=== PATIENT | female | born 1945 | race Caucasian/White ===

== ENCOUNTER → 2018-08-20 12:40 | Outpatient (CLI) | payer MEDICARE, SELFPAY ==
--- NOTE | 2018-08-20 12:48 | RAD_ITS ---
STUDY: X-RAY - CERVICAL SPINE REASON FOR EXAM: Female, 73 years old. Left-sided neck pain and numbness in both hands. TECHNIQUE: History view(s) of the cervical spine were obtained. COMPARISON: None FINDINGS: Normal anterior atlantoaxial articulation. Normal odontoid process. Normal cervical lordosis. Moderate degree of disc space narrowing at the C5-C6 with minimal anterior spondylosis. Normal visualized intervertebral neuroforamina. The soft tissue structures are unremarkable. RAD/Cerv Spine 2 or 3 Views IMPRESSION: Disc space narrowing and spondylosis at the C5-C6 level. Electronically Signed: Doni Aguilar MD at 10:31 EST Tel [phone], Service support ,
== END ==
PROVIDERS: Family Provider Nurse Practitioner; PCP Nurse Practitioner; Referring Provider Internal Medicine; Visit Provider Internal Medicine
DX: M54.12 Radiculopathy, cervical region (principal)
CPT/HCPCS: 72040

== ENCOUNTER → 2018-11-05 10:42 | Outpatient (CLI) | payer MEDICARE, SELFPAY ==
--- NOTE | 2018-11-05 10:53 | BD_ITS ---
STUDY: DUAL ENERGY X-RAY ABSORPTIOMETRY / DXA REASON FOR EXAM: Female, 73 years old. The patient is postmenopausal. Loss of height. History of breast cancer. TECHNIQUE: Bone Mineral Density (BMD) measurements of lumbar spine and bilateral hips were obtained. COMPARISON: Comparison is made with prior study dated August 20, 2012. FINDINGS: Lumbar Spine (L1-L4): g/cm2 (1.086) / T-score (-0.7) / Z-score (1.0) Findings are suggestive of normal bone density with a low fracture risk. Left Femur Total: g/cm2 (0.891) / T-score (-0.9) / Z-score (0.6) Left Femoral Neck: g/cm2 (0.769) / T-score (-1.9) / Z-score (-0.2) Right Femur Total: g/cm2 (0.916) / T-score (-0.7) / Z-score (0.8) Right Femoral Neck: g/cm2 (0.838) / T-score (-1.4) / Z-score (0.3) The T-Scores on the most recent prior examination were: Lumbar Spine (L1-L4): There has been worsening of bone density since the previous examination. Left Femur Total: which represents a worsening of 12.2%. Right Femur Total: which represents a worsening of 6.1%. BD/Dexa Bone Density Study IMPRESSION: The patient is considered osteopenic as outlined below according to World [employer] Organization (WHO) criteria with a moderate fracture risk. There has been worsening of bone density since the previous examination. Reference Information: The T-score is the number of standard deviations above or below the standard which is normal for young adults at their peak bone mineral density. The World Health Organization (WHO) interprets the T-scores as follows: Above -1 Normal bone density Between -1 and -2.5 Osteopenia Equal to / or below -2.5 Osteoporosis As a practical clinical guideline, osteopenia may be graded as follows: Mild -1 through -1.5 Moderate -1.6 through -2.0 Severe -2.1 through -2.4 The Z-score is the number of standard deviations above or below age-matched controls. A Z-score of less than -1.5 would be considered abnormal. References: 1. NIH Osteoporosis and Related Bone Diseases http://www.osteo.org 2. International Society for Clinical Densitometry http://www.iscd.org 3. National Osteoporosis Foundation http://www.nof.org Electronically Signed: Doni Aguilar MD at 14:12 EST , Service support ,
== END ==
PROVIDERS: Family Provider Nurse Practitioner; PCP Nurse Practitioner; Referring Provider Internal Medicine; Visit Provider Internal Medicine
DX: Z78.0 Asymptomatic menopausal state (principal); Z12.31 Encounter for screening mammogram for malignant neoplasm of breast
CPT/HCPCS: 77080

== ENCOUNTER → 2018-12-17 12:37 | Outpatient (CLI) | payer MEDICARE, SELFPAY ==
--- NOTE | 2018-12-17 12:39 | BI_ITS ---
MAMMOGRAPHY - BILATERAL SCREENING REASON FOR EXAM: Female, 73 years old. Routine annual screening examination. PERTINENT HISTORY: Personal history of breast cancer. Prior left lumpectomy and radiation and chemotherapy. Mother with breast cancer. TECHNIQUE: Digital bilateral breast chandu (3D mammographic acquisition) in the CC and MLO projections. 2-D mediolateral oblique (MLO) and craniocaudad (CC) views of both breasts were obtained. CAD: Full Field Digital Mammography with Computer Added Detection was performed. COMPARISON: Comparison is made with prior study dated April 25, 2017 and February 04, 2016. FINDINGS: Breast Composition: There are scattered areas of fibroglandular density. There are no dominant masses or suspicious calcifications. There is evidence of prior left lumpectomy with resultant architectural distortion and dense calcification in the upper outer aspect of the left breast. The left breast is smaller than the right breast. Stable small right axillary lymph nodes. No other significant abnormalities are identified. There has been no significant change since the prior study. BI/SCREENING MAMM (CAD), BILAT IMPRESSION: Stable bilateral screening mammogram. Yearly follow-up mammogram recommended. (A) ASSESSMENT CATEGORY: BIRADS Category 2: Benign. A letter regarding these results will be sent to the patient by the facility within 30 days. Approximately 10% of breast cancers are not detected by mammography. A normal mammogram should not delay biopsy of a clinically suspicious abnormality. [id number] Electronically Signed: Doni Aguilar, at 14:30 EDT , Service support ,
== END ==
PROVIDERS: Family Provider Nurse Practitioner; PCP Nurse Practitioner; Referring Provider Internal Medicine; Visit Provider Internal Medicine
DX: Z12.31 Encounter for screening mammogram for malignant neoplasm of breast (principal)
CPT/HCPCS: 77063; 77067

== ENCOUNTER → 2020-03-29 | Outpatient (CLI) | payer MEDICARE, SELFPAY ==
--- NOTE | 2020-03-29 14:18 | BI_ITS ---
MAMMOGRAPHY - BILATERAL SCREENING REASON FOR EXAM: Female, 75 years old. Routine annual screening examination. PERTINENT HISTORY: Personal history of breast cancer. History of prior left lumpectomy and chemotherapy and radiation therapies. Mother with breast cancer. TECHNIQUE: Digital bilateral breast bassem (3D mammographic acquisition) in the CC and MLO projections. 2-D mediolateral oblique (MLO) and craniocaudad (CC) views of both breasts were obtained. CAD: Full Field Digital Mammography with Computer Added Detection was performed. COMPARISON: Comparison is made with prior examination December 17, 2018 and April 25, 2017. FINDINGS: Breast Composition: There are scattered areas of fibroglandular density. There are no dominant masses or suspicious calcifications. Stable densely calcified nodule at the operative site in the upper lateral portion of the left breast. Stable architectural distortion at the left lumpectomy site. Stable small bilateral axillary lymph nodes. No other significant abnormalities are identified. There has been no significant change since the prior study. BI/SCREEN MAMM (CAD) W/BASSEM BILAT IMPRESSION: Stable bilateral screening mammogram. Yearly follow-up mammogram recommended. (A) ASSESSMENT CATEGORY: BIRADS Category 2: Benign. A letter regarding these results will be sent to the patient by the facility within 30 days. Approximately 10% of breast cancers are not detected by mammography. A normal mammogram should not delay biopsy of a clinically suspicious abnormality. [id number] Electronically Signed: Doni Aguilar, at 15:14 EDT , Service support ,
== END | disposition home or self-care (01) ==
LOC: OPBI 14:16
PROVIDERS: PCP Nurse Practitioner; Referring Provider Internal Medicine; Visit Provider Internal Medicine
DX: Z12.31 Encounter for screening mammogram for malignant neoplasm of breast (principal)
CPT/HCPCS: 77063; 77067

== ENCOUNTER 2021-11-17 13:07 | Outpatient (CLI) | payer MEDICARE, SELFPAY ==
--- NOTE | 2021-11-17 13:12 | BI_ITS ---
MAMMOGRAPHY - BILATERAL SCREENING REASON FOR EXAM: Female, 76 years old. Routine annual screening examination. PERTINENT HISTORY: Personal history of breast cancer. Prior left lumpectomy with chemotherapy and radiation. Mother with breast cancer. TECHNIQUE: Digital bilateral breast bassem (3D mammographic acquisition) in the CC and MLO projections. 2-D mediolateral oblique (MLO) and craniocaudad (CC) views of both breasts were obtained. CAD: Full Field Digital Mammography with Computer Added Detection was performed. COMPARISON: Comparison is made with prior study dated 03/29/2020 and 12/17/2018. FINDINGS: Breast Composition: There are scattered areas of fibroglandular density. There are no dominant masses or suspicious calcifications. Stable densely calcified nodule in the upper lateral aspect of the left breast at the operative site with the resultant scarring. Stable architectural distortion secondary to the lumpectomy. No other significant abnormalities are identified. There has been no significant change since the prior study. BI/SCRN MAMM (CAD)W/BASSEM BILAT IMPRESSION: Stable bilateral screening mammogram. Yearly follow-up mammogram recommended. (A) ASSESSMENT CATEGORY: BIRADS Category 2: Benign. A letter regarding these results will be sent to the patient by the facility within 30 days. Approximately 10% of breast cancers are not detected by mammography. A normal mammogram should not delay biopsy of a clinically suspicious abnormality. [id number] Electronically Signed: Doni Aguilar MD at 14:36 EST ,
--- NOTE | 2021-11-17 13:20 | BD_ITS ---
STUDY: DUAL ENERGY X-RAY ABSORPTIOMETRY / DXA REASON FOR EXAM: Female, 76 years old. Z78.0. The patient''s post menopausal. TECHNIQUE: Bone Mineral Density (BMD) measurements of lumbar spine and bilateral hips were obtained. COMPARISON: Comparison is made with prior study dated 11/05/2018. FINDINGS: Lumbar Spine (L1-L4): g/cm2 (0.935) / T-score (-1.5) / Z-score (1.0) Findings are suggestive of osteopenia with a low fracture risk. Left Femur Total: g/cm2 (0.883) / T-score (-0.5) / Z-score (1.3) Left Femoral Neck: g/cm2 (0.689) / T-score (-1.4) / Z-score (0.6) Right Femur Total: g/cm2 (0.810) / T-score (-1.1) / Z-score (0.7) Right Femoral Neck: g/cm2 (0.612) / T-score (-2.1) / Z-score (-0.1) The T-Scores on the most recent prior examination were: Lumbar Spine (L1-L4): There has been improvement of bone density since the previous examination. Left Femur Total: which represents an improvement of 6.6%. Right Femur Total: which represents a worsening of 5%. BD/Dexa Bone Density Study IMPRESSION: The patient is considered osteopenic as outlined below according to World [employer] Organization (WHO) criteria with a high fracture risk. There has been improvement of bone density since the previous examination. Reference Information: The T-score is the number of standard deviations above or below the standard which is normal for young adults at their peak bone mineral density. The World Health Organization (WHO) interprets the T-scores as follows: Above -1 Normal bone density Between -1 and -2.5 Osteopenia Equal to / or below -2.5 Osteoporosis As a practical clinical guideline, osteopenia may be graded as follows: Mild -1 through -1.5 Moderate -1.6 through -2.0 Severe -2.1 through -2.4 The Z-score is the number of standard deviations above or below age-matched controls. A Z-score of less than -1.5 would be considered abnormal. References: 1. NIH Osteoporosis and Related Bone Diseases www osteo.org 2. International Society for Clinical Densitometry www iscd.org 3. National Osteoporosis Foundation www nof.org Electronically Signed: Doni Aguilar MD at 13:36 EST ,
== END 2021-11-17 23:59 | disposition home or self-care (01) ==
LOC: OPBI 13:09
PROVIDERS: PCP Nurse Practitioner; Visit Provider Internal Medicine
DX: Z12.31 Encounter for screening mammogram for malignant neoplasm of breast (principal); Z85.3 Personal history of malignant neoplasm of breast; Z78.0 Asymptomatic menopausal state
CPT/HCPCS: 77063; 77067; 77080

== ENCOUNTER → 2022-03-31 | Outpatient (CLI) | payer MEDICARE, SELFPAY ==
[2022-03-31 13:54] LABS: ALB/GLOB Ratio 1.2 RATIO (0.9-2.4); AST(SGOT) 21 U/L (15-37); Alanine Aminotransfer ALT/SGPT 30 U/L (13-56); Albumin, Serum 3.7 g/dL (3.2-5.0); Alkaline Phosphatase 97 U/L (45-117); Anion Gap 4 (5-15); BUN 21 mg/dL (7-18); BUN/Creat Ratio 26.9 RATIO (10-20); Calcium,Total 8.8 mg/dL (8.5-10.1); Chloride 108 mmol/L (98-107); Creatinine, Serum 0.78 mg/dL (0.55-1.02); EST Glomerular Filtration Rate 77 mL/min (>60); Est Glom Filt Rate - Afr Amer 93 mL/min (>60); Glucose 99 mg/dL (74-106); LDH 308 U/L (84-246); Potassium 3.8 mmol/L (3.5-5.1); Protein, Total 6.7 g/dL (6.4-8.2); Sodium Level 143 mmol/L (136-145)
[2022-03-31 14:01] LABS: Absolute Lymphocyte Count 0.95 X10^3/uL (0.83-4.51); Absolute Neutrophil Count 2.7 X10^3/uL (2.0-7.7); Basophil# 0.04 X10^3/uL; Eosinophil# 0.04 X10^3/uL; Hemoglobin 15.5 g/dL (12.0-15.0); Lymphocyte # 0.95 X10^3/ul (0.83-4.51); Lymphocyte % 23.2 % (19-41); Mean Corp Hgb Conc 33.7 g/dL (32-36); Mean Corpuscular Hgb 30.7 pg (27.0-32.0); Mean Corpuscular Volume 91.1 fL (81-99); Mean Platelet Vol. 10.6 fl (6.2-12.0); Monocyte# 0.36 X10^3/uL; Monocyte% 8.8 % (0-10); NRBC Flagged by Analyzer 0 % (0-5); Neutrophil # 2.69 X10^3/uL (2.7-7.7); Neutrophil % 65.8 % (47-70); Platelet Count 193 K/mm3 (150-450); RBC Distribution Width CV 12.6 % (11.6-14.6); RBC Distribution Width SD 42.1 fl (35.1-43.9); Red Blood Count 5.05 M/mm3 (4.2-5.4); White Blood Count 4.1 K/mm3 (4.4-11.0)
[2022-04-06 09:08] LABS: Albumin 3.7 g/dL (2.9-4.4); Alpha-1-Globulins 0.2 g/dL (0.0-0.4); Alpha-2-Globulins 0.6 g/dL (0.4-1.0); Gamma Globulin 0.8 g/dL (0.4-1.8); Immunoglobulin A 95 mg/dL (64-422); Immunoglobulin G 836 mg/dL (586-1602); Immunoglobulin M 98 mg/dL (26-217); PROEL- TOTAL PROTEIN 6.1 g/dL (6.0-8.5)
[2022-04-06 10:56] LABS: IMMUNOFIXATION RESULT,S Comment: (.)
== END | disposition home or self-care (01) ==
PROVIDERS: PCP Internal Medicine
DX: D89.1 Cryoglobulinemia (principal)
CPT/HCPCS: 36415; 80053; 82595; 82784; 83615; 84165; 85025; 86334

== ENCOUNTER → 2022-07-12 | Outpatient (CLI) | payer MEDICARE, SELFPAY ==
--- NOTE | 2022-07-12 12:55 | RAD_ITS ---
STUDY: X-RAY - PELVIS REASON FOR EXAM: Female, 77 years old. ARTHRITITS TECHNIQUE: One view of the pelvis was obtained. COMPARISON: None. FINDINGS: There is a non-specific bowel gas pattern. Normal visualized soft tissue structures. Normal bilateral iliac wings, sacroiliac joints and visualized sacrum. Normal visualized bilateral superior and inferior pubic rami. Mild osteitis symphysis. Normal ischial tuberosities. Normal visualized right femoral head. Normal right acetabulum. Mild joint space narrowing. Normal visualized left femoral head. Normal left acetabulum. Mild joint space narrowing. Moderate degenerative disc disease L3-S1. RAD/Pelvis 1 or 2 Views IMPRESSION: Mild bilateral hip osteoarthritis. Moderate degenerative disc disease L3-S1. Mild osteitis symphysis. Electronically Signed: Walter Funez MD, LIVIA at 16:56 EDT ,
--- NOTE | 2022-07-12 12:56 | RAD_ITS ---
STUDY: X-RAY - LEFT KNEE REASON FOR EXAM: Female, 77 years old. ARTHRITITS TECHNIQUE: 4 view(s) of the knee. COMPARISON: None. FINDINGS: Severe joint space narrowing medial compartment. Moderate joint space narrowing lateral patellofemoral compartments. Moderate osteophytic spurring upper pole of patella posteriorly. Mild osteophytic spurring peripherally at medial and lateral compartments. Soft tissues normal. RAD/Knee 4 or More Views IMPRESSION: Osteoarthritis as above. Electronically Signed: Walter Funez MD, LIVIA at 16:57 EDT ,
--- NOTE | 2022-07-12 12:56 | RAD_ITS ---
STUDY: X-RAY - RIGHT KNEE REASON FOR EXAM: Female, 77 years old. ARTHRITITS TECHNIQUE: 4 view(s) of the knee. COMPARISON: 08/14/2016 FINDINGS: Severe tricompartmental joint space narrowing progressive. Moderate osteophytic spurring at the periphery of all 3 compartments. There are 2 loose bodies in the suprapatellar bursa measuring 7 and 4 mm in maximal dimension each. These are new since the prior study.. RAD/Knee 4 or More Views IMPRESSION: Osteoarthritis detailed above. Electronically Signed: Walter Funez MD, LIVIA at 14:19 EDT ,
[2022-07-12 13:31] LABS: Absolute Lymphocyte Count 1.66 X10^3/uL (0.83-4.51); Absolute Neutrophil Count 4.3 X10^3/uL (2.0-7.7); Basophil# 0.06 X10^3/uL; Basophil% 0.9 % (0-1); Eosinophil# 0.21 X10^3/uL; Eosinophils% 3.1 % (0-5); Hematocrit 44.7 % (37-47); Hemoglobin 14.7 g/dL (12.0-15.0); Lymphocyte # 1.66 X10^3/ul (0.83-4.51); Lymphocyte % 24.3 % (19-41); Mean Corp Hgb Conc 32.9 g/dL (32-36); Mean Corpuscular Volume 91.2 fL (81-99); Mean Platelet Vol. 10.7 fl (6.2-12.0); Monocyte# 0.51 X10^3/uL; Monocyte% 7.5 % (0-10); NRBC Flagged by Analyzer 0 % (0-5); Neutrophil # 4.32 X10^3/uL (2.7-7.7); Neutrophil % 63.2 % (47-70); Platelet Count 227 K/mm3 (150-450); RBC Distribution Width CV 12.1 % (11.6-14.6); RBC Distribution Width SD 40.1 fl (35.1-43.9); White Blood Count 6.8 K/mm3 (4.4-11.0)
[2022-07-12 13:58] LABS: ALB/GLOB Ratio 1.1 RATIO (0.9-2.4); AST(SGOT) 20 U/L (15-37); Alanine Aminotransfer ALT/SGPT 27 U/L (13-56); Albumin, Serum 3.6 g/dL (3.2-5.0); Alkaline Phosphatase 81 U/L (45-117); Anion Gap 4 (5-15); BUN 27 mg/dL (7-18); BUN/Creat Ratio 27.1 RATIO (10-20); Chloride 107 mmol/L (98-107); EST Glomerular Filtration Rate 58 mL/min (>60); Est Glom Filt Rate - Afr Amer 70 mL/min (>60); Globulin 3.3 g/dL (2.2-4.2); Glucose 93 mg/dL (74-106); Protein, Total 6.9 g/dL (6.4-8.2); Sodium Level 141 mmol/L (136-145)
[2022-07-12 14:13] LABS: Erythrocyte Sedimentation Rate 10 mm/hr (0-30)
[2022-07-12 14:34] LABS: Hepatitis B Surface Antigen Non-Reactive (Nonreactive); Hepatitis C Antibody Non-Reactive (Nonreactive)
[2022-07-15 09:43] LABS: CCP IgG Antibodies 9 units (0-19)
[2022-07-15 09:48] LABS: ANTINUCLEAR ANTIBODIES DIRECT Positive (Negative)
== END | disposition home or self-care (01) ==
LOC: LAB 12:43
PROVIDERS: PCP Internal Medicine; Referring Provider Internal Medicine Rheumatology; Visit Provider Internal Medicine Rheumatology
DX: M06.4 Inflammatory polyarthropathy (principal); D89.1 Cryoglobulinemia; M17.0 Bilateral primary osteoarthritis of knee; M16.0 Bilateral primary osteoarthritis of hip; Z85.3 Personal history of malignant neoplasm of breast; Z79.899 Other long term (current) drug therapy
CPT/HCPCS: 36415; 72170; 73564; 80053; 85025; 85652; 86038; 86140; 86200; 86431; 86803; 87340

== ENCOUNTER → 2022-10-25 | Outpatient (CLI) | payer MEDICARE, SELFPAY ==
[2022-10-25 12:17] LABS: Absolute Lymphocyte Count 1.65 X10^3/uL (0.83-4.51); Absolute Neutrophil Count 2.6 X10^3/uL (2.0-7.7); Basophil# 0.07 X10^3/uL; Basophil% 1.4 % (0-1); Eosinophil# 0.15 X10^3/uL; Eosinophils% 2.9 % (0-5); Hematocrit 43.3 % (37-47); Hemoglobin 13.9 g/dL (12.0-15.0); Lymphocyte # 1.65 X10^3/ul (0.83-4.51); Mean Corp Hgb Conc 32.1 g/dL (32-36); Mean Corpuscular Hgb 30.4 pg (27.0-32.0); Mean Corpuscular Volume 94.7 fL (81-99); Mean Platelet Vol. 10.2 fl (6.2-12.0); Monocyte# 0.68 X10^3/uL; Monocyte% 13.2 % (0-10); NRBC Flagged by Analyzer 0 % (0-5); Neutrophil # 2.59 X10^3/uL (2.7-7.7); Neutrophil % 50.3 % (47-70); Platelet Count 221 K/mm3 (150-450); RBC Distribution Width CV 12.9 % (11.6-14.6); RBC Distribution Width SD 44.6 fl (35.1-43.9); Red Blood Count 4.57 M/mm3 (4.2-5.4); White Blood Count 5.2 K/mm3 (4.4-11.0)
[2022-10-25 12:53] LABS: ALB/GLOB Ratio 1.1 RATIO (0.9-2.4); AST(SGOT) 23 U/L (15-37); Alanine Aminotransfer ALT/SGPT 39 U/L (13-56); Albumin, Serum 3.3 g/dL (3.2-5.0); Alkaline Phosphatase 75 U/L (45-117); Anion Gap 3 (5-15); BUN 35 mg/dL (7-18); BUN/Creat Ratio 35.7 RATIO (10-20); Calcium,Total 9.1 mg/dL (8.5-10.1); Chloride 108 mmol/L (98-107); Creatinine, Serum 0.98 mg/dL (0.55-1.02); EST Glomerular Filtration Rate 59 mL/min (>60); Est Glom Filt Rate - Afr Amer 71 mL/min (>60); Globulin 2.9 g/dL (2.2-4.2); Glucose 78 mg/dL (74-106); Potassium 4.5 mmol/L (3.5-5.1); Protein, Total 6.2 g/dL (6.4-8.2); Sodium Level 143 mmol/L (136-145)
== END | disposition home or self-care (01) ==
LOC: MTLAB 11:03
PROVIDERS: PCP Internal Medicine; Referring Provider Internal Medicine Rheumatology; Visit Provider Internal Medicine Rheumatology
DX: M06.4 Inflammatory polyarthropathy (principal); G62.0 Drug-induced polyneuropathy; I73.9 Peripheral vascular disease, unspecified; D89.1 Cryoglobulinemia; M19.041 Primary osteoarthritis, right hand; M17.0 Bilateral primary osteoarthritis of knee; M16.0 Bilateral primary osteoarthritis of hip; I10 Essential (primary) hypertension; I89.0 Lymphedema, not elsewhere classified; I87.2 Venous insufficiency (chronic) (peripheral); M85.80 Other specified disorders of bone density and structure, unspecified site; Z85.3 Personal history of malignant neoplasm of breast; Z79.899 Other long term (current) drug therapy
CPT/HCPCS: 36415; 80053; 85025

== ENCOUNTER → 2023-03-06 | Outpatient (CLI) | payer MEDICARE, SELFPAY ==
--- NOTE | 2023-03-06 07:37 | BI_ITS ---
MAMMOGRAPHY - BILATERAL SCREENING REASON FOR EXAM: Female, 78 years old. Routine annual screening examination. PERTINENT HISTORY: Mother with breast cancer. Personal history of breast cancer status post lumpectomy and chemoradiation in 1994. TECHNIQUE: Digital bilateral breast bassem (3D mammographic acquisition) in the CC and MLO projections. 2-D mediolateral oblique (MLO) and craniocaudad (CC) views of both breasts were obtained. CAD: Full Field Digital Mammography with Computer Added Detection was performed. COMPARISON: Mammogram from 11/17/2021, 03/29/2020. FINDINGS: Breast Composition: There are scattered areas of fibroglandular density. Stable dystrophic benign macrocalcifications and architectural distortion associated with prior lumpectomy in the left breast. No suspicious masses or suspicious calcifications. No other significant abnormalities are identified. There has been no significant change since the prior study. BI/SCRN MAMM (CAD)W/BASSEM BILAT IMPRESSION: Stable bilateral screening mammogram. Yearly follow-up mammogram recommended. (A) ASSESSMENT CATEGORY: BIRADS Category 2: Benign. A letter regarding these results will be sent to the patient by the facility within 30 days. Approximately 10% of breast cancers are not detected by mammography. A normal mammogram should not delay biopsy of a clinically suspicious abnormality. Electronically Signed: Raghu Smith DO at 14:50 EDT ,
== END | disposition home or self-care (01) ==
LOC: OPBI 07:36
PROVIDERS: PCP Internal Medicine; Referring Provider Internal Medicine; Visit Provider Internal Medicine
DX: Z12.31 Encounter for screening mammogram for malignant neoplasm of breast (principal); Z85.3 Personal history of malignant neoplasm of breast; Z80.3 Family history of malignant neoplasm of breast
CPT/HCPCS: 77063; 77067

== ENCOUNTER → 2023-03-15 | Outpatient (CLI) | payer MEDICARE, SELFPAY ==
[2023-03-15 10:24] LABS: Absolute Lymphocyte Count 0.94 X10^3/uL (0.83-4.51); Basophil# 0.03 X10^3/uL; Basophil% 0.9 % (0-1); Eosinophil# 0.09 X10^3/uL; Eosinophils% 2.6 % (0-5); Hematocrit 41.4 % (37-47); Hemoglobin 13.7 g/dL (12.0-15.0); Lymphocyte # 0.94 X10^3/ul (0.83-4.51); Lymphocyte % 26.9 % (19-41); Mean Corp Hgb Conc 33.1 g/dL (32-36); Mean Corpuscular Hgb 31.2 pg (27.0-32.0); Mean Corpuscular Volume 94.3 fL (81-99); Mean Platelet Vol. 10.7 fl (6.2-12.0); Monocyte# 0.42 X10^3/uL; NRBC Flagged by Analyzer 0 % (0-5); Neutrophil # 2.01 X10^3/uL (2.7-7.7); Neutrophil % 57.3 % (47-70); Platelet Count 166 K/mm3 (150-450); RBC Distribution Width CV 12.7 % (11.6-14.6); RBC Distribution Width SD 43.2 fl (35.1-43.9); Red Blood Count 4.39 M/mm3 (4.2-5.4); White Blood Count 3.5 K/mm3 (4.4-11.0)
[2023-03-15 10:56] LABS: ALB/GLOB Ratio 1.1 RATIO (0.9-2.4); AST(SGOT) 27 U/L (15-37); Alanine Aminotransfer ALT/SGPT 29 U/L (13-56); Albumin, Serum 3.5 g/dL (3.2-5.0); Alkaline Phosphatase 82 U/L (45-117); Anion Gap 5 (5-15); BUN 24 mg/dL (7-18); BUN/Creat Ratio 27.8 RATIO (10-20); Calcium,Total 8.9 mg/dL (8.5-10.1); Chloride 110 mmol/L (98-107); Creatinine, Serum 0.86 mg/dL (0.55-1.02); EST Glomerular Filtration Rate 68 mL/min (>60); Est Glom Filt Rate - Afr Amer 82 mL/min (>60); Globulin 3.1 g/dL (2.2-4.2); Glucose 80 mg/dL (74-106); Protein, Total 6.6 g/dL (6.4-8.2); Sodium Level 142 mmol/L (136-145)
== END | disposition home or self-care (01) ==
LOC: MTLAB 09:10
PROVIDERS: PCP Internal Medicine; Referring Provider Internal Medicine Rheumatology; Visit Provider Internal Medicine Rheumatology
DX: M06.4 Inflammatory polyarthropathy (principal); Z79.899 Other long term (current) drug therapy
CPT/HCPCS: 36415; 80053; 85025

== ENCOUNTER → 2023-08-16 | Outpatient (CLI) | payer MEDICARE, SELFPAY ==
--- NOTE | 2023-08-16 12:38 | CDU_ITS ---
Reason For Study: PVD Rt. Velocities/BP Lt. Velocities/BP Prox CCA 63.6/9.7 cm/sec. Prox CCA 68.3/16.7 cm/sec. Mid CCA 102.8/20.6 cm/sec. Mid CCA 79.3/19.2 cm/sec. Dist CCA 99.2/9.7 cm/sec. Dist CCA 75.6/17.9 cm/sec. Prox ICA 74.4/18.6 cm/sec. Prox ICA 74.4/20.4 cm/sec. Mid ICA 48.9/18.7 cm/sec. Mid ICA 89.1/24.1 cm/sec. Dist ICA 65.7/26.1 cm/sec. Dist ICA 80.6/17.9 cm/sec. Rt. ICA/CCA = 0.7. Lt. ICA/CCA = 1.1. Prox ECA 78.7/8.8 cm/sec. Prox ECA 67.6/6.2 cm/sec. Rt. Vert. 42.8/12.6 cm/sec. Lt. Vert. 54.8/16.7 cm/sec. Right Extracranial There is homogeneous, smooth atherosclerotic plaque noted in the right common carotid artery. The right common carotid artery is tortuous. There is heterogeneous, irregular atherosclerotic plaque noted in the right internal carotid artery. The right internal carotid artery is very tortuous. There is homogeneous, smooth atherosclerotic plaque noted in the right external carotid artery. Antegrade flow is noted in the right vertebral artery. Left Extracranial There is homogeneous, smooth atherosclerotic plaque noted in the left common carotid artery. There is homogeneous, smooth atherosclerotic plaque noted in the left internal carotid artery. The left internal carotid artery is very tortuous. There is intimal thickening but no significant atherosclerotic plaque noted in the left external carotid artery. Antegrade flow is noted in the left vertebral artery. Procedure Carotid Duplex [id number]. This is a Carotid Duplex examination using B-mode, color flow and specral Doppler. The exam was diagnostic. Exam performed in department. VL/Carotid Duplex Ultrasound Interpretation Summary Minimal plaque within the right internal carotid artery with tortuosity noted. Less than 50% stenosis of the right internal carotid artery Less than 50% stenosis right external carotid artery Minimal smooth plaque within a tortuous left internal carotid artery with less than 50% stenosis Less than 50% stenosis left external carotid artery Patent antegrade vertebral arteries bilaterally Ordering Physician: Margoth De Anda Referring Physician: Margoth De Anda Performed By: Suhail Angeles RVT
--- NOTE | 2023-08-16 12:38 | ART_ITS ---
Reason For Study: PVD Procedure A bilateral lower extremity continuous wave Doppler with analog waveform analysis and ankle brachial indexes. Left Segmental Pressures Left posterior tibial artery = 199mmHg. Left dorsalis pedis artery = 174mmHg. Left digit = 121 mmHg. The left posterior tibial artery waveforms are triphasic. The left dorsalis pedis waveforms are triphasic. Right Segmental Pressures Right brachial= 152mmHg. Right posterior tibial artery = 190mmHg. Right dorsalis pedis artery = 169mmHg. Right digit = 122 mmHg. The right posterior tibial artery waveforms are triphasic. The right dorsalis pedis waveforms are triphasic. Indices The right ankle brachial index by the posterior tibial artery is 1.25. The right ankle brachial index by the dorsalis pedis is 1.11. The right digital-brachial index is 0.80. The left ankle brachial index by the posterior tibial artery is 1.31. The left ankle brachial index by the dorsalis pedis is 1.14. The left digital-brachial index is 0.80. VL/Ankle Brachial Index Interpretation Summary Normal right lower extremity posterior tibialis and dorsalis pedis ankle-brachi al indices of 1.25 and 1.11 respectively with normal digital brachial index of 0.8. Normal triphas ic Doppler waveforms Normal left lower extremity posterior tibialis and dorsalis pedis ankle-brachia l indices of 1.31 and 1.14 respectively with normal left digital brachial index of 0.8. Normal tripha sic Doppler waveforms Ordering Physician: Margoth Pace Referring Physician: MARGOTH PACE MD Performed By: Suhail Angeles RVT
== END | disposition home or self-care (01) ==
LOC: CVS 12:36
PROVIDERS: PCP Internal Medicine; Referring Provider Internal Medicine; Visit Provider Internal Medicine
DX: I65.23 Occlusion and stenosis of bilateral carotid arteries (principal); I73.9 Peripheral vascular disease, unspecified
CPT/HCPCS: 93880; 93922

== ENCOUNTER → 2023-08-31 | Outpatient (CLI) | payer MEDICARE, SELFPAY ==
--- NOTE | 2023-08-31 06:38 | ECHOD_ITS ---
Reason For Study: SOB Procedure This was a 2D Doppler, Color Flow transthoracic echocardiogram. Myocardial strain analysis was performed in this exam to aid in the assessment of cardiac function. Exam performed in department. Left Ventricle Normal LV size. The estimated ejection fraction is 65 %. No evidence for diastolic dysfunction. No regional wall motion abnormalities noted. Right Ventricle Normal RV size. Normal systolic function. Atria Normal left atrium. Normal right atrium. No doppler evidence for ASD. Mitral Valve There is no mitral valve stenosis. Trivial mitral valve insufficiency. Tricuspid Valve There is no tricuspid stenosis. Trivial tricuspid valve insufficiency. Pulmonary artery systolic pressure is 30 mmHg. Aortic Valve Trisinus/trileaflet aortic valve. Aortic sclerosis, no stenosis. There is no aortic stenosis. No aortic valve insufficiency. Pulmonic Valve There is no pulmonic valvular stenosis. No pulmonic valve insufficiency. Great Vessels Normal aortic root. Pericardium/Pleural No pericardial effusion. MMode/2D Measurements & Calculations LVIDd: 4.5 cm IVSd: 1.2 cm Ao root diam: 3.3 cm LVIDs: 2.6 cm LVPWd: 1.1 cm RVDd: 3.6 cm FS: 41.6 % LAV(MOD-bp): 52.7 ml LVAd ap4: 25.1 cm2 SV(MOD-sp4): 51.3 ml LAV(MOD-bp) Indexed: 27.0 ml/m2 LVLd ap4: 6.8 cm LAV(MOD-sp2): 41.9 ml EDV(MOD-sp4): 76.0 ml LAV(MOD-sp4): 56.5 ml EDV(sp4-el): 78.5 ml LVAs ap4: 12.4 cm2 LVLs ap4: 5.4 cm ESV(MOD-sp4): 24.7 ml ESV(sp4-el): 24.2 ml EF(MOD-sp4): 67.5 % EF(sp4-el): 69.1 % SV(sp4-el): 54.3 ml LA A4 area: 19.6 cm2 LA dimension(2D): 3.4 cm RA A4 area: 11.9 cm2 TAPSE: 2.5 cm Time Measurements MV dec time: 0.24 sec Doppler Measurements & Calculations MV E max salas: 85.6 cm/sec Lat Peak E' Salas: 6.9 cm/sec Med Peak E' Salas: 5.5 cm/sec MV A max salas: 91.9 cm/sec E/E' lat: 12.5 E/E' med: 15.7 MV E/A: 0.93 Ao V2 max: 191.9 cm/sec LV V1 max: 106.3 cm/sec MV dec slope: 363.1 cm/sec2 Ao max P.7 mmHg LV V1 max P.5 mmHg Ao V2 mean: 122.3 cm/sec Ao mean P.1 mmHg Ao V2 VTI: 51.4 cm PA V2 max: 73.8 cm/sec TR max salas: 245.4 cm/sec TR max P.1 mmHg ECHO/Echo Complete Interpretation Summary The estimated ejection fraction is 65 %. No evidence for diastolic dysfunction. Trivial mitral valve insufficiency. Ordering Physician: Margoth De Anda Referring Physician: Margoth De Anda Performed By: Bianca Stewart, RDCS, RVT
--- NOTE | 2023-09-02 16:07 | STRESSREP ---
Stress Test Report Date: 08/31/2023 Procedure: Pharmacologic stress nuclear imaging study Indications: Dyspnea Consent: Per the patient Procedure: The patient underwent pharmacologic (Regadenoson) evaluation with a peak heart rate of 64 beats per minute (44%predicted maximal heart rate) and a peak blood pressure of 132/70 mmHg. The baseline ECG demonstrated normal sinus rhythm. EKG during lexiscan infusion revealed no significant ischemic changes. EKG post infusion revealed no significant ischemic changes [There were no cardiac dysrhythmias pretest, during pharmacologic infusion, or recovery]. [There was no complaint of chest discomfort during pharmacologic infusion or recovery]. The examination was discontinued secondary to completion of protocol. Impression: 1. Lexiscan stress test test is negative for Lexiscan infusion induced EKG changes of ischemia. 2. Lexiscan stress test test is negative for Lexiscan infusion induced chest pain. 3. Results of the nuclear portion of the test is as below Myocardial perfusion imaging study: Technique: The patient was injected with [] millicuries of technetium 99m Cardiolite and subsequently rest SPECT Cardiolite nuclear imaging was obtained in the horizontal long, vertical long, and short axis views. The patient underwent pharmacologic [Regadenoson 0.4mg] evaluation. Please see above for details. The patient was injected with [] millicuries of technetium 99m Cardiolite and subsequently stress SPECT Cardiolite nuclear imaging was obtained in the horizontal long, vertical long, and short axis views. A gated Cardiolite study at peak stress was obtained. Interpretation: Rest and stress SPECT Cardiolite nuclear imaging status post realignment, normalization, and attenuation correction demonstrate uniform myocardial radioisotope uptake between the rest and stress images. There is no definite evidence of significant ischemia or infarction. Gated images reveal no significant regional wall motion abnormalities. The reported LVEF is 69%. Impression: 1. No evidence of significant ischemia or infarction 2. Estimated ejection fraction is 69%. This note was generated with [employer] software. It may contain incorrect words, spelling, and punctuation that were not noted in checking the note before signing.
== END | disposition home or self-care (01) ==
LOC: CVS 06:32
PROVIDERS: PCP Internal Medicine; Referring Provider Internal Medicine; Visit Provider Internal Medicine
DX: R06.02 Shortness of breath (principal); R68.89 Other general symptoms and signs
CPT/HCPCS: 78452; 93017; 93306; A9500; A4216; J2785

== ENCOUNTER → 2023-09-13 | Outpatient (CLI) | payer MEDICARE, SELFPAY ==
--- OUTSIDE RECORDS SUMMARY | 2023-09-13 13:44 | XMS RPT_ITS | CCD ---
Author Name Unknown Address [address] [place] [address] Organization [facility] Care Team Providers Care Bus Attendant Name Role Phone Margoth Pace Unavailable [facility], [facility] Unavailable Jameel Araya Unavailable Domo Vazquez Unavailable [phone] Marie Mercado Unavailable Unavailable Olivia Holloway Unavailable Unavailable Manchahenrietta, Dione Unavailable Unavailable Unavailable Unavailable Margoth Pace Unavailable [facility], [facility] Unavailable Jameel Araya Unavailable Domo Vazquez Unavailable Gravius, Deysi Unavailable Unavailable Olivia Holloway Unavailable Unavailable Manchak, Dione Unavailable Unavailable Unavailable Unavailable Jero Guzman Unavailable Unavailable Gravius, Deysi Unavailable Unavailable Olivia Saul Unavailable Unavailable Manchak, Dione Unavailable Unavailable Messenger Olivia Unavailable Unavailable Roxanne, Lisa Unavailable Unavailable Jero Guzman Unavailable Unavailable Margoth Pace DO Unavailable [facility], [facility] Unavailable Dr. Jameel Araya Unavailable [phone] Domo Vazquez Unavailable Manlaura DOBBS, Dione Unavailable Unavailable Ro Nielsen MD Unavailable Olivia Holloway RN Unavailable Unavailable RAQUEL Prince LPN Unavailable Unavailable Jeor Mercado LPN Unavailable Unavailable Unavailable Unavailable Kalin RN, Brice (Rn) Unavailable Unavailab Margoth Whitmore DO Primary Care Provider Margoth Pace DO Unavailable Fast DO, Onelia A Unavailable Gravius BUS ATTENDANT, Deysi Unavailable Unavailable Slarb BURRER OPERATOR, Kaur Unavailable Unavailable Gia LOW, Ro Crane Unavailable Liyah , Burt Unavailable Brown BUS ATTENDANT, Kayela Unavailable Unavailable Unavailable Unavailable Roxanne BURRER OPERATOR, Lisa Unavailable Unavailable Mary COREY, Karolina Unavailable Unavailable Babatunde FRANCO, Hope Unavailable Margoth Pace DO Attending Unavailable Connie Kwok Referring Unavailable Margoth Pace DO Consulting Unavailable Kalin MOY, Brice (Rn) Unavailable Unavailab Margoth Whitmore DO Primary Care Provider Margoth Pace DO Primary Care Provider MISBAH PATTERSON Referring Unavailable MARGOTH PACE Primary Care Unavailab inocente Gagnon RN, Brice (Rn) Unavailable Unavailab Shauna Franz Unavailable MISBAH PATTERSON Attending Unavailable ROSI MATOS Referring Unavailable MARGOTH PACE Primary Care Unavailab ROSI Slade Referring Unavailable MARGOTH PACE Primary Care Unavailab le Allergies Allergy Classification Reported Allergen(s) Allergy Type Date of Onset Reaction(s) Facility (20 sources) Penicillins; Translations: [Penicillins] allergy to substance [facility] Work Phone: Medications Completed/Discontinued Medications Medication Drug Class(es) Dates Sig (Normalized) Sig (Original) 0.9% NaCl (13 sources) Start: 03-15-2012 0.9% NaCl Inject 10-20 mL intravenously as needed. 1 Syringe 0 03/15/2012 Active Problems Active Problems Problem Classification Problem Date Documented Da te Episodic/Chronic Administrative/social admission (20 sources) Medical examinations/repo rts status; Translations: [Counseling procedure with explicit context] Resolved: 10-09-2013 07-30-2015 Episodic Past or Other Problems Problem Classification Problem Date Documented Date Episodic/Chronic Bacterial infection; unspecified site (1 source) Bacterial upper respiratory infection; Translations: [Bacterial sinusitis] Resolved: 07-23-2017 07-23-2017 Episodic Headache; including migraine (20 sources) Headache; including migraine Other aftercare (13 sources) Drug therapy finding; Translations: [Other alf (current) drug therapy] Onset: 04-19-2017 04-19-2017 Episodic Other aftercare (13 sources) Long-term current use of immunosuppressive drug; Translations: [Other marine oil terminal superintendent (current) drug therapy] Onset: 03-06-2019 03-06-2019 Episodic Other connective tissue disease (13 sources) H/O: arthritis; Translations: [Personal history of other diseases of the musculoskeletal system and connective tissue] Onset: 03-06-2019 03-06-2019 Episodic Other non-traumatic joint disorders (4 sources) Pain in right knee; Translations: [Right knee pain] Resolved: 04-25-2017 07-23-2017 Results Test Name Value Interpretation Reference Range Facil ity Vital Signs Date Time Vital Sign Value Performing Clinician Facility 04-03-2023 10:23-0400 Body temperature 97.9 [degF] Misbah Patterson APRN.ROCKET MOTOR MECHANIC Work Phone: [facility] 04-03-2023 10:23-0400 Body weight 93.53 kg Misbah Patterson APRN.ROCKET MOTOR MECHANIC Work Phone: [facility] 04-03-2023 10:23-0400 Diastolic blood pressure 73 mm[Hg] Misbah Patterson CHAIR CAR ATTENDANT.ROCKET MOTOR MECHANIC Work Phone: [facility] 04-03-2023 10:23-0400 Heart rate 64 /min Misbah Patterson CHAIR CAR ATTENDANT.ROCKET MOTOR MECHANIC Work Phone: [facility] 04-03-2023 10:23-0400 Respiratory rate 18 /min Misbah Patterson APRN.ROCKET MOTOR MECHANIC Work Phone: [facility] 04-03-2023 10:23-0400 Systolic blood pressure 168 mm[Hg] Misbah Patterson CHAIR CAR ATTENDANT.ROCKET MOTOR MECHANIC Work Phone: [facility] 02-28-2023 08:59-0400 Body height 165.1 cm Kaur Malagon BURRER OPERATOR [facility]; [facility] Work Phone: 02-28-2023 08:59-0400 Body mass index (BMI) [Ratio] 34.51 kg/m2 Kaur Malagon BURRER OPERATOR [facility]; [facility] Work Phone: 02-28-2023 08:59-0400 Body surface area Derived from formula 2.01 m2 Kaur Malagon BURRER OPERATOR [facility]; [facility] Work Phone: 02-28-2023 08:59-0400 Body temperature 96.1 [degF] Kaur Malagon BURRER OPERATOR [facility]; [facility] Work Phone: Encounters Encounter Date Encounter Type Care Provider Facility Start: 05-15-2023 Telephone encounter Rosi Mtaos DO Work Phone: Hematology/Oncology Procedures Date Procedure Procedure Detail Performing Clinician Start: 03-06-2023 End: 03-07-2023 SCRN MAMM (CAD)W/BASSEM BILAT Procedure Note: See Note; NOTES: [facility] Imaging Services [address] [place] [address] SCRN MAMM (CAD)W/BASSEM BILAT MR#: [id number] Acct: [id number] Name: SENTHIL CAPONE Rep #: [id number] : 1945 F 78 From: Raghu Smith DO PCP: Dr. Margoth Pace, Status: REG CLI Study: SCRN MAMM (CAD)W/BASSEM BILAT Date of Exam: 02/16 Exam# [id number] Ordering Dr: Margoth Pace DO MAMMOGRAPHY - BILATERAL SCREENING REASON FOR EXAM: Female, 78 years old. Routine annual screening examination. PERTINENT HISTORY: Mother with breast cancer. Personal history of breast cancer status post lumpectomy and chemoradiation in 1994. TECHNIQUE: Digital bilateral breast bassem (3D mammographic acquisition) in the CC and MLO projections. 2-D mediolateral oblique (MLO) and craniocaudad (CC) views of both breasts were obtained. CAD: Full Field Digital Mammography with Computer Added Detection was performed. COMPARISON: Mammogram from 11/17/2021, 03/29/2020. FINDINGS: Breast Composition: There are scattered areas of fibroglandular density. Stable dystrophic benign macrocalcifications and architectural distortion associated with prior lumpectomy in the left breast. No suspicious masses or suspicious calcifications. No other significant abnormalities are identified. There has been no significant change since the prior study. BI/SCRN MAMM (CAD)W/BASSEM BILAT IMPRESSION: Stable bilateral screening mammogram. Yearly follow-up mammogram recommended. (A) ASSESSMENT CATEGORY: BIRADS Category 2: Benign. A letter regarding these results will be sent to the patient by the facility within 30 days. Approximately 10% of breast cancers are not detected by mammography. A normal mammogram should not delay biopsy of a clinically suspicious abnormality. Electronically Signed: Raghu Smith DO at 14:50 EDT Reading Location ID and State: [address] [place] [address] Tel , Service support , CC: Dr. Margoth Pace DO Bellman Captain: Signed Margoth Pace DO Work Phone: Start: 07-12-2022 End: 07-12-2022 Knee 4 or More Views Procedure Note: See Note; NOTES: [facility] Imaging Services [address] [place] [address] Knee 4 or More Views MR#: [id number] Acct: [id number] Name: SENTHIL CAPONE Rep #: [id number] : 1945 F 77 From: Walter Funez MD PCP: Dr. Margoth Pace DO Status: REG CLI Study: Knee 4 or More Views Date of Exam: 07/12/22 Exam# [id number] Ordering Dr: Shauna Guallpa MD STUDY: X-RAY - RIGHT KNEE REASON FOR EXAM: Female, 77 years old. ARTHRITITS TECHNIQUE: 4 view(s) of the knee. COMPARISON: 08/14/2016 FINDINGS: Severe tricompartmental joint space narrowing progressive. Moderate osteophytic spurring at the periphery of all 3 compartments. There are 2 loose bodies in the suprapatellar bursa measuring 7 and 4 mm in maximal dimension each. These are new since the prior study.. RAD/Knee 4 or More Views IMPRESSION: Osteoarthritis detailed above. Electronically Signed: Walter Funez MD, LIVIA at 14:19 EDT Reading Location ID and State: [facility] / [place] Tel , Service support , CC: Dr. Margoth Pace DO; Dr. Shauna Guallpa MD Bellman Captain: Signed aMrgoth Pace DO Work Phone: Start: 07-12-2022 End: 07-12-2022 Pelvis 1 or 2 Views Procedure Note: See Note; NOTES: [facility] Imaging Services [address] [place] [address] Pelvis 1 or 2 Views MR#: [id number] Acct: [id number] Name: SENTHIL CAPONE Rep #: [id number] : 1945 F 77 From: Walter Funez MD PCP: Dr. Margoth Pace DO Status: REG CLI Study: Pelvis 1 or 2 Views Date of Exam: 07/12/22 Exam# [id number] Ordering Dr: Shauna Guallpa MD STUDY: X-RAY - PELVIS REASON FOR EXAM: Female, 77 years old. ARTHRITITS TECHNIQUE: One view of the pelvis was obtained. COMPARISON: None. FINDINGS: There is a non-specific bowel gas pattern. Normal visualized soft tissue structures. Normal bilateral iliac wings, sacroiliac joints and visualized sacrum. Normal visualized bilateral superior and inferior pubic rami. Mild osteitis symphysis. Normal ischial tuberosities. Normal visualized right femoral head. Normal right acetabulum. Mild joint space narrowing. Normal visualized left femoral head. Normal left acetabulum. Mild joint space narrowing. Moderate degenerative disc disease L3-S1. RAD/Pelvis 1 or 2 Views IMPRESSION: Mild bilateral hip osteoarthritis. Moderate degenerative disc disease L3-S1. Mild osteitis symphysis. Electronically Signed: Walter Funez MD, LIVIA at 16:56 EDT Reading Location ID and State: [facility] / [place] Tel , Service support , CC: Dr. Margoth Pace DO; Dr. Shauna Guallpa MD Bellman Captain: Signed Margoth Pace DO Work Phone: Start: 04-17-2022 Hepatitis b core antibody hbcab total Rosiaurelio Matos DO Work Phone: Start: 04-17-2022 Iaad ia hepatitis b surface antigen Rosi Matos DO Work Phone: Start: 04-17-2022 Blood count complete auto&auto difrntl wbc Rosiaurelio Matos DO Work Phone: Start: 04-04-2022 Adult depression screening assessment Rosi Matos DO Work Phone: Start: 11-17-2021 End: 11-21-2021 Dexa Bone Density Study Comments: See Note; NOTES: [facility] Imaging Services [address] [place] [address] Dexa Bone Density Study MR#: [id number] Acct: [id number] Name: LIBORIOSENTHIL J Rep #: [id number] : 1945 F 76 From: Doni potts MD PCP: Connie Kwok DEAF AND HARD OF HEARING TEACHER-C Status: REG CLI Study: Dexa Bone Density Study Date of Exam: 11/17/21 Exam# [id number] Ordering Dr: Margoth Pace DO STUDY: DUAL ENERGY X-RAY ABSORPTIOMETRY / DXA REASON FOR EXAM: Female, 76 years old. Z78.0. The patient''s post menopausal. TECHNIQUE: Bone Mineral Density (BMD) measurements of lumbar spine and bilateral hips were obtained. COMPARISON: Comparison is made with prior study dated 11/05/2018. FINDINGS: Lumbar Spine (L1-L4): g/cm2 (0.935) / T-score (-1.5) / Z-score (1.0) Findings are suggestive of osteopenia with a low fracture risk. Left Femur Total: g/cm2 (0.883) / T-score (-0.5) / Z-score (1.3) Left Femoral Neck: g/cm2 (0.689) / T-score (-1.4) / Z-score (0.6) Right Femur Total: g/cm2 (0.810) / T-score (-1.1) / Z-score (0.7) Right Femoral Neck: g/cm2 (0.612) / T-score (-2.1) / Z-score (-0.1) The T-Scores on the most recent prior examination were: Lumbar Spine (L1-L4): There has been improvement of bone density since the previous examination. Left Femur Total: which represents an improvement of 6.6%. Right Femur Total: which represents a worsening of 5%. BD/Dexa Bone Density Study IMPRESSION: The patient is considered osteopenic as outlined below according to World Jonnathan Organization (WHO) criteria with a high fracture risk. There has been improvement of bone density since the previous examination. Reference Information: The T-score is the number of standard deviations above or below the standard which is normal for young adults at their peak bone mineral density. The World Health Organization (WHO) interprets the T-scores as follows: Above -1 Normal bone density Between -1 and -2.5 Osteopenia Equal to / or below -2.5 Osteoporosis As a practical clinical guideline, osteopenia may be graded as follows: Mild -1 through -1.5 Moderate -1.6 through -2.0 Severe -2.1 through -2.4 The Z-score is the number of standard deviations above or below age-matched controls. A Z-score of less than -1.5 would be considered abnormal. References: 1. NIH Osteoporosis and Related Bone Diseases www osteo.org 2. International Society for Clinical Densitometry www iscd.org 3. National Osteoporosis Foundation www nof.org Electronically Signed: Doni Aguilar MD at 13:36 EST Reading Location ID and State: [facility] / [place] , Service support , CC: REX Kwok; Dr. Margoth Pace DO Bellman Captain: Signed Margoth Pace DO Work Phone: Start: 11-17-2021 End: 11-17-2021 SCRN MAMM (CAD)W/BASSEM BILAT Comments: See Note; NOTES: [facility] Imaging Services [address] [place] [address] SCRN MAMM (CAD)W/BASSEM BILAT MR#: [id number] Acct: [id number] Name: SENTHIL CAPONE Rep #: [id number] : 1945 F 76 From: Doni potts MD PCP: REX Wolff Status: [facility] Study: SCRN MAMM (CAD)W/BASSEM BILAT Date of Exam: 12/06 Exam# [id number] Ordering Dr: Margoth Pace DO MAMMOGRAPHY - BILATERAL SCREENING REASON FOR EXAM: Female, 76 years old. Routine annual screening examination. PERTINENT HISTORY: Personal history of breast cancer. Prior left lumpectomy with chemotherapy and radiation. Mother with breast cancer. TECHNIQUE: Digital bilateral breast bassem (3D mammographic acquisition) in the CC and MLO projections. 2-D mediolateral oblique (MLO) and craniocaudad (CC) views of both breasts were obtained. CAD: Full Field Digital Mammography with Computer Added Detection was performed. COMPARISON: Comparison is made with prior study dated 03/29/2020 and 12/17/2018. FINDINGS: Breast Composition: There are scattered areas of fibroglandular density. There are no dominant masses or suspicious calcifications. Stable densely calcified nodule in the upper lateral aspect of the left breast at the operative site with the resultant scarring. Stable architectural distortion secondary to the lumpectomy. No other significant abnormalities are identified. There has been no significant change since the prior study. BI/SCRN MAMM (CAD)W/BASSEM BILAT IMPRESSION: Stable bilateral screening mammogram. Yearly follow-up mammogram recommended. (A) ASSESSMENT CATEGORY: BIRADS Category 2: Benign. A letter regarding these results will be sent to the patient by the facility within 30 days. Approximately 10% of breast cancers are not detected by mammography. A normal mammogram should not delay biopsy of a clinically suspicious abnormality. [id number] Electronically Signed: Doni Aguilar MD at 14:36 EST , CC: REX Kwok; Dr. Margoth Pace DO Bellman Captain: Signed Margoth Pace DO Work Phone: Start: 09-02-2021 End: 09-02-2021 Urgent Care Visit Report Comments: See Note; NOTES: [facility] [address] [place] [address] OFFICE VISIT Date of Service: 09/02/21 MR#: [id number] Acct: [id number] Name: SENTHIL CAPONE Rep #: [id number] : 1945 Provider: SERENA Palmer Age/Sex: 76/F Location: [email or web address] Status: Signed Intake Vital Signs 09/02/21 13:43 Height 5 ft Weight: 224 lb BMI 43.7 BP 210/110 H Blood Pressure Location Lt brachial Position Sitting Respiration 17 Pulse 83 Pulse Source Monitor Temp 97.5 F L Temp Source Temporal Pulse Oximetry (%) 98 Oxygen Delivery Method room air Intake Visit Reasons: SORE THROAT/COUGH Allergies No Known Allergies Allergy (Unverified 09/02/21 13:45) Medications amoxicillin 875 mg-potassium clavulanate 125 mg tablet 1 tab PO Q12H 10 Days #20 tab 09/02/21 [Rx Confirmed 09/02/21] benzonatate 100 mg capsule 200 mg PO TID PRN #30 cap 09/02/21 [Rx Confirmed 09/02/21] gabapentin 400 mg capsule 400 mg PO TID 09/02/21 [History Confirmed 09/02/21] hydroxychloroquine 200 mg tablet 200 mg PO DAILY 09/02/21 [History Confirmed 09/02/21] HPI HPI Details: SENTHIL CAPONE, is a 76 F who presents to the office today for complaint of cough, fatigue and chest congestion for the past 5 days. Patient states the episode started with a sore throat 5 days ago which has since resolved. She denies hemoptysis, shortness of breath or difficulty breathing. No fever, chills, sweats. No nausea, vomiting, diarrhea. No other associated symptoms or alleviating/aggravating factors. ROS Const Constitutional: Positive for other (6 system ROS completed with pertinent findings in the HPI otherwise normal.) Exam Const General: cooperative and well developed HENVT Head: normal to inspection and atraumatic Ears: hearing grossly normal bilaterally Nose: nasal discharge clear Face and sinus: normal facial exam Mouth: oral mucosae normal Throat: abnormal tonsil bilaterally hypertrophy 1+ Resp Effort Inspection: normal respiratory effort and no audible wheezes Auscultation: Bilateral: Clear to Auscultation Cardio Palpation: normal PMI Rate: regular rate Rhythm: regular rhythm Neuro General: patient alert and CN's II-XI intact bilaterally Psych Appearance: grossly normal Mental Status: mental status grossly normal Results POC CEPHEID RESP PANEL CEPHEID COVID PCR Not DETECTED Last Edit by Kayce Hsieh RN on 09/02/21 14:36 CEPHEID FLU AB PCR NOT DETECTED FLU A B Last Edit by Kayce Hsieh RN on 09/02/21 14:36 CEPHEID RSV PCR NOT DETECTED Last Edit by Kayce Hsieh RN on 09/02/21 14:36 Coding Level of Care Code Off vis,new,level 3 Diagnoses Cancer C80.1 Acute bronchitis J20.9 Assessment and Plan Assessment and Plan (1) Cancer: (2) Acute bronchitis: Status: Acute Plan - Yared LYONS PA: Patient's blood pressure rechecked during exam and came down to 168/96. Patient advised to follow- up with her PCP for appropriate handling of her hypertension. Augmentin and benzonatate as prescribed today. Patient tested negative for Covid in the office today. Encouraged to get plenty of rest, drink lots of clear liquids, and use Tylenol or Ibuprofen (unless contraindicated) for fever and comfort. Patient also educated on other symptomatic management techniques. To be seen in 7-10 days if no improvement; sooner if worsening of symptoms. Patient advised of potential red flags and when appropriate to report to the ED. Patient verbalized understanding and agreement with all the above. Plan Details Other Medications: New: amoxicillin-pot clavulanate 875-125 mg (Augmentin) 1 TAB PO Q12H 10 days 20 tabs 0RF J01.90 benzonatate 200 mg (2 x 100 mg) PO TID PRN 30 caps 0RF cough Other Orders: Orders: POC CEPHEID RESP PANEL Today 09/02/21 1446 <Electronically signed by Yared LYONS> Date Yared LYONS Cosigner Signature: Date (if applicable) CC: Margoth Pace DO Work Phone: Start: 03-29-2020 End: 03-29-2020 SCREEN MAMM (CAD) W/BASSEM BILAT Comments: See Note; NOTES: [facility] Imaging Services [address] [place] [address] SCREEN MAMM (CAD) W/BASSEM BILAT MR#: [id number] Acct: [id number] Name: SENTHIL CAPONE Rep #: [id number] : 1945 F 75 From: Doni potts MD 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 Routine annual screening examination. PERTINENT HISTORY: Personal history of breast cancer. History of prior left lumpectomy and chemotherapy and radiation therapies. Mother with breast cancer. TECHNIQUE: Digital bilateral breast bassem (3D mammographic acquisition) in the CC and MLO projections. 2-D mediolateral oblique (MLO) and craniocaudad (CC) views of both breasts were obtained. CAD: Full Field Digital Mammography with Computer Added Detection was performed. COMPARISON: Comparison is made with prior examination December 17, 2018 and April 25, 2017. FINDINGS: Breast Composition: There are scattered areas of fibroglandular density. There are no dominant masses or suspicious calcifications. Stable densely calcified nodule at the operative site in the upper lateral portion of the left breast. Stable architectural distortion at the left lumpectomy site. Stable small bilateral axillary lymph nodes. No other significant abnormalities are identified. There has been no significant change since the prior study. BI/SCREEN MAMM (CAD) W/BASSEM BILAT IMPRESSION: Stable bilateral screening mammogram. Yearly follow-up mammogram recommended. (A) ASSESSMENT CATEGORY: BIRADS Category 2: Benign. A letter regarding these results will be sent to the patient by the facility within 30 days. Approximately 10% of breast cancers are not detected by mammography. A normal mammogram should not delay biopsy of a clinically suspicious abnormality. [id number] Electronically Signed: Doni Aguilar, at 15:14 EDT , Service support , CC: REX Kwok; Dr. Margoth Pace DO Bellman Captain: Signed Margoth Pace DO Work Phone: Start: 12-17-2018 End: 12-17-2018 SCREENING MAMM (CAD), BILAT Comments: See Note; NOTES: [facility] Imaging Services [address] [place] [address] SCREENING MAMM (CAD), BILAT MR#: [id number] Acct: [id number] Name: SENTHIL CAPONE Rep #: [id number] : 1945 F 73 From: Doni Aguilar MD PCP: Connie Kwok NP Status: REG CLI Study: SCREENING MAMM (CAD), BILAT Date of Exam: 12/17/18 Exam# [id number] Ordering Dr: Margoth Pace DO MAMMOGRAPHY - BILATERAL SCREENING REASON FOR EXAM: Female, 73 years old. Routine annual screening examination. PERTINENT HISTORY: Personal history of breast cancer. Prior left lumpectomy and radiation and chemotherapy. Mother with breast cancer. TECHNIQUE: Digital bilateral breast bassem (3D mammographic acquisition) in the CC and MLO projections. 2-D mediolateral oblique (MLO) and craniocaudad (CC) views of both breasts were obtained. CAD: Full Field Digital Mammography with Computer Added Detection was performed. COMPARISON: Comparison is made with prior study dated April 25, 2017 and February 04, 2016. FINDINGS: Breast Composition: There are scattered areas of fibroglandular density. There are no dominant masses or suspicious calcifications. There is evidence of prior left lumpectomy with resultant architectural distortion and dense calcification in the upper outer aspect of the left breast. The left breast is smaller than the right breast. Stable small right axillary lymph nodes. No other significant abnormalities are identified. There has been no significant change since the prior study. BI/SCREENING MAMM (CAD), BILAT IMPRESSION: Stable bilateral screening mammogram. Yearly follow-up mammogram recommended. (A) ASSESSMENT CATEGORY: BIRADS Category 2: Benign. A letter regarding these results will be sent to the patient by the facility within 30 days. Approximately 10% of breast cancers are not detected by mammography. A normal mammogram should not delay biopsy of a clinically suspicious abnormality. [id number] Electronically Signed: Doni Aguilar, at 14:30 EDT , Service support , CC: Connie Kwok NP; Margoth Pace DO Bellman Captain: Signed Margoth Pace Work Phone: Start: 11-05-2018 End: 11-06-2018 Dexa Bone Density Study Comments: See Note; NOTES: [facility] Imaging Services [address] [place] [id number] Dexa Bone Density Study MR#: [id number] Acct: [id number] Name: SENTHIL CAPONE Rep #: [id number] : 1945 F 73 From: Doni Aguilar MD PCP: Connie Kwok NP Status: REG CLI Study: Dexa Bone Density Study Date of Exam: 11/05/18 Exam# [id number] Ordering Dr: Margoth Pace DO STUDY: DUAL ENERGY X-RAY ABSORPTIOMETRY / DXA REASON FOR EXAM: Female, 73 years old. The patient is postmenopausal. Loss of height. History of breast cancer. TECHNIQUE: Bone Mineral Density (BMD) measurements of lumbar spine and bilateral hips were obtained. COMPARISON: Comparison is made with prior study dated August 20, 2012. FINDINGS: Lumbar Spine (L1-L4): g/cm2 (1.086) / T-score (-0.7) / Z-score (1.0) Findings are suggestive of normal bone density with a low fracture risk. Left Femur Total: g/cm2 (0.891) / T-score (-0.9) / Z-score (0.6) Left Femoral Neck: g/cm2 (0.769) / T-score (-1.9) / Z-score (-0.2) Right Femur Total: g/cm2 (0.916) / T-score (-0.7) / Z-score (0.8) Right Femoral Neck: g/cm2 (0.838) / T-score (-1.4) / Z-score (0.3) The T-Scores on the most recent prior examination were: Lumbar Spine (L1-L4): There has been worsening of bone density since the previous examination. Left Femur Total: which represents a worsening of 12.2%. Right Femur Total: which represents a worsening of 6.1%. BD/Dexa Bone Density Study IMPRESSION: The patient is considered osteopenic as outlined below according to World [employer] Organization (WHO) criteria with a moderate fracture risk. There has been worsening of bone density since the previous examination. Reference Information: The T-score is the number of standard deviations above or below the standard which is normal for young adults at their peak bone mineral density. The World Health Organization (WHO) interprets the T-scores as follows: Above -1 Normal bone density Between -1 and -2.5 Osteopenia Equal to / or below -2.5 Osteoporosis As a practical clinical guideline, osteopenia may be graded as follows: Mild -1 through -1.5 Moderate -1.6 through -2.0 Severe -2.1 through -2.4 The Z-score is the number of standard deviations above or below age-matched controls. A Z-score of less than -1.5 would be considered abnormal. References: 1. NIH Osteoporosis and Related Bone Diseases http://www.osteo.org 2. International Society for Clinical Densitometry http://www.iscd.org 3. National Osteoporosis Foundation http://www.nof.org Electronically Signed: Doni Aguilar MD at 14:12 EST , Service support , CC: Connie Kwok NP; Margoth Pace DO Bellman Captain: Signed Margoth Pace Work Phone: Start: 08-20-2018 End: 08-21-2018 Cerv Spine 2 or 3 Views Comments: See Note; NOTES: [facility] Imaging Services [address] [place] [address] Cerv Spine 2 or 3 Views MR#: [id number] Acct: [id number] Name: SENTHIL CAPONE Rep #: [id number] : 1945 F 73 From: Doni Aguilar MD PCP: Connie Kwok NP Status: REG CLI Study: Cerv Spine 2 or 3 Views Date of Exam: 08/20/18 Exam# [id number] Ordering Dr: Margoth Pace DO STUDY: X-RAY - CERVICAL SPINE REASON FOR EXAM: Female, 73 years old. Left-sided neck pain and numbness in both hands. TECHNIQUE: History view(s) of the cervical spine were obtained. COMPARISON: None FINDINGS: Normal anterior atlantoaxial articulation. Normal odontoid process. Normal cervical lordosis. Moderate degree of disc space narrowing at the C5-C6 with minimal anterior spondylosis. Normal visualized intervertebral neuroforamina. The soft tissue structures are unremarkable. RAD/Cerv Spine 2 or 3 Views IMPRESSION: Disc space narrowing and spondylosis at the C5-C6 level. Electronically Signed: Doni Aguilar MD at 10:31 EST Tel [phone], Service support , CC: Connie Kwok DEAF AND HARD OF HEARING TEACHER; Margoth Pace DO Bellman Captain: Signed Margoth Pace Work Phone: Start: 03-29-2018 Adult depression screening assessment Rosiaurelio Matos Work Phone: Start: 04-25-2017 End: 04-25-2017 SCREENING MAMM (CAD), BILAT Comments: See Note; NOTES: [facility] Imaging Services [address] [place] [address] SCREENING MAMM (CAD), BILAT MR#: [id number] Acct: [id number] Name: SENTHIL CAPONE Rep #: [id number] : 1945 F 72 From: Doni Aguilar MD PCP: Connie Kwok Status: REG CL Study: SCREENING MAMM (CAD), BILAT Date of Exam: 04/25/17 Exam# [id number] Ordering Dr: Connie Kwok MAMMOGRAPHY - BILATERAL SCREENING REASON FOR EXAM: Female, 72 years old. Routine annual screening examination. PERTINENT HISTORY: Personal history of breast cancer. Prior left lumpectomy with chemotherapy and radiation therapy. Mother with breast cancer. TECHNIQUE: Digital bilateral breast bassem (3D mammographic acquisition) in the CC and MLO projections. 2-D mediolateral oblique (MLO) and craniocaudad (CC) views of both breasts were obtained. CAD: Full Field Digital Mammography with Computer Added Detection was performed. COMPARISON: Comparison is made with prior study dated February 04, 2016 and September 16, 2014. FINDINGS: Breast Composition: There are scattered areas of fibroglandular density. There are no dominant masses or suspicious calcifications. Once again, there is evidence of prior left lumpectomy with resultant architectural distortion and dense calcification in the upper outer aspect of the breast at the operative site. This is unchanged. No other significant abnormalities are identified. There has been no significant change since the prior study. HPBI/SCREENING MAMM (CAD), BILAT IMPRESSION: Stable bilateral screening mammogram. Yearly follow-up mammogram recommended. (A) ASSESSMENT CATEGORY: BIRADS Category 2: Benign. A letter regarding these results will be sent to the patient by the facility within 30 days. Approximately 10% of breast cancers are not detected by mammography. A normal mammogram should not delay biopsy of a clinically suspicious abnormality. [id number] Electronically Signed: Doni Aguilar MD at 13:44 EDT Tel [phone], Service support , CC: Connie Kwok Bellman Captain: Signed Connie Kwok Work Phone: Start: 08-14-2016 End: 08-14-2016 Knee 4 or More Views Comments: See Note; NOTES: [facility] Imaging Services [address] [place] [address] Verro 4d Knee 4 or More Views MR#: [id number] Acct: [id number] Name: SENTHIL CAPONE Rep #: [id number] : 1945 F 71 From: Roddy Barrera MD PCP: Connie Kwok Status: REG CLI Study: Knee 4 or More Views Date of Exam: 08/14/16 Exam# [id number] Ordering Dr: Connie Kwok STUDY: X-RAY - RIGHT KNEE REASON FOR EXAM: Female, 71 years old. Pain, decreased range of motion TECHNIQUE: 3 view(s) of the knee. COMPARISON: None. FINDINGS: Normal visualized distal femur. Normal visualized proximal tibia and fibula. Normal proximal tibiofibular articulation. There is mild degenerative arthrosis of the medial femorotibial compartment. There is mild degenerative arthrosis of the lateral femorotibial compartment. There is moderate degenerative arthrosis of the patellofemoral articulation. There is a soft tissue prominence in the suprapatellar region suggesting a small volume joint effusion. The soft tissue structures are unremarkable. 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 No demonstrated fracture or aggressive osseous lesion Electronically Signed: Cesar Barrera MD at 13:05 EST Tel , Service support [phone], CC: Connie Kwok Bellman Captain: Signed Connie Kwok Work Phone: Start: 02-04-2016 End: 02-07-2016 Bilat Scrn Digital AND CAD Comments: See Note; NOTES: [facility] Imaging Services [address] [place] [address] Verdana 4d Bilat Scrn Digital AND CAD MR#: [id number] Acct: [id number] Name: SENTHIL CAPONE Rep #: [id number] : 1945 F 71 From: Doni Aguilar MD PCP: Ro Nielsen MD Status: REG CLI Study: Bilat Scrn Digital AND CAD Date of Exam: 02/04/16 Exam# [id number] Ordering Dr: Ro Nielsen MD MAMMOGRAPHY - BILATERAL SCREENING REASON FOR EXAM: Female, 71 years old. Routine annual screening examination. PERTINENT HISTORY: Personal history of breast cancer. Prior left lumpectomy and chemotherapy. Mother with breast cancer. TECHNIQUE: Digital bilateral breast tomosynthesis (3-D mammographic acquisition) in the CC and MLO projections. Synthesized 2-D images (C-View reconstruction from tomosynthesis acquisition) providing bilateral breast CC and MLO views. Mediolateral oblique (MLO) and craniocaudad (CC) views of both breasts were obtained. CAD: Full Field Digital Mammography with Computer Added Detection was performed. COMPARISON: Comparison is made with prior study dated September 16, 2014 and August 27, 2013. FINDINGS: Breast Composition: There are scattered areas of fibroglandular density. There are no dominant masses or suspicious calcifications. Once again, there is evidence of prior left lumpectomy with resultant architectural distortion and calcification. This is unchanged. No other significant abnormalities are identified. There has been no significant change since the prior study. IMPRESSION: Stable bilateral screening mammogram. Yearly follow-up mammogram recommended. (A) ASSESSMENT CATEGORY: BIRADS Category 2: Benign. A letter regarding these results will be sent to the patient by the facility within 30 days. Approximately 10% of breast cancers are not detected by mammography. A normal mammogram should not delay biopsy of a clinically suspicious abnormality. [id number] Electronically Signed: Doni Aguilar MD at 12:34 EDT Tel [phone], Service support [phone], CC: Ro Nielsen MD Bellman Captain: Signed Ro Nielsen Work Phone: Start: 09-16-2014 End: 09-21-2014 Bilat Scrn Digital AND CAD Comments: See Note; NOTES: [facility] Imaging Services [address] [place] [address] Breast Imaging Report MR#: [id number] Acct: [id number] Name: SENTHIL CAPONE Rep #: [id number] : 1945 F 69 From: Doni Aguilar MD PCP: Status: REG CLI Study: Bilat Scrn Digital AND CAD Date of Exam: 09/16/14 Exam# [id number] Ordering Dr: Ro Nielsen MD MAMMOGRAPHY - BILATERAL SCREENING REASON FOR EXAM: Female, 69 years old. Routine annual screening examination. PERTINENT HISTORY: Personal history of breast cancer. Mother with breast cancer. TECHNIQUE: Digital examination. Mediolateral oblique (MLO) and craniocaudad (CC) views of both breasts were obtained. CAD: CAD was performed on this study. COMPARISON: Comparison is made with prior study dated August 27, 2013 and August 20, 2012. FINDINGS: Breast Composition: There are scattered areas of fibroglandular density. Once again, there is evidence of prior lumpectomy in the upper outer quadrant of the left breast with resultant deformity and architectural distortion with dense calcification at the operative site. This is in keeping with post operative changes. No new abnormality is seen. No other significant abnormalities are identified. There has been no significant change since the prior study. IMPRESSION: Stable bilateral screening mammogram. Yearly follow-up recommended. (A) ASSESSMENT CATEGORY: BIRADS Category 2: Benign. A letter regarding these results will be sent to the patient by the facility within 30 days. Approximately 10% of breast cancers are not detected by mammography. A normal mammogram should not delay biopsy of a clinically suspicious abnormality. Electronically Signed: Doni Aguilar MD at 8:31 EST Tel [phone], Service support [phone], CC: Ro Nielsen MD Bellman Captain: Signed Ro Nielsen Work Phone: Start: 08-27-2013 End: 08-27-2013 Bilat Scrn Digital & CAD Comments: See Note; NOTES: [facility] Imaging Services [address] [place] [address] Breast Imaging Report MR#: [id number] Acct: [id number] Name: SENTHIL CAPONE Rep #: [id number] : 1945 F 68 From: Doni Aguilar MD PCP: Status: REG CLI Exam# [id number] Ordering Dr: Ro Nielsen MD MAMMOGRAPHY - BILATERAL SCREENING REASON FOR EXAM: Female, 68 years old. Routine annual screening examination. PERTINENT HISTORY: Personal history of breast cancer. Mother with breast cancer. TECHNIQUE: Digital examination. Mediolateral oblique (MLO) and craniocaudad (CC) views of both breasts were obtained. CAD: CAD was performed on this study. COMPARISON: Comparison is made with prior examination dated August 13, 2012 and prior outside examination dated March 24, 2011 FINDINGS: The breast composition is composed of scattered fibroglandular tissues ranging from 25% to 50% of the breast. The patient is status post left lumpectomy with resultant architectural distortion and dense calcification in the upper outer aspect of the breast. This is drinking with postsurgical change. No other significant abnormalities are identified. There has been no significant change since the prior study. IMPRESSION: Stable bilateral screening mammogram. Yearly follow-up recommended. (A) ASSESSMENT CATEGORY: BIRADS Category 2: Benign finding(s). A letter regarding these results will be sent to the patient by the facility within 30 days. Approximately 10% of breast cancers are not detected by mammography. A normal mammogram should not delay biopsy of a clinically suspicious abnormality. Electronically Signed: Doni Aguilar M.D. at 14:31 EST , Service support [phone], CC: Ro Nielsen MD Bellman Captain: Signed Ro Nielsen Work Phone: [facility] Plan of Treatment Date Care Activity Detail Author Start: 09-04-2028 Urine microalbumin profile DTAP,TDAP,TD (2 - Td or Tdap) [facility] Start: 04-25-2026 DIABETES SCREEN DIABETES SCREEN [facility] Start: 04-03-2026 DIABETES SCREEN DIABETES SCREEN [facility] Start: 04-17-2025 DIABETES SCREEN DIABETES SCREEN [facility] Start: 04-05-2024 DIABETES SCREEN DIABETES SCREEN [facility] Start: 03-17-2024 End: 05-17-2024 CBC W Auto Differential panel - Blood CBC + DIFF Lab Routine Cryoglobulinemic vasculitis (HCC) Expected: 03/17/2024, Expires: 05/17/2024 [facility] Work Phone: Immunizations Immunization Date Immunization Notes Care Provider Td arana 07-01-2019 influenza, high dose seasonal, preservative-free Rosi Samaras DO Work Phone: [facility] 09-04-2018 tetanus toxoid, reduced diphtheria toxoid, and acellular pertussis vaccine, adsorbed Rosi Samaras DO Work Phone: [facility] 06-17-2018 influenza, seasonal, injectable Margoth Adilson [facility] Work Phone: 05-30-2018 influenza, high dose seasonal, preservative-free Rosi Samaras DO Work Phone: [facility] 06-20-2017 influenza, seasonal, injectable Margoth Adilson [facility] Work Phone: 06-19-2011 influenza virus vaccine, unspecified formulation Rosi Samaras DO Work Phone: [facility] 06-09-2010 influenza virus vaccine, unspecified formulation Rosi Matos DO Work Phone: [facility] Work Phone: 07-21-2008 influenza virus vaccine, whole virus Rosi Matos DO Work Phone: [facility] Payers Date Payer Category Payer Medicare HU[employer]NA MEDICARE HU[employer]NA MEDICARE PPO [id number] 2019-Present [phone] [place] [address] PPO [id number] 2019 Medicare [id number] 2019 Medicare [employer]NA MEDICARE HU[employer]NA MEDICARE PPO [id number] 2019-Present [phone] [place] [address] PPO [id number] 1945 Unknown [id number] Unknown [employer]/Medicare adv plan Social History Date Type Detail Facility Alcohol Use: Never smoker [facility] Work Phone: Start: 04-04-2022 End: 04-03-2023 Caffeine Use [facility] Work Phone: Functional Status Date Assessment Result Facility 08-16-2018 LP-IR Score LP-IR Score <25 [facility] Work Phone: Clinical Notes 01-25-2022 to 05-15-2023 Telephone Encounter - Lisa Dunlap - 05/15/2023 9:10 AM EDTTelephone Encounter - Paty Rose - 05/11/2023 1:29 PM EDTTelephone Encounter - Cecilia Acosta - 04/19/2023 11:53 AM EDT Note Date & Type Note Facility 05-15-[address] Rae Called Rosi Matos DO and left a message on the after hours Voicemail regarding clinical update for Senthil Capone. Patient requested for provider to contact Dr. Matos to discuss clinical updates. Dr. Rae can be reached on her direct cell at [phone] or office at [phone]. Patient has been identified by name and birthdate Lisa Anne Adm Asst May 15, 2023 documented in this encounter [facility] 05-11-2023 Miscellaneous Notes Senthil Capone is calling Rosi Matos DO today regarding Fountain Attendant - Other (Rituxan) Patient calling about rituxan. States that Dr. Guallpa is requesting that Dr. Matos call her at [phone] to discuss patient's treatment. Patient states she was informed by Dr. Guallpa that she will not reach out to [facility], and we need to reach out to them. Requesting response back: N/A but can be reached at [phone] (cell) Duration of symptoms: N/A Patient has been identified by name and birthdate. Paty Rose May 11, 2023 documented in this encounter [facility] 04-19-2023 Miscellaneous Notes Reviewed labs with Dr Matos Addend my note and will have it sent to local [facility] Registered Nurse Misbah Patterson APRN.ROCKET MOTOR MECHANIC Senthil Capone('s) is calling Rosi Matos DO today regarding Care Coordination (Plan of Care ) Patient has been identified by name and birthdate. Requesting response back: [phone] (home) [phone] (cell) Pt called requesting a call back from the office to discuss plan of care from 04/03 visit. Cecilia Cifuentes April 19, 2023 documented in this encounter [facility] 04-03-2023 Note HNO ID: [id number] Author: Misbah Patterson APRN.ROCKET MOTOR MECHANIC Service: ? Author Type: Nurse Practitioner Type: Progress Notes Filed: 04/19/2023 5:03 PM Note Text: [facility] Hematologic Oncology and Blood disorders Progress Note PATIENT NAME: Senthil Capone DATE OF : 1945 ATTENDING STAFF: Rosi Matos D.O. 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 Has been managed with annual dose of Rituximab and has been able to maintain a remission with this therapy. INTERVAL HISTORY: Senthil continues to do well. She feells well. no signs of rash. No nausea, vomiting, weight loss. No fevers or infections. No significant change in her neuropathy which remains stable at baseline. She is concerned about getting the rituxan as she had a terrible reaction last time and was in ER. REVIEW OF SYSTEMS: No vision changes No focal neurologic deficits or weakness Negative except as outlined above. ALLERGIES: ALLERGIES Allergen Reactions Penicillin G Rash MEDICATIONS: Medications were reviewed and updated. Current outpatient prescriptions: gabapentin (NEURONTIN) 400 mg capsule Take 1 capsule by mouth three times daily. hydroxychloroquine (PLAQUENIL) 200 mg tablet Take 1 tablet by mouth twice daily. enalapril (VASOTEC) 2.5 mg tablet Take 1 tablet by mouth once daily. Fish Oil-Corolla-3 Fatty Acids (OMEGA 3 FISH OIL) 684-1,200 mg cpDR Take by mouth as needed. folic acid 1 mg tablet Take 1 tablet by mouth once daily. Ascorbic Acid (VITAMIN C) 1,000 mg tablet Take 1,000 mg by mouth three times daily. Cholecalciferol, Vitamin D3, (VITAMIN D) 1,000 unit cap Take 1,000 Units by mouth three times daily. HEPARIN SODIUM,PORCINE (HEPARIN LOCK FLUSH) 100 unit/mL Syrg Inject 5 mL intravenously as needed. 0.9% NaCl Inject 10-20 mL intravenously as needed. miscellaneous medical supply(COMPRESSION STOCKINGS) knee high multivitamins w-minerals/lut(CENTRUM SILVER TAB) Take one(1) tablet daily. PERTINENT PAST MEDICAL/SURG/SOC/FAM HISTORY: Malignant neoplasm breast 1994 s/p lumpectomy and RT; Peripheral neuropathy; Venous stasis; Cryoglobulinemic vasculitis; Tonsillectomy; No tobacco or alcohol use; [employer] business. in good health. Six children, multiple grandchildren. Mother had breast cancer and lymphoma; brother had prostate cancer. PHYSICAL EXAM: BP 168/73 Pulse 64 Temp 36.6 ?C (97.9 ?F) (Oral) Resp 18 Wt 93.5 kg (206 lb 3.2 oz) BMI 37.14 kg/m? General appearance: Well appearing, alert, in no acute distress Skin: scarring and darkened skin from previous vasculitis exacerbations on LEs bilaterally. Has a few small skin lesions scattered across arms - likely vasculitic lesions. HEENT: sclera anicteric; oropharynx clear and neck supple Lungs: clear without wheezes or crackles Heart: RRR without murmurs Abdomen: soft and nontender to palpation; no palpable masses Extremities: no edema and normal pulses Lymph: no cervical or axillary adenopathy DATA REVIEW: I personally reviewed the patient's data. Cryoglobulin level from 03/06/19 remains present and elevated at 180 The cryoglobulin is characterized as a Type II cryoglobulin with monoclonal IgM kappa and polyclonal IgG. INTERPRETIVE INFORMATION: Immunofixation Electrophoresis Gel This information should be correlated with the results of serum protein electrophoresis, quantitative immunoglobulins and other clinical and laboratory information. Cryoglobulinemia levels from this year are in process. 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 She remains in remission with one annual dose of Rituximab. Cryoglobulins have remained present and elevated - repeat levels are pending She has achieved control of her disease with maintenance rituximab given annually. Plan at this time is for continued annual dosing of rituximab at 375mg/m2 IV. She had a terrible reaction with the last dose, hesitant to get another, will see wheat labs look like and discuss w Dr Matos. Patient able to ask questions - answered in detail. They know to call with questions. I will see patient back in 11 months prior to next dose of Rituximab in one year. Misbah Patterson APRN.ROCKET MOTOR MECHANIC (Elements copied from Dr Matos' note dated 04/04/2022, have been reviewed and updated where appropriate, and all reflect current assessment and medical decision m (more content not included)... [facility] 04-03-2023 History of Presen t illness Narrative [facility] [place] Hematologic Oncology and Blood disorders Progress Note PATIENT NAME: Senthil Capone DATE OF : 1945 ATTENDING STAFF: Rosi Matos D.O. 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 Has been managed with annual dose of Rituximab and has been able to maintain a remission with this therapy. INTERVAL HISTORY: Senthil continues to do well. She feells well. no signs of rash. No nausea, vomiting, weight loss. No fevers or infections. No significant change in her neuropathy which remains stable at baseline. Her pcp just started her on HCTZ 25mg daily for LE edema. Her BP today is quite high. She has not had chest pain or palpitations. No lightheadedness or dizziness. No vision changes She is concerned about getting the rituxan as she had a terrible reaction last time and was in ER. REVIEW OF SYSTEMS: No vision changes No focal neurologic deficits or weakness Negative except as outlined above. ALLERGIES: ALLERGIES Allergen Reactions Penicillin G Rash MEDICATIONS: Medications were reviewed and updated. Current outpatient prescriptions: gabapentin (NEURONTIN) 400 mg capsule Take 1 capsule by mouth three times daily. hydroxychloroquine (PLAQUENIL) 200 mg tablet Take 1 tablet by mouth twice daily. enalapril (VASOTEC) 2.5 mg tablet Take 1 tablet by mouth once daily. Fish Oil-Corolla-3 Fatty Acids (OMEGA 3 FISH OIL) 684-1,200 mg cpDR Take by mouth as needed. folic acid 1 mg tablet Take 1 tablet by mouth once daily. Ascorbic Acid (VITAMIN C) 1,000 mg tablet Take 1,000 mg by mouth three times daily. Cholecalciferol, Vitamin D3, (VITAMIN D) 1,000 unit cap Take 1,000 Units by mouth three times daily. HEPARIN SODIUM,PORCINE (HEPARIN LOCK FLUSH) 100 unit/mL Syrg Inject 5 mL intravenously as needed. 0.9% NaCl Inject 10-20 mL intravenously as needed. miscellaneous medical supply(COMPRESSION STOCKINGS) knee high multivitamins w-minerals/lut(CENTRUM SILVER TAB) Take one(1) tablet daily. PERTINENT PAST MEDICAL/SURG/SOC/FAM HISTORY: Malignant neoplasm breast 1994 s/p lumpectomy and RT; Peripheral neuropathy; Venous stasis; Cryoglobulinemic vasculitis; Tonsillectomy; No tobacco or alcohol use; [employer] Medical business. in good health. Six children, multiple grandchildren. Mother had breast cancer and lymphoma; brother had prostate cancer. PHYSICAL EXAM: BP 168/73 Pulse 64 Temp 36.6 C (97.9 F) (Oral) Resp 18 Wt 93.5 kg (206 lb 3.2 oz) BMI 37.14 kg/m General appearance: Well appearing, alert, in no acute distress Skin: scarring and darkened skin from previous vasculitis exacerbations on LEs bilaterally. Has a few small skin lesions scattered across arms - likely vasculitic lesions. HEENT: sclera anicteric; oropharynx clear and neck supple Lungs: clear without wheezes or crackles Heart: RRR without murmurs Abdomen: soft and nontender to palpation; no palpable masses Extremities: no edema and normal pulses Lymph: no cervical or axillary adenopathy DATA REVIEW: I personally reviewed the patient's data. Cryoglobulin level from 03/06/19 remains present and elevated at 180 The cryoglobulin is characterized as a Type II cryoglobulin with monoclonal IgM kappa and polyclonal IgG. INTERPRETIVE INFORMATION: Immunofixation Electrophoresis Gel This information should be correlated with the results of serum protein electrophoresis, quantitative immunoglobulins and other clinical and laboratory information. Cryoglobulinemia levels from this year are in process. 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 She remains in remission with one annual dose of Rituximab. Cryoglobulins have remained present and elevated - repeat levels are pending She has achieved control of her disease with maintenance rituximab given annually. Plan at this time is for continued annual dosing of rituximab at 375mg/m2 IV. She had a terrible reaction with the last dose, hesitant to get another, will see wheat labs look like and discuss w Dr Matos. Patient able to ask questions - answered in detail. They know to call with questions. I will see patient back in 11 months prior to next dose of Rituximab in one year. Misbah Patterson APRN.ROCKET MOTOR MECHANIC (Elements copied from Dr Matos' note dated 04/04/2022, have been reviewed and updated where appropriate, and all reflect current assessment and medical decision making during today's encounter, April 03, 2023) documented in this encounter [facility] 04-03-2023 Nurse Note Additional intake questions: Has the patient had fever, nausea, vomiting, diarrhea, constipation, fatigue for > 1 week? No Does the patient have a decreased appetite? No Does patient want to see a Continuous Still Operator? No (yes to any of above refer patient to schedulers for dietitian appointment) ) Does patient have any new or increased numbness or tingling of extremities? No Is patient interested in fertility information? No Does patient need any prescription refills? No Does patient have an advanced directive in place? yes at home documented in this encounter [facility] 02-16-2023 Miscellaneous Notes Called patient to inform her that Dr. Matos would like her to follow up with Rheumatology, that they should be the one ordering her Rituxan. Left message with call back number. Ester Mcneill RN February 16, 2023 4:38 PM Senthil Gaffney jonathan is calling Rosi Matos DO today regarding Fountain Attendant - Other (Treatment Questions) Patient stated she has an appointment with Dr. Matos but would like to know about the treatment scheduling. Patient stated when speaking to Dr. Matos last she wanted to change up the treatment scheduled. Patient is asking for a call back to go over the treatment change. Patient has been identified by name and birthdate. Patient can be reached at: [phone] (cell) Sally Vargas February 15, 2023 documented in this encounter [facility] 04-17-2022 History of Presen t illness Narrative 12:15 [facility] Emergency Response Team Date of the Event: April 17, 2022 Time of the Event:12:15 Select Floor / Area: CA2 - Infusion / Treatment Reason/Chief Complaint for Emergency Call (Check all that apply): Blood Pressure: Acute decrease in Systolic Blood Pressure <90 History of Events Prior to [facility] Activation and any treatment administered prior to [facility] Team arrival? Rituximab infusion was going at 300 mg/hr. 100 mg iv solu-cortef was given prior to Team arrival. Individuals involved in Emergency Medical Response? NM,[facility],Respiratory, [facility] staff, Dr. Singh Patient Disposition: Sent Home Rena Mathews RN documented in this encounter [facility] 04-13-2022 Miscellaneous Notes Left VM and sent patient MC message to talk more about Evusheld as well as get her an appointment with a new rheumatology provider. Caro Clark RN documented in this encounter [facility] 04-04-2022 Miscellaneous Notes Returned call - was informed that the medication had already been authorized. Authorization good from 04/04/2022 - 09/16/2022 Authorization # [id number] Fax confirmation was sent to [phone] per [facility] pharmacy. Rena Cooper RN Renedaniel from [facility] is calling DO zaina López regarding Senthil Capone's medication (RUXIENCE) Pharmacy is requesting to verify the below information. Is the medication a buy and bill? Any diagnosis codes? Will the medication be done at the facility? Date of service? Is this part of a clinical trial? Is the patient on dialysis? Patient has been identified by name and birthdate. Please provide pt name, , [facility] #[id number] if faxing information. Beck Conley April 04, 2022 documented in this encounter [facility] 04-04-2022 Nurse Note Additional intake questions: Has the patient had fever, nausea, vomiting, diarrhea, constipation, fatigue for > 1 week? No Does the patient have a decreased appetite? No Does patient want to see a Continuous Still Operator? No (yes to any of above refer patient to schedulers for dietitian appointment) ) Does patient have any new or increased numbness or tingling of extremities? No Is patient interested in fertility information? NA Does patient need any prescription refills? No Does patient have an advanced directive in place? Yes, no copy found in [facility] Patient referred to Social Work and Patient referred to Resource Center documented in this encounter [facility] 04-04-2022 History of Presen t illness Narrative [facility] Hematologic Oncology and Blood disorders Progress Note (Elements copied from my note dated 04/05/2021, have been reviewed and updated where appropriate, and all reflect current assessment and medical decision making during today's encounter, April 04, 2022) PATIENT NAME: Senthil Capone DATE OF : 1945 ATTENDING STAFF: Rosi Matos D.O. 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 Has been managed with annual dose of Rituximab and has been able to maintain a remission with this therapy. INTERVAL HISTORY: Senthil continues to do well. I saw her very briefly in virtual visit last week where she confirmed that she has been well overall but as happens almost every year she has developed some small skin lesions that always seem to appear right before her annual dose of Rituximab and then once she receives her dose of Rituximab the lesions disappear for almost the whole next year. No nausea, vomiting, weight loss. No fevers or infections. No significant change in her neuropathy which remains stable at baseline. Her pcp just started her on HCTZ 25mg daily for LE edema. Her BP today is quite high. She has not had chest pain or palpitations. No lightheadedness or dizziness. No vision changes REVIEW OF SYSTEMS: No vision changes No focal neurologic deficits or weakness Negative except as outlined above. ALLERGIES: ALLERGIES Allergen Reactions Penicillin G Rash MEDICATIONS: Medications were reviewed and updated. Current outpatient prescriptions: gabapentin (NEURONTIN) 400 mg capsule Take 1 capsule by mouth three times daily. hydroxychloroquine (PLAQUENIL) 200 mg tablet Take 1 tablet by mouth twice daily. enalapril (VASOTEC) 2.5 mg tablet Take 1 tablet by mouth once daily. Fish Oil-Corolla-3 Fatty Acids (OMEGA 3 FISH OIL) 684-1,200 mg cpDR Take by mouth as needed. folic acid 1 mg tablet Take 1 tablet by mouth once daily. Ascorbic Acid (VITAMIN C) 1,000 mg tablet Take 1,000 mg by mouth three times daily. Cholecalciferol, Vitamin D3, (VITAMIN D) 1,000 unit cap Take 1,000 Units by mouth three times daily. HEPARIN SODIUM,PORCINE (HEPARIN LOCK FLUSH) 100 unit/mL Syrg Inject 5 mL intravenously as needed. 0.9% NaCl Inject 10-20 mL intravenously as needed. miscellaneous medical supply(COMPRESSION STOCKINGS) knee high multivitamins w-minerals/lut(CENTRUM SILVER TAB) Take one(1) tablet daily. PERTINENT PAST MEDICAL/SURG/SOC/FAM HISTORY: Malignant neoplasm breast 1994 s/p lumpectomy and RT; Peripheral neuropathy; Venous stasis; Cryoglobulinemic vasculitis; Tonsillectomy; No tobacco or alcohol use; [employer] Medical business. in good health. Six children, multiple grandchildren. Mother had breast cancer and lymphoma; brother had prostate cancer. PHYSICAL EXAM: There were no vitals taken for this visit. General appearance: Well appearing, alert, in no acute distress Skin: scarring and darkened skin from previous vasculitis exacerbations on LEs bilaterally. Has a few small skin lesions scattered across arms - likely vasculitic lesions. HEENT: sclera anicteric; oropharynx clear and neck supple Lungs: clear without wheezes or crackles Heart: RRR without murmurs Abdomen: soft and nontender to palpation; no palpable masses Extremities: no edema and normal pulses Lymph: no cervical or axillary adenopathy DATA REVIEW: I personally reviewed the patient's data. Cryoglobulin level from 03/06/19 remains present and elevated at 180 The cryoglobulin is characterized as a Type II cryoglobulin with monoclonal IgM kappa and polyclonal IgG. INTERPRETIVE INFORMATION: Immunofixation Electrophoresis Gel This information should be correlated with the results of serum protein electrophoresis, quantitative immunoglobulins and other clinical and laboratory information. Cryoglobulinemia levels from this year are in process. 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 She remains in remission with one annual dose of Rituximab. Cryoglobulins have remained present and elevated - repeat levels are pending She has achieved control of her disease with maintenance rituximab given annually. Plan at this time is for continued annual dosing of rituximab at 375mg/m2 IV. Scheduled for today but we will post pone for a week or two so that we can ensure that it is approved by her insurance. Smart set placed. BP very high today -She took her home hctz while here -Gave 1 dose of clonidine 0.1mg po x 1 - BP came down to systolic of 197 -Asked her to please monitor BP and get hold of her pcp today regarding this. Patient able to ask questions - answered in detail. They know to call with questions. I will see patient back in 11 months prior to next dose of Rituximab in one year. DO Rosi López D.O. motorcycle tester Hematologic Oncology & Blood Disorders P. [phone] F. [phone] documented in this encounter [facility] 04-03-2022 Miscellaneous Notes Called and spoke with patient. She reports that she had labs drawn Sunday03/31/2022 at [facility]. She provided the phone number for this location. This nurse called and spoke with someone in the lab. They confirmed the labs were drawn but only partially resulted. They will fax the results that are final and will fax the other results once they are final also. Dr. Matos notified. No new orders at this time. Rena Cooepr RN documented in this encounter [facility] 03-31-2022 Miscellaneous Notes RN[facility] contacted Jeanna @ [facility]. Informed RN[facility] that they need the labs faxed over. RNCC had admin fax lab orders to [phone]. Estela Cerna RN March 31, 2022 12:03 PM Images from the original note were not included. Senthil Capone's lab at [facility] is calling Rosi Matos DO today regarding Care Coordination (lab orders) Pt at [facility] lab now, orders not in. Patient has been identified by name and birthdate. Requesting response back: Jeanna Steven [phone] Beck Conley March 31, 2022 documented in this encounter [facility] 01-25-2022 Miscellaneous Notes Senthil Capone is calling Rosi Matos DO today to discuss COVID vaccine. Patient spoke with Dr. Matos a couple of months ago because she hasn't been vaccinated against COVID. Patient stated that Dr. Matos suggested getting an alternate injection that would help protect patient from getting ill. Patient is following up on conversation. Patient has been identified by name and birthdate. Requesting response back: [phone] (home) [phone] (cell) Beck Conley January 25, 2022 01/25/22- Spoke with patient and instructed her on the schedule for 04/04/22. Connie Espinosa RN documented in this encounter [facility] Diagnosis Cryoglobulinemic vasculitis (HCC)- Primary Other paraproteinemias Hereditary and idiopathic peripheral neuropathy Unspecified hereditary and idiopathic peripheral neuropathy Paraproteinemia Other paraproteinemias Cryoglobulinemic vasculitis (HCC) Other paraproteinemias [facility] Diagnosis Cryoglobulinemic vasculitis (HCC)- Primary Other paraproteinemias [facility] Name Dates Details Patient Instructions Indication:HTN (hypertension), benign Start:06-May-2021 Instruction Type:Provider Instructions for Treatment How to Access Health Informa tion Online using Patient Portal and 3rd Libertarian Apps Indication:HTN (hypertension), benign Start:06-May-2021 Instruction Type:Patient Education How to access health informa tion online Indication:Nonsmoker Start:26-Dec-2018 Instruction Type:Patient Education How to access health informa tion online - Detail Indication:Nonsmoker Start:26-Dec-2018 Instruction Type:Patient Education Patient Instructions Indication:Upper respiratory infection, acute Start:26-Dec-2018 Instruction Type:Provider Instructions for Treatment How to access health informa tion online Indication:BMI 40.0-44.9, adult Start:12-Sep-2018 Instruction Type:Patient Education How to access health informa tion online - Detail Indication:BMI 40.0-44.9, adult Start:12-Sep-2018 Instruction Type:Patient Education Patient Instructions Indication:BMI 40.0-44.9, adult Start:12-Sep-2018 Instruction Type:Provider Instructions for Treatment obesity counseling Indication:Elevated blood pressure reading Start:04-Sep-2018 Instruction Type:Provider Instructions for Treatment How to access health informa tion online - Detail Indication:Morbid (severe) obesity due to excess calories Start:04-Sep-2018 Instruction Type:Patient Education How to access health informa tion online Indication:Morbid (severe) obesity due to excess calories Start:04-Sep-2018 Instruction Type:Patient Education Patient Instructions Indication:Morbid (severe) obesity due to excess calories Start:04-Sep-2018 Instruction Type:Provider Instructions for Treatment How to access health informa tion online Indication:Morbid (severe) obesity due to excess calories Start:15-Aug-2018 Instruction Type:Patient Education How to access health informa tion online - Detail Indication:Morbid (severe) obesity due to excess calories Start:15-Aug-2018 Instruction Type:Patient Education Patient Instructions Indication:Morbid (severe) obesity due to excess calories Start:15-Aug-2018 Instruction Type:Provider Instructions for Treatment How to access health informa tion online Indication:Cough Start:12-Dec-2017 Instruction Type:Patient Education How to access health informa tion online - Detail Indication:Cough Start:12-Dec-2017 Instruction Type:Patient Education Patient Instructions Indication:Cough Start:12-Dec-2017 Instruction Type:Provider Instructions for Treatment How to access health informa tion online Indication:Cough Start:03-Aug-2017 Instruction Type:Patient Education How to access health informa tion online - Detail Indication:Cough Start:03-Aug-2017 Instruction Type:Patient Education Patient Instructions Indication:Cough Start:03-Aug-2017 Instruction Type:Provider Instructions for Treatment How to access health informa tion online Indication:Plantar wart, left foot Start:23-Jul-2017 Instruction Type:Patient Education How to access health informa tion online - Detail Indication:Plantar wart, left foot Start:23-Jul-2017 Instruction Type:Patient Education Patient Instructions Indication:Plantar wart, left foot Start:23-Jul-2017 Instruction Type:Provider Instructions for Treatment How to access health informa tion online - Detail Indication:Morbid (severe) obesity due to excess calories Start:24-May-2017 Instruction Type:Patient Education Patient Instructions Indication:Morbid (severe) obesity due to excess calories Start:24-May-2017 Instruction Type:Provider Instructions for Treatment How to access health informa tion online Indication:Plantar wart, left foot Start:25-Apr-2017 Instruction Type:Patient Education How to access health informa tion online - Detail Indication:Plantar wart, left foot Start:25-Apr-2017 Instruction Type:Patient Education Patient Instructions Indication:Plantar wart, left foot Start:25-Apr-2017 Instruction Type:Provider Instructions for Treatment How to access health informa tion online Indication:BMI 39.0-39.9,adult Start:17-Apr-2017 Instruction Type:Patient Education How to access health informa tion online - Detail Indication:BMI 39.0-39.9,adult Start:17-Apr-2017 Instruction Type:Patient Education Patient Instructions Indication:BMI 39.0-39.9,adult Start:17-Apr-2017 Instruction Type:Provider Instructions for Treatment How to access health informa tion online Indication:Sore throat Start:07-Sep-2016 Instruction Type:Patient Education How to access health informa tion online - Detail Indication:Sore throat Start:07-Sep-2016 Instruction Type:Patient Education Patient Instructions Indication:Sore throat Start:07-Sep-2016 Instruction Type:Provider Instructions for Treatment How to access health informa tion online Indication:Right knee pain Start:29-Aug-2016 Instruction Type:Patient Education How to access health informa tion online - Detail Indication:Right knee pain Start:29-Aug-2016 Instruction Type:Patient Education Patient Instructions Indication:Right knee pain Start:29-Aug-2016 Instruction Type:Provider Instructions for Treatment How to access health informa tion online Indication:Annual physical exam Start:07-Jul-2015 Instruction Type:Patient Education How to access health informa tion online - Detail Indication:Annual physical exam Start:07-Jul-2015 Instruction Type:Patient Education Patient Instructions Indication:Annual physical exam Start:07-Jul-2015 Instruction Type:Provider Instructions for Treatment How to access health informa tion online Indication:PHARYNGITIS, ACUTE (462.) Start:25-Jun-2015 Instruction Type:Patient Education How to access health informa tion online - Detail Indication:PHARYNGITIS, ACUTE (462.) Start:25-Jun-2015 Instruction Type:Patient Education Patient Instructions Indication:PHARYNGITIS, ACUTE (462.) Start:25-Jun-2015 Instruction Type:Provider Instructions for Treatment How to access health informa tion online Indication:PHARYNGITIS, ACUTE (462.) Start:15-May-2014 Instruction Type:Patient Education How to access health informa tion online - Detail Indication:PHARYNGITIS, ACUTE (462.) Start:15-May-2014 Instruction Type:Patient Education Patient Instructions Indication:PHARYNGITIS, ACUTE (462.) Start:15-May-2014 Instruction Type:Provider Instructions for Treatment obesity counseling Indication:Morbid (severe) obesity due to excess calories Start:09-Oct-2013 Instruction Type:Provider Instructions for Treatment Patient Instructions Indication:WWV V70.0 Start:09-Oct-2013 Instruction Type:Provider Instructions for Treatment Patient Instructions Indication:WWV V70.0 Start:20-Sep-2012 Instruction Type:Provider Instructions for Treatment [facility]; [facility] Work Phone: Instructions* Name Dates Details Patient Instructions Indication:Upper respiratory infection Start:27-Jan-2022 Instruction Type:Provider Instructions for Treatment How to Access Health Informa tion Online using Patient Portal and 3rd Libertarian Apps Indication:Upper respiratory infection Start:27-Jan-2022 Instruction Type:Patient Education Patient Instructions Indication:HTN (hypertension), benign Start:06-May-2021 Instruction Type:Provider Instructions for Treatment How to Access Health Informa tion Online using Patient Portal and 3rd Libertarian Apps Indication:HTN (hypertension), benign Start:06-May-2021 Instruction Type:Patient Education How to access health informa tion online Indication:Nonsmoker Start:26-Dec-2018 Instruction Type:Patient Education How to access health informa tion online - Detail Indication:Nonsmoker Start:26-Dec-2018 Instruction Type:Patient Education Patient Instructions Indication:Upper respiratory infection, acute Start:26-Dec-2018 Instruction Type:Provider Instructions for Treatment How to access health informa tion online Indication:BMI 40.0-44.9, adult Start:12-Sep-2018 Instruction Type:Patient Education How to access health informa tion online - Detail Indication:BMI 40.0-44.9, adult Start:12-Sep-2018 Instruction Type:Patient Education Patient Instructions Indication:BMI 40.0-44.9, adult Start:12-Sep-2018 Instruction Type:Provider Instructions for Treatment obesity counseling Indication:Elevated blood pressure reading Start:04-Sep-2018 Instruction Type:Provider Instructions for Treatment How to access health informa tion online - Detail Indication:Morbid (severe) obesity due to excess calories Start:04-Sep-2018 Instruction Type:Patient Education How to access health informa tion online Indication:Morbid (severe) obesity due to excess calories Start:04-Sep-2018 Instruction Type:Patient Education Patient Instructions Indication:Morbid (severe) obesity due to excess calories Start:04-Sep-2018 Instruction Type:Provider Instructions for Treatment How to access health informa tion online Indication:Morbid (severe) obesity due to excess calories Start:15-Aug-2018 Instruction Type:Patient Education How to access health informa tion online - Detail Indication:Morbid (severe) obesity due to excess calories Start:15-Aug-2018 Instruction Type:Patient Education Patient Instructions Indication:Morbid (severe) obesity due to excess calories Start:15-Aug-2018 Instruction Type:Provider Instructions for Treatment How to access health informa tion online Indication:Cough Start:12-Dec-2017 Instruction Type:Patient Education How to access health informa tion online - Detail Indication:Cough Start:12-Dec-2017 Instruction Type:Patient Education Patient Instructions Indication:Cough Start:12-Dec-2017 Instruction Type:Provider Instructions for Treatment How to access health informa tion online Indication:Cough Start:03-Aug-2017 Instruction Type:Patient Education How to access health informa tion online - Detail Indication:Cough Start:03-Aug-2017 Instruction Type:Patient Education Patient Instructions Indication:Cough Start:03-Aug-2017 Instruction Type:Provider Instructions for Treatment How to access health informa tion online Indication:Plantar wart, left foot Start:23-Jul-2017 Instruction Type:Patient Education How to access health informa tion online - Detail Indication:Plantar wart, left foot Start:23-Jul-2017 Instruction Type:Patient Education Patient Instructions Indication:Plantar wart, left foot Start:23-Jul-2017 Instruction Type:Provider Instructions for Treatment How to access health informa tion online - Detail Indication:Morbid (severe) obesity due to excess calories Start:24-May-2017 Instruction Type:Patient Education Patient Instructions Indication:Morbid (severe) obesity due to excess calories Start:24-May-2017 Instruction Type:Provider Instructions for Treatment How to access health informa tion online Indication:Plantar wart, left foot Start:25-Apr-2017 Instruction Type:Patient Education How to access health informa tion online - Detail Indication:Plantar wart, left foot Start:25-Apr-2017 Instruction Type:Patient Education Patient Instructions Indication:Plantar wart, left foot Start:25-Apr-2017 Instruction Type:Provider Instructions for Treatment How to access health informa tion online Indication:BMI 39.0-39.9,adult Start:17-Apr-2017 Instruction Type:Patient Education How to access health informa tion online - Detail Indication:BMI 39.0-39.9,adult Start:17-Apr-2017 Instruction Type:Patient Education Patient Instructions Indication:BMI 39.0-39.9,adult Start:17-Apr-2017 Instruction Type:Provider Instructions for Treatment How to access health informa tion online Indication:Sore throat Start:07-Sep-2016 Instruction Type:Patient Education How to access health informa tion online - Detail Indication:Sore throat Start:07-Sep-2016 Instruction Type:Patient Education Patient Instructions Indication:Sore throat Start:07-Sep-2016 Instruction Type:Provider Instructions for Treatment How to access health informa tion online Indication:Right knee pain Start:29-Aug-2016 Instruction Type:Patient Education How to access health informa tion online - Detail Indication:Right knee pain Start:29-Aug-2016 Instruction Type:Patient Education Patient Instructions Indication:Right knee pain Start:29-Aug-2016 Instruction Type:Provider Instructions for Treatment How to access health informa tion online Indication:Annual physical exam Start:07-Jul-2015 Instruction Type:Patient Education How to access health informa tion online - Detail Indication:Annual physical exam Start:07-Jul-2015 Instruction Type:Patient Education Patient Instructions Indication:Annual physical exam Start:07-Jul-2015 Instruction Type:Provider Instructions for Treatment How to access health informa tion online Indication:PHARYNGITIS, ACUTE (462.) Start:25-Jun-2015 Instruction Type:Patient Education How to access health informa tion online - Detail Indication:PHARYNGITIS, ACUTE (462.) Start:25-Jun-2015 Instruction Type:Patient Education Patient Instructions Indication:PHARYNGITIS, ACUTE (462.) Start:25-Jun-2015 Instruction Type:Provider Instructions for Treatment How to access health informa tion online Indication:PHARYNGITIS, ACUTE (462.) Start:15-May-2014 Instruction Type:Patient Education How to access health informa tion online - Detail Indication:PHARYNGITIS, ACUTE (462.) Start:15-May-2014 Instruction Type:Patient Education Patient Instructions Indication:PHARYNGITIS, ACUTE (462.) Start:15-May-2014 Instruction Type:Provider Instructions for Treatment obesity counseling Indication:Morbid (severe) obesity due to excess calories Start:09-Oct-2013 Instruction Type:Provider Instructions for Treatment Patient Instructions Indication:WWV V70.0 Start:09-Oct-2013 Instruction Type:Provider Instructions for Treatment Patient Instructions Indication:WWV V70.0 Start:20-Sep-2012 Instruction Type:Provider Instructions for Treatment [facility]; [facility] Work Phone: Instructions* Name Dates Details Patient Instructions Indication:Nonsmoker Start:06-Feb-2022 Instruction Type:Provider Instructions for Treatment How to Access Health Informa tion Online using Patient Portal and [employer]rd [employer] Apps Indication:Nonsmoker Start:06-Feb-2022 Instruction Type:Patient Education Patient Instructions Indication:Upper respiratory infection Start:27-Jan-2022 Instruction Type:Provider Instructions for Treatment How to Access Health Informa tion Online using Patient Portal and [employer] Indication:Upper respiratory infection Start:27-Jan-2022 Instruction Type:Patient Education Patient Instructions Indication:HTN (hypertension), benign Start:06-May-2021 Instruction Type:Provider Instructions for Treatment How to Access Health Informa tion Online using Patient Portal and [employer] Indication:HTN (hypertension), benign Start:06-May-2021 Instruction Type:Patient Education How to access health informa tion online Indication:Nonsmoker Start:26-Dec-2018 Instruction Type:Patient Education How to access health informa tion online - Detail Indication:Nonsmoker Start:26-Dec-2018 Instruction Type:Patient Education Patient Instructions Indication:Upper respiratory infection, acute Start:26-Dec-2018 Instruction Type:Provider Instructions for Treatment How to access health informa tion online Indication:BMI 40.0-44.9, adult Start:12-Sep-2018 Instruction Type:Patient Education How to access health informa tion online - Detail Indication:BMI 40.0-44.9, adult Start:12-Sep-2018 Instruction Type:Patient Education Patient Instructions Indication:BMI 40.0-44.9, adult Start:12-Sep-2018 Instruction Type:Provider Instructions for Treatment obesity counseling Indication:Elevated blood pressure reading Start:04-Sep-2018 Instruction Type:Provider Instructions for Treatment How to access health informa tion online - Detail Indication:Morbid (severe) obesity due to excess calories Start:04-Sep-2018 Instruction Type:Patient Education How to access health informa tion online Indication:Morbid (severe) obesity due to excess calories Start:04-Sep-2018 Instruction Type:Patient Education Patient Instructions Indication:Morbid (severe) obesity due to excess calories Start:04-Sep-2018 Instruction Type:Provider Instructions for Treatment How to access health informa tion online Indication:Morbid (severe) obesity due to excess calories Start:15-Aug-2018 Instruction Type:Patient Education How to access health informa tion online - Detail Indication:Morbid (severe) obesity due to excess calories Start:15-Aug-2018 Instruction Type:Patient Education Patient Instructions Indication:Morbid (severe) obesity due to excess calories Start:15-Aug-2018 Instruction Type:Provider Instructions for Treatment How to access health informa tion online Indication:Cough Start:12-Dec-2017 Instruction Type:Patient Education How to access health informa tion online - Detail Indication:Cough Start:12-Dec-2017 Instruction Type:Patient Education Patient Instructions Indication:Cough Start:12-Dec-2017 Instruction Type:Provider Instructions for Treatment How to access health informa tion online Indication:Cough Start:03-Aug-2017 Instruction Type:Patient Education How to access health informa tion online - Detail Indication:Cough Start:03-Aug-2017 Instruction Type:Patient Education Patient Instructions Indication:Cough Start:03-Aug-2017 Instruction Type:Provider Instructions for Treatment How to access health informa tion online Indication:Plantar wart, left foot Start:23-Jul-2017 Instruction Type:Patient Education How to access health informa tion online - Detail Indication:Plantar wart, left foot Start:23-Jul-2017 Instruction Type:Patient Education Patient Instructions Indication:Plantar wart, left foot Start:23-Jul-2017 Instruction Type:Provider Instructions for Treatment How to access health informa tion online - Detail Indication:Morbid (severe) obesity due to excess calories Start:24-May-2017 Instruction Type:Patient Education Patient Instructions Indication:Morbid (severe) obesity due to excess calories Start:24-May-2017 Instruction Type:Provider Instructions for Treatment How to access health informa tion online Indication:Plantar wart, left foot Start:25-Apr-2017 Instruction Type:Patient Education How to access health informa tion online - Detail Indication:Plantar wart, left foot Start:25-Apr-2017 Instruction Type:Patient Education Patient Instructions Indication:Plantar wart, left foot Start:25-Apr-2017 Instruction Type:Provider Instructions for Treatment How to access health informa tion online Indication:BMI 39.0-39.9,adult Start:17-Apr-2017 Instruction Type:Patient Education How to access health informa tion online - Detail Indication:BMI 39.0-39.9,adult Start:17-Apr-2017 Instruction Type:Patient Education Patient Instructions Indication:BMI 39.0-39.9,adult Start:17-Apr-2017 Instruction Type:Provider Instructions for Treatment How to access health informa tion online Indication:Sore throat Start:07-Sep-2016 Instruction Type:Patient Education How to access health informa tion online - Detail Indication:Sore throat Start:07-Sep-2016 Instruction Type:Patient Education Patient Instructions Indication:Sore throat Start:07-Sep-2016 Instruction Type:Provider Instructions for Treatment How to access health informa tion online Indication:Right knee pain Start:29-Aug-2016 Instruction Type:Patient Education How to access health informa tion online - Detail Indication:Right knee pain Start:29-Aug-2016 Instruction Type:Patient Education Patient Instructions Indication:Right knee pain Start:29-Aug-2016 Instruction Type:Provider Instructions for Treatment How to access health informa tion online Indication:Annual physical exam Start:07-Jul-2015 Instruction Type:Patient Education How to access health informa tion online - Detail Indication:Annual physical exam Start:07-Jul-2015 Instruction Type:Patient Education Patient Instructions Indication:Annual physical exam Start:07-Jul-2015 Instruction Type:Provider Instructions for Treatment How to access health informa tion online Indication:PHARYNGITIS, ACUTE (462.) Start:25-Jun-2015 Instruction Type:Patient Education How to access health informa tion online - Detail Indication:PHARYNGITIS, ACUTE (462.) Start:25-Jun-2015 Instruction Type:Patient Education Patient Instructions Indication:PHARYNGITIS, ACUTE (462.) Start:25-Jun-2015 Instruction Type:Provider Instructions for Treatment How to access health informa tion online Indication:PHARYNGITIS, ACUTE (462.) Start:15-May-2014 Instruction Type:Patient Education How to access health informa tion online - Detail Indication:PHARYNGITIS, ACUTE (462.) Start:15-May-2014 Instruction Type:Patient Education Patient Instructions Indication:PHARYNGITIS, ACUTE (462.) Start:15-May-2014 Instruction Type:Provider Instructions for Treatment obesity counseling Indication:Morbid (severe) obesity due to excess calories Start:09-Oct-2013 Instruction Type:Provider Instructions for Treatment Patient Instructions Indication:WWV V70.0 Start:09-Oct-2013 Instruction Type:Provider Instructions for Treatment Patient Instructions Indication:WWV V70.0 Start:20-Sep-2012 Instruction Type:Provider Instructions for Treatment [facility]; [facility] Work Phone: Instructions* Name Dates Details Patient Instructions Indication:Nonsmoker Start:06-Feb-2022 Instruction Type:Provider Instructions for Treatment How to Access Health Informa tion Online using Patient Portal and [employer] Indication:Nonsmoker Start:06-Feb-2022 Instruction Type:Patient Education Patient Instructions Indication:Upper respiratory infection Start:27-Jan-2022 Instruction Type:Provider Instructions for Treatment How to Access Health Informa tion Online using Patient Portal and [employer] Indication:Upper respiratory infection Start:27-Jan-2022 Instruction Type:Patient Education Patient Instructions Indication:HTN (hypertension), benign Start:06-May-2021 Instruction Type:Provider Instructions for Treatment How to Access Health Informa tion Online using Patient Portal and [employer] Indication:HTN (hypertension), benign Start:06-May-2021 Instruction Type:Patient Education How to access health informa tion online Indication:Nonsmoker Start:26-Dec-2018 Instruction Type:Patient Education How to access health informa tion online - Detail Indication:Nonsmoker Start:26-Dec-2018 Instruction Type:Patient Education Patient Instructions Indication:Upper respiratory infection, acute Start:26-Dec-2018 Instruction Type:Provider Instructions for Treatment How to access health informa tion online Indication:BMI 40.0-44.9, adult Start:12-Sep-2018 Instruction Type:Patient Education How to access health informa tion online - Detail Indication:BMI 40.0-44.9, adult Start:12-Sep-2018 Instruction Type:Patient Education Patient Instructions Indication:BMI 40.0-44.9, adult Start:12-Sep-2018 Instruction Type:Provider Instructions for Treatment obesity counseling Indication:Elevated blood pressure reading Start:04-Sep-2018 Instruction Type:Provider Instructions for Treatment How to access health informa tion online - Detail Indication:Morbid (severe) obesity due to excess calories Start:04-Sep-2018 Instruction Type:Patient Education How to access health informa tion online Indication:Morbid (severe) obesity due to excess calories Start:04-Sep-2018 Instruction Type:Patient Education Patient Instructions Indication:Morbid (severe) obesity due to excess calories Start:04-Sep-2018 Instruction Type:Provider Instructions for Treatment How to access health informa tion online Indication:Morbid (severe) obesity due to excess calories Start:15-Aug-2018 Instruction Type:Patient Education How to access health informa tion online - Detail Indication:Morbid (severe) obesity due to excess calories Start:15-Aug-2018 Instruction Type:Patient Education Patient Instructions Indication:Morbid (severe) obesity due to excess calories Start:15-Aug-2018 Instruction Type:Provider Instructions for Treatment How to access health informa tion online Indication:Cough Start:12-Dec-2017 Instruction Type:Patient Education How to access health informa tion online - Detail Indication:Cough Start:12-Dec-2017 Instruction Type:Patient Education Patient Instructions Indication:Cough Start:12-Dec-2017 Instruction Type:Provider Instructions for Treatment How to access health informa tion online Indication:Cough Start:03-Aug-2017 Instruction Type:Patient Education How to access health informa tion online - Detail Indication:Cough Start:03-Aug-2017 Instruction Type:Patient Education Patient Instructions Indication:Cough Start:03-Aug-2017 Instruction Type:Provider Instructions for Treatment How to access health informa tion online Indication:Plantar wart, left foot Start:23-Jul-2017 Instruction Type:Patient Education How to access health informa tion online - Detail Indication:Plantar wart, left foot Start:23-Jul-2017 Instruction Type:Patient Education Patient Instructions Indication:Plantar wart, left foot Start:23-Jul-2017 Instruction Type:Provider Instructions for Treatment How to access health informa tion online - Detail Indication:Morbid (severe) obesity due to excess calories Start:24-May-2017 Instruction Type:Patient Education Patient Instructions Indication:Morbid (severe) obesity due to excess calories Start:24-May-2017 Instruction Type:Provider Instructions for Treatment How to access health informa tion online Indication:Plantar wart, left foot Start:25-Apr-2017 Instruction Type:Patient Education How to access health informa tion online - Detail Indication:Plantar wart, left foot Start:25-Apr-2017 Instruction Type:Patient Education Patient Instructions Indication:Plantar wart, left foot Start:25-Apr-2017 Instruction Type:Provider Instructions for Treatment How to access health informa tion online Indication:BMI 39.0-39.9,adult Start:17-Apr-2017 Instruction Type:Patient Education How to access health informa tion online - Detail Indication:BMI 39.0-39.9,adult Start:17-Apr-2017 Instruction Type:Patient Education Patient Instructions Indication:BMI 39.0-39.9,adult Start:17-Apr-2017 Instruction Type:Provider Instructions for Treatment How to access health informa tion online Indication:Sore throat Start:07-Sep-2016 Instruction Type:Patient Education How to access health informa tion online - Detail Indication:Sore throat Start:07-Sep-2016 Instruction Type:Patient Education Patient Instructions Indication:Sore throat Start:07-Sep-2016 Instruction Type:Provider Instructions for Treatment How to access health informa tion online Indication:Right knee pain Start:29-Aug-2016 Instruction Type:Patient Education How to access health informa tion online - Detail Indication:Right knee pain Start:29-Aug-2016 Instruction Type:Patient Education Patient Instructions Indication:Right knee pain Start:29-Aug-2016 Instruction Type:Provider Instructions for Treatment How to access health informa tion online Indication:Annual physical exam Start:07-Jul-2015 Instruction Type:Patient Education How to access health informa tion online - Detail Indication:Annual physical exam Start:07-Jul-2015 Instruction Type:Patient Education Patient Instructions Indication:Annual physical exam Start:07-Jul-2015 Instruction Type:Provider Instructions for Treatment How to access health informa tion online Indication:PHARYNGITIS, ACUTE (462.) Start:25-Jun-2015 Instruction Type:Patient Education How to access health informa tion online - Detail Indication:PHARYNGITIS, ACUTE (462.) Start:25-Jun-2015 Instruction Type:Patient Education Patient Instructions Indication:PHARYNGITIS, ACUTE (462.) Start:25-Jun-2015 Instruction Type:Provider Instructions for Treatment How to access health informa tion online Indication:PHARYNGITIS, ACUTE (462.) Start:15-May-2014 Instruction Type:Patient Education How to access health informa tion online - Detail Indication:PHARYNGITIS, ACUTE (462.) Start:15-May-2014 Instruction Type:Patient Education Patient Instructions Indication:PHARYNGITIS, ACUTE (462.) Start:15-May-2014 Instruction Type:Provider Instructions for Treatment obesity counseling Indication:Morbid (severe) obesity due to excess calories Start:09-Oct-2013 Instruction Type:Provider Instructions for Treatment Patient Instructions Indication:WWV V70.0 Start:09-Oct-2013 Instruction Type:Provider Instructions for Treatment Patient Instructions Indication:WWV V70.0 Start:20-Sep-2012 Instruction Type:Provider Instructions for Treatment [facility]; [facility] Work Phone: Instructions* Name Dates Details Patient Instructions Indication:Nonsmoker Start:06-Feb-2022 Instruction Type:Provider Instructions for Treatment How to Access Health Informa tion Online using Patient Portal and [employer]rd [employer] Indication:Nonsmoker Start:06-Feb-2022 Instruction Type:Patient Education Patient Instructions Indication:Upper respiratory infection Start:27-Jan-2022 Instruction Type:Provider Instructions for Treatment How to Access Health Informa tion Online using Patient Portal and [employer]rd [employer] Apps Indication:Upper respiratory infection Start:27-Jan-2022 Instruction Type:Patient Education Patient Instructions Indication:HTN (hypertension), benign Start:06-May-2021 Instruction Type:Provider Instructions for Treatment How to Access Health Informa tion Online using Patient Portal and [employer] Apps Indication:HTN (hypertension), benign Start:06-May-2021 Instruction Type:Patient Education How to access health informa tion online Indication:Nonsmoker Start:26-Dec-2018 Instruction Type:Patient Education How to access health informa tion online - Detail Indication:Nonsmoker Start:26-Dec-2018 Instruction Type:Patient Education Patient Instructions Indication:Upper respiratory infection, acute Start:26-Dec-2018 Instruction Type:Provider Instructions for Treatment How to access health informa tion online Indication:BMI 40.0-44.9, adult Start:12-Sep-2018 Instruction Type:Patient Education How to access health informa tion online - Detail Indication:BMI 40.0-44.9, adult Start:12-Sep-2018 Instruction Type:Patient Education Patient Instructions Indication:BMI 40.0-44.9, adult Start:12-Sep-2018 Instruction Type:Provider Instructions for Treatment obesity counseling Indication:Elevated blood pressure reading Start:04-Sep-2018 Instruction Type:Provider Instructions for Treatment How to access health informa tion online - Detail Indication:Morbid (severe) obesity due to excess calories Start:04-Sep-2018 Instruction Type:Patient Education How to access health informa tion online Indication:Morbid (severe) obesity due to excess calories Start:04-Sep-2018 Instruction Type:Patient Education Patient Instructions Indication:Morbid (severe) obesity due to excess calories Start:04-Sep-2018 Instruction Type:Provider Instructions for Treatment How to access health informa tion online Indication:Morbid (severe) obesity due to excess calories Start:15-Aug-2018 Instruction Type:Patient Education How to access health informa tion online - Detail Indication:Morbid (severe) obesity due to excess calories Start:15-Aug-2018 Instruction Type:Patient Education Patient Instructions Indication:Morbid (severe) obesity due to excess calories Start:15-Aug-2018 Instruction Type:Provider Instructions for Treatment How to access health informa tion online Indication:Cough Start:12-Dec-2017 Instruction Type:Patient Education How to access health informa tion online - Detail Indication:Cough Start:12-Dec-2017 Instruction Type:Patient Education Patient Instructions Indication:Cough Start:12-Dec-2017 Instruction Type:Provider Instructions for Treatment How to access health informa tion online Indication:Cough Start:03-Aug-2017 Instruction Type:Patient Education How to access health informa tion online - Detail Indication:Cough Start:03-Aug-2017 Instruction Type:Patient Education Patient Instructions Indication:Cough Start:03-Aug-2017 Instruction Type:Provider Instructions for Treatment How to access health informa tion online Indication:Plantar wart, left foot Start:23-Jul-2017 Instruction Type:Patient Education How to access health informa tion online - Detail Indication:Plantar wart, left foot Start:23-Jul-2017 Instruction Type:Patient Education Patient Instructions Indication:Plantar wart, left foot Start:23-Jul-2017 Instruction Type:Provider Instructions for Treatment How to access health informa tion online - Detail Indication:Morbid (severe) obesity due to excess calories Start:24-May-2017 Instruction Type:Patient Education Patient Instructions Indication:Morbid (severe) obesity due to excess calories Start:24-May-2017 Instruction Type:Provider Instructions for Treatment How to access health informa tion online Indication:Plantar wart, left foot Start:25-Apr-2017 Instruction Type:Patient Education How to access health informa tion online - Detail Indication:Plantar wart, left foot Start:25-Apr-2017 Instruction Type:Patient Education Patient Instructions Indication:Plantar wart, left foot Start:25-Apr-2017 Instruction Type:Provider Instructions for Treatment How to access health informa tion online Indication:BMI 39.0-39.9,adult Start:17-Apr-2017 Instruction Type:Patient Education How to access health informa tion online - Detail Indication:BMI 39.0-39.9,adult Start:17-Apr-2017 Instruction Type:Patient Education Patient Instructions Indication:BMI 39.0-39.9,adult Start:17-Apr-2017 Instruction Type:Provider Instructions for Treatment How to access health informa tion online Indication:Sore throat Start:07-Sep-2016 Instruction Type:Patient Education How to access health informa tion online - Detail Indication:Sore throat Start:07-Sep-2016 Instruction Type:Patient Education Patient Instructions Indication:Sore throat Start:07-Sep-2016 Instruction Type:Provider Instructions for Treatment How to access health informa tion online Indication:Right knee pain Start:29-Aug-2016 Instruction Type:Patient Education How to access health informa tion online - Detail Indication:Right knee pain Start:29-Aug-2016 Instruction Type:Patient Education Patient Instructions Indication:Right knee pain Start:29-Aug-2016 Instruction Type:Provider Instructions for Treatment How to access health informa tion online Indication:Annual physical exam Start:07-Jul-2015 Instruction Type:Patient Education How to access health informa tion online - Detail Indication:Annual physical exam Start:07-Jul-2015 Instruction Type:Patient Education Patient Instructions Indication:Annual physical exam Start:07-Jul-2015 Instruction Type:Provider Instructions for Treatment How to access health informa tion online Indication:PHARYNGITIS, ACUTE (462.) Start:25-Jun-2015 Instruction Type:Patient Education How to access health informa tion online - Detail Indication:PHARYNGITIS, ACUTE (462.) Start:25-Jun-2015 Instruction Type:Patient Education Patient Instructions Indication:PHARYNGITIS, ACUTE (462.) Start:25-Jun-2015 Instruction Type:Provider Instructions for Treatment How to access health informa tion online Indication:PHARYNGITIS, ACUTE (462.) Start:15-May-2014 Instruction Type:Patient Education How to access health informa tion online - Detail Indication:PHARYNGITIS, ACUTE (462.) Start:15-May-2014 Instruction Type:Patient Education Patient Instructions Indication:PHARYNGITIS, ACUTE (462.) Start:15-May-2014 Instruction Type:Provider Instructions for Treatment obesity counseling Indication:Morbid (severe) obesity due to excess calories Start:09-Oct-2013 Instruction Type:Provider Instructions for Treatment Patient Instructions Indication:WWV V70.0 Start:09-Oct-2013 Instruction Type:Provider Instructions for Treatment Patient Instructions Indication:WWV V70.0 Start:20-Sep-2012 Instruction Type:Provider Instructions for Treatment [facility]; [facility] Work Phone: Instructions* Name Dates Details Patient Instructions Indication:Skin tear of left lower leg without complication, initial encounter Start:13-Mar-2022 Instruction Type:Provider Instructions for Treatment How to Access Health Informa tion Online using Patient Portal and [employer] Apps Indication:Skin tear of left lower leg without complication, initial encounter Start:13-Mar-2022 Instruction Type:Patient Education Patient Instructions Indication:Nonsmoker Start:06-Feb-2022 Instruction Type:Provider Instructions for Treatment How to Access Health Informa tion Online using Patient Portal and [employer] Indication:Nonsmoker Start:06-Feb-2022 Instruction Type:Patient Education Patient Instructions Indication:Upper respiratory infection Start:27-Jan-2022 Instruction Type:Provider Instructions for Treatment How to Access Health Informa tion Online using Patient Portal and [employer] Indication:Upper respiratory infection Start:27-Jan-2022 Instruction Type:Patient Education Patient Instructions Indication:HTN (hypertension), benign Start:06-May-2021 Instruction Type:Provider Instructions for Treatment How to Access Health Informa tion Online using Patient Portal and [employer] Indication:HTN (hypertension), benign Start:06-May-2021 Instruction Type:Patient Education How to access health informa tion online Indication:Nonsmoker Start:26-Dec-2018 Instruction Type:Patient Education How to access health informa tion online - Detail Indication:Nonsmoker Start:26-Dec-2018 Instruction Type:Patient Education Patient Instructions Indication:Upper respiratory infection, acute Start:26-Dec-2018 Instruction Type:Provider Instructions for Treatment How to access health informa tion online Indication:BMI 40.0-44.9, adult Start:12-Sep-2018 Instruction Type:Patient Education How to access health informa tion online - Detail Indication:BMI 40.0-44.9, adult Start:12-Sep-2018 Instruction Type:Patient Education Patient Instructions Indication:BMI 40.0-44.9, adult Start:12-Sep-2018 Instruction Type:Provider Instructions for Treatment obesity counseling Indication:Elevated blood pressure reading Start:04-Sep-2018 Instruction Type:Provider Instructions for Treatment How to access health informa tion online - Detail Indication:Morbid (severe) obesity due to excess calories Start:04-Sep-2018 Instruction Type:Patient Education How to access health informa tion online Indication:Morbid (severe) obesity due to excess calories Start:04-Sep-2018 Instruction Type:Patient Education Patient Instructions Indication:Morbid (severe) obesity due to excess calories Start:04-Sep-2018 Instruction Type:Provider Instructions for Treatment How to access health informa tion online Indication:Morbid (severe) obesity due to excess calories Start:15-Aug-2018 Instruction Type:Patient Education How to access health informa tion online - Detail Indication:Morbid (severe) obesity due to excess calories Start:15-Aug-2018 Instruction Type:Patient Education Patient Instructions Indication:Morbid (severe) obesity due to excess calories Start:15-Aug-2018 Instruction Type:Provider Instructions for Treatment How to access health informa tion online Indication:Cough Start:12-Dec-2017 Instruction Type:Patient Education How to access health informa tion online - Detail Indication:Cough Start:12-Dec-2017 Instruction Type:Patient Education Patient Instructions Indication:Cough Start:12-Dec-2017 Instruction Type:Provider Instructions for Treatment How to access health informa tion online Indication:Cough Start:03-Aug-2017 Instruction Type:Patient Education How to access health informa tion online - Detail Indication:Cough Start:03-Aug-2017 Instruction Type:Patient Education Patient Instructions Indication:Cough Start:03-Aug-2017 Instruction Type:Provider Instructions for Treatment How to access health informa tion online Indication:Plantar wart, left foot Start:23-Jul-2017 Instruction Type:Patient Education How to access health informa tion online - Detail Indication:Plantar wart, left foot Start:23-Jul-2017 Instruction Type:Patient Education Patient Instructions Indication:Plantar wart, left foot Start:23-Jul-2017 Instruction Type:Provider Instructions for Treatment How to access health informa tion online - Detail Indication:Morbid (severe) obesity due to excess calories Start:24-May-2017 Instruction Type:Patient Education Patient Instructions Indication:Morbid (severe) obesity due to excess calories Start:24-May-2017 Instruction Type:Provider Instructions for Treatment How to access health informa tion online Indication:Plantar wart, left foot Start:25-Apr-2017 Instruction Type:Patient Education How to access health informa tion online - Detail Indication:Plantar wart, left foot Start:25-Apr-2017 Instruction Type:Patient Education Patient Instructions Indication:Plantar wart, left foot Start:25-Apr-2017 Instruction Type:Provider Instructions for Treatment How to access health informa tion online Indication:BMI 39.0-39.9,adult Start:17-Apr-2017 Instruction Type:Patient Education How to access health informa tion online - Detail Indication:BMI 39.0-39.9,adult Start:17-Apr-2017 Instruction Type:Patient Education Patient Instructions Indication:BMI 39.0-39.9,adult Start:17-Apr-2017 Instruction Type:Provider Instructions for Treatment How to access health informa tion online Indication:Sore throat Start:07-Sep-2016 Instruction Type:Patient Education How to access health informa tion online - Detail Indication:Sore throat Start:07-Sep-2016 Instruction Type:Patient Education Patient Instructions Indication:Sore throat Start:07-Sep-2016 Instruction Type:Provider Instructions for Treatment How to access health informa tion online Indication:Right knee pain Start:29-Aug-2016 Instruction Type:Patient Education How to access health informa tion online - Detail Indication:Right knee pain Start:29-Aug-2016 Instruction Type:Patient Education Patient Instructions Indication:Right knee pain Start:29-Aug-2016 Instruction Type:Provider Instructions for Treatment How to access health informa tion online Indication:Annual physical exam Start:07-Jul-2015 Instruction Type:Patient Education How to access health informa tion online - Detail Indication:Annual physical exam Start:07-Jul-2015 Instruction Type:Patient Education Patient Instructions Indication:Annual physical exam Start:07-Jul-2015 Instruction Type:Provider Instructions for Treatment How to access health informa tion online Indication:PHARYNGITIS, ACUTE (462.) Start:25-Jun-2015 Instruction Type:Patient Education How to access health informa tion online - Detail Indication:PHARYNGITIS, ACUTE (462.) Start:25-Jun-2015 Instruction Type:Patient Education Patient Instructions Indication:PHARYNGITIS, ACUTE (462.) Start:25-Jun-2015 Instruction Type:Provider Instructions for Treatment How to access health informa tion online Indication:PHARYNGITIS, ACUTE (462.) Start:15-May-2014 Instruction Type:Patient Education How to access health informa tion online - Detail Indication:PHARYNGITIS, ACUTE (462.) Start:15-May-2014 Instruction Type:Patient Education Patient Instructions Indication:PHARYNGITIS, ACUTE (462.) Start:15-May-2014 Instruction Type:Provider Instructions for Treatment obesity counseling Indication:Morbid (severe) obesity due to excess calories Start:09-Oct-2013 Instruction Type:Provider Instructions for Treatment Patient Instructions Indication:WWV V70.0 Start:09-Oct-2013 Instruction Type:Provider Instructions for Treatment Patient Instructions Indication:WWV V70.0 Start:20-Sep-2012 Instruction Type:Provider Instructions for Treatment [facility]; [facility] Work Phone: Instructions* Name Dates Details obesity counseling Indication:HTN (hypertension), benign Start:17-Mar-2022 Instruction Type:Provider Instructions for Treatment Patient Instructions Indication:HTN (hypertension), benign Start:17-Mar-2022 Instruction Type:Provider Instructions for Treatment How to Access Health Informa tion Online using Patient Portal and [employer] Indication:HTN (hypertension), benign Start:17-Mar-2022 Instruction Type:Patient Education Patient Instructions Indication:Skin tear of left lower leg without complication, initial encounter Start:13-Mar-2022 Instruction Type:Provider Instructions for Treatment How to Access Health Informa tion Online using Patient Portal and [employer] Indication:Skin tear of left lower leg without complication, initial encounter Start:13-Mar-2022 Instruction Type:Patient Education Patient Instructions Indication:Nonsmoker Start:06-Feb-2022 Instruction Type:Provider Instructions for Treatment How to Access Health Informa tion Online using Patient Portal and [employer] Indication:Nonsmoker Start:06-Feb-2022 Instruction Type:Patient Education Patient Instructions Indication:Upper respiratory infection Start:27-Jan-2022 Instruction Type:Provider Instructions for Treatment How to Access Health Informa tion Online using Patient Portal and [employer] Indication:Upper respiratory infection Start:27-Jan-2022 Instruction Type:Patient Education Patient Instructions Indication:HTN (hypertension), benign Start:06-May-2021 Instruction Type:Provider Instructions for Treatment How to Access Health Informa tion Online using Patient Portal and [employer] Indication:HTN (hypertension), benign Start:06-May-2021 Instruction Type:Patient Education How to access health informa tion online Indication:Nonsmoker Start:26-Dec-2018 Instruction Type:Patient Education How to access health informa tion online - Detail Indication:Nonsmoker Start:26-Dec-2018 Instruction Type:Patient Education Patient Instructions Indication:Upper respiratory infection, acute Start:26-Dec-2018 Instruction Type:Provider Instructions for Treatment How to access health informa tion online Indication:BMI 40.0-44.9, adult Start:12-Sep-2018 Instruction Type:Patient Education How to access health informa tion online - Detail Indication:BMI 40.0-44.9, adult Start:12-Sep-2018 Instruction Type:Patient Education Patient Instructions Indication:BMI 40.0-44.9, adult Start:12-Sep-2018 Instruction Type:Provider Instructions for Treatment obesity counseling Indication:Elevated blood pressure reading Start:04-Sep-2018 Instruction Type:Provider Instructions for Treatment How to access health informa tion online - Detail Indication:Morbid (severe) obesity due to excess calories Start:04-Sep-2018 Instruction Type:Patient Education How to access health informa tion online Indication:Morbid (severe) obesity due to excess calories Start:04-Sep-2018 Instruction Type:Patient Education Patient Instructions Indication:Morbid (severe) obesity due to excess calories Start:04-Sep-2018 Instruction Type:Provider Instructions for Treatment How to access health informa tion online Indication:Morbid (severe) obesity due to excess calories Start:15-Aug-2018 Instruction Type:Patient Education How to access health informa tion online - Detail Indication:Morbid (severe) obesity due to excess calories Start:15-Aug-2018 Instruction Type:Patient Education Patient Instructions Indication:Morbid (severe) obesity due to excess calories Start:15-Aug-2018 Instruction Type:Provider Instructions for Treatment How to access health informa tion online Indication:Cough Start:12-Dec-2017 Instruction Type:Patient Education How to access health informa tion online - Detail Indication:Cough Start:12-Dec-2017 Instruction Type:Patient Education Patient Instructions Indication:Cough Start:12-Dec-2017 Instruction Type:Provider Instructions for Treatment How to access health informa tion online Indication:Cough Start:03-Aug-2017 Instruction Type:Patient Education How to access health informa tion online - Detail Indication:Cough Start:03-Aug-2017 Instruction Type:Patient Education Patient Instructions Indication:Cough Start:03-Aug-2017 Instruction Type:Provider Instructions for Treatment How to access health informa tion online Indication:Plantar wart, left foot Start:23-Jul-2017 Instruction Type:Patient Education How to access health informa tion online - Detail Indication:Plantar wart, left foot Start:23-Jul-2017 Instruction Type:Patient Education Patient Instructions Indication:Plantar wart, left foot Start:23-Jul-2017 Instruction Type:Provider Instructions for Treatment How to access health informa tion online - Detail Indication:Morbid (severe) obesity due to excess calories Start:24-May-2017 Instruction Type:Patient Education Patient Instructions Indication:Morbid (severe) obesity due to excess calories Start:24-May-2017 Instruction Type:Provider Instructions for Treatment How to access health informa tion online Indication:Plantar wart, left foot Start:25-Apr-2017 Instruction Type:Patient Education How to access health informa tion online - Detail Indication:Plantar wart, left foot Start:25-Apr-2017 Instruction Type:Patient Education Patient Instructions Indication:Plantar wart, left foot Start:25-Apr-2017 Instruction Type:Provider Instructions for Treatment How to access health informa tion online Indication:BMI 39.0-39.9,adult Start:17-Apr-2017 Instruction Type:Patient Education How to access health informa tion online - Detail Indication:BMI 39.0-39.9,adult Start:17-Apr-2017 Instruction Type:Patient Education Patient Instructions Indication:BMI 39.0-39.9,adult Start:17-Apr-2017 Instruction Type:Provider Instructions for Treatment How to access health informa tion online Indication:Sore throat Start:07-Sep-2016 Instruction Type:Patient Education How to access health informa tion online - Detail Indication:Sore throat Start:07-Sep-2016 Instruction Type:Patient Education Patient Instructions Indication:Sore throat Start:07-Sep-2016 Instruction Type:Provider Instructions for Treatment How to access health informa tion online Indication:Right knee pain Start:29-Aug-2016 Instruction Type:Patient Education How to access health informa tion online - Detail Indication:Right knee pain Start:29-Aug-2016 Instruction Type:Patient Education Patient Instructions Indication:Right knee pain Start:29-Aug-2016 Instruction Type:Provider Instructions for Treatment How to access health informa tion online Indication:Annual physical exam Start:07-Jul-2015 Instruction Type:Patient Education How to access health informa tion online - Detail Indication:Annual physical exam Start:07-Jul-2015 Instruction Type:Patient Education Patient Instructions Indication:Annual physical exam Start:07-Jul-2015 Instruction Type:Provider Instructions for Treatment How to access health informa tion online Indication:PHARYNGITIS, ACUTE (462.) Start:25-Jun-2015 Instruction Type:Patient Education How to access health informa tion online - Detail Indication:PHARYNGITIS, ACUTE (462.) Start:25-Jun-2015 Instruction Type:Patient Education Patient Instructions Indication:PHARYNGITIS, ACUTE (462.) Start:25-Jun-2015 Instruction Type:Provider Instructions for Treatment How to access health informa tion online Indication:PHARYNGITIS, ACUTE (462.) Start:15-May-2014 Instruction Type:Patient Education How to access health informa tion online - Detail Indication:PHARYNGITIS, ACUTE (462.) Start:15-May-2014 Instruction Type:Patient Education Patient Instructions Indication:PHARYNGITIS, ACUTE (462.) Start:15-May-2014 Instruction Type:Provider Instructions for Treatment obesity counseling Indication:Morbid (severe) obesity due to excess calories Start:09-Oct-2013 Instruction Type:Provider Instructions for Treatment Patient Instructions Indication:WWV V70.0 Start:09-Oct-2013 Instruction Type:Provider Instructions for Treatment Patient Instructions Indication:WWV V70.0 Start:20-Sep-2012 Instruction Type:Provider Instructions for Treatment [facility]; [facility] Work Phone: Instructions* Name Dates Details obesity counseling Indication:HTN (hypertension), benign Start:17-Mar-2022 Instruction Type:Provider Instructions for Treatment Patient Instructions Indication:HTN (hypertension), benign Start:17-Mar-2022 Instruction Type:Provider Instructions for Treatment How to Access Health Informa tion Online using Patient Portal and [employer] Indication:HTN (hypertension), benign Start:17-Mar-2022 Instruction Type:Patient Education Patient Instructions Indication:Skin tear of left lower leg without complication, initial encounter Start:13-Mar-2022 Instruction Type:Provider Instructions for Treatment How to Access Health Informa tion Online using Patient Portal and [employer] Indication:Skin tear of left lower leg without complication, initial encounter Start:13-Mar-2022 Instruction Type:Patient Education Patient Instructions Indication:Nonsmoker Start:06-Feb-2022 Instruction Type:Provider Instructions for Treatment How to Access Health Informa tion Online using Patient Portal and [employer] Indication:Nonsmoker Start:06-Feb-2022 Instruction Type:Patient Education Patient Instructions Indication:Upper respiratory infection Start:27-Jan-2022 Instruction Type:Provider Instructions for Treatment How to Access Health Informa tion Online using Patient Portal and [employer] Indication:Upper respiratory infection Start:27-Jan-2022 Instruction Type:Patient Education Patient Instructions Indication:HTN (hypertension), benign Start:06-May-2021 Instruction Type:Provider Instructions for Treatment How to Access Health Informa tion Online using Patient Portal and [employer] Indication:HTN (hypertension), benign Start:06-May-2021 Instruction Type:Patient Education How to access health informa tion online Indication:Nonsmoker Start:26-Dec-2018 Instruction Type:Patient Education How to access health informa tion online - Detail Indication:Nonsmoker Start:26-Dec-2018 Instruction Type:Patient Education Patient Instructions Indication:Upper respiratory infection, acute Start:26-Dec-2018 Instruction Type:Provider Instructions for Treatment How to access health informa tion online Indication:BMI 40.0-44.9, adult Start:12-Sep-2018 Instruction Type:Patient Education How to access health informa tion online - Detail Indication:BMI 40.0-44.9, adult Start:12-Sep-2018 Instruction Type:Patient Education Patient Instructions Indication:BMI 40.0-44.9, adult Start:12-Sep-2018 Instruction Type:Provider Instructions for Treatment obesity counseling Indication:Elevated blood pressure reading Start:04-Sep-2018 Instruction Type:Provider Instructions for Treatment How to access health informa tion online - Detail Indication:Morbid (severe) obesity due to excess calories Start:04-Sep-2018 Instruction Type:Patient Education How to access health informa tion online Indication:Morbid (severe) obesity due to excess calories Start:04-Sep-2018 Instruction Type:Patient Education Patient Instructions Indication:Morbid (severe) obesity due to excess calories Start:04-Sep-2018 Instruction Type:Provider Instructions for Treatment How to access health informa tion online Indication:Morbid (severe) obesity due to excess calories Start:15-Aug-2018 Instruction Type:Patient Education How to access health informa tion online - Detail Indication:Morbid (severe) obesity due to excess calories Start:15-Aug-2018 Instruction Type:Patient Education Patient Instructions Indication:Morbid (severe) obesity due to excess calories Start:15-Aug-2018 Instruction Type:Provider Instructions for Treatment How to access health informa tion online Indication:Cough Start:12-Dec-2017 Instruction Type:Patient Education How to access health informa tion online - Detail Indication:Cough Start:12-Dec-2017 Instruction Type:Patient Education Patient Instructions Indication:Cough Start:12-Dec-2017 Instruction Type:Provider Instructions for Treatment How to access health informa tion online Indication:Cough Start:03-Aug-2017 Instruction Type:Patient Education How to access health informa tion online - Detail Indication:Cough Start:03-Aug-2017 Instruction Type:Patient Education Patient Instructions Indication:Cough Start:03-Aug-2017 Instruction Type:Provider Instructions for Treatment How to access health informa tion online Indication:Plantar wart, left foot Start:23-Jul-2017 Instruction Type:Patient Education How to access health informa tion online - Detail Indication:Plantar wart, left foot Start:23-Jul-2017 Instruction Type:Patient Education Patient Instructions Indication:Plantar wart, left foot Start:23-Jul-2017 Instruction Type:Provider Instructions for Treatment How to access health informa tion online - Detail Indication:Morbid (severe) obesity due to excess calories Start:24-May-2017 Instruction Type:Patient Education Patient Instructions Indication:Morbid (severe) obesity due to excess calories Start:24-May-2017 Instruction Type:Provider Instructions for Treatment How to access health informa tion online Indication:Plantar wart, left foot Start:25-Apr-2017 Instruction Type:Patient Education How to access health informa tion online - Detail Indication:Plantar wart, left foot Start:25-Apr-2017 Instruction Type:Patient Education Patient Instructions Indication:Plantar wart, left foot Start:25-Apr-2017 Instruction Type:Provider Instructions for Treatment How to access health informa tion online Indication:BMI 39.0-39.9,adult Start:17-Apr-2017 Instruction Type:Patient Education How to access health informa tion online - Detail Indication:BMI 39.0-39.9,adult Start:17-Apr-2017 Instruction Type:Patient Education Patient Instructions Indication:BMI 39.0-39.9,adult Start:17-Apr-2017 Instruction Type:Provider Instructions for Treatment How to access health informa tion online Indication:Sore throat Start:07-Sep-2016 Instruction Type:Patient Education How to access health informa tion online - Detail Indication:Sore throat Start:07-Sep-2016 Instruction Type:Patient Education Patient Instructions Indication:Sore throat Start:07-Sep-2016 Instruction Type:Provider Instructions for Treatment How to access health informa tion online Indication:Right knee pain Start:29-Aug-2016 Instruction Type:Patient Education How to access health informa tion online - Detail Indication:Right knee pain Start:29-Aug-2016 Instruction Type:Patient Education Patient Instructions Indication:Right knee pain Start:29-Aug-2016 Instruction Type:Provider Instructions for Treatment How to access health informa tion online Indication:Annual physical exam Start:07-Jul-2015 Instruction Type:Patient Education How to access health informa tion online - Detail Indication:Annual physical exam Start:07-Jul-2015 Instruction Type:Patient Education Patient Instructions Indication:Annual physical exam Start:07-Jul-2015 Instruction Type:Provider Instructions for Treatment How to access health informa tion online Indication:PHARYNGITIS, ACUTE (462.) Start:25-Jun-2015 Instruction Type:Patient Education How to access health informa tion online - Detail Indication:PHARYNGITIS, ACUTE (462.) Start:25-Jun-2015 Instruction Type:Patient Education Patient Instructions Indication:PHARYNGITIS, ACUTE (462.) Start:25-Jun-2015 Instruction Type:Provider Instructions for Treatment How to access health informa tion online Indication:PHARYNGITIS, ACUTE (462.) Start:15-May-2014 Instruction Type:Patient Education How to access health informa tion online - Detail Indication:PHARYNGITIS, ACUTE (462.) Start:15-May-2014 Instruction Type:Patient Education Patient Instructions Indication:PHARYNGITIS, ACUTE (462.) Start:15-May-2014 Instruction Type:Provider Instructions for Treatment obesity counseling Indication:Morbid (severe) obesity due to excess calories Start:09-Oct-2013 Instruction Type:Provider Instructions for Treatment Patient Instructions Indication:WWV V70.0 Start:09-Oct-2013 Instruction Type:Provider Instructions for Treatment Patient Instructions Indication:WWV V70.0 Start:20-Sep-2012 Instruction Type:Provider Instructions for Treatment [facility]; [facility] Work Phone: Instructions* Name Dates Details obesity counseling Indication:HTN (hypertension), benign Start:17-Mar-2022 Instruction Type:Provider Instructions for Treatment Patient Instructions Indication:HTN (hypertension), benign Start:17-Mar-2022 Instruction Type:Provider Instructions for Treatment How to Access Health Informa tion Online using Patient Portal and [employer] Indication:HTN (hypertension), benign Start:17-Mar-2022 Instruction Type:Patient Education Patient Instructions Indication:Skin tear of left lower leg without complication, initial encounter Start:13-Mar-2022 Instruction Type:Provider Instructions for Treatment How to Access Health Informa tion Online using Patient Portal and [employer] Indication:Skin tear of left lower leg without complication, initial encounter Start:13-Mar-2022 Instruction Type:Patient Education Patient Instructions Indication:Nonsmoker Start:06-Feb-2022 Instruction Type:Provider Instructions for Treatment How to Access Health Informa tion Online using Patient Portal and [employer] Indication:Nonsmoker Start:06-Feb-2022 Instruction Type:Patient Education Patient Instructions Indication:Upper respiratory infection Start:27-Jan-2022 Instruction Type:Provider Instructions for Treatment How to Access Health Informa tion Online using Patient Portal and [employer] Indication:Upper respiratory infection Start:27-Jan-2022 Instruction Type:Patient Education Patient Instructions Indication:HTN (hypertension), benign Start:06-May-2021 Instruction Type:Provider Instructions for Treatment How to Access Health Informa tion Online using Patient Portal and [employer] Indication:HTN (hypertension), benign Start:06-May-2021 Instruction Type:Patient Education How to access health informa tion online Indication:Nonsmoker Start:26-Dec-2018 Instruction Type:Patient Education How to access health informa tion online - Detail Indication:Nonsmoker Start:26-Dec-2018 Instruction Type:Patient Education Patient Instructions Indication:Upper respiratory infection, acute Start:26-Dec-2018 Instruction Type:Provider Instructions for Treatment How to access health informa tion online Indication:BMI 40.0-44.9, adult Start:12-Sep-2018 Instruction Type:Patient Education How to access health informa tion online - Detail Indication:BMI 40.0-44.9, adult Start:12-Sep-2018 Instruction Type:Patient Education Patient Instructions Indication:BMI 40.0-44.9, adult Start:12-Sep-2018 Instruction Type:Provider Instructions for Treatment obesity counseling Indication:Elevated blood pressure reading Start:04-Sep-2018 Instruction Type:Provider Instructions for Treatment How to access health informa tion online - Detail Indication:Morbid (severe) obesity due to excess calories Start:04-Sep-2018 Instruction Type:Patient Education How to access health informa tion online Indication:Morbid (severe) obesity due to excess calories Start:04-Sep-2018 Instruction Type:Patient Education Patient Instructions Indication:Morbid (severe) obesity due to excess calories Start:04-Sep-2018 Instruction Type:Provider Instructions for Treatment How to access health informa tion online Indication:Morbid (severe) obesity due to excess calories Start:15-Aug-2018 Instruction Type:Patient Education How to access health informa tion online - Detail Indication:Morbid (severe) obesity due to excess calories Start:15-Aug-2018 Instruction Type:Patient Education Patient Instructions Indication:Morbid (severe) obesity due to excess calories Start:15-Aug-2018 Instruction Type:Provider Instructions for Treatment How to access health informa tion online Indication:Cough Start:12-Dec-2017 Instruction Type:Patient Education How to access health informa tion online - Detail Indication:Cough Start:12-Dec-2017 Instruction Type:Patient Education Patient Instructions Indication:Cough Start:12-Dec-2017 Instruction Type:Provider Instructions for Treatment How to access health informa tion online Indication:Cough Start:03-Aug-2017 Instruction Type:Patient Education How to access health informa tion online - Detail Indication:Cough Start:03-Aug-2017 Instruction Type:Patient Education Patient Instructions Indication:Cough Start:03-Aug-2017 Instruction Type:Provider Instructions for Treatment How to access health informa tion online Indication:Plantar wart, left foot Start:23-Jul-2017 Instruction Type:Patient Education How to access health informa tion online - Detail Indication:Plantar wart, left foot Start:23-Jul-2017 Instruction Type:Patient Education Patient Instructions Indication:Plantar wart, left foot Start:23-Jul-2017 Instruction Type:Provider Instructions for Treatment How to access health informa tion online - Detail Indication:Morbid (severe) obesity due to excess calories Start:24-May-2017 Instruction Type:Patient Education Patient Instructions Indication:Morbid (severe) obesity due to excess calories Start:24-May-2017 Instruction Type:Provider Instructions for Treatment How to access health informa tion online Indication:Plantar wart, left foot Start:25-Apr-2017 Instruction Type:Patient Education How to access health informa tion online - Detail Indication:Plantar wart, left foot Start:25-Apr-2017 Instruction Type:Patient Education Patient Instructions Indication:Plantar wart, left foot Start:25-Apr-2017 Instruction Type:Provider Instructions for Treatment How to access health informa tion online Indication:BMI 39.0-39.9,adult Start:17-Apr-2017 Instruction Type:Patient Education How to access health informa tion online - Detail Indication:BMI 39.0-39.9,adult Start:17-Apr-2017 Instruction Type:Patient Education Patient Instructions Indication:BMI 39.0-39.9,adult Start:17-Apr-2017 Instruction Type:Provider Instructions for Treatment How to access health informa tion online Indication:Sore throat Start:07-Sep-2016 Instruction Type:Patient Education How to access health informa tion online - Detail Indication:Sore throat Start:07-Sep-2016 Instruction Type:Patient Education Patient Instructions Indication:Sore throat Start:07-Sep-2016 Instruction Type:Provider Instructions for Treatment How to access health informa tion online Indication:Right knee pain Start:29-Aug-2016 Instruction Type:Patient Education How to access health informa tion online - Detail Indication:Right knee pain Start:29-Aug-2016 Instruction Type:Patient Education Patient Instructions Indication:Right knee pain Start:29-Aug-2016 Instruction Type:Provider Instructions for Treatment How to access health informa tion online Indication:Annual physical exam Start:07-Jul-2015 Instruction Type:Patient Education How to access health informa tion online - Detail Indication:Annual physical exam Start:07-Jul-2015 Instruction Type:Patient Education Patient Instructions Indication:Annual physical exam Start:07-Jul-2015 Instruction Type:Provider Instructions for Treatment How to access health informa tion online Indication:PHARYNGITIS, ACUTE (462.) Start:25-Jun-2015 Instruction Type:Patient Education How to access health informa tion online - Detail Indication:PHARYNGITIS, ACUTE (462.) Start:25-Jun-2015 Instruction Type:Patient Education Patient Instructions Indication:PHARYNGITIS, ACUTE (462.) Start:25-Jun-2015 Instruction Type:Provider Instructions for Treatment How to access health informa tion online Indication:PHARYNGITIS, ACUTE (462.) Start:15-May-2014 Instruction Type:Patient Education How to access health informa tion online - Detail Indication:PHARYNGITIS, ACUTE (462.) Start:15-May-2014 Instruction Type:Patient Education Patient Instructions Indication:PHARYNGITIS, ACUTE (462.) Start:15-May-2014 Instruction Type:Provider Instructions for Treatment obesity counseling Indication:Morbid (severe) obesity due to excess calories Start:09-Oct-2013 Instruction Type:Provider Instructions for Treatment Patient Instructions Indication:WWV V70.0 Start:09-Oct-2013 Instruction Type:Provider Instructions for Treatment Patient Instructions Indication:WWV V70.0 Start:20-Sep-2012 Instruction Type:Provider Instructions for Treatment [facility]; [facility] Work Phone: Instructions* Name Dates Details Patient Instructions Indication:BMI 40.0-44.9, adult Start:06-Apr-2022 Instruction Type:Provider Instructions for Treatment How to Access Health Informa tion Online using Patient Portal and [employer] Indication:BMI 40.0-44.9, adult Start:06-Apr-2022 Instruction Type:Patient Education obesity counseling Indication:HTN (hypertension), benign Start:17-Mar-2022 Instruction Type:Provider Instructions for Treatment Patient Instructions Indication:HTN (hypertension), benign Start:17-Mar-2022 Instruction Type:Provider Instructions for Treatment How to Access Health Informa tion Online using Patient Portal and [employer] Indication:HTN (hypertension), benign Start:17-Mar-2022 Instruction Type:Patient Education Patient Instructions Indication:Skin tear of left lower leg without complication, initial encounter Start:13-Mar-2022 Instruction Type:Provider Instructions for Treatment How to Access Health Informa tion Online using Patient Portal and [employer] Indication:Skin tear of left lower leg without complication, initial encounter Start:13-Mar-2022 Instruction Type:Patient Education Patient Instructions Indication:Nonsmoker Start:06-Feb-2022 Instruction Type:Provider Instructions for Treatment How to Access Health Informa tion Online using Patient Portal and [employer] Apps Indication:Nonsmoker Start:06-Feb-2022 Instruction Type:Patient Education Patient Instructions Indication:Upper respiratory infection Start:27-Jan-2022 Instruction Type:Provider Instructions for Treatment How to Access Health Informa tion Online using Patient Portal and [employer] Apps Indication:Upper respiratory infection Start:27-Jan-2022 Instruction Type:Patient Education Patient Instructions Indication:HTN (hypertension), benign Start:06-May-2021 Instruction Type:Provider Instructions for Treatment How to Access Health Informa tion Online using Patient Portal and [employer] Indication:HTN (hypertension), benign Start:06-May-2021 Instruction Type:Patient Education How to access health informa tion online Indication:Nonsmoker Start:26-Dec-2018 Instruction Type:Patient Education How to access health informa tion online - Detail Indication:Nonsmoker Start:26-Dec-2018 Instruction Type:Patient Education Patient Instructions Indication:Upper respiratory infection, acute Start:26-Dec-2018 Instruction Type:Provider Instructions for Treatment How to access health informa tion online Indication:BMI 40.0-44.9, adult Start:12-Sep-2018 Instruction Type:Patient Education How to access health informa tion online - Detail Indication:BMI 40.0-44.9, adult Start:12-Sep-2018 Instruction Type:Patient Education Patient Instructions Indication:BMI 40.0-44.9, adult Start:12-Sep-2018 Instruction Type:Provider Instructions for Treatment obesity counseling Indication:Elevated blood pressure reading Start:04-Sep-2018 Instruction Type:Provider Instructions for Treatment How to access health informa tion online - Detail Indication:Morbid (severe) obesity due to excess calories Start:04-Sep-2018 Instruction Type:Patient Education How to access health informa tion online Indication:Morbid (severe) obesity due to excess calories Start:04-Sep-2018 Instruction Type:Patient Education Patient Instructions Indication:Morbid (severe) obesity due to excess calories Start:04-Sep-2018 Instruction Type:Provider Instructions for Treatment How to access health informa tion online Indication:Morbid (severe) obesity due to excess calories Start:15-Aug-2018 Instruction Type:Patient Education How to access health informa tion online - Detail Indication:Morbid (severe) obesity due to excess calories Start:15-Aug-2018 Instruction Type:Patient Education Patient Instructions Indication:Morbid (severe) obesity due to excess calories Start:15-Aug-2018 Instruction Type:Provider Instructions for Treatment How to access health informa tion online Indication:Cough Start:12-Dec-2017 Instruction Type:Patient Education How to access health informa tion online - Detail Indication:Cough Start:12-Dec-2017 Instruction Type:Patient Education Patient Instructions Indication:Cough Start:12-Dec-2017 Instruction Type:Provider Instructions for Treatment How to access health informa tion online Indication:Cough Start:03-Aug-2017 Instruction Type:Patient Education How to access health informa tion online - Detail Indication:Cough Start:03-Aug-2017 Instruction Type:Patient Education Patient Instructions Indication:Cough Start:03-Aug-2017 Instruction Type:Provider Instructions for Treatment How to access health informa tion online Indication:Plantar wart, left foot Start:23-Jul-2017 Instruction Type:Patient Education How to access health informa tion online - Detail Indication:Plantar wart, left foot Start:23-Jul-2017 Instruction Type:Patient Education Patient Instructions Indication:Plantar wart, left foot Start:23-Jul-2017 Instruction Type:Provider Instructions for Treatment How to access health informa tion online - Detail Indication:Morbid (severe) obesity due to excess calories Start:24-May-2017 Instruction Type:Patient Education Patient Instructions Indication:Morbid (severe) obesity due to excess calories Start:24-May-2017 Instruction Type:Provider Instructions for Treatment How to access health informa tion online Indication:Plantar wart, left foot Start:25-Apr-2017 Instruction Type:Patient Education How to access health informa tion online - Detail Indication:Plantar wart, left foot Start:25-Apr-2017 Instruction Type:Patient Education Patient Instructions Indication:Plantar wart, left foot Start:25-Apr-2017 Instruction Type:Provider Instructions for Treatment How to access health informa tion online Indication:BMI 39.0-39.9,adult Start:17-Apr-2017 Instruction Type:Patient Education How to access health informa tion online - Detail Indication:BMI 39.0-39.9,adult Start:17-Apr-2017 Instruction Type:Patient Education Patient Instructions Indication:BMI 39.0-39.9,adult Start:17-Apr-2017 Instruction Type:Provider Instructions for Treatment How to access health informa tion online Indication:Sore throat Start:07-Sep-2016 Instruction Type:Patient Education How to access health informa tion online - Detail Indication:Sore throat Start:07-Sep-2016 Instruction Type:Patient Education Patient Instructions Indication:Sore throat Start:07-Sep-2016 Instruction Type:Provider Instructions for Treatment How to access health informa tion online Indication:Right knee pain Start:29-Aug-2016 Instruction Type:Patient Education How to access health informa tion online - Detail Indication:Right knee pain Start:29-Aug-2016 Instruction Type:Patient Education Patient Instructions Indication:Right knee pain Start:29-Aug-2016 Instruction Type:Provider Instructions for Treatment How to access health informa tion online Indication:Annual physical exam Start:07-Jul-2015 Instruction Type:Patient Education How to access health informa tion online - Detail Indication:Annual physical exam Start:07-Jul-2015 Instruction Type:Patient Education Patient Instructions Indication:Annual physical exam Start:07-Jul-2015 Instruction Type:Provider Instructions for Treatment How to access health informa tion online Indication:PHARYNGITIS, ACUTE (462.) Start:25-Jun-2015 Instruction Type:Patient Education How to access health informa tion online - Detail Indication:PHARYNGITIS, ACUTE (462.) Start:25-Jun-2015 Instruction Type:Patient Education Patient Instructions Indication:PHARYNGITIS, ACUTE (462.) Start:25-Jun-2015 Instruction Type:Provider Instructions for Treatment How to access health informa tion online Indication:PHARYNGITIS, ACUTE (462.) Start:15-May-2014 Instruction Type:Patient Education How to access health informa tion online - Detail Indication:PHARYNGITIS, ACUTE (462.) Start:15-May-2014 Instruction Type:Patient Education Patient Instructions Indication:PHARYNGITIS, ACUTE (462.) Start:15-May-2014 Instruction Type:Provider Instructions for Treatment obesity counseling Indication:Morbid (severe) obesity due to excess calories Start:09-Oct-2013 Instruction Type:Provider Instructions for Treatment Patient Instructions Indication:WWV V70.0 Start:09-Oct-2013 Instruction Type:Provider Instructions for Treatment Patient Instructions Indication:WWV V70.0 Start:20-Sep-2012 Instruction Type:Provider Instructions for Treatment [facility]; [facility] Work Phone: Instructions* Name Dates Details Patient Instructions Indication:BMI 40.0-44.9, adult Start:06-Apr-2022 Instruction Type:Provider Instructions for Treatment How to Access Health Informa tion Online using Patient Portal and [employer] Indication:BMI 40.0-44.9, adult Start:06-Apr-2022 Instruction Type:Patient Education obesity counseling Indication:HTN (hypertension), benign Start:17-Mar-2022 Instruction Type:Provider Instructions for Treatment Patient Instructions Indication:HTN (hypertension), benign Start:17-Mar-2022 Instruction Type:Provider Instructions for Treatment How to Access Health Informa tion Online using Patient Portal and [employer] Indication:HTN (hypertension), benign Start:17-Mar-2022 Instruction Type:Patient Education Patient Instructions Indication:Skin tear of left lower leg without complication, initial encounter Start:13-Mar-2022 Instruction Type:Provider Instructions for Treatment How to Access Health Informa tion Online using Patient Portal and [employer] Apps Indication:Skin tear of left lower leg without complication, initial encounter Start:13-Mar-2022 Instruction Type:Patient Education Patient Instructions Indication:Nonsmoker Start:06-Feb-2022 Instruction Type:Provider Instructions for Treatment How to Access Health Informa tion Online using Patient Portal and [employer] Apps Indication:Nonsmoker Start:06-Feb-2022 Instruction Type:Patient Education Patient Instructions Indication:Upper respiratory infection Start:27-Jan-2022 Instruction Type:Provider Instructions for Treatment How to Access Health Informa tion Online using Patient Portal and [employer] Apps Indication:Upper respiratory infection Start:27-Jan-2022 Instruction Type:Patient Education Patient Instructions Indication:HTN (hypertension), benign Start:06-May-2021 Instruction Type:Provider Instructions for Treatment How to Access Health Informa tion Online using Patient Portal and [employer] Apps Indication:HTN (hypertension), benign Start:06-May-2021 Instruction Type:Patient Education How to access health informa tion online Indication:Nonsmoker Start:26-Dec-2018 Instruction Type:Patient Education How to access health informa tion online - Detail Indication:Nonsmoker Start:26-Dec-2018 Instruction Type:Patient Education Patient Instructions Indication:Upper respiratory infection, acute Start:26-Dec-2018 Instruction Type:Provider Instructions for Treatment How to access health informa tion online Indication:BMI 40.0-44.9, adult Start:12-Sep-2018 Instruction Type:Patient Education How to access health informa tion online - Detail Indication:BMI 40.0-44.9, adult Start:12-Sep-2018 Instruction Type:Patient Education Patient Instructions Indication:BMI 40.0-44.9, adult Start:12-Sep-2018 Instruction Type:Provider Instructions for Treatment obesity counseling Indication:Elevated blood pressure reading Start:04-Sep-2018 Instruction Type:Provider Instructions for Treatment How to access health informa tion online - Detail Indication:Morbid (severe) obesity due to excess calories Start:04-Sep-2018 Instruction Type:Patient Education How to access health informa tion online Indication:Morbid (severe) obesity due to excess calories Start:04-Sep-2018 Instruction Type:Patient Education Patient Instructions Indication:Morbid (severe) obesity due to excess calories Start:04-Sep-2018 Instruction Type:Provider Instructions for Treatment How to access health informa tion online Indication:Morbid (severe) obesity due to excess calories Start:15-Aug-2018 Instruction Type:Patient Education How to access health informa tion online - Detail Indication:Morbid (severe) obesity due to excess calories Start:15-Aug-2018 Instruction Type:Patient Education Patient Instructions Indication:Morbid (severe) obesity due to excess calories Start:15-Aug-2018 Instruction Type:Provider Instructions for Treatment How to access health informa tion online Indication:Cough Start:12-Dec-2017 Instruction Type:Patient Education How to access health informa tion online - Detail Indication:Cough Start:12-Dec-2017 Instruction Type:Patient Education Patient Instructions Indication:Cough Start:12-Dec-2017 Instruction Type:Provider Instructions for Treatment How to access health informa tion online Indication:Cough Start:03-Aug-2017 Instruction Type:Patient Education How to access health informa tion online - Detail Indication:Cough Start:03-Aug-2017 Instruction Type:Patient Education Patient Instructions Indication:Cough Start:03-Aug-2017 Instruction Type:Provider Instructions for Treatment How to access health informa tion online Indication:Plantar wart, left foot Start:23-Jul-2017 Instruction Type:Patient Education How to access health informa tion online - Detail Indication:Plantar wart, left foot Start:23-Jul-2017 Instruction Type:Patient Education Patient Instructions Indication:Plantar wart, left foot Start:23-Jul-2017 Instruction Type:Provider Instructions for Treatment How to access health informa tion online - Detail Indication:Morbid (severe) obesity due to excess calories Start:24-May-2017 Instruction Type:Patient Education Patient Instructions Indication:Morbid (severe) obesity due to excess calories Start:24-May-2017 Instruction Type:Provider Instructions for Treatment How to access health informa tion online Indication:Plantar wart, left foot Start:25-Apr-2017 Instruction Type:Patient Education How to access health informa tion online - Detail Indication:Plantar wart, left foot Start:25-Apr-2017 Instruction Type:Patient Education Patient Instructions Indication:Plantar wart, left foot Start:25-Apr-2017 Instruction Type:Provider Instructions for Treatment How to access health informa tion online Indication:BMI 39.0-39.9,adult Start:17-Apr-2017 Instruction Type:Patient Education How to access health informa tion online - Detail Indication:BMI 39.0-39.9,adult Start:17-Apr-2017 Instruction Type:Patient Education Patient Instructions Indication:BMI 39.0-39.9,adult Start:17-Apr-2017 Instruction Type:Provider Instructions for Treatment How to access health informa tion online Indication:Sore throat Start:07-Sep-2016 Instruction Type:Patient Education How to access health informa tion online - Detail Indication:Sore throat Start:07-Sep-2016 Instruction Type:Patient Education Patient Instructions Indication:Sore throat Start:07-Sep-2016 Instruction Type:Provider Instructions for Treatment How to access health informa tion online Indication:Right knee pain Start:29-Aug-2016 Instruction Type:Patient Education How to access health informa tion online - Detail Indication:Right knee pain Start:29-Aug-2016 Instruction Type:Patient Education Patient Instructions Indication:Right knee pain Start:29-Aug-2016 Instruction Type:Provider Instructions for Treatment How to access health informa tion online Indication:Annual physical exam Start:07-Jul-2015 Instruction Type:Patient Education How to access health informa tion online - Detail Indication:Annual physical exam Start:07-Jul-2015 Instruction Type:Patient Education Patient Instructions Indication:Annual physical exam Start:07-Jul-2015 Instruction Type:Provider Instructions for Treatment How to access health informa tion online Indication:PHARYNGITIS, ACUTE (462.) Start:25-Jun-2015 Instruction Type:Patient Education How to access health informa tion online - Detail Indication:PHARYNGITIS, ACUTE (462.) Start:25-Jun-2015 Instruction Type:Patient Education Patient Instructions Indication:PHARYNGITIS, ACUTE (462.) Start:25-Jun-2015 Instruction Type:Provider Instructions for Treatment How to access health informa tion online Indication:PHARYNGITIS, ACUTE (462.) Start:15-May-2014 Instruction Type:Patient Education How to access health informa tion online - Detail Indication:PHARYNGITIS, ACUTE (462.) Start:15-May-2014 Instruction Type:Patient Education Patient Instructions Indication:PHARYNGITIS, ACUTE (462.) Start:15-May-2014 Instruction Type:Provider Instructions for Treatment obesity counseling Indication:Morbid (severe) obesity due to excess calories Start:09-Oct-2013 Instruction Type:Provider Instructions for Treatment Patient Instructions Indication:WWV V70.0 Start:09-Oct-2013 Instruction Type:Provider Instructions for Treatment Patient Instructions Indication:WWV V70.0 Start:20-Sep-2012 Instruction Type:Provider Instructions for Treatment [facility]; [facility] Work Phone: Instructions* Name Dates Details Patient Instructions Indication:Nonsmoker Start:20-Apr-2022 Instruction Type:Provider Instructions for Treatment How to Access Health Informa tion Online using Patient Portal and [employer] Apps Indication:Nonsmoker Start:20-Apr-2022 Instruction Type:Patient Education Patient Instructions Indication:BMI 40.0-44.9, adult Start:06-Apr-2022 Instruction Type:Provider Instructions for Treatment How to Access Health Informa tion Online using Patient Portal and [employer] Apps Indication:BMI 40.0-44.9, adult Start:06-Apr-2022 Instruction Type:Patient Education obesity counseling Indication:HTN (hypertension), benign Start:17-Mar-2022 Instruction Type:Provider Instructions for Treatment Patient Instructions Indication:HTN (hypertension), benign Start:17-Mar-2022 Instruction Type:Provider Instructions for Treatment How to Access Health Informa tion Online using Patient Portal and [employer] Apps Indication:HTN (hypertension), benign Start:17-Mar-2022 Instruction Type:Patient Education Patient Instructions Indication:Skin tear of left lower leg without complication, initial encounter Start:13-Mar-2022 Instruction Type:Provider Instructions for Treatment How to Access Health Informa tion Online using Patient Portal and [employer] Apps Indication:Skin tear of left lower leg without complication, initial encounter Start:13-Mar-2022 Instruction Type:Patient Education Patient Instructions Indication:Nonsmoker Start:06-Feb-2022 Instruction Type:Provider Instructions for Treatment How to Access Health Informa tion Online using Patient Portal and [employer] Apps Indication:Nonsmoker Start:06-Feb-2022 Instruction Type:Patient Education Patient Instructions Indication:Upper respiratory infection Start:27-Jan-2022 Instruction Type:Provider Instructions for Treatment How to Access Health Informa tion Online using Patient Portal and [employer] Apps Indication:Upper respiratory infection Start:27-Jan-2022 Instruction Type:Patient Education Patient Instructions Indication:HTN (hypertension), benign Start:06-May-2021 Instruction Type:Provider Instructions for Treatment How to Access Health Informa tion Online using Patient Portal and [employer] Indication:HTN (hypertension), benign Start:06-May-2021 Instruction Type:Patient Education How to access health informa tion online Indication:Nonsmoker Start:26-Dec-2018 Instruction Type:Patient Education How to access health informa tion online - Detail Indication:Nonsmoker Start:26-Dec-2018 Instruction Type:Patient Education Patient Instructions Indication:Upper respiratory infection, acute Start:26-Dec-2018 Instruction Type:Provider Instructions for Treatment How to access health informa tion online Indication:BMI 40.0-44.9, adult Start:12-Sep-2018 Instruction Type:Patient Education How to access health informa tion online - Detail Indication:BMI 40.0-44.9, adult Start:12-Sep-2018 Instruction Type:Patient Education Patient Instructions Indication:BMI 40.0-44.9, adult Start:12-Sep-2018 Instruction Type:Provider Instructions for Treatment obesity counseling Indication:Elevated blood pressure reading Start:04-Sep-2018 Instruction Type:Provider Instructions for Treatment How to access health informa tion online - Detail Indication:Morbid (severe) obesity due to excess calories Start:04-Sep-2018 Instruction Type:Patient Education How to access health informa tion online Indication:Morbid (severe) obesity due to excess calories Start:04-Sep-2018 Instruction Type:Patient Education Patient Instructions Indication:Morbid (severe) obesity due to excess calories Start:04-Sep-2018 Instruction Type:Provider Instructions for Treatment How to access health informa tion online Indication:Morbid (severe) obesity due to excess calories Start:15-Aug-2018 Instruction Type:Patient Education How to access health informa tion online - Detail Indication:Morbid (severe) obesity due to excess calories Start:15-Aug-2018 Instruction Type:Patient Education Patient Instructions Indication:Morbid (severe) obesity due to excess calories Start:15-Aug-2018 Instruction Type:Provider Instructions for Treatment How to access health informa tion online Indication:Cough Start:12-Dec-2017 Instruction Type:Patient Education How to access health informa tion online - Detail Indication:Cough Start:12-Dec-2017 Instruction Type:Patient Education Patient Instructions Indication:Cough Start:12-Dec-2017 Instruction Type:Provider Instructions for Treatment How to access health informa tion online Indication:Cough Start:03-Aug-2017 Instruction Type:Patient Education How to access health informa tion online - Detail Indication:Cough Start:03-Aug-2017 Instruction Type:Patient Education Patient Instructions Indication:Cough Start:03-Aug-2017 Instruction Type:Provider Instructions for Treatment How to access health informa tion online Indication:Plantar wart, left foot Start:23-Jul-2017 Instruction Type:Patient Education How to access health informa tion online - Detail Indication:Plantar wart, left foot Start:23-Jul-2017 Instruction Type:Patient Education Patient Instructions Indication:Plantar wart, left foot Start:23-Jul-2017 Instruction Type:Provider Instructions for Treatment How to access health informa tion online - Detail Indication:Morbid (severe) obesity due to excess calories Start:24-May-2017 Instruction Type:Patient Education Patient Instructions Indication:Morbid (severe) obesity due to excess calories Start:24-May-2017 Instruction Type:Provider Instructions for Treatment How to access health informa tion online Indication:Plantar wart, left foot Start:25-Apr-2017 Instruction Type:Patient Education How to access health informa tion online - Detail Indication:Plantar wart, left foot Start:25-Apr-2017 Instruction Type:Patient Education Patient Instructions Indication:Plantar wart, left foot Start:25-Apr-2017 Instruction Type:Provider Instructions for Treatment How to access health informa tion online Indication:BMI 39.0-39.9,adult Start:17-Apr-2017 Instruction Type:Patient Education How to access health informa tion online - Detail Indication:BMI 39.0-39.9,adult Start:17-Apr-2017 Instruction Type:Patient Education Patient Instructions Indication:BMI 39.0-39.9,adult Start:17-Apr-2017 Instruction Type:Provider Instructions for Treatment How to access health informa tion online Indication:Sore throat Start:07-Sep-2016 Instruction Type:Patient Education How to access health informa tion online - Detail Indication:Sore throat Start:07-Sep-2016 Instruction Type:Patient Education Patient Instructions Indication:Sore throat Start:07-Sep-2016 Instruction Type:Provider Instructions for Treatment How to access health informa tion online Indication:Right knee pain Start:29-Aug-2016 Instruction Type:Patient Education How to access health informa tion online - Detail Indication:Right knee pain Start:29-Aug-2016 Instruction Type:Patient Education Patient Instructions Indication:Right knee pain Start:29-Aug-2016 Instruction Type:Provider Instructions for Treatment How to access health informa tion online Indication:Annual physical exam Start:07-Jul-2015 Instruction Type:Patient Education How to access health informa tion online - Detail Indication:Annual physical exam Start:07-Jul-2015 Instruction Type:Patient Education Patient Instructions Indication:Annual physical exam Start:07-Jul-2015 Instruction Type:Provider Instructions for Treatment How to access health informa tion online Indication:PHARYNGITIS, ACUTE (462.) Start:25-Jun-2015 Instruction Type:Patient Education How to access health informa tion online - Detail Indication:PHARYNGITIS, ACUTE (462.) Start:25-Jun-2015 Instruction Type:Patient Education Patient Instructions Indication:PHARYNGITIS, ACUTE (462.) Start:25-Jun-2015 Instruction Type:Provider Instructions for Treatment How to access health informa tion online Indication:PHARYNGITIS, ACUTE (462.) Start:15-May-2014 Instruction Type:Patient Education How to access health informa tion online - Detail Indication:PHARYNGITIS, ACUTE (462.) Start:15-May-2014 Instruction Type:Patient Education Patient Instructions Indication:PHARYNGITIS, ACUTE (462.) Start:15-May-2014 Instruction Type:Provider Instructions for Treatment obesity counseling Indication:Morbid (severe) obesity due to excess calories Start:09-Oct-2013 Instruction Type:Provider Instructions for Treatment Patient Instructions Indication:WWV V70.0 Start:09-Oct-2013 Instruction Type:Provider Instructions for Treatment Patient Instructions Indication:WWV V70.0 Start:20-Sep-2012 Instruction Type:Provider Instructions for Treatment [facility]; [facility] Work Phone: Instructions* Name Dates Details Patient Instructions Indication:Nonsmoker Start:20-Apr-2022 Instruction Type:Provider Instructions for Treatment How to Access Health Informa tion Online using Patient Portal and [employer] Apps Indication:Nonsmoker Start:20-Apr-2022 Instruction Type:Patient Education Patient Instructions Indication:BMI 40.0-44.9, adult Start:06-Apr-2022 Instruction Type:Provider Instructions for Treatment How to Access Health Informa tion Online using Patient Portal and [employer] Indication:BMI 40.0-44.9, adult Start:06-Apr-2022 Instruction Type:Patient Education obesity counseling Indication:HTN (hypertension), benign Start:17-Mar-2022 Instruction Type:Provider Instructions for Treatment Patient Instructions Indication:HTN (hypertension), benign Start:17-Mar-2022 Instruction Type:Provider Instructions for Treatment How to Access Health Informa tion Online using Patient Portal and [employer] Indication:HTN (hypertension), benign Start:17-Mar-2022 Instruction Type:Patient Education Patient Instructions Indication:Skin tear of left lower leg without complication, initial encounter Start:13-Mar-2022 Instruction Type:Provider Instructions for Treatment How to Access Health Informa tion Online using Patient Portal and [employer] Indication:Skin tear of left lower leg without complication, initial encounter Start:13-Mar-2022 Instruction Type:Patient Education Patient Instructions Indication:Nonsmoker Start:06-Feb-2022 Instruction Type:Provider Instructions for Treatment How to Access Health Informa tion Online using Patient Portal and [employer] Indication:Nonsmoker Start:06-Feb-2022 Instruction Type:Patient Education Patient Instructions Indication:Upper respiratory infection Start:27-Jan-2022 Instruction Type:Provider Instructions for Treatment How to Access Health Informa tion Online using Patient Portal and [employer] Indication:Upper respiratory infection Start:27-Jan-2022 Instruction Type:Patient Education Patient Instructions Indication:HTN (hypertension), benign Start:06-May-2021 Instruction Type:Provider Instructions for Treatment How to Access Health Informa tion Online using Patient Portal and [employer] Indication:HTN (hypertension), benign Start:06-May-2021 Instruction Type:Patient Education How to access health informa tion online Indication:Nonsmoker Start:26-Dec-2018 Instruction Type:Patient Education How to access health informa tion online - Detail Indication:Nonsmoker Start:26-Dec-2018 Instruction Type:Patient Education Patient Instructions Indication:Upper respiratory infection, acute Start:26-Dec-2018 Instruction Type:Provider Instructions for Treatment How to access health informa tion online Indication:BMI 40.0-44.9, adult Start:12-Sep-2018 Instruction Type:Patient Education How to access health informa tion online - Detail Indication:BMI 40.0-44.9, adult Start:12-Sep-2018 Instruction Type:Patient Education Patient Instructions Indication:BMI 40.0-44.9, adult Start:12-Sep-2018 Instruction Type:Provider Instructions for Treatment obesity counseling Indication:Elevated blood pressure reading Start:04-Sep-2018 Instruction Type:Provider Instructions for Treatment How to access health informa tion online - Detail Indication:Morbid (severe) obesity due to excess calories Start:04-Sep-2018 Instruction Type:Patient Education How to access health informa tion online Indication:Morbid (severe) obesity due to excess calories Start:04-Sep-2018 Instruction Type:Patient Education Patient Instructions Indication:Morbid (severe) obesity due to excess calories Start:04-Sep-2018 Instruction Type:Provider Instructions for Treatment How to access health informa tion online Indication:Morbid (severe) obesity due to excess calories Start:15-Aug-2018 Instruction Type:Patient Education How to access health informa tion online - Detail Indication:Morbid (severe) obesity due to excess calories Start:15-Aug-2018 Instruction Type:Patient Education Patient Instructions Indication:Morbid (severe) obesity due to excess calories Start:15-Aug-2018 Instruction Type:Provider Instructions for Treatment How to access health informa tion online Indication:Cough Start:12-Dec-2017 Instruction Type:Patient Education How to access health informa tion online - Detail Indication:Cough Start:12-Dec-2017 Instruction Type:Patient Education Patient Instructions Indication:Cough Start:12-Dec-2017 Instruction Type:Provider Instructions for Treatment How to access health informa tion online Indication:Cough Start:03-Aug-2017 Instruction Type:Patient Education How to access health informa tion online - Detail Indication:Cough Start:03-Aug-2017 Instruction Type:Patient Education Patient Instructions Indication:Cough Start:03-Aug-2017 Instruction Type:Provider Instructions for Treatment How to access health informa tion online Indication:Plantar wart, left foot Start:23-Jul-2017 Instruction Type:Patient Education How to access health informa tion online - Detail Indication:Plantar wart, left foot Start:23-Jul-2017 Instruction Type:Patient Education Patient Instructions Indication:Plantar wart, left foot Start:23-Jul-2017 Instruction Type:Provider Instructions for Treatment How to access health informa tion online - Detail Indication:Morbid (severe) obesity due to excess calories Start:24-May-2017 Instruction Type:Patient Education Patient Instructions Indication:Morbid (severe) obesity due to excess calories Start:24-May-2017 Instruction Type:Provider Instructions for Treatment How to access health informa tion online Indication:Plantar wart, left foot Start:25-Apr-2017 Instruction Type:Patient Education How to access health informa tion online - Detail Indication:Plantar wart, left foot Start:25-Apr-2017 Instruction Type:Patient Education Patient Instructions Indication:Plantar wart, left foot Start:25-Apr-2017 Instruction Type:Provider Instructions for Treatment How to access health informa tion online Indication:BMI 39.0-39.9,adult Start:17-Apr-2017 Instruction Type:Patient Education How to access health informa tion online - Detail Indication:BMI 39.0-39.9,adult Start:17-Apr-2017 Instruction Type:Patient Education Patient Instructions Indication:BMI 39.0-39.9,adult Start:17-Apr-2017 Instruction Type:Provider Instructions for Treatment How to access health informa tion online Indication:Sore throat Start:07-Sep-2016 Instruction Type:Patient Education How to access health informa tion online - Detail Indication:Sore throat Start:07-Sep-2016 Instruction Type:Patient Education Patient Instructions Indication:Sore throat Start:07-Sep-2016 Instruction Type:Provider Instructions for Treatment How to access health informa tion online Indication:Right knee pain Start:29-Aug-2016 Instruction Type:Patient Education How to access health informa tion online - Detail Indication:Right knee pain Start:29-Aug-2016 Instruction Type:Patient Education Patient Instructions Indication:Right knee pain Start:29-Aug-2016 Instruction Type:Provider Instructions for Treatment How to access health informa tion online Indication:Annual physical exam Start:07-Jul-2015 Instruction Type:Patient Education How to access health informa tion online - Detail Indication:Annual physical exam Start:07-Jul-2015 Instruction Type:Patient Education Patient Instructions Indication:Annual physical exam Start:07-Jul-2015 Instruction Type:Provider Instructions for Treatment How to access health informa tion online Indication:PHARYNGITIS, ACUTE (462.) Start:25-Jun-2015 Instruction Type:Patient Education How to access health informa tion online - Detail Indication:PHARYNGITIS, ACUTE (462.) Start:25-Jun-2015 Instruction Type:Patient Education Patient Instructions Indication:PHARYNGITIS, ACUTE (462.) Start:25-Jun-2015 Instruction Type:Provider Instructions for Treatment How to access health informa tion online Indication:PHARYNGITIS, ACUTE (462.) Start:15-May-2014 Instruction Type:Patient Education How to access health informa tion online - Detail Indication:PHARYNGITIS, ACUTE (462.) Start:15-May-2014 Instruction Type:Patient Education Patient Instructions Indication:PHARYNGITIS, ACUTE (462.) Start:15-May-2014 Instruction Type:Provider Instructions for Treatment obesity counseling Indication:Morbid (severe) obesity due to excess calories Start:09-Oct-2013 Instruction Type:Provider Instructions for Treatment Patient Instructions Indication:WWV V70.0 Start:09-Oct-2013 Instruction Type:Provider Instructions for Treatment Patient Instructions Indication:WWV V70.0 Start:20-Sep-2012 Instruction Type:Provider Instructions for Treatment [facility]; [facility] Work Phone: Instructions* Name Dates Details Patient Instructions Indication:BMI 35.0-35.9,adult Start:14-Jun-2022 Instruction Type:Provider Instructions for Treatment How to Access Health Informa tion Online using Patient Portal and [employer] Indication:BMI 35.0-35.9,adult Start:14-Jun-2022 Instruction Type:Patient Education Patient Instructions Indication:Nonsmoker Start:20-Apr-2022 Instruction Type:Provider Instructions for Treatment How to Access Health Informa tion Online using Patient Portal and [employer] Apps Indication:Nonsmoker Start:20-Apr-2022 Instruction Type:Patient Education Patient Instructions Indication:BMI 40.0-44.9, adult Start:06-Apr-2022 Instruction Type:Provider Instructions for Treatment How to Access Health Informa tion Online using Patient Portal and [employer] Apps Indication:BMI 40.0-44.9, adult Start:06-Apr-2022 Instruction Type:Patient Education obesity counseling Indication:HTN (hypertension), benign Start:17-Mar-2022 Instruction Type:Provider Instructions for Treatment Patient Instructions Indication:HTN (hypertension), benign Start:17-Mar-2022 Instruction Type:Provider Instructions for Treatment How to Access Health Informa tion Online using Patient Portal and [employer] Indication:HTN (hypertension), benign Start:17-Mar-2022 Instruction Type:Patient Education Patient Instructions Indication:Skin tear of left lower leg without complication, initial encounter Start:13-Mar-2022 Instruction Type:Provider Instructions for Treatment How to Access Health Informa tion Online using Patient Portal and [employer] Indication:Skin tear of left lower leg without complication, initial encounter Start:13-Mar-2022 Instruction Type:Patient Education Patient Instructions Indication:Nonsmoker Start:06-Feb-2022 Instruction Type:Provider Instructions for Treatment How to Access Health Informa tion Online using Patient Portal and [employer] Indication:Nonsmoker Start:06-Feb-2022 Instruction Type:Patient Education Patient Instructions Indication:Upper respiratory infection Start:27-Jan-2022 Instruction Type:Provider Instructions for Treatment How to Access Health Informa tion Online using Patient Portal and [employer] Indication:Upper respiratory infection Start:27-Jan-2022 Instruction Type:Patient Education Patient Instructions Indication:HTN (hypertension), benign Start:06-May-2021 Instruction Type:Provider Instructions for Treatment How to Access Health Informa tion Online using Patient Portal and [employer] Indication:HTN (hypertension), benign Start:06-May-2021 Instruction Type:Patient Education How to access health informa tion online Indication:Nonsmoker Start:26-Dec-2018 Instruction Type:Patient Education How to access health informa tion online - Detail Indication:Nonsmoker Start:26-Dec-2018 Instruction Type:Patient Education Patient Instructions Indication:Upper respiratory infection, acute Start:26-Dec-2018 Instruction Type:Provider Instructions for Treatment How to access health informa tion online Indication:BMI 40.0-44.9, adult Start:12-Sep-2018 Instruction Type:Patient Education How to access health informa tion online - Detail Indication:BMI 40.0-44.9, adult Start:12-Sep-2018 Instruction Type:Patient Education Patient Instructions Indication:BMI 40.0-44.9, adult Start:12-Sep-2018 Instruction Type:Provider Instructions for Treatment obesity counseling Indication:Elevated blood pressure reading Start:04-Sep-2018 Instruction Type:Provider Instructions for Treatment How to access health informa tion online - Detail Indication:Morbid (severe) obesity due to excess calories Start:04-Sep-2018 Instruction Type:Patient Education How to access health informa tion online Indication:Morbid (severe) obesity due to excess calories Start:04-Sep-2018 Instruction Type:Patient Education Patient Instructions Indication:Morbid (severe) obesity due to excess calories Start:04-Sep-2018 Instruction Type:Provider Instructions for Treatment How to access health informa tion online Indication:Morbid (severe) obesity due to excess calories Start:15-Aug-2018 Instruction Type:Patient Education How to access health informa tion online - Detail Indication:Morbid (severe) obesity due to excess calories Start:15-Aug-2018 Instruction Type:Patient Education Patient Instructions Indication:Morbid (severe) obesity due to excess calories Start:15-Aug-2018 Instruction Type:Provider Instructions for Treatment How to access health informa tion online Indication:Cough Start:12-Dec-2017 Instruction Type:Patient Education How to access health informa tion online - Detail Indication:Cough Start:12-Dec-2017 Instruction Type:Patient Education Patient Instructions Indication:Cough Start:12-Dec-2017 Instruction Type:Provider Instructions for Treatment How to access health informa tion online Indication:Cough Start:03-Aug-2017 Instruction Type:Patient Education How to access health informa tion online - Detail Indication:Cough Start:03-Aug-2017 Instruction Type:Patient Education Patient Instructions Indication:Cough Start:03-Aug-2017 Instruction Type:Provider Instructions for Treatment How to access health informa tion online Indication:Plantar wart, left foot Start:23-Jul-2017 Instruction Type:Patient Education How to access health informa tion online - Detail Indication:Plantar wart, left foot Start:23-Jul-2017 Instruction Type:Patient Education Patient Instructions Indication:Plantar wart, left foot Start:23-Jul-2017 Instruction Type:Provider Instructions for Treatment How to access health informa tion online - Detail Indication:Morbid (severe) obesity due to excess calories Start:24-May-2017 Instruction Type:Patient Education Patient Instructions Indication:Morbid (severe) obesity due to excess calories Start:24-May-2017 Instruction Type:Provider Instructions for Treatment How to access health informa tion online Indication:Plantar wart, left foot Start:25-Apr-2017 Instruction Type:Patient Education How to access health informa tion online - Detail Indication:Plantar wart, left foot Start:25-Apr-2017 Instruction Type:Patient Education Patient Instructions Indication:Plantar wart, left foot Start:25-Apr-2017 Instruction Type:Provider Instructions for Treatment How to access health informa tion online Indication:BMI 39.0-39.9,adult Start:17-Apr-2017 Instruction Type:Patient Education How to access health informa tion online - Detail Indication:BMI 39.0-39.9,adult Start:17-Apr-2017 Instruction Type:Patient Education Patient Instructions Indication:BMI 39.0-39.9,adult Start:17-Apr-2017 Instruction Type:Provider Instructions for Treatment How to access health informa tion online Indication:Sore throat Start:07-Sep-2016 Instruction Type:Patient Education How to access health informa tion online - Detail Indication:Sore throat Start:07-Sep-2016 Instruction Type:Patient Education Patient Instructions Indication:Sore throat Start:07-Sep-2016 Instruction Type:Provider Instructions for Treatment How to access health informa tion online Indication:Right knee pain Start:29-Aug-2016 Instruction Type:Patient Education How to access health informa tion online - Detail Indication:Right knee pain Start:29-Aug-2016 Instruction Type:Patient Education Patient Instructions Indication:Right knee pain Start:29-Aug-2016 Instruction Type:Provider Instructions for Treatment How to access health informa tion online Indication:Annual physical exam Start:07-Jul-2015 Instruction Type:Patient Education How to access health informa tion online - Detail Indication:Annual physical exam Start:07-Jul-2015 Instruction Type:Patient Education Patient Instructions Indication:Annual physical exam Start:07-Jul-2015 Instruction Type:Provider Instructions for Treatment How to access health informa tion online Indication:PHARYNGITIS, ACUTE (462.) Start:25-Jun-2015 Instruction Type:Patient Education How to access health informa tion online - Detail Indication:PHARYNGITIS, ACUTE (462.) Start:25-Jun-2015 Instruction Type:Patient Education Patient Instructions Indication:PHARYNGITIS, ACUTE (462.) Start:25-Jun-2015 Instruction Type:Provider Instructions for Treatment How to access health informa tion online Indication:PHARYNGITIS, ACUTE (462.) Start:15-May-2014 Instruction Type:Patient Education How to access health informa tion online - Detail Indication:PHARYNGITIS, ACUTE (462.) Start:15-May-2014 Instruction Type:Patient Education Patient Instructions Indication:PHARYNGITIS, ACUTE (462.) Start:15-May-2014 Instruction Type:Provider Instructions for Treatment obesity counseling Indication:Morbid (severe) obesity due to excess calories Start:09-Oct-2013 Instruction Type:Provider Instructions for Treatment Patient Instructions Indication:WWV V70.0 Start:09-Oct-2013 Instruction Type:Provider Instructions for Treatment Patient Instructions Indication:WWV V70.0 Start:20-Sep-2012 Instruction Type:Provider Instructions for Treatment [facility]; [facility] Work Phone: Instructions* Name Dates Details Patient Instructions Indication:BMI 40.0-44.9, adult Start:07-Jul-2022 Instruction Type:Provider Instructions for Treatment How to Access Health Informa tion Online using Patient Portal and [employer] Indication:BMI 40.0-44.9, adult Start:07-Jul-2022 Instruction Type:Patient Education Patient Instructions Indication:BMI 35.0-35.9,adult Start:14-Jun-2022 Instruction Type:Provider Instructions for Treatment How to Access Health Informa tion Online using Patient Portal and [employer] Indication:BMI 35.0-35.9,adult Start:14-Jun-2022 Instruction Type:Patient Education Patient Instructions Indication:Nonsmoker Start:20-Apr-2022 Instruction Type:Provider Instructions for Treatment How to Access Health Informa tion Online using Patient Portal and [employer] Apps Indication:Nonsmoker Start:20-Apr-2022 Instruction Type:Patient Education Patient Instructions Indication:BMI 40.0-44.9, adult Start:06-Apr-2022 Instruction Type:Provider Instructions for Treatment How to Access Health Informa tion Online using Patient Portal and [employer] Apps Indication:BMI 40.0-44.9, adult Start:06-Apr-2022 Instruction Type:Patient Education obesity counseling Indication:HTN (hypertension), benign Start:17-Mar-2022 Instruction Type:Provider Instructions for Treatment Patient Instructions Indication:HTN (hypertension), benign Start:17-Mar-2022 Instruction Type:Provider Instructions for Treatment How to Access Health Informa tion Online using Patient Portal and [employer] Indication:HTN (hypertension), benign Start:17-Mar-2022 Instruction Type:Patient Education Patient Instructions Indication:Skin tear of left lower leg without complication, initial encounter Start:13-Mar-2022 Instruction Type:Provider Instructions for Treatment How to Access Health Informa tion Online using Patient Portal and [employer] Apps Indication:Skin tear of left lower leg without complication, initial encounter Start:13-Mar-2022 Instruction Type:Patient Education Patient Instructions Indication:Nonsmoker Start:06-Feb-2022 Instruction Type:Provider Instructions for Treatment How to Access Health Informa tion Online using Patient Portal and [employer] Apps Indication:Nonsmoker Start:06-Feb-2022 Instruction Type:Patient Education Patient Instructions Indication:Upper respiratory infection Start:27-Jan-2022 Instruction Type:Provider Instructions for Treatment How to Access Health Informa tion Online using Patient Portal and [employer] Apps Indication:Upper respiratory infection Start:27-Jan-2022 Instruction Type:Patient Education Patient Instructions Indication:HTN (hypertension), benign Start:06-May-2021 Instruction Type:Provider Instructions for Treatment How to Access Health Informa tion Online using Patient Portal and [employer] Apps Indication:HTN (hypertension), benign Start:06-May-2021 Instruction Type:Patient Education How to access health informa tion online Indication:Nonsmoker Start:26-Dec-2018 Instruction Type:Patient Education How to access health informa tion online - Detail Indication:Nonsmoker Start:26-Dec-2018 Instruction Type:Patient Education Patient Instructions Indication:Upper respiratory infection, acute Start:26-Dec-2018 Instruction Type:Provider Instructions for Treatment How to access health informa tion online Indication:BMI 40.0-44.9, adult Start:12-Sep-2018 Instruction Type:Patient Education How to access health informa tion online - Detail Indication:BMI 40.0-44.9, adult Start:12-Sep-2018 Instruction Type:Patient Education Patient Instructions Indication:BMI 40.0-44.9, adult Start:12-Sep-2018 Instruction Type:Provider Instructions for Treatment obesity counseling Indication:Elevated blood pressure reading Start:04-Sep-2018 Instruction Type:Provider Instructions for Treatment How to access health informa tion online - Detail Indication:Morbid (severe) obesity due to excess calories Start:04-Sep-2018 Instruction Type:Patient Education How to access health informa tion online Indication:Morbid (severe) obesity due to excess calories Start:04-Sep-2018 Instruction Type:Patient Education Patient Instructions Indication:Morbid (severe) obesity due to excess calories Start:04-Sep-2018 Instruction Type:Provider Instructions for Treatment How to access health informa tion online Indication:Morbid (severe) obesity due to excess calories Start:15-Aug-2018 Instruction Type:Patient Education How to access health informa tion online - Detail Indication:Morbid (severe) obesity due to excess calories Start:15-Aug-2018 Instruction Type:Patient Education Patient Instructions Indication:Morbid (severe) obesity due to excess calories Start:15-Aug-2018 Instruction Type:Provider Instructions for Treatment How to access health informa tion online Indication:Cough Start:12-Dec-2017 Instruction Type:Patient Education How to access health informa tion online - Detail Indication:Cough Start:12-Dec-2017 Instruction Type:Patient Education Patient Instructions Indication:Cough Start:12-Dec-2017 Instruction Type:Provider Instructions for Treatment How to access health informa tion online Indication:Cough Start:03-Aug-2017 Instruction Type:Patient Education How to access health informa tion online - Detail Indication:Cough Start:03-Aug-2017 Instruction Type:Patient Education Patient Instructions Indication:Cough Start:03-Aug-2017 Instruction Type:Provider Instructions for Treatment How to access health informa tion online Indication:Plantar wart, left foot Start:23-Jul-2017 Instruction Type:Patient Education How to access health informa tion online - Detail Indication:Plantar wart, left foot Start:23-Jul-2017 Instruction Type:Patient Education Patient Instructions Indication:Plantar wart, left foot Start:23-Jul-2017 Instruction Type:Provider Instructions for Treatment How to access health informa tion online - Detail Indication:Morbid (severe) obesity due to excess calories Start:24-May-2017 Instruction Type:Patient Education Patient Instructions Indication:Morbid (severe) obesity due to excess calories Start:24-May-2017 Instruction Type:Provider Instructions for Treatment How to access health informa tion online Indication:Plantar wart, left foot Start:25-Apr-2017 Instruction Type:Patient Education How to access health informa tion online - Detail Indication:Plantar wart, left foot Start:25-Apr-2017 Instruction Type:Patient Education Patient Instructions Indication:Plantar wart, left foot Start:25-Apr-2017 Instruction Type:Provider Instructions for Treatment How to access health informa tion online Indication:BMI 39.0-39.9,adult Start:17-Apr-2017 Instruction Type:Patient Education How to access health informa tion online - Detail Indication:BMI 39.0-39.9,adult Start:17-Apr-2017 Instruction Type:Patient Education Patient Instructions Indication:BMI 39.0-39.9,adult Start:17-Apr-2017 Instruction Type:Provider Instructions for Treatment How to access health informa tion online Indication:Sore throat Start:07-Sep-2016 Instruction Type:Patient Education How to access health informa tion online - Detail Indication:Sore throat Start:07-Sep-2016 Instruction Type:Patient Education Patient Instructions Indication:Sore throat Start:07-Sep-2016 Instruction Type:Provider Instructions for Treatment How to access health informa tion online Indication:Right knee pain Start:29-Aug-2016 Instruction Type:Patient Education How to access health informa tion online - Detail Indication:Right knee pain Start:29-Aug-2016 Instruction Type:Patient Education Patient Instructions Indication:Right knee pain Start:29-Aug-2016 Instruction Type:Provider Instructions for Treatment How to access health informa tion online Indication:Annual physical exam Start:07-Jul-2015 Instruction Type:Patient Education How to access health informa tion online - Detail Indication:Annual physical exam Start:07-Jul-2015 Instruction Type:Patient Education Patient Instructions Indication:Annual physical exam Start:07-Jul-2015 Instruction Type:Provider Instructions for Treatment How to access health informa tion online Indication:PHARYNGITIS, ACUTE (462.) Start:25-Jun-2015 Instruction Type:Patient Education How to access health informa tion online - Detail Indication:PHARYNGITIS, ACUTE (462.) Start:25-Jun-2015 Instruction Type:Patient Education Patient Instructions Indication:PHARYNGITIS, ACUTE (462.) Start:25-Jun-2015 Instruction Type:Provider Instructions for Treatment How to access health informa tion online Indication:PHARYNGITIS, ACUTE (462.) Start:15-May-2014 Instruction Type:Patient Education How to access health informa tion online - Detail Indication:PHARYNGITIS, ACUTE (462.) Start:15-May-2014 Instruction Type:Patient Education Patient Instructions Indication:PHARYNGITIS, ACUTE (462.) Start:15-May-2014 Instruction Type:Provider Instructions for Treatment obesity counseling Indication:Morbid (severe) obesity due to excess calories Start:09-Oct-2013 Instruction Type:Provider Instructions for Treatment Patient Instructions Indication:WWV V70.0 Start:09-Oct-2013 Instruction Type:Provider Instructions for Treatment Patient Instructions Indication:WWV V70.0 Start:20-Sep-2012 Instruction Type:Provider Instructions for Treatment [facility]; [facility] Work Phone: Instructions* Name Dates Details Patient Instructions Indication:BMI 35.0-35.9,adult Start:19-Jul-2022 Instruction Type:Provider Instructions for Treatment How to Access Health Informa tion Online using Patient Portal and [employer] Indication:BMI 35.0-35.9,adult Start:19-Jul-2022 Instruction Type:Patient Education Patient Instructions Indication:BMI 40.0-44.9, adult Start:07-Jul-2022 Instruction Type:Provider Instructions for Treatment How to Access Health Informa tion Online using Patient Portal and [employer] Indication:BMI 40.0-44.9, adult Start:07-Jul-2022 Instruction Type:Patient Education Patient Instructions Indication:BMI 35.0-35.9,adult Start:14-Jun-2022 Instruction Type:Provider Instructions for Treatment How to Access Health Informa tion Online using Patient Portal and [employer] Indication:BMI 35.0-35.9,adult Start:14-Jun-2022 Instruction Type:Patient Education Patient Instructions Indication:Nonsmoker Start:20-Apr-2022 Instruction Type:Provider Instructions for Treatment How to Access Health Informa tion Online using Patient Portal and [employer] Indication:Nonsmoker Start:20-Apr-2022 Instruction Type:Patient Education Patient Instructions Indication:BMI 40.0-44.9, adult Start:06-Apr-2022 Instruction Type:Provider Instructions for Treatment How to Access Health Informa tion Online using Patient Portal and [employer] Indication:BMI 40.0-44.9, adult Start:06-Apr-2022 Instruction Type:Patient Education obesity counseling Indication:HTN (hypertension), benign Start:17-Mar-2022 Instruction Type:Provider Instructions for Treatment Patient Instructions Indication:HTN (hypertension), benign Start:17-Mar-2022 Instruction Type:Provider Instructions for Treatment How to Access Health Informa tion Online using Patient Portal and [employer] Indication:HTN (hypertension), benign Start:17-Mar-2022 Instruction Type:Patient Education Patient Instructions Indication:Skin tear of left lower leg without complication, initial encounter Start:13-Mar-2022 Instruction Type:Provider Instructions for Treatment How to Access Health Informa tion Online using Patient Portal and [employer] Indication:Skin tear of left lower leg without complication, initial encounter Start:13-Mar-2022 Instruction Type:Patient Education Patient Instructions Indication:Nonsmoker Start:06-Feb-2022 Instruction Type:Provider Instructions for Treatment How to Access Health Informa tion Online using Patient Portal and [employer] Indication:Nonsmoker Start:06-Feb-2022 Instruction Type:Patient Education Patient Instructions Indication:Upper respiratory infection Start:27-Jan-2022 Instruction Type:Provider Instructions for Treatment How to Access Health Informa tion Online using Patient Portal and [employer] Indication:Upper respiratory infection Start:27-Jan-2022 Instruction Type:Patient Education Patient Instructions Indication:HTN (hypertension), benign Start:06-May-2021 Instruction Type:Provider Instructions for Treatment How to Access Health Informa tion Online using Patient Portal and [employer] Indication:HTN (hypertension), benign Start:06-May-2021 Instruction Type:Patient Education How to access health informa tion online Indication:Nonsmoker Start:26-Dec-2018 Instruction Type:Patient Education How to access health informa tion online - Detail Indication:Nonsmoker Start:26-Dec-2018 Instruction Type:Patient Education Patient Instructions Indication:Upper respiratory infection, acute Start:26-Dec-2018 Instruction Type:Provider Instructions for Treatment How to access health informa tion online Indication:BMI 40.0-44.9, adult Start:12-Sep-2018 Instruction Type:Patient Education How to access health informa tion online - Detail Indication:BMI 40.0-44.9, adult Start:12-Sep-2018 Instruction Type:Patient Education Patient Instructions Indication:BMI 40.0-44.9, adult Start:12-Sep-2018 Instruction Type:Provider Instructions for Treatment obesity counseling Indication:Elevated blood pressure reading Start:04-Sep-2018 Instruction Type:Provider Instructions for Treatment How to access health informa tion online - Detail Indication:Morbid (severe) obesity due to excess calories Start:04-Sep-2018 Instruction Type:Patient Education How to access health informa tion online Indication:Morbid (severe) obesity due to excess calories Start:04-Sep-2018 Instruction Type:Patient Education Patient Instructions Indication:Morbid (severe) obesity due to excess calories Start:04-Sep-2018 Instruction Type:Provider Instructions for Treatment How to access health informa tion online Indication:Morbid (severe) obesity due to excess calories Start:15-Aug-2018 Instruction Type:Patient Education How to access health informa tion online - Detail Indication:Morbid (severe) obesity due to excess calories Start:15-Aug-2018 Instruction Type:Patient Education Patient Instructions Indication:Morbid (severe) obesity due to excess calories Start:15-Aug-2018 Instruction Type:Provider Instructions for Treatment How to access health informa tion online Indication:Cough Start:12-Dec-2017 Instruction Type:Patient Education How to access health informa tion online - Detail Indication:Cough Start:12-Dec-2017 Instruction Type:Patient Education Patient Instructions Indication:Cough Start:12-Dec-2017 Instruction Type:Provider Instructions for Treatment How to access health informa tion online Indication:Cough Start:03-Aug-2017 Instruction Type:Patient Education How to access health informa tion online - Detail Indication:Cough Start:03-Aug-2017 Instruction Type:Patient Education Patient Instructions Indication:Cough Start:03-Aug-2017 Instruction Type:Provider Instructions for Treatment How to access health informa tion online Indication:Plantar wart, left foot Start:23-Jul-2017 Instruction Type:Patient Education How to access health informa tion online - Detail Indication:Plantar wart, left foot Start:23-Jul-2017 Instruction Type:Patient Education Patient Instructions Indication:Plantar wart, left foot Start:23-Jul-2017 Instruction Type:Provider Instructions for Treatment How to access health informa tion online - Detail Indication:Morbid (severe) obesity due to excess calories Start:24-May-2017 Instruction Type:Patient Education Patient Instructions Indication:Morbid (severe) obesity due to excess calories Start:24-May-2017 Instruction Type:Provider Instructions for Treatment How to access health informa tion online Indication:Plantar wart, left foot Start:25-Apr-2017 Instruction Type:Patient Education How to access health informa tion online - Detail Indication:Plantar wart, left foot Start:25-Apr-2017 Instruction Type:Patient Education Patient Instructions Indication:Plantar wart, left foot Start:25-Apr-2017 Instruction Type:Provider Instructions for Treatment How to access health informa tion online Indication:BMI 39.0-39.9,adult Start:17-Apr-2017 Instruction Type:Patient Education How to access health informa tion online - Detail Indication:BMI 39.0-39.9,adult Start:17-Apr-2017 Instruction Type:Patient Education Patient Instructions Indication:BMI 39.0-39.9,adult Start:17-Apr-2017 Instruction Type:Provider Instructions for Treatment How to access health informa tion online Indication:Sore throat Start:07-Sep-2016 Instruction Type:Patient Education How to access health informa tion online - Detail Indication:Sore throat Start:07-Sep-2016 Instruction Type:Patient Education Patient Instructions Indication:Sore throat Start:07-Sep-2016 Instruction Type:Provider Instructions for Treatment How to access health informa tion online Indication:Right knee pain Start:29-Aug-2016 Instruction Type:Patient Education How to access health informa tion online - Detail Indication:Right knee pain Start:29-Aug-2016 Instruction Type:Patient Education Patient Instructions Indication:Right knee pain Start:29-Aug-2016 Instruction Type:Provider Instructions for Treatment How to access health informa tion online Indication:Annual physical exam Start:07-Jul-2015 Instruction Type:Patient Education How to access health informa tion online - Detail Indication:Annual physical exam Start:07-Jul-2015 Instruction Type:Patient Education Patient Instructions Indication:Annual physical exam Start:07-Jul-2015 Instruction Type:Provider Instructions for Treatment How to access health informa tion online Indication:PHARYNGITIS, ACUTE (462.) Start:25-Jun-2015 Instruction Type:Patient Education How to access health informa tion online - Detail Indication:PHARYNGITIS, ACUTE (462.) Start:25-Jun-2015 Instruction Type:Patient Education Patient Instructions Indication:PHARYNGITIS, ACUTE (462.) Start:25-Jun-2015 Instruction Type:Provider Instructions for Treatment How to access health informa tion online Indication:PHARYNGITIS, ACUTE (462.) Start:15-May-2014 Instruction Type:Patient Education How to access health informa tion online - Detail Indication:PHARYNGITIS, ACUTE (462.) Start:15-May-2014 Instruction Type:Patient Education Patient Instructions Indication:PHARYNGITIS, ACUTE (462.) Start:15-May-2014 Instruction Type:Provider Instructions for Treatment obesity counseling Indication:Morbid (severe) obesity due to excess calories Start:09-Oct-2013 Instruction Type:Provider Instructions for Treatment Patient Instructions Indication:WWV V70.0 Start:09-Oct-2013 Instruction Type:Provider Instructions for Treatment Patient Instructions Indication:WWV V70.0 Start:20-Sep-2012 Instruction Type:Provider Instructions for Treatment [facility]; [facility] Work Phone: Instructions* Name Dates Details Patient Instructions Indication:BMI 35.0-35.9,adult Start:19-Jul-2022 Instruction Type:Provider Instructions for Treatment How to Access Health Informa tion Online using Patient Portal and [employer] Indication:BMI 35.0-35.9,adult Start:19-Jul-2022 Instruction Type:Patient Education Patient Instructions Indication:BMI 40.0-44.9, adult Start:07-Jul-2022 Instruction Type:Provider Instructions for Treatment How to Access Health Informa tion Online using Patient Portal and [employer] Indication:BMI 40.0-44.9, adult Start:07-Jul-2022 Instruction Type:Patient Education Patient Instructions Indication:BMI 35.0-35.9,adult Start:14-Jun-2022 Instruction Type:Provider Instructions for Treatment How to Access Health Informa tion Online using Patient Portal and [employer] Indication:BMI 35.0-35.9,adult Start:14-Jun-2022 Instruction Type:Patient Education Patient Instructions Indication:Nonsmoker Start:20-Apr-2022 Instruction Type:Provider Instructions for Treatment How to Access Health Informa tion Online using Patient Portal and [employer] Indication:Nonsmoker Start:20-Apr-2022 Instruction Type:Patient Education Patient Instructions Indication:BMI 40.0-44.9, adult Start:06-Apr-2022 Instruction Type:Provider Instructions for Treatment How to Access Health Informa tion Online using Patient Portal and [employer] Indication:BMI 40.0-44.9, adult Start:06-Apr-2022 Instruction Type:Patient Education obesity counseling Indication:HTN (hypertension), benign Start:17-Mar-2022 Instruction Type:Provider Instructions for Treatment Patient Instructions Indication:HTN (hypertension), benign Start:17-Mar-2022 Instruction Type:Provider Instructions for Treatment How to Access Health Informa tion Online using Patient Portal and [employer] Indication:HTN (hypertension), benign Start:17-Mar-2022 Instruction Type:Patient Education Patient Instructions Indication:Skin tear of left lower leg without complication, initial encounter Start:13-Mar-2022 Instruction Type:Provider Instructions for Treatment How to Access Health Informa tion Online using Patient Portal and [employer] Apps Indication:Skin tear of left lower leg without complication, initial encounter Start:13-Mar-2022 Instruction Type:Patient Education Patient Instructions Indication:Nonsmoker Start:06-Feb-2022 Instruction Type:Provider Instructions for Treatment How to Access Health Informa tion Online using Patient Portal and [employer] Apps Indication:Nonsmoker Start:06-Feb-2022 Instruction Type:Patient Education Patient Instructions Indication:Upper respiratory infection Start:27-Jan-2022 Instruction Type:Provider Instructions for Treatment How to Access Health Informa tion Online using Patient Portal and [employer] Apps Indication:Upper respiratory infection Start:27-Jan-2022 Instruction Type:Patient Education Patient Instructions Indication:HTN (hypertension), benign Start:06-May-2021 Instruction Type:Provider Instructions for Treatment How to Access Health Informa tion Online using Patient Portal and [employer] Apps Indication:HTN (hypertension), benign Start:06-May-2021 Instruction Type:Patient Education How to access health informa tion online Indication:Nonsmoker Start:26-Dec-2018 Instruction Type:Patient Education How to access health informa tion online - Detail Indication:Nonsmoker Start:26-Dec-2018 Instruction Type:Patient Education Patient Instructions Indication:Upper respiratory infection, acute Start:26-Dec-2018 Instruction Type:Provider Instructions for Treatment How to access health informa tion online Indication:BMI 40.0-44.9, adult Start:12-Sep-2018 Instruction Type:Patient Education How to access health informa tion online - Detail Indication:BMI 40.0-44.9, adult Start:12-Sep-2018 Instruction Type:Patient Education Patient Instructions Indication:BMI 40.0-44.9, adult Start:12-Sep-2018 Instruction Type:Provider Instructions for Treatment obesity counseling Indication:Elevated blood pressure reading Start:04-Sep-2018 Instruction Type:Provider Instructions for Treatment How to access health informa tion online - Detail Indication:Morbid (severe) obesity due to excess calories Start:04-Sep-2018 Instruction Type:Patient Education How to access health informa tion online Indication:Morbid (severe) obesity due to excess calories Start:04-Sep-2018 Instruction Type:Patient Education Patient Instructions Indication:Morbid (severe) obesity due to excess calories Start:04-Sep-2018 Instruction Type:Provider Instructions for Treatment How to access health informa tion online Indication:Morbid (severe) obesity due to excess calories Start:15-Aug-2018 Instruction Type:Patient Education How to access health informa tion online - Detail Indication:Morbid (severe) obesity due to excess calories Start:15-Aug-2018 Instruction Type:Patient Education Patient Instructions Indication:Morbid (severe) obesity due to excess calories Start:15-Aug-2018 Instruction Type:Provider Instructions for Treatment How to access health informa tion online Indication:Cough Start:12-Dec-2017 Instruction Type:Patient Education How to access health informa tion online - Detail Indication:Cough Start:12-Dec-2017 Instruction Type:Patient Education Patient Instructions Indication:Cough Start:12-Dec-2017 Instruction Type:Provider Instructions for Treatment How to access health informa tion online Indication:Cough Start:03-Aug-2017 Instruction Type:Patient Education How to access health informa tion online - Detail Indication:Cough Start:03-Aug-2017 Instruction Type:Patient Education Patient Instructions Indication:Cough Start:03-Aug-2017 Instruction Type:Provider Instructions for Treatment How to access health informa tion online Indication:Plantar wart, left foot Start:23-Jul-2017 Instruction Type:Patient Education How to access health informa tion online - Detail Indication:Plantar wart, left foot Start:23-Jul-2017 Instruction Type:Patient Education Patient Instructions Indication:Plantar wart, left foot Start:23-Jul-2017 Instruction Type:Provider Instructions for Treatment How to access health informa tion online - Detail Indication:Morbid (severe) obesity due to excess calories Start:24-May-2017 Instruction Type:Patient Education Patient Instructions Indication:Morbid (severe) obesity due to excess calories Start:24-May-2017 Instruction Type:Provider Instructions for Treatment How to access health informa tion online Indication:Plantar wart, left foot Start:25-Apr-2017 Instruction Type:Patient Education How to access health informa tion online - Detail Indication:Plantar wart, left foot Start:25-Apr-2017 Instruction Type:Patient Education Patient Instructions Indication:Plantar wart, left foot Start:25-Apr-2017 Instruction Type:Provider Instructions for Treatment How to access health informa tion online Indication:BMI 39.0-39.9,adult Start:17-Apr-2017 Instruction Type:Patient Education How to access health informa tion online - Detail Indication:BMI 39.0-39.9,adult Start:17-Apr-2017 Instruction Type:Patient Education Patient Instructions Indication:BMI 39.0-39.9,adult Start:17-Apr-2017 Instruction Type:Provider Instructions for Treatment How to access health informa tion online Indication:Sore throat Start:07-Sep-2016 Instruction Type:Patient Education How to access health informa tion online - Detail Indication:Sore throat Start:07-Sep-2016 Instruction Type:Patient Education Patient Instructions Indication:Sore throat Start:07-Sep-2016 Instruction Type:Provider Instructions for Treatment How to access health informa tion online Indication:Right knee pain Start:29-Aug-2016 Instruction Type:Patient Education How to access health informa tion online - Detail Indication:Right knee pain Start:29-Aug-2016 Instruction Type:Patient Education Patient Instructions Indication:Right knee pain Start:29-Aug-2016 Instruction Type:Provider Instructions for Treatment How to access health informa tion online Indication:Annual physical exam Start:07-Jul-2015 Instruction Type:Patient Education How to access health informa tion online - Detail Indication:Annual physical exam Start:07-Jul-2015 Instruction Type:Patient Education Patient Instructions Indication:Annual physical exam Start:07-Jul-2015 Instruction Type:Provider Instructions for Treatment How to access health informa tion online Indication:PHARYNGITIS, ACUTE (462.) Start:25-Jun-2015 Instruction Type:Patient Education How to access health informa tion online - Detail Indication:PHARYNGITIS, ACUTE (462.) Start:25-Jun-2015 Instruction Type:Patient Education Patient Instructions Indication:PHARYNGITIS, ACUTE (462.) Start:25-Jun-2015 Instruction Type:Provider Instructions for Treatment How to access health informa tion online Indication:PHARYNGITIS, ACUTE (462.) Start:15-May-2014 Instruction Type:Patient Education How to access health informa tion online - Detail Indication:PHARYNGITIS, ACUTE (462.) Start:15-May-2014 Instruction Type:Patient Education Patient Instructions Indication:PHARYNGITIS, ACUTE (462.) Start:15-May-2014 Instruction Type:Provider Instructions for Treatment obesity counseling Indication:Morbid (severe) obesity due to excess calories Start:09-Oct-2013 Instruction Type:Provider Instructions for Treatment Patient Instructions Indication:WWV V70.0 Start:09-Oct-2013 Instruction Type:Provider Instructions for Treatment Patient Instructions Indication:WWV V70.0 Start:20-Sep-2012 Instruction Type:Provider Instructions for Treatment [facility]; [facility] Work Phone: Instructions* Name Dates Details Patient Instructions Indication:Nonsmoker Start:27-Jul-2022 Instruction Type:Provider Instructions for Treatment How to Access Health Informa tion Online using Patient Portal and [employer] Indication:Nonsmoker Start:27-Jul-2022 Instruction Type:Patient Education Patient Instructions Indication:BMI 35.0-35.9,adult Start:19-Jul-2022 Instruction Type:Provider Instructions for Treatment How to Access Health Informa tion Online using Patient Portal and [employer] Indication:BMI 35.0-35.9,adult Start:19-Jul-2022 Instruction Type:Patient Education Patient Instructions Indication:BMI 40.0-44.9, adult Start:07-Jul-2022 Instruction Type:Provider Instructions for Treatment How to Access Health Informa tion Online using Patient Portal and [employer] Indication:BMI 40.0-44.9, adult Start:07-Jul-2022 Instruction Type:Patient Education Patient Instructions Indication:BMI 35.0-35.9,adult Start:14-Jun-2022 Instruction Type:Provider Instructions for Treatment How to Access Health Informa tion Online using Patient Portal and [employer] Indication:BMI 35.0-35.9,adult Start:14-Jun-2022 Instruction Type:Patient Education Patient Instructions Indication:Nonsmoker Start:20-Apr-2022 Instruction Type:Provider Instructions for Treatment How to Access Health Informa tion Online using Patient Portal and [employer] Indication:Nonsmoker Start:20-Apr-2022 Instruction Type:Patient Education Patient Instructions Indication:BMI 40.0-44.9, adult Start:06-Apr-2022 Instruction Type:Provider Instructions for Treatment How to Access Health Informa tion Online using Patient Portal and [employer] Indication:BMI 40.0-44.9, adult Start:06-Apr-2022 Instruction Type:Patient Education obesity counseling Indication:HTN (hypertension), benign Start:17-Mar-2022 Instruction Type:Provider Instructions for Treatment Patient Instructions Indication:HTN (hypertension), benign Start:17-Mar-2022 Instruction Type:Provider Instructions for Treatment How to Access Health Informa tion Online using Patient Portal and [employer] Indication:HTN (hypertension), benign Start:17-Mar-2022 Instruction Type:Patient Education Patient Instructions Indication:Skin tear of left lower leg without complication, initial encounter Start:13-Mar-2022 Instruction Type:Provider Instructions for Treatment How to Access Health Informa tion Online using Patient Portal and [employer] Indication:Skin tear of left lower leg without complication, initial encounter Start:13-Mar-2022 Instruction Type:Patient Education Patient Instructions Indication:Nonsmoker Start:06-Feb-2022 Instruction Type:Provider Instructions for Treatment How to Access Health Informa tion Online using Patient Portal and [employer] Indication:Nonsmoker Start:06-Feb-2022 Instruction Type:Patient Education Patient Instructions Indication:Upper respiratory infection Start:27-Jan-2022 Instruction Type:Provider Instructions for Treatment How to Access Health Informa tion Online using Patient Portal and [employer] Indication:Upper respiratory infection Start:27-Jan-2022 Instruction Type:Patient Education Patient Instructions Indication:HTN (hypertension), benign Start:06-May-2021 Instruction Type:Provider Instructions for Treatment How to Access Health Informa tion Online using Patient Portal and [employer] Indication:HTN (hypertension), benign Start:06-May-2021 Instruction Type:Patient Education How to access health informa tion online Indication:Nonsmoker Start:26-Dec-2018 Instruction Type:Patient Education How to access health informa tion online - Detail Indication:Nonsmoker Start:26-Dec-2018 Instruction Type:Patient Education Patient Instructions Indication:Upper respiratory infection, acute Start:26-Dec-2018 Instruction Type:Provider Instructions for Treatment How to access health informa tion online Indication:BMI 40.0-44.9, adult Start:12-Sep-2018 Instruction Type:Patient Education How to access health informa tion online - Detail Indication:BMI 40.0-44.9, adult Start:12-Sep-2018 Instruction Type:Patient Education Patient Instructions Indication:BMI 40.0-44.9, adult Start:12-Sep-2018 Instruction Type:Provider Instructions for Treatment obesity counseling Indication:Elevated blood pressure reading Start:04-Sep-2018 Instruction Type:Provider Instructions for Treatment How to access health informa tion online - Detail Indication:Morbid (severe) obesity due to excess calories Start:04-Sep-2018 Instruction Type:Patient Education How to access health informa tion online Indication:Morbid (severe) obesity due to excess calories Start:04-Sep-2018 Instruction Type:Patient Education Patient Instructions Indication:Morbid (severe) obesity due to excess calories Start:04-Sep-2018 Instruction Type:Provider Instructions for Treatment How to access health informa tion online Indication:Morbid (severe) obesity due to excess calories Start:15-Aug-2018 Instruction Type:Patient Education How to access health informa tion online - Detail Indication:Morbid (severe) obesity due to excess calories Start:15-Aug-2018 Instruction Type:Patient Education Patient Instructions Indication:Morbid (severe) obesity due to excess calories Start:15-Aug-2018 Instruction Type:Provider Instructions for Treatment How to access health informa tion online Indication:Cough Start:12-Dec-2017 Instruction Type:Patient Education How to access health informa tion online - Detail Indication:Cough Start:12-Dec-2017 Instruction Type:Patient Education Patient Instructions Indication:Cough Start:12-Dec-2017 Instruction Type:Provider Instructions for Treatment How to access health informa tion online Indication:Cough Start:03-Aug-2017 Instruction Type:Patient Education How to access health informa tion online - Detail Indication:Cough Start:03-Aug-2017 Instruction Type:Patient Education Patient Instructions Indication:Cough Start:03-Aug-2017 Instruction Type:Provider Instructions for Treatment How to access health informa tion online Indication:Plantar wart, left foot Start:23-Jul-2017 Instruction Type:Patient Education How to access health informa tion online - Detail Indication:Plantar wart, left foot Start:23-Jul-2017 Instruction Type:Patient Education Patient Instructions Indication:Plantar wart, left foot Start:23-Jul-2017 Instruction Type:Provider Instructions for Treatment How to access health informa tion online - Detail Indication:Morbid (severe) obesity due to excess calories Start:24-May-2017 Instruction Type:Patient Education Patient Instructions Indication:Morbid (severe) obesity due to excess calories Start:24-May-2017 Instruction Type:Provider Instructions for Treatment How to access health informa tion online Indication:Plantar wart, left foot Start:25-Apr-2017 Instruction Type:Patient Education How to access health informa tion online - Detail Indication:Plantar wart, left foot Start:25-Apr-2017 Instruction Type:Patient Education Patient Instructions Indication:Plantar wart, left foot Start:25-Apr-2017 Instruction Type:Provider Instructions for Treatment How to access health informa tion online Indication:BMI 39.0-39.9,adult Start:17-Apr-2017 Instruction Type:Patient Education How to access health informa tion online - Detail Indication:BMI 39.0-39.9,adult Start:17-Apr-2017 Instruction Type:Patient Education Patient Instructions Indication:BMI 39.0-39.9,adult Start:17-Apr-2017 Instruction Type:Provider Instructions for Treatment How to access health informa tion online Indication:Sore throat Start:07-Sep-2016 Instruction Type:Patient Education How to access health informa tion online - Detail Indication:Sore throat Start:07-Sep-2016 Instruction Type:Patient Education Patient Instructions Indication:Sore throat Start:07-Sep-2016 Instruction Type:Provider Instructions for Treatment How to access health informa tion online Indication:Right knee pain Start:29-Aug-2016 Instruction Type:Patient Education How to access health informa tion online - Detail Indication:Right knee pain Start:29-Aug-2016 Instruction Type:Patient Education Patient Instructions Indication:Right knee pain Start:29-Aug-2016 Instruction Type:Provider Instructions for Treatment How to access health informa tion online Indication:Annual physical exam Start:07-Jul-2015 Instruction Type:Patient Education How to access health informa tion online - Detail Indication:Annual physical exam Start:07-Jul-2015 Instruction Type:Patient Education Patient Instructions Indication:Annual physical exam Start:07-Jul-2015 Instruction Type:Provider Instructions for Treatment How to access health informa tion online Indication:PHARYNGITIS, ACUTE (462.) Start:25-Jun-2015 Instruction Type:Patient Education How to access health informa tion online - Detail Indication:PHARYNGITIS, ACUTE (462.) Start:25-Jun-2015 Instruction Type:Patient Education Patient Instructions Indication:PHARYNGITIS, ACUTE (462.) Start:25-Jun-2015 Instruction Type:Provider Instructions for Treatment How to access health informa tion online Indication:PHARYNGITIS, ACUTE (462.) Start:15-May-2014 Instruction Type:Patient Education How to access health informa tion online - Detail Indication:PHARYNGITIS, ACUTE (462.) Start:15-May-2014 Instruction Type:Patient Education Patient Instructions Indication:PHARYNGITIS, ACUTE (462.) Start:15-May-2014 Instruction Type:Provider Instructions for Treatment obesity counseling Indication:Morbid (severe) obesity due to excess calories Start:09-Oct-2013 Instruction Type:Provider Instructions for Treatment Patient Instructions Indication:WWV V70.0 Start:09-Oct-2013 Instruction Type:Provider Instructions for Treatment Patient Instructions Indication:WWV V70.0 Start:20-Sep-2012 Instruction Type:Provider Instructions for Treatment [facility]; [facility] Work Phone: Instructions* Name Dates Details Patient Instructions Indication:Nonsmoker Start:17-Oct-2022 Instruction Type:Provider Instructions for Treatment How to Access Health Informa tion Online using Patient Portal and [employer] Indication:Nonsmoker Start:17-Oct-2022 Instruction Type:Patient Education Patient Instructions Indication:Nonsmoker Start:27-Jul-2022 Instruction Type:Provider Instructions for Treatment How to Access Health Informa tion Online using Patient Portal and [employer] Indication:Nonsmoker Start:27-Jul-2022 Instruction Type:Patient Education Patient Instructions Indication:BMI 35.0-35.9,adult Start:19-Jul-2022 Instruction Type:Provider Instructions for Treatment How to Access Health Informa tion Online using Patient Portal and [employer] Indication:BMI 35.0-35.9,adult Start:19-Jul-2022 Instruction Type:Patient Education Patient Instructions Indication:BMI 40.0-44.9, adult Start:07-Jul-2022 Instruction Type:Provider Instructions for Treatment How to Access Health Informa tion Online using Patient Portal and [employer] Indication:BMI 40.0-44.9, adult Start:07-Jul-2022 Instruction Type:Patient Education Patient Instructions Indication:BMI 35.0-35.9,adult Start:14-Jun-2022 Instruction Type:Provider Instructions for Treatment How to Access Health Informa tion Online using Patient Portal and [employer] Indication:BMI 35.0-35.9,adult Start:14-Jun-2022 Instruction Type:Patient Education Patient Instructions Indication:Nonsmoker Start:20-Apr-2022 Instruction Type:Provider Instructions for Treatment How to Access Health Informa tion Online using Patient Portal and [employer] Indication:Nonsmoker Start:20-Apr-2022 Instruction Type:Patient Education Patient Instructions Indication:BMI 40.0-44.9, adult Start:06-Apr-2022 Instruction Type:Provider Instructions for Treatment How to Access Health Informa tion Online using Patient Portal and [employer] Indication:BMI 40.0-44.9, adult Start:06-Apr-2022 Instruction Type:Patient Education obesity counseling Indication:HTN (hypertension), benign Start:17-Mar-2022 Instruction Type:Provider Instructions for Treatment Patient Instructions Indication:HTN (hypertension), benign Start:17-Mar-2022 Instruction Type:Provider Instructions for Treatment How to Access Health Informa tion Online using Patient Portal and [employer] Indication:HTN (hypertension), benign Start:17-Mar-2022 Instruction Type:Patient Education Patient Instructions Indication:Skin tear of left lower leg without complication, initial encounter Start:13-Mar-2022 Instruction Type:Provider Instructions for Treatment How to Access Health Informa tion Online using Patient Portal and [employer] Apps Indication:Skin tear of left lower leg without complication, initial encounter Start:13-Mar-2022 Instruction Type:Patient Education Patient Instructions Indication:Nonsmoker Start:06-Feb-2022 Instruction Type:Provider Instructions for Treatment How to Access Health Informa tion Online using Patient Portal and [employer] Indication:Nonsmoker Start:06-Feb-2022 Instruction Type:Patient Education Patient Instructions Indication:Upper respiratory infection Start:27-Jan-2022 Instruction Type:Provider Instructions for Treatment How to Access Health Informa tion Online using Patient Portal and [employer] Indication:Upper respiratory infection Start:27-Jan-2022 Instruction Type:Patient Education Patient Instructions Indication:HTN (hypertension), benign Start:06-May-2021 Instruction Type:Provider Instructions for Treatment How to Access Health Informa tion Online using Patient Portal and [employer] Indication:HTN (hypertension), benign Start:06-May-2021 Instruction Type:Patient Education How to access health informa tion online Indication:Nonsmoker Start:26-Dec-2018 Instruction Type:Patient Education How to access health informa tion online - Detail Indication:Nonsmoker Start:26-Dec-2018 Instruction Type:Patient Education Patient Instructions Indication:Upper respiratory infection, acute Start:26-Dec-2018 Instruction Type:Provider Instructions for Treatment How to access health informa tion online Indication:BMI 40.0-44.9, adult Start:12-Sep-2018 Instruction Type:Patient Education How to access health informa tion online - Detail Indication:BMI 40.0-44.9, adult Start:12-Sep-2018 Instruction Type:Patient Education Patient Instructions Indication:BMI 40.0-44.9, adult Start:12-Sep-2018 Instruction Type:Provider Instructions for Treatment obesity counseling Indication:Elevated blood pressure reading Start:04-Sep-2018 Instruction Type:Provider Instructions for Treatment How to access health informa tion online - Detail Indication:Morbid (severe) obesity due to excess calories Start:04-Sep-2018 Instruction Type:Patient Education How to access health informa tion online Indication:Morbid (severe) obesity due to excess calories Start:04-Sep-2018 Instruction Type:Patient Education Patient Instructions Indication:Morbid (severe) obesity due to excess calories Start:04-Sep-2018 Instruction Type:Provider Instructions for Treatment How to access health informa tion online Indication:Morbid (severe) obesity due to excess calories Start:15-Aug-2018 Instruction Type:Patient Education How to access health informa tion online - Detail Indication:Morbid (severe) obesity due to excess calories Start:15-Aug-2018 Instruction Type:Patient Education Patient Instructions Indication:Morbid (severe) obesity due to excess calories Start:15-Aug-2018 Instruction Type:Provider Instructions for Treatment How to access health informa tion online Indication:Cough Start:12-Dec-2017 Instruction Type:Patient Education How to access health informa tion online - Detail Indication:Cough Start:12-Dec-2017 Instruction Type:Patient Education Patient Instructions Indication:Cough Start:12-Dec-2017 Instruction Type:Provider Instructions for Treatment How to access health informa tion online Indication:Cough Start:03-Aug-2017 Instruction Type:Patient Education How to access health informa tion online - Detail Indication:Cough Start:03-Aug-2017 Instruction Type:Patient Education Patient Instructions Indication:Cough Start:03-Aug-2017 Instruction Type:Provider Instructions for Treatment How to access health informa tion online Indication:Plantar wart, left foot Start:23-Jul-2017 Instruction Type:Patient Education How to access health informa tion online - Detail Indication:Plantar wart, left foot Start:23-Jul-2017 Instruction Type:Patient Education Patient Instructions Indication:Plantar wart, left foot Start:23-Jul-2017 Instruction Type:Provider Instructions for Treatment How to access health informa tion online - Detail Indication:Morbid (severe) obesity due to excess calories Start:24-May-2017 Instruction Type:Patient Education Patient Instructions Indication:Morbid (severe) obesity due to excess calories Start:24-May-2017 Instruction Type:Provider Instructions for Treatment How to access health informa tion online Indication:Plantar wart, left foot Start:25-Apr-2017 Instruction Type:Patient Education How to access health informa tion online - Detail Indication:Plantar wart, left foot Start:25-Apr-2017 Instruction Type:Patient Education Patient Instructions Indication:Plantar wart, left foot Start:25-Apr-2017 Instruction Type:Provider Instructions for Treatment How to access health informa tion online Indication:BMI 39.0-39.9,adult Start:17-Apr-2017 Instruction Type:Patient Education How to access health informa tion online - Detail Indication:BMI 39.0-39.9,adult Start:17-Apr-2017 Instruction Type:Patient Education Patient Instructions Indication:BMI 39.0-39.9,adult Start:17-Apr-2017 Instruction Type:Provider Instructions for Treatment How to access health informa tion online Indication:Sore throat Start:07-Sep-2016 Instruction Type:Patient Education How to access health informa tion online - Detail Indication:Sore throat Start:07-Sep-2016 Instruction Type:Patient Education Patient Instructions Indication:Sore throat Start:07-Sep-2016 Instruction Type:Provider Instructions for Treatment How to access health informa tion online Indication:Right knee pain Start:29-Aug-2016 Instruction Type:Patient Education How to access health informa tion online - Detail Indication:Right knee pain Start:29-Aug-2016 Instruction Type:Patient Education Patient Instructions Indication:Right knee pain Start:29-Aug-2016 Instruction Type:Provider Instructions for Treatment How to access health informa tion online Indication:Annual physical exam Start:07-Jul-2015 Instruction Type:Patient Education How to access health informa tion online - Detail Indication:Annual physical exam Start:07-Jul-2015 Instruction Type:Patient Education Patient Instructions Indication:Annual physical exam Start:07-Jul-2015 Instruction Type:Provider Instructions for Treatment How to access health informa tion online Indication:PHARYNGITIS, ACUTE (462.) Start:25-Jun-2015 Instruction Type:Patient Education How to access health informa tion online - Detail Indication:PHARYNGITIS, ACUTE (462.) Start:25-Jun-2015 Instruction Type:Patient Education Patient Instructions Indication:PHARYNGITIS, ACUTE (462.) Start:25-Jun-2015 Instruction Type:Provider Instructions for Treatment How to access health informa tion online Indication:PHARYNGITIS, ACUTE (462.) Start:15-May-2014 Instruction Type:Patient Education How to access health informa tion online - Detail Indication:PHARYNGITIS, ACUTE (462.) Start:15-May-2014 Instruction Type:Patient Education Patient Instructions Indication:PHARYNGITIS, ACUTE (462.) Start:15-May-2014 Instruction Type:Provider Instructions for Treatment obesity counseling Indication:Morbid (severe) obesity due to excess calories Start:09-Oct-2013 Instruction Type:Provider Instructions for Treatment Patient Instructions Indication:WWV V70.0 Start:09-Oct-2013 Instruction Type:Provider Instructions for Treatment Patient Instructions Indication:WWV V70.0 Start:20-Sep-2012 Instruction Type:Provider Instructions for Treatment [facility]; [facility] Work Phone: Instructions* Name Dates Details Patient Instructions Indication:Nonsmoker Start:17-Oct-2022 Instruction Type:Provider Instructions for Treatment How to Access Health Informa tion Online using Patient Portal and [employer] Indication:Nonsmoker Start:17-Oct-2022 Instruction Type:Patient Education Patient Instructions Indication:Nonsmoker Start:27-Jul-2022 Instruction Type:Provider Instructions for Treatment How to Access Health Informa tion Online using Patient Portal and [employer] Indication:Nonsmoker Start:27-Jul-2022 Instruction Type:Patient Education Patient Instructions Indication:BMI 35.0-35.9,adult Start:19-Jul-2022 Instruction Type:Provider Instructions for Treatment How to Access Health Informa tion Online using Patient Portal and [employer] Indication:BMI 35.0-35.9,adult Start:19-Jul-2022 Instruction Type:Patient Education Patient Instructions Indication:BMI 40.0-44.9, adult Start:07-Jul-2022 Instruction Type:Provider Instructions for Treatment How to Access Health Informa tion Online using Patient Portal and [employer] Indication:BMI 40.0-44.9, adult Start:07-Jul-2022 Instruction Type:Patient Education Patient Instructions Indication:BMI 35.0-35.9,adult Start:14-Jun-2022 Instruction Type:Provider Instructions for Treatment How to Access Health Informa tion Online using Patient Portal and [employer] Indication:BMI 35.0-35.9,adult Start:14-Jun-2022 Instruction Type:Patient Education Patient Instructions Indication:Nonsmoker Start:20-Apr-2022 Instruction Type:Provider Instructions for Treatment How to Access Health Informa tion Online using Patient Portal and [employer] Indication:Nonsmoker Start:20-Apr-2022 Instruction Type:Patient Education Patient Instructions Indication:BMI 40.0-44.9, adult Start:06-Apr-2022 Instruction Type:Provider Instructions for Treatment How to Access Health Informa tion Online using Patient Portal and [employer] Indication:BMI 40.0-44.9, adult Start:06-Apr-2022 Instruction Type:Patient Education obesity counseling Indication:HTN (hypertension), benign Start:17-Mar-2022 Instruction Type:Provider Instructions for Treatment Patient Instructions Indication:HTN (hypertension), benign Start:17-Mar-2022 Instruction Type:Provider Instructions for Treatment How to Access Health Informa tion Online using Patient Portal and [employer] Indication:HTN (hypertension), benign Start:17-Mar-2022 Instruction Type:Patient Education Patient Instructions Indication:Skin tear of left lower leg without complication, initial encounter Start:13-Mar-2022 Instruction Type:Provider Instructions for Treatment How to Access Health Informa tion Online using Patient Portal and [employer] Indication:Skin tear of left lower leg without complication, initial encounter Start:13-Mar-2022 Instruction Type:Patient Education Patient Instructions Indication:Nonsmoker Start:06-Feb-2022 Instruction Type:Provider Instructions for Treatment How to Access Health Informa tion Online using Patient Portal and [employer] Indication:Nonsmoker Start:06-Feb-2022 Instruction Type:Patient Education Patient Instructions Indication:Upper respiratory infection Start:27-Jan-2022 Instruction Type:Provider Instructions for Treatment How to Access Health Informa tion Online using Patient Portal and [employer] Indication:Upper respiratory infection Start:27-Jan-2022 Instruction Type:Patient Education Patient Instructions Indication:HTN (hypertension), benign Start:06-May-2021 Instruction Type:Provider Instructions for Treatment How to Access Health Informa tion Online using Patient Portal and [employer] Indication:HTN (hypertension), benign Start:06-May-2021 Instruction Type:Patient Education How to access health informa tion online Indication:Nonsmoker Start:26-Dec-2018 Instruction Type:Patient Education How to access health informa tion online - Detail Indication:Nonsmoker Start:26-Dec-2018 Instruction Type:Patient Education Patient Instructions Indication:Upper respiratory infection, acute Start:26-Dec-2018 Instruction Type:Provider Instructions for Treatment How to access health informa tion online Indication:BMI 40.0-44.9, adult Start:12-Sep-2018 Instruction Type:Patient Education How to access health informa tion online - Detail Indication:BMI 40.0-44.9, adult Start:12-Sep-2018 Instruction Type:Patient Education Patient Instructions Indication:BMI 40.0-44.9, adult Start:12-Sep-2018 Instruction Type:Provider Instructions for Treatment obesity counseling Indication:Elevated blood pressure reading Start:04-Sep-2018 Instruction Type:Provider Instructions for Treatment How to access health informa tion online - Detail Indication:Morbid (severe) obesity due to excess calories Start:04-Sep-2018 Instruction Type:Patient Education How to access health informa tion online Indication:Morbid (severe) obesity due to excess calories Start:04-Sep-2018 Instruction Type:Patient Education Patient Instructions Indication:Morbid (severe) obesity due to excess calories Start:04-Sep-2018 Instruction Type:Provider Instructions for Treatment How to access health informa tion online Indication:Morbid (severe) obesity due to excess calories Start:15-Aug-2018 Instruction Type:Patient Education How to access health informa tion online - Detail Indication:Morbid (severe) obesity due to excess calories Start:15-Aug-2018 Instruction Type:Patient Education Patient Instructions Indication:Morbid (severe) obesity due to excess calories Start:15-Aug-2018 Instruction Type:Provider Instructions for Treatment How to access health informa tion online Indication:Cough Start:12-Dec-2017 Instruction Type:Patient Education How to access health informa tion online - Detail Indication:Cough Start:12-Dec-2017 Instruction Type:Patient Education Patient Instructions Indication:Cough Start:12-Dec-2017 Instruction Type:Provider Instructions for Treatment How to access health informa tion online Indication:Cough Start:03-Aug-2017 Instruction Type:Patient Education How to access health informa tion online - Detail Indication:Cough Start:03-Aug-2017 Instruction Type:Patient Education Patient Instructions Indication:Cough Start:03-Aug-2017 Instruction Type:Provider Instructions for Treatment How to access health informa tion online Indication:Plantar wart, left foot Start:23-Jul-2017 Instruction Type:Patient Education How to access health informa tion online - Detail Indication:Plantar wart, left foot Start:23-Jul-2017 Instruction Type:Patient Education Patient Instructions Indication:Plantar wart, left foot Start:23-Jul-2017 Instruction Type:Provider Instructions for Treatment How to access health informa tion online - Detail Indication:Morbid (severe) obesity due to excess calories Start:24-May-2017 Instruction Type:Patient Education Patient Instructions Indication:Morbid (severe) obesity due to excess calories Start:24-May-2017 Instruction Type:Provider Instructions for Treatment How to access health informa tion online Indication:Plantar wart, left foot Start:25-Apr-2017 Instruction Type:Patient Education How to access health informa tion online - Detail Indication:Plantar wart, left foot Start:25-Apr-2017 Instruction Type:Patient Education Patient Instructions Indication:Plantar wart, left foot Start:25-Apr-2017 Instruction Type:Provider Instructions for Treatment How to access health informa tion online Indication:BMI 39.0-39.9,adult Start:17-Apr-2017 Instruction Type:Patient Education How to access health informa tion online - Detail Indication:BMI 39.0-39.9,adult Start:17-Apr-2017 Instruction Type:Patient Education Patient Instructions Indication:BMI 39.0-39.9,adult Start:17-Apr-2017 Instruction Type:Provider Instructions for Treatment How to access health informa tion online Indication:Sore throat Start:07-Sep-2016 Instruction Type:Patient Education How to access health informa tion online - Detail Indication:Sore throat Start:07-Sep-2016 Instruction Type:Patient Education Patient Instructions Indication:Sore throat Start:07-Sep-2016 Instruction Type:Provider Instructions for Treatment How to access health informa tion online Indication:Right knee pain Start:29-Aug-2016 Instruction Type:Patient Education How to access health informa tion online - Detail Indication:Right knee pain Start:29-Aug-2016 Instruction Type:Patient Education Patient Instructions Indication:Right knee pain Start:29-Aug-2016 Instruction Type:Provider Instructions for Treatment How to access health informa tion online Indication:Annual physical exam Start:07-Jul-2015 Instruction Type:Patient Education How to access health informa tion online - Detail Indication:Annual physical exam Start:07-Jul-2015 Instruction Type:Patient Education Patient Instructions Indication:Annual physical exam Start:07-Jul-2015 Instruction Type:Provider Instructions for Treatment How to access health informa tion online Indication:PHARYNGITIS, ACUTE (462.) Start:25-Jun-2015 Instruction Type:Patient Education How to access health informa tion online - Detail Indication:PHARYNGITIS, ACUTE (462.) Start:25-Jun-2015 Instruction Type:Patient Education Patient Instructions Indication:PHARYNGITIS, ACUTE (462.) Start:25-Jun-2015 Instruction Type:Provider Instructions for Treatment How to access health informa tion online Indication:PHARYNGITIS, ACUTE (462.) Start:15-May-2014 Instruction Type:Patient Education How to access health informa tion online - Detail Indication:PHARYNGITIS, ACUTE (462.) Start:15-May-2014 Instruction Type:Patient Education Patient Instructions Indication:PHARYNGITIS, ACUTE (462.) Start:15-May-2014 Instruction Type:Provider Instructions for Treatment obesity counseling Indication:Morbid (severe) obesity due to excess calories Start:09-Oct-2013 Instruction Type:Provider Instructions for Treatment Patient Instructions Indication:WWV V70.0 Start:09-Oct-2013 Instruction Type:Provider Instructions for Treatment Patient Instructions Indication:WWV V70.0 Start:20-Sep-2012 Instruction Type:Provider Instructions for Treatment [facility]; [facility] Work Phone: Instructions* Name Dates Details Patient Instructions Indication:Nonsmoker Start:17-Oct-2022 Instruction Type:Provider Instructions for Treatment How to Access Health Informa tion Online using Patient Portal and [employer] Apps Indication:Nonsmoker Start:17-Oct-2022 Instruction Type:Patient Education Patient Instructions Indication:Nonsmoker Start:27-Jul-2022 Instruction Type:Provider Instructions for Treatment How to Access Health Informa tion Online using Patient Portal and [employer] Apps Indication:Nonsmoker Start:27-Jul-2022 Instruction Type:Patient Education Patient Instructions Indication:BMI 35.0-35.9,adult Start:19-Jul-2022 Instruction Type:Provider Instructions for Treatment How to Access Health Informa tion Online using Patient Portal and [employer] Apps Indication:BMI 35.0-35.9,adult Start:19-Jul-2022 Instruction Type:Patient Education Patient Instructions Indication:BMI 40.0-44.9, adult Start:07-Jul-2022 Instruction Type:Provider Instructions for Treatment How to Access Health Informa tion Online using Patient Portal and [employer] Indication:BMI 40.0-44.9, adult Start:07-Jul-2022 Instruction Type:Patient Education Patient Instructions Indication:BMI 35.0-35.9,adult Start:14-Jun-2022 Instruction Type:Provider Instructions for Treatment How to Access Health Informa tion Online using Patient Portal and [employer] Indication:BMI 35.0-35.9,adult Start:14-Jun-2022 Instruction Type:Patient Education Patient Instructions Indication:Nonsmoker Start:20-Apr-2022 Instruction Type:Provider Instructions for Treatment How to Access Health Informa tion Online using Patient Portal and [employer] Indication:Nonsmoker Start:20-Apr-2022 Instruction Type:Patient Education Patient Instructions Indication:BMI 40.0-44.9, adult Start:06-Apr-2022 Instruction Type:Provider Instructions for Treatment How to Access Health Informa tion Online using Patient Portal and [employer] Apps Indication:BMI 40.0-44.9, adult Start:06-Apr-2022 Instruction Type:Patient Education obesity counseling Indication:HTN (hypertension), benign Start:17-Mar-2022 Instruction Type:Provider Instructions for Treatment Patient Instructions Indication:HTN (hypertension), benign Start:17-Mar-2022 Instruction Type:Provider Instructions for Treatment How to Access Health Informa tion Online using Patient Portal and [employer] Indication:HTN (hypertension), benign Start:17-Mar-2022 Instruction Type:Patient Education Patient Instructions Indication:Skin tear of left lower leg without complication, initial encounter Start:13-Mar-2022 Instruction Type:Provider Instructions for Treatment How to Access Health Informa tion Online using Patient Portal and [employer] Apps Indication:Skin tear of left lower leg without complication, initial encounter Start:13-Mar-2022 Instruction Type:Patient Education Patient Instructions Indication:Nonsmoker Start:06-Feb-2022 Instruction Type:Provider Instructions for Treatment How to Access Health Informa tion Online using Patient Portal and [employer] Apps Indication:Nonsmoker Start:06-Feb-2022 Instruction Type:Patient Education Patient Instructions Indication:Upper respiratory infection Start:27-Jan-2022 Instruction Type:Provider Instructions for Treatment How to Access Health Informa tion Online using Patient Portal and [employer] Apps Indication:Upper respiratory infection Start:27-Jan-2022 Instruction Type:Patient Education Patient Instructions Indication:HTN (hypertension), benign Start:06-May-2021 Instruction Type:Provider Instructions for Treatment How to Access Health Informa tion Online using Patient Portal and [employer] Apps Indication:HTN (hypertension), benign Start:06-May-2021 Instruction Type:Patient Education How to access health informa tion online Indication:Nonsmoker Start:26-Dec-2018 Instruction Type:Patient Education How to access health informa tion online - Detail Indication:Nonsmoker Start:26-Dec-2018 Instruction Type:Patient Education Patient Instructions Indication:Upper respiratory infection, acute Start:26-Dec-2018 Instruction Type:Provider Instructions for Treatment How to access health informa tion online Indication:BMI 40.0-44.9, adult Start:12-Sep-2018 Instruction Type:Patient Education How to access health informa tion online - Detail Indication:BMI 40.0-44.9, adult Start:12-Sep-2018 Instruction Type:Patient Education Patient Instructions Indication:BMI 40.0-44.9, adult Start:12-Sep-2018 Instruction Type:Provider Instructions for Treatment obesity counseling Indication:Elevated blood pressure reading Start:04-Sep-2018 Instruction Type:Provider Instructions for Treatment How to access health informa tion online - Detail Indication:Morbid (severe) obesity due to excess calories Start:04-Sep-2018 Instruction Type:Patient Education How to access health informa tion online Indication:Morbid (severe) obesity due to excess calories Start:04-Sep-2018 Instruction Type:Patient Education Patient Instructions Indication:Morbid (severe) obesity due to excess calories Start:04-Sep-2018 Instruction Type:Provider Instructions for Treatment How to access health informa tion online Indication:Morbid (severe) obesity due to excess calories Start:15-Aug-2018 Instruction Type:Patient Education How to access health informa tion online - Detail Indication:Morbid (severe) obesity due to excess calories Start:15-Aug-2018 Instruction Type:Patient Education Patient Instructions Indication:Morbid (severe) obesity due to excess calories Start:15-Aug-2018 Instruction Type:Provider Instructions for Treatment How to access health informa tion online Indication:Cough Start:12-Dec-2017 Instruction Type:Patient Education How to access health informa tion online - Detail Indication:Cough Start:12-Dec-2017 Instruction Type:Patient Education Patient Instructions Indication:Cough Start:12-Dec-2017 Instruction Type:Provider Instructions for Treatment How to access health informa tion online Indication:Cough Start:03-Aug-2017 Instruction Type:Patient Education How to access health informa tion online - Detail Indication:Cough Start:03-Aug-2017 Instruction Type:Patient Education Patient Instructions Indication:Cough Start:03-Aug-2017 Instruction Type:Provider Instructions for Treatment How to access health informa tion online Indication:Plantar wart, left foot Start:23-Jul-2017 Instruction Type:Patient Education How to access health informa tion online - Detail Indication:Plantar wart, left foot Start:23-Jul-2017 Instruction Type:Patient Education Patient Instructions Indication:Plantar wart, left foot Start:23-Jul-2017 Instruction Type:Provider Instructions for Treatment How to access health informa tion online - Detail Indication:Morbid (severe) obesity due to excess calories Start:24-May-2017 Instruction Type:Patient Education Patient Instructions Indication:Morbid (severe) obesity due to excess calories Start:24-May-2017 Instruction Type:Provider Instructions for Treatment How to access health informa tion online Indication:Plantar wart, left foot Start:25-Apr-2017 Instruction Type:Patient Education How to access health informa tion online - Detail Indication:Plantar wart, left foot Start:25-Apr-2017 Instruction Type:Patient Education Patient Instructions Indication:Plantar wart, left foot Start:25-Apr-2017 Instruction Type:Provider Instructions for Treatment How to access health informa tion online Indication:BMI 39.0-39.9,adult Start:17-Apr-2017 Instruction Type:Patient Education How to access health informa tion online - Detail Indication:BMI 39.0-39.9,adult Start:17-Apr-2017 Instruction Type:Patient Education Patient Instructions Indication:BMI 39.0-39.9,adult Start:17-Apr-2017 Instruction Type:Provider Instructions for Treatment How to access health informa tion online Indication:Sore throat Start:07-Sep-2016 Instruction Type:Patient Education How to access health informa tion online - Detail Indication:Sore throat Start:07-Sep-2016 Instruction Type:Patient Education Patient Instructions Indication:Sore throat Start:07-Sep-2016 Instruction Type:Provider Instructions for Treatment How to access health informa tion online Indication:Right knee pain Start:29-Aug-2016 Instruction Type:Patient Education How to access health informa tion online - Detail Indication:Right knee pain Start:29-Aug-2016 Instruction Type:Patient Education Patient Instructions Indication:Right knee pain Start:29-Aug-2016 Instruction Type:Provider Instructions for Treatment How to access health informa tion online Indication:Annual physical exam Start:07-Jul-2015 Instruction Type:Patient Education How to access health informa tion online - Detail Indication:Annual physical exam Start:07-Jul-2015 Instruction Type:Patient Education Patient Instructions Indication:Annual physical exam Start:07-Jul-2015 Instruction Type:Provider Instructions for Treatment How to access health informa tion online Indication:PHARYNGITIS, ACUTE (462.) Start:25-Jun-2015 Instruction Type:Patient Education How to access health informa tion online - Detail Indication:PHARYNGITIS, ACUTE (462.) Start:25-Jun-2015 Instruction Type:Patient Education Patient Instructions Indication:PHARYNGITIS, ACUTE (462.) Start:25-Jun-2015 Instruction Type:Provider Instructions for Treatment How to access health informa tion online Indication:PHARYNGITIS, ACUTE (462.) Start:15-May-2014 Instruction Type:Patient Education How to access health informa tion online - Detail Indication:PHARYNGITIS, ACUTE (462.) Start:15-May-2014 Instruction Type:Patient Education Patient Instructions Indication:PHARYNGITIS, ACUTE (462.) Start:15-May-2014 Instruction Type:Provider Instructions for Treatment obesity counseling Indication:Morbid (severe) obesity due to excess calories Start:09-Oct-2013 Instruction Type:Provider Instructions for Treatment Patient Instructions Indication:WWV V70.0 Start:09-Oct-2013 Instruction Type:Provider Instructions for Treatment Patient Instructions Indication:WWV V70.0 Start:20-Sep-2012 Instruction Type:Provider Instructions for Treatment [facility]; [facility] Work Phone: Instructions* Name Dates Details Patient Instructions Indication:Nonsmoker Start:20-Feb-2023 Instruction Type:Provider Instructions for Treatment How to Access Health Informa tion Online using Patient Portal and [employer] Indication:Nonsmoker Start:20-Feb-2023 Instruction Type:Patient Education Patient Instructions Indication:Nonsmoker Start:17-Oct-2022 Instruction Type:Provider Instructions for Treatment How to Access Health Informa tion Online using Patient Portal and [employer] Apps Indication:Nonsmoker Start:17-Oct-2022 Instruction Type:Patient Education Patient Instructions Indication:Nonsmoker Start:27-Jul-2022 Instruction Type:Provider Instructions for Treatment How to Access Health Informa tion Online using Patient Portal and [employer] Indication:Nonsmoker Start:27-Jul-2022 Instruction Type:Patient Education Patient Instructions Indication:BMI 35.0-35.9,adult Start:19-Jul-2022 Instruction Type:Provider Instructions for Treatment How to Access Health Informa tion Online using Patient Portal and [employer] Indication:BMI 35.0-35.9,adult Start:19-Jul-2022 Instruction Type:Patient Education Patient Instructions Indication:BMI 40.0-44.9, adult Start:07-Jul-2022 Instruction Type:Provider Instructions for Treatment How to Access Health Informa tion Online using Patient Portal and [employer] Indication:BMI 40.0-44.9, adult Start:07-Jul-2022 Instruction Type:Patient Education Patient Instructions Indication:BMI 35.0-35.9,adult Start:14-Jun-2022 Instruction Type:Provider Instructions for Treatment How to Access Health Informa tion Online using Patient Portal and [employer] Indication:BMI 35.0-35.9,adult Start:14-Jun-2022 Instruction Type:Patient Education Patient Instructions Indication:Nonsmoker Start:20-Apr-2022 Instruction Type:Provider Instructions for Treatment How to Access Health Informa tion Online using Patient Portal and [employer] Apps Indication:Nonsmoker Start:20-Apr-2022 Instruction Type:Patient Education Patient Instructions Indication:BMI 40.0-44.9, adult Start:06-Apr-2022 Instruction Type:Provider Instructions for Treatment How to Access Health Informa tion Online using Patient Portal and [employer] Apps Indication:BMI 40.0-44.9, adult Start:06-Apr-2022 Instruction Type:Patient Education obesity counseling Indication:HTN (hypertension), benign Start:17-Mar-2022 Instruction Type:Provider Instructions for Treatment Patient Instructions Indication:HTN (hypertension), benign Start:17-Mar-2022 Instruction Type:Provider Instructions for Treatment How to Access Health Informa tion Online using Patient Portal and [employer] Apps Indication:HTN (hypertension), benign Start:17-Mar-2022 Instruction Type:Patient Education Patient Instructions Indication:Skin tear of left lower leg without complication, initial encounter Start:13-Mar-2022 Instruction Type:Provider Instructions for Treatment How to Access Health Informa tion Online using Patient Portal and [employer] Apps Indication:Skin tear of left lower leg without complication, initial encounter Start:13-Mar-2022 Instruction Type:Patient Education Patient Instructions Indication:Nonsmoker Start:06-Feb-2022 Instruction Type:Provider Instructions for Treatment How to Access Health Informa tion Online using Patient Portal and [employer] Apps Indication:Nonsmoker Start:06-Feb-2022 Instruction Type:Patient Education Patient Instructions Indication:Upper respiratory infection Start:27-Jan-2022 Instruction Type:Provider Instructions for Treatment How to Access Health Informa tion Online using Patient Portal and [employer] Apps Indication:Upper respiratory infection Start:27-Jan-2022 Instruction Type:Patient Education Patient Instructions Indication:HTN (hypertension), benign Start:06-May-2021 Instruction Type:Provider Instructions for Treatment How to Access Health Informa tion Online using Patient Portal and [employer] Apps Indication:HTN (hypertension), benign Start:06-May-2021 Instruction Type:Patient Education How to access health informa tion online Indication:Nonsmoker Start:26-Dec-2018 Instruction Type:Patient Education How to access health informa tion online - Detail Indication:Nonsmoker Start:26-Dec-2018 Instruction Type:Patient Education Patient Instructions Indication:Upper respiratory infection, acute Start:26-Dec-2018 Instruction Type:Provider Instructions for Treatment How to access health informa tion online Indication:BMI 40.0-44.9, adult Start:12-Sep-2018 Instruction Type:Patient Education How to access health informa tion online - Detail Indication:BMI 40.0-44.9, adult Start:12-Sep-2018 Instruction Type:Patient Education Patient Instructions Indication:BMI 40.0-44.9, adult Start:12-Sep-2018 Instruction Type:Provider Instructions for Treatment obesity counseling Indication:Elevated blood pressure reading Start:04-Sep-2018 Instruction Type:Provider Instructions for Treatment How to access health informa tion online - Detail Indication:Morbid (severe) obesity due to excess calories Start:04-Sep-2018 Instruction Type:Patient Education How to access health informa tion online Indication:Morbid (severe) obesity due to excess calories Start:04-Sep-2018 Instruction Type:Patient Education Patient Instructions Indication:Morbid (severe) obesity due to excess calories Start:04-Sep-2018 Instruction Type:Provider Instructions for Treatment How to access health informa tion online Indication:Morbid (severe) obesity due to excess calories Start:15-Aug-2018 Instruction Type:Patient Education How to access health informa tion online - Detail Indication:Morbid (severe) obesity due to excess calories Start:15-Aug-2018 Instruction Type:Patient Education Patient Instructions Indication:Morbid (severe) obesity due to excess calories Start:15-Aug-2018 Instruction Type:Provider Instructions for Treatment How to access health informa tion online Indication:Cough Start:12-Dec-2017 Instruction Type:Patient Education How to access health informa tion online - Detail Indication:Cough Start:12-Dec-2017 Instruction Type:Patient Education Patient Instructions Indication:Cough Start:12-Dec-2017 Instruction Type:Provider Instructions for Treatment How to access health informa tion online Indication:Cough Start:03-Aug-2017 Instruction Type:Patient Education How to access health informa tion online - Detail Indication:Cough Start:03-Aug-2017 Instruction Type:Patient Education Patient Instructions Indication:Cough Start:03-Aug-2017 Instruction Type:Provider Instructions for Treatment How to access health informa tion online Indication:Plantar wart, left foot Start:23-Jul-2017 Instruction Type:Patient Education How to access health informa tion online - Detail Indication:Plantar wart, left foot Start:23-Jul-2017 Instruction Type:Patient Education Patient Instructions Indication:Plantar wart, left foot Start:23-Jul-2017 Instruction Type:Provider Instructions for Treatment How to access health informa tion online - Detail Indication:Morbid (severe) obesity due to excess calories Start:24-May-2017 Instruction Type:Patient Education Patient Instructions Indication:Morbid (severe) obesity due to excess calories Start:24-May-2017 Instruction Type:Provider Instructions for Treatment How to access health informa tion online Indication:Plantar wart, left foot Start:25-Apr-2017 Instruction Type:Patient Education How to access health informa tion online - Detail Indication:Plantar wart, left foot Start:25-Apr-2017 Instruction Type:Patient Education Patient Instructions Indication:Plantar wart, left foot Start:25-Apr-2017 Instruction Type:Provider Instructions for Treatment How to access health informa tion online Indication:BMI 39.0-39.9,adult Start:17-Apr-2017 Instruction Type:Patient Education How to access health informa tion online - Detail Indication:BMI 39.0-39.9,adult Start:17-Apr-2017 Instruction Type:Patient Education Patient Instructions Indication:BMI 39.0-39.9,adult Start:17-Apr-2017 Instruction Type:Provider Instructions for Treatment How to access health informa tion online Indication:Sore throat Start:07-Sep-2016 Instruction Type:Patient Education How to access health informa tion online - Detail Indication:Sore throat Start:07-Sep-2016 Instruction Type:Patient Education Patient Instructions Indication:Sore throat Start:07-Sep-2016 Instruction Type:Provider Instructions for Treatment How to access health informa tion online Indication:Right knee pain Start:29-Aug-2016 Instruction Type:Patient Education How to access health informa tion online - Detail Indication:Right knee pain Start:29-Aug-2016 Instruction Type:Patient Education Patient Instructions Indication:Right knee pain Start:29-Aug-2016 Instruction Type:Provider Instructions for Treatment How to access health informa tion online Indication:Annual physical exam Start:07-Jul-2015 Instruction Type:Patient Education How to access health informa tion online - Detail Indication:Annual physical exam Start:07-Jul-2015 Instruction Type:Patient Education Patient Instructions Indication:Annual physical exam Start:07-Jul-2015 Instruction Type:Provider Instructions for Treatment How to access health informa tion online Indication:PHARYNGITIS, ACUTE (462.) Start:25-Jun-2015 Instruction Type:Patient Education How to access health informa tion online - Detail Indication:PHARYNGITIS, ACUTE (462.) Start:25-Jun-2015 Instruction Type:Patient Education Patient Instructions Indication:PHARYNGITIS, ACUTE (462.) Start:25-Jun-2015 Instruction Type:Provider Instructions for Treatment How to access health informa tion online Indication:PHARYNGITIS, ACUTE (462.) Start:15-May-2014 Instruction Type:Patient Education How to access health informa tion online - Detail Indication:PHARYNGITIS, ACUTE (462.) Start:15-May-2014 Instruction Type:Patient Education Patient Instructions Indication:PHARYNGITIS, ACUTE (462.) Start:15-May-2014 Instruction Type:Provider Instructions for Treatment obesity counseling Indication:Morbid (severe) obesity due to excess calories Start:09-Oct-2013 Instruction Type:Provider Instructions for Treatment Patient Instructions Indication:WWV V70.0 Start:09-Oct-2013 Instruction Type:Provider Instructions for Treatment Patient Instructions Indication:WWV V70.0 Start:20-Sep-2012 Instruction Type:Provider Instructions for Treatment [facility]; [facility] Work Phone: Instructions* Name Dates Details Patient Instructions Indication:Paronychia of finger of right hand Start:28-Feb-2023 Instruction Type:Provider Instructions for Treatment How to Access Health Informa tion Online using Patient Portal and [employer] Apps Indication:Paronychia of finger of right hand Start:28-Feb-2023 Instruction Type:Patient Education Patient Instructions Indication:Paronychia of finger of right hand Start:23-Feb-2023 Instruction Type:Provider Instructions for Treatment How to Access Health Informa tion Online using Patient Portal and [employer] Apps Indication:Paronychia of finger of right hand Start:23-Feb-2023 Instruction Type:Patient Education Patient Instructions Indication:Nonsmoker Start:20-Feb-2023 Instruction Type:Provider Instructions for Treatment How to Access Health Informa tion Online using Patient Portal and [employer] Apps Indication:Nonsmoker Start:20-Feb-2023 Instruction Type:Patient Education Patient Instructions Indication:Nonsmoker Start:17-Oct-2022 Instruction Type:Provider Instructions for Treatment How to Access Health Informa tion Online using Patient Portal and [employer] Indication:Nonsmoker Start:17-Oct-2022 Instruction Type:Patient Education Patient Instructions Indication:Nonsmoker Start:27-Jul-2022 Instruction Type:Provider Instructions for Treatment How to Access Health Informa tion Online using Patient Portal and [employer] Apps Indication:Nonsmoker Start:27-Jul-2022 Instruction Type:Patient Education Patient Instructions Indication:BMI 35.0-35.9,adult Start:19-Jul-2022 Instruction Type:Provider Instructions for Treatment How to Access Health Informa tion Online using Patient Portal and [employer] Apps Indication:BMI 35.0-35.9,adult Start:19-Jul-2022 Instruction Type:Patient Education Patient Instructions Indication:BMI 40.0-44.9, adult Start:07-Jul-2022 Instruction Type:Provider Instructions for Treatment How to Access Health Informa tion Online using Patient Portal and [employer] Indication:BMI 40.0-44.9, adult Start:07-Jul-2022 Instruction Type:Patient Education Patient Instructions Indication:BMI 35.0-35.9,adult Start:14-Jun-2022 Instruction Type:Provider Instructions for Treatment How to Access Health Informa tion Online using Patient Portal and [employer] Indication:BMI 35.0-35.9,adult Start:14-Jun-2022 Instruction Type:Patient Education Patient Instructions Indication:Nonsmoker Start:20-Apr-2022 Instruction Type:Provider Instructions for Treatment How to Access Health Informa tion Online using Patient Portal and [employer] Indication:Nonsmoker Start:20-Apr-2022 Instruction Type:Patient Education Patient Instructions Indication:BMI 40.0-44.9, adult Start:06-Apr-2022 Instruction Type:Provider Instructions for Treatment How to Access Health Informa tion Online using Patient Portal and [employer] Indication:BMI 40.0-44.9, adult Start:06-Apr-2022 Instruction Type:Patient Education obesity counseling Indication:HTN (hypertension), benign Start:17-Mar-2022 Instruction Type:Provider Instructions for Treatment Patient Instructions Indication:HTN (hypertension), benign Start:17-Mar-2022 Instruction Type:Provider Instructions for Treatment How to Access Health Informa tion Online using Patient Portal and [employer] Indication:HTN (hypertension), benign Start:17-Mar-2022 Instruction Type:Patient Education Patient Instructions Indication:Skin tear of left lower leg without complication, initial encounter Start:13-Mar-2022 Instruction Type:Provider Instructions for Treatment How to Access Health Informa tion Online using Patient Portal and [employer] Apps Indication:Skin tear of left lower leg without complication, initial encounter Start:13-Mar-2022 Instruction Type:Patient Education Patient Instructions Indication:Nonsmoker Start:06-Feb-2022 Instruction Type:Provider Instructions for Treatment How to Access Health Informa tion Online using Patient Portal and [employer] Apps Indication:Nonsmoker Start:06-Feb-2022 Instruction Type:Patient Education Patient Instructions Indication:Upper respiratory infection Start:27-Jan-2022 Instruction Type:Provider Instructions for Treatment How to Access Health Informa tion Online using Patient Portal and [employer] Apps Indication:Upper respiratory infection Start:27-Jan-2022 Instruction Type:Patient Education Patient Instructions Indication:HTN (hypertension), benign Start:06-May-2021 Instruction Type:Provider Instructions for Treatment How to Access Health Informa tion Online using Patient Portal and [employer] Apps Indication:HTN (hypertension), benign Start:06-May-2021 Instruction Type:Patient Education How to access health informa tion online Indication:Nonsmoker Start:26-Dec-2018 Instruction Type:Patient Education How to access health informa tion online - Detail Indication:Nonsmoker Start:26-Dec-2018 Instruction Type:Patient Education Patient Instructions Indication:Upper respiratory infection, acute Start:26-Dec-2018 Instruction Type:Provider Instructions for Treatment How to access health informa tion online Indication:BMI 40.0-44.9, adult Start:12-Sep-2018 Instruction Type:Patient Education How to access health informa tion online - Detail Indication:BMI 40.0-44.9, adult Start:12-Sep-2018 Instruction Type:Patient Education Patient Instructions Indication:BMI 40.0-44.9, adult Start:12-Sep-2018 Instruction Type:Provider Instructions for Treatment obesity counseling Indication:Elevated blood pressure reading Start:04-Sep-2018 Instruction Type:Provider Instructions for Treatment How to access health informa tion online - Detail Indication:Morbid (severe) obesity due to excess calories Start:04-Sep-2018 Instruction Type:Patient Education How to access health informa tion online Indication:Morbid (severe) obesity due to excess calories Start:04-Sep-2018 Instruction Type:Patient Education Patient Instructions Indication:Morbid (severe) obesity due to excess calories Start:04-Sep-2018 Instruction Type:Provider Instructions for Treatment How to access health informa tion online Indication:Morbid (severe) obesity due to excess calories Start:15-Aug-2018 Instruction Type:Patient Education How to access health informa tion online - Detail Indication:Morbid (severe) obesity due to excess calories Start:15-Aug-2018 Instruction Type:Patient Education Patient Instructions Indication:Morbid (severe) obesity due to excess calories Start:15-Aug-2018 Instruction Type:Provider Instructions for Treatment How to access health informa tion online Indication:Cough Start:12-Dec-2017 Instruction Type:Patient Education How to access health informa tion online - Detail Indication:Cough Start:12-Dec-2017 Instruction Type:Patient Education Patient Instructions Indication:Cough Start:12-Dec-2017 Instruction Type:Provider Instructions for Treatment How to access health informa tion online Indication:Cough Start:03-Aug-2017 Instruction Type:Patient Education How to access health informa tion online - Detail Indication:Cough Start:03-Aug-2017 Instruction Type:Patient Education Patient Instructions Indication:Cough Start:03-Aug-2017 Instruction Type:Provider Instructions for Treatment How to access health informa tion online Indication:Plantar wart, left foot Start:23-Jul-2017 Instruction Type:Patient Education How to access health informa tion online - Detail Indication:Plantar wart, left foot Start:23-Jul-2017 Instruction Type:Patient Education Patient Instructions Indication:Plantar wart, left foot Start:23-Jul-2017 Instruction Type:Provider Instructions for Treatment How to access health informa tion online - Detail Indication:Morbid (severe) obesity due to excess calories Start:24-May-2017 Instruction Type:Patient Education Patient Instructions Indication:Morbid (severe) obesity due to excess calories Start:24-May-2017 Instruction Type:Provider Instructions for Treatment How to access health informa tion online Indication:Plantar wart, left foot Start:25-Apr-2017 Instruction Type:Patient Education How to access health informa tion online - Detail Indication:Plantar wart, left foot Start:25-Apr-2017 Instruction Type:Patient Education Patient Instructions Indication:Plantar wart, left foot Start:25-Apr-2017 Instruction Type:Provider Instructions for Treatment How to access health informa tion online Indication:BMI 39.0-39.9,adult Start:17-Apr-2017 Instruction Type:Patient Education How to access health informa tion online - Detail Indication:BMI 39.0-39.9,adult Start:17-Apr-2017 Instruction Type:Patient Education Patient Instructions Indication:BMI 39.0-39.9,adult Start:17-Apr-2017 Instruction Type:Provider Instructions for Treatment How to access health informa tion online Indication:Sore throat Start:07-Sep-2016 Instruction Type:Patient Education How to access health informa tion online - Detail Indication:Sore throat Start:07-Sep-2016 Instruction Type:Patient Education Patient Instructions Indication:Sore throat Start:07-Sep-2016 Instruction Type:Provider Instructions for Treatment How to access health informa tion online Indication:Right knee pain Start:29-Aug-2016 Instruction Type:Patient Education How to access health informa tion online - Detail Indication:Right knee pain Start:29-Aug-2016 Instruction Type:Patient Education Patient Instructions Indication:Right knee pain Start:29-Aug-2016 Instruction Type:Provider Instructions for Treatment How to access health informa tion online Indication:Annual physical exam Start:07-Jul-2015 Instruction Type:Patient Education How to access health informa tion online - Detail Indication:Annual physical exam Start:07-Jul-2015 Instruction Type:Patient Education Patient Instructions Indication:Annual physical exam Start:07-Jul-2015 Instruction Type:Provider Instructions for Treatment How to access health informa tion online Indication:PHARYNGITIS, ACUTE (462.) Start:25-Jun-2015 Instruction Type:Patient Education How to access health informa tion online - Detail Indication:PHARYNGITIS, ACUTE (462.) Start:25-Jun-2015 Instruction Type:Patient Education Patient Instructions Indication:PHARYNGITIS, ACUTE (462.) Start:25-Jun-2015 Instruction Type:Provider Instructions for Treatment How to access health informa tion online Indication:PHARYNGITIS, ACUTE (462.) Start:15-May-2014 Instruction Type:Patient Education How to access health informa tion online - Detail Indication:PHARYNGITIS, ACUTE (462.) Start:15-May-2014 Instruction Type:Patient Education Patient Instructions Indication:PHARYNGITIS, ACUTE (462.) Start:15-May-2014 Instruction Type:Provider Instructions for Treatment obesity counseling Indication:Morbid (severe) obesity due to excess calories Start:09-Oct-2013 Instruction Type:Provider Instructions for Treatment Patient Instructions Indication:WWV V70.0 Start:09-Oct-2013 Instruction Type:Provider Instructions for Treatment Patient Instructions Indication:WWV V70.0 Start:20-Sep-2012 Instruction Type:Provider Instructions for Treatment [facility] Work Phone: Family History No Family History Records FoundUnknown Family Member Name Dates Details Father Comments: age 96 brandon ural causes Status:Active First Degree Relatives Comments:paternal aunt leuke padma Status:Active Maternal Grandfather Comments: from [place] Status:Active Mother Comments:Breast cancer decea sed Status:Active Unknown Family Member Name Dates Details Father Comments: age 96 brandon ural causes Status:Active First Degree Relatives Comments:paternal aunt leuke padma Status:Active Maternal Grandfather Comments: from [place] Status:Active Mother Comments:Breast cancer decea sed Status:Active Unknown Family Member Name Dates Details Father Comments: age 96 brandon ural causes Status:Active First Degree Relatives Comments:paternal aunt leuke padma Status:Active Maternal Grandfather Comments: from [place] Status:Active Mother Comments:Breast cancer decea sed Status:Active Unknown Family Member Name Dates Details Father Comments: age 96 brandon ural causes Status:Active First Degree Relatives Comments:paternal aunt leuke padma Status:Active Maternal Grandfather Comments: from [place] Status:Active Mother Comments:Breast cancer decea sed Status:Active Unknown Family Member Name Dates Details Father Comments: age 96 brandon ural causes Status:Active First Degree Relatives Comments:paternal aunt leuke padma Status:Active Maternal Grandfather Comments: from [place] Status:Active Mother Comments:Breast cancer decea sed Status:Active Unknown Family Member Name Dates Details Father Comments: age 96 brandon ural causes Status:Active First Degree Relatives Comments:paternal aunt leuke padma Status:Active Maternal Grandfather Comments: from [place] Status:Active Mother Comments:Breast cancer decea sed Status:Active Unknown Family Member Name Dates Details Father Comments: age 96 brandon ural causes Status:Active First Degree Relatives Comments:paternal aunt leuke padma Status:Active Maternal Grandfather Comments: from [place] Status:Active Mother Comments:Breast cancer decea sed Status:Active Unknown Family Member Name Dates Details Father Comments: age 96 brandon ural causes Status:Active First Degree Relatives Comments:paternal aunt leuke padma Status:Active Maternal Grandfather Comments: from [place] Status:Active Mother Comments:Breast cancer decea sed Status:Active Unknown Family Member Name Dates Details Father Comments: age 96 brandon ural causes Status:Active First Degree Relatives Comments:paternal aunt leuke padma Status:Active Maternal Grandfather Comments: from [place] Status:Active Mother Comments:Breast cancer decea sed Status:Active Unknown Family Member Name Dates Details Father Comments: age 96 brandon ural causes Status:Active First Degree Relatives Comments:paternal aunt leuke padma Status:Active Maternal Grandfather Comments: from [place] Status:Active Mother Comments:Breast cancer decea sed Status:Active Unknown Family Member Name Dates Details Father Comments: age 96 brandon ural causes Status:Active First Degree Relatives Comments:paternal aunt leuke padma Status:Active Maternal Grandfather Comments: from [place] Status:Active Mother Comments:Breast cancer decea sed Status:Active Unknown Family Member Name Dates Details Father Comments: age 96 brandon ural causes Status:Active First Degree Relatives Comments:paternal aunt leuke padma Status:Active Maternal Grandfather Comments: from [place] Status:Active Mother Comments:Breast cancer decea sed Status:Active Unknown Family Member Name Dates Details Father Comments: age 96 brandon ural causes Status:Active First Degree Relatives Comments:paternal aunt leuke padma Status:Active Maternal Grandfather Comments: from [place] Status:Active Mother Comments:Breast cancer decea sed Status:Active Unknown Family Member Name Dates Details Father Comments: age 96 brandon ural causes Status:Active First Degree Relatives Comments:paternal aunt leuke padma Status:Active Maternal Grandfather Comments: from [place] Status:Active Mother Comments:Breast cancer decea sed Status:Active Unknown Family Member Name Dates Details Father Comments: age 96 brandon ural causes Status:Active First Degree Relatives Comments:paternal aunt leuke padma Status:Active Maternal Grandfather Comments: from [place] Status:Active Mother Comments:Breast cancer decea sed Status:Active Unknown Family Member Name Dates Details Father Comments: age 96 brandon ural causes Status:Active First Degree Relatives Comments:paternal aunt leuke padma Status:Active Maternal Grandfather Comments: from [place] Status:Active Mother Comments:Breast cancer decea sed Status:Active Unknown Family Member Name Dates Details Father Comments: age 96 brandon ural causes Status:Active First Degree Relatives Comments:paternal aunt leuke padma Status:Active Maternal Grandfather Comments: from [place] Status:Active Mother Comments:Breast cancer decea sed Status:Active Unknown Family Member Name Dates Details Father Comments: age 96 brandon ural causes Status:Active First Degree Relatives Comments:paternal aunt leuke padma Status:Active Maternal Grandfather Comments: from [place] Status:Active Mother Comments:Breast cancer decea sed Status:Active Unknown Family Member Name Dates Details Father Comments: age 96 brandon ural causes Status:Active First Degree Relatives Comments:paternal aunt leuke padma Status:Active Maternal Grandfather Comments: from [place] Status:Active Mother Comments:Breast cancer decea sed Status:Active Unknown Family Member Name Dates Details Father Comments: age 96 brandon ural causes Status:Active First Degree Relatives Comments:paternal aunt leuke padma Status:Active Maternal Grandfather Comments: from [place] Status:Active Mother Comments:Breast cancer decea sed Status:Active Unknown Family Member Name Dates Details Father Comments: age 96 brandon ural causes Status:Active First Degree Relatives Comments:paternal aunt leuke padma Status:Active Maternal Grandfather Comments: from [place] Status:Active Mother Comments:Breast cancer decea sed Status:Active Unknown Family Member Name Dates Details Father Comments: age 96 brandon ural causes Status:Active First Degree Relatives Comments:paternal aunt leuke padma Status:Active Maternal Grandfather Comments: from [place] Status:Active Mother Comments:Breast cancer decea sed Status:Active Unknown Family Member Name Dates Details Father Comments: age 96 brandon ural causes Status:Active First Degree Relatives Comments:paternal aunt leuke padma Status:Active Maternal Grandfather Comments: from [place] Status:Active Mother Comments:Breast cancer decea sed Status:Active Unknown Family Member Name Dates Details Father Comments: age 96 brandon ural causes Status:Active First Degree Relatives Comments:paternal aunt leuke padma Status:Active Maternal Grandfather Comments: from [place] Status:Active Mother Comments:Breast cancer decea sed Status:Active Unknown Family Member Name Dates Details Father Comments: age 96 brandon ural causes Status:Active First Degree Relatives Comments:paternal aunt leuke padma Status:Active Maternal Grandfather Comments: from [place] Status:Active Mother Comments:Breast cancer decea sed Status:Active Unknown Family Member Name Dates Details Father Comments: age 96 brandon ural causes Status:Active First Degree Relatives Comments:paternal aunt leuke padma Status:Active Maternal Grandfather Comments: from [place] Status:Active Mother Comments:Breast cancer decea sed Status:Active Unknown Family Member Name Dates Details Father Comments: age 96 brandon ural causes Status:Active First Degree Relatives Comments:paternal aunt leuke padma Status:Active Maternal Grandfather Comments: from [place] Status:Active Mother Comments:Breast cancer decea sed Status:Active Unknown Family Member Name Dates Details Father Comments: age 96 brandon ural causes Status:Active First Degree Relatives Comments:paternal aunt leuke padma Status:Active Maternal Grandfather Comments: from [place] Status:Active Mother Comments:Breast cancer decea sed Status:Active Unknown Family Member Name Dates Details Father Comments: age 96 brandon ural causes Status:Active First Degree Relatives Comments:paternal aunt leuke padma Status:Active Maternal Grandfather Comments: from [place] Status:Active Mother Comments:Breast cancer decea sed Status:Active Instructions Name Dates Details BMI 40.0-44.9, adult : How t o access health information online Indication:BMI 40.0-44.9, adult BMI 40.0-44.9, adult : How t o access health information online - Detail Indication:BMI 40.0-44.9, adult BMI 40.0-44.9, adult : Patie nt Instructions Indication:BMI 40.0-44.9, adult Cough : How to access health information online Indication:Cough Cough : How to access health information online - Detail Indication:Cough Cough : Patient Instructions Indication:Cough Plantar wart, left foot : Ho w to access health information online Indication:Plantar wart, left foot Plantar wart, left foot : Ho w to access health information online - Detail Indication:Plantar wart, left foot Plantar wart, left foot : Pa tient Instructions Indication:Plantar wart, left foot BMI 39.0-39.9,adult : How to access health information online Indication:BMI 39.0-39.9,adult BMI 39.0-39.9,adult : How to access health information online - Detail Indication:BMI 39.0-39.9,adult BMI 39.0-39.9,adult : Patien t Instructions Indication:BMI 39.0-39.9,adult Sore throat : How to access health information online Indication:Sore throat Sore throat : How to access health information online - Detail Indication:Sore throat Sore throat : Patient Instru ctions Indication:Sore throat Right knee pain : How to acc ess health information online Indication:Right knee pain Right knee pain : How to acc ess health information online - Detail Indication:Right knee pain Right knee pain : Patient In structions Indication:Right knee pain Annual physical exam : How t o access health information online Indication:Annual physical exam Annual physical exam : How t o access health information online - Detail Indication:Annual physical exam Annual physical exam : Patie nt Instructions Indication:Annual physical exam PHARYNGITIS, ACUTE (462.) : How to access health information online Indication:PHARYNGITIS, ACUTE (462.) PHARYNGITIS, ACUTE (462.) : How to access health information online - Detail Indication:PHARYNGITIS, ACUTE (462.) PHARYNGITIS, ACUTE (462.) : Patient Instructions Indication:PHARYNGITIS, ACUTE (462.) BMI 40.0-44.9, adult : obesi ty counseling Indication:BMI 40.0-44.9, adult [facility] V70.0 : Patient Instruct ions Indication:[facility] V70.0 Name Dates Details Elevated blood pressure read ing : obesity counseling Indication:Elevated blood pressure reading BMI 40.0-44.9, adult : How t o access health information online - Detail Indication:BMI 40.0-44.9, adult BMI 40.0-44.9, adult : How t o access health information online Indication:BMI 40.0-44.9, adult BMI 40.0-44.9, adult : Patie nt Instructions Indication:BMI 40.0-44.9, adult Cough : How to access health information online Indication:Cough Cough : How to access health information online - Detail Indication:Cough Cough : Patient Instructions Indication:Cough Plantar wart, left foot : Ho w to access health information online Indication:Plantar wart, left foot Plantar wart, left foot : Ho w to access health information online - Detail Indication:Plantar wart, left foot Plantar wart, left foot : Pa tient Instructions Indication:Plantar wart, left foot BMI 39.0-39.9,adult : How to access health information online Indication:BMI 39.0-39.9,adult BMI 39.0-39.9,adult : How to access health information online - Detail Indication:BMI 39.0-39.9,adult BMI 39.0-39.9,adult : Patien t Instructions Indication:BMI 39.0-39.9,adult Sore throat : How to access health information online Indication:Sore throat Sore throat : How to access health information online - Detail Indication:Sore throat Sore throat : Patient Instru ctions Indication:Sore throat Right knee pain : How to acc ess health information online Indication:Right knee pain Right knee pain : How to acc ess health information online - Detail Indication:Right knee pain Right knee pain : Patient In structions Indication:Right knee pain Annual physical exam : How t o access health information online Indication:Annual physical exam Annual physical exam : How t o access health information online - Detail Indication:Annual physical exam Annual physical exam : Patie nt Instructions Indication:Annual physical exam PHARYNGITIS, ACUTE (462.) : How to access health information online Indication:PHARYNGITIS, ACUTE (462.) PHARYNGITIS, ACUTE (462.) : How to access health information online - Detail Indication:PHARYNGITIS, ACUTE (462.) PHARYNGITIS, ACUTE (462.) : Patient Instructions Indication:PHARYNGITIS, ACUTE (462.) BMI 40.0-44.9, adult : obesi ty counseling Indication:BMI 40.0-44.9, adult [facility] V70.0 : Patient Instruct ions Indication:[facility] V70.0 Name Dates Details BMI 40.0-44.9, adult : How t o access health information online Indication:BMI 40.0-44.9, adult BMI 40.0-44.9, adult : How t o access health information online - Detail Indication:BMI 40.0-44.9, adult BMI 40.0-44.9, adult : Patie nt Instructions Indication:BMI 40.0-44.9, adult Elevated blood pressure read ing : obesity counseling Indication:Elevated blood pressure reading Cough : How to access health information online Indication:Cough Cough : How to access health information online - Detail Indication:Cough Cough : Patient Instructions Indication:Cough Plantar wart, left foot : Ho w to access health information online Indication:Plantar wart, left foot Plantar wart, left foot : Ho w to access health information online - Detail Indication:Plantar wart, left foot Plantar wart, left foot : Pa tient Instructions Indication:Plantar wart, left foot BMI 39.0-39.9,adult : How to access health information online Indication:BMI 39.0-39.9,adult BMI 39.0-39.9,adult : How to access health information online - Detail Indication:BMI 39.0-39.9,adult BMI 39.0-39.9,adult : Patien t Instructions Indication:BMI 39.0-39.9,adult Sore throat : How to access health information online Indication:Sore throat Sore throat : How to access health information online - Detail Indication:Sore throat Sore throat : Patient Instru ctions Indication:Sore throat Right knee pain : How to acc ess health information online Indication:Right knee pain Right knee pain : How to acc ess health information online - Detail Indication:Right knee pain Right knee pain : Patient In structions Indication:Right knee pain Annual physical exam : How t o access health information online Indication:Annual physical exam Annual physical exam : How t o access health information online - Detail Indication:Annual physical exam Annual physical exam : Patie nt Instructions Indication:Annual physical exam PHARYNGITIS, ACUTE (462.) : How to access health information online Indication:PHARYNGITIS, ACUTE (462.) PHARYNGITIS, ACUTE (462.) : How to access health information online - Detail Indication:PHARYNGITIS, ACUTE (462.) PHARYNGITIS, ACUTE (462.) : Patient Instructions Indication:PHARYNGITIS, ACUTE (462.) BMI 40.0-44.9, adult : obesi ty counseling Indication:BMI 40.0-44.9, adult WWV V70.0 : Patient Instruct ions Indication:WWV V70.0 Name Dates Details How to access health informa tion online Indication:Nonsmoker Start:26-Dec-2018 Instruction Type:Patient Education How to access health informa tion online - Detail Indication:Nonsmoker Start:26-Dec-2018 Instruction Type:Patient Education Patient Instructions Indication:Upper respiratory infection, acute Start:26-Dec-2018 Instruction Type:Provider Instructions for Treatment How to access health informa tion online Indication:BMI 40.0-44.9, adult Start:12-Sep-2018 Instruction Type:Patient Education How to access health informa tion online - Detail Indication:BMI 40.0-44.9, adult Start:12-Sep-2018 Instruction Type:Patient Education Patient Instructions Indication:BMI 40.0-44.9, adult Start:12-Sep-2018 Instruction Type:Provider Instructions for Treatment obesity counseling Indication:Elevated blood pressure reading Start:04-Sep-2018 Instruction Type:Provider Instructions for Treatment How to access health informa tion online - Detail Indication:BMI 40.0-44.9, adult Start:04-Sep-2018 Instruction Type:Patient Education How to access health informa tion online Indication:BMI 40.0-44.9, adult Start:04-Sep-2018 Instruction Type:Patient Education Patient Instructions Indication:BMI 40.0-44.9, adult Start:04-Sep-2018 Instruction Type:Provider Instructions for Treatment How to access health informa tion online Indication:BMI 40.0-44.9, adult Start:15-Aug-2018 Instruction Type:Patient Education How to access health informa tion online - Detail Indication:BMI 40.0-44.9, adult Start:15-Aug-2018 Instruction Type:Patient Education Patient Instructions Indication:BMI 40.0-44.9, adult Start:15-Aug-2018 Instruction Type:Provider Instructions for Treatment How to access health informa tion online Indication:Cough Start:12-Dec-2017 Instruction Type:Patient Education How to access health informa tion online - Detail Indication:Cough Start:12-Dec-2017 Instruction Type:Patient Education Patient Instructions Indication:Cough Start:12-Dec-2017 Instruction Type:Provider Instructions for Treatment How to access health informa tion online Indication:Cough Start:03-Aug-2017 Instruction Type:Patient Education How to access health informa tion online - Detail Indication:Cough Start:03-Aug-2017 Instruction Type:Patient Education Patient Instructions Indication:Cough Start:03-Aug-2017 Instruction Type:Provider Instructions for Treatment How to access health informa tion online Indication:Plantar wart, left foot Start:23-Jul-2017 Instruction Type:Patient Education How to access health informa tion online - Detail Indication:Plantar wart, left foot Start:23-Jul-2017 Instruction Type:Patient Education Patient Instructions Indication:Plantar wart, left foot Start:23-Jul-2017 Instruction Type:Provider Instructions for Treatment How to access health informa tion online - Detail Indication:BMI 40.0-44.9, adult Start:24-May-2017 Instruction Type:Patient Education Patient Instructions Indication:BMI 40.0-44.9, adult Start:24-May-2017 Instruction Type:Provider Instructions for Treatment How to access health informa tion online Indication:Plantar wart, left foot Start:25-Apr-2017 Instruction Type:Patient Education How to access health informa tion online - Detail Indication:Plantar wart, left foot Start:25-Apr-2017 Instruction Type:Patient Education Patient Instructions Indication:Plantar wart, left foot Start:25-Apr-2017 Instruction Type:Provider Instructions for Treatment How to access health informa tion online Indication:BMI 39.0-39.9,adult Start:17-Apr-2017 Instruction Type:Patient Education How to access health informa tion online - Detail Indication:BMI 39.0-39.9,adult Start:17-Apr-2017 Instruction Type:Patient Education Patient Instructions Indication:BMI 39.0-39.9,adult Start:17-Apr-2017 Instruction Type:Provider Instructions for Treatment How to access health informa tion online Indication:Sore throat Start:07-Sep-2016 Instruction Type:Patient Education How to access health informa tion online - Detail Indication:Sore throat Start:07-Sep-2016 Instruction Type:Patient Education Patient Instructions Indication:Sore throat Start:07-Sep-2016 Instruction Type:Provider Instructions for Treatment How to access health informa tion online Indication:Right knee pain Start:29-Aug-2016 Instruction Type:Patient Education How to access health informa tion online - Detail Indication:Right knee pain Start:29-Aug-2016 Instruction Type:Patient Education Patient Instructions Indication:Right knee pain Start:29-Aug-2016 Instruction Type:Provider Instructions for Treatment How to access health informa tion online Indication:Annual physical exam Start:07-Jul-2015 Instruction Type:Patient Education How to access health informa tion online - Detail Indication:Annual physical exam Start:07-Jul-2015 Instruction Type:Patient Education Patient Instructions Indication:Annual physical exam Start:07-Jul-2015 Instruction Type:Provider Instructions for Treatment How to access health informa tion online Indication:PHARYNGITIS, ACUTE (462.) Start:25-Jun-2015 Instruction Type:Patient Education How to access health informa tion online - Detail Indication:PHARYNGITIS, ACUTE (462.) Start:25-Jun-2015 Instruction Type:Patient Education Patient Instructions Indication:PHARYNGITIS, ACUTE (462.) Start:25-Jun-2015 Instruction Type:Provider Instructions for Treatment How to access health informa tion online Indication:PHARYNGITIS, ACUTE (462.) Start:15-May-2014 Instruction Type:Patient Education How to access health informa tion online - Detail Indication:PHARYNGITIS, ACUTE (462.) Start:15-May-2014 Instruction Type:Patient Education Patient Instructions Indication:PHARYNGITIS, ACUTE (462.) Start:15-May-2014 Instruction Type:Provider Instructions for Treatment obesity counseling Indication:BMI 40.0-44.9, adult Start:09-Oct-2013 Instruction Type:Provider Instructions for Treatment Patient Instructions Indication:WWV V70.0 Start:09-Oct-2013 Instruction Type:Provider Instructions for Treatment Patient Instructions Indication:WWV V70.0 Start:20-Sep-2012 Instruction Type:Provider Instructions for Treatment Name Dates Details How to access health informa tion online Indication:Nonsmoker Start:26-Dec-2018 Instruction Type:Patient Education How to access health informa tion online - Detail Indication:Nonsmoker Start:26-Dec-2018 Instruction Type:Patient Education Patient Instructions Indication:Upper respiratory infection, acute Start:26-Dec-2018 Instruction Type:Provider Instructions for Treatment How to access health informa tion online Indication:BMI 40.0-44.9, adult Start:12-Sep-2018 Instruction Type:Patient Education How to access health informa tion online - Detail Indication:BMI 40.0-44.9, adult Start:12-Sep-2018 Instruction Type:Patient Education Patient Instructions Indication:BMI 40.0-44.9, adult Start:12-Sep-2018 Instruction Type:Provider Instructions for Treatment obesity counseling Indication:Elevated blood pressure reading Start:04-Sep-2018 Instruction Type:Provider Instructions for Treatment How to access health informa tion online - Detail Indication:BMI 40.0-44.9, adult Start:04-Sep-2018 Instruction Type:Patient Education How to access health informa tion online Indication:BMI 40.0-44.9, adult Start:04-Sep-2018 Instruction Type:Patient Education Patient Instructions Indication:BMI 40.0-44.9, adult Start:04-Sep-2018 Instruction Type:Provider Instructions for Treatment How to access health informa tion online Indication:BMI 40.0-44.9, adult Start:15-Aug-2018 Instruction Type:Patient Education How to access health informa tion online - Detail Indication:BMI 40.0-44.9, adult Start:15-Aug-2018 Instruction Type:Patient Education Patient Instructions Indication:BMI 40.0-44.9, adult Start:15-Aug-2018 Instruction Type:Provider Instructions for Treatment How to access health informa tion online Indication:Cough Start:12-Dec-2017 Instruction Type:Patient Education How to access health informa tion online - Detail Indication:Cough Start:12-Dec-2017 Instruction Type:Patient Education Patient Instructions Indication:Cough Start:12-Dec-2017 Instruction Type:Provider Instructions for Treatment How to access health informa tion online Indication:Cough Start:03-Aug-2017 Instruction Type:Patient Education How to access health informa tion online - Detail Indication:Cough Start:03-Aug-2017 Instruction Type:Patient Education Patient Instructions Indication:Cough Start:03-Aug-2017 Instruction Type:Provider Instructions for Treatment How to access health informa tion online Indication:Plantar wart, left foot Start:23-Jul-2017 Instruction Type:Patient Education How to access health informa tion online - Detail Indication:Plantar wart, left foot Start:23-Jul-2017 Instruction Type:Patient Education Patient Instructions Indication:Plantar wart, left foot Start:23-Jul-2017 Instruction Type:Provider Instructions for Treatment How to access health informa tion online - Detail Indication:BMI 40.0-44.9, adult Start:24-May-2017 Instruction Type:Patient Education Patient Instructions Indication:BMI 40.0-44.9, adult Start:24-May-2017 Instruction Type:Provider Instructions for Treatment How to access health informa tion online Indication:Plantar wart, left foot Start:25-Apr-2017 Instruction Type:Patient Education How to access health informa tion online - Detail Indication:Plantar wart, left foot Start:25-Apr-2017 Instruction Type:Patient Education Patient Instructions Indication:Plantar wart, left foot Start:25-Apr-2017 Instruction Type:Provider Instructions for Treatment How to access health informa tion online Indication:BMI 39.0-39.9,adult Start:17-Apr-2017 Instruction Type:Patient Education How to access health informa tion online - Detail Indication:BMI 39.0-39.9,adult Start:17-Apr-2017 Instruction Type:Patient Education Patient Instructions Indication:BMI 39.0-39.9,adult Start:17-Apr-2017 Instruction Type:Provider Instructions for Treatment How to access health informa tion online Indication:Sore throat Start:07-Sep-2016 Instruction Type:Patient Education How to access health informa tion online - Detail Indication:Sore throat Start:07-Sep-2016 Instruction Type:Patient Education Patient Instructions Indication:Sore throat Start:07-Sep-2016 Instruction Type:Provider Instructions for Treatment How to access health informa tion online Indication:Right knee pain Start:29-Aug-2016 Instruction Type:Patient Education How to access health informa tion online - Detail Indication:Right knee pain Start:29-Aug-2016 Instruction Type:Patient Education Patient Instructions Indication:Right knee pain Start:29-Aug-2016 Instruction Type:Provider Instructions for Treatment How to access health informa tion online Indication:Annual physical exam Start:07-Jul-2015 Instruction Type:Patient Education How to access health informa tion online - Detail Indication:Annual physical exam Start:07-Jul-2015 Instruction Type:Patient Education Patient Instructions Indication:Annual physical exam Start:07-Jul-2015 Instruction Type:Provider Instructions for Treatment How to access health informa tion online Indication:PHARYNGITIS, ACUTE (462.) Start:25-Jun-2015 Instruction Type:Patient Education How to access health informa tion online - Detail Indication:PHARYNGITIS, ACUTE (462.) Start:25-Jun-2015 Instruction Type:Patient Education Patient Instructions Indication:PHARYNGITIS, ACUTE (462.) Start:25-Jun-2015 Instruction Type:Provider Instructions for Treatment How to access health informa tion online Indication:PHARYNGITIS, ACUTE (462.) Start:15-May-2014 Instruction Type:Patient Education How to access health informa tion online - Detail Indication:PHARYNGITIS, ACUTE (462.) Start:15-May-2014 Instruction Type:Patient Education Patient Instructions Indication:PHARYNGITIS, ACUTE (462.) Start:15-May-2014 Instruction Type:Provider Instructions for Treatment obesity counseling Indication:BMI 40.0-44.9, adult Start:09-Oct-2013 Instruction Type:Provider Instructions for Treatment Patient Instructions Indication:WWV V70.0 Start:09-Oct-2013 Instruction Type:Provider Instructions for Treatment Patient Instructions Indication:WWV V70.0 Start:20-Sep-2012 Instruction Type:Provider Instructions for Treatment Name Dates Details How to access health informa tion online Indication:Nonsmoker Start:26-Dec-2018 Instruction Type:Patient Education How to access health informa tion online - Detail Indication:Nonsmoker Start:26-Dec-2018 Instruction Type:Patient Education Patient Instructions Indication:Upper respiratory infection, acute Start:26-Dec-2018 Instruction Type:Provider Instructions for Treatment How to access health informa tion online Indication:BMI 40.0-44.9, adult Start:12-Sep-2018 Instruction Type:Patient Education How to access health informa tion online - Detail Indication:BMI 40.0-44.9, adult Start:12-Sep-2018 Instruction Type:Patient Education Patient Instructions Indication:BMI 40.0-44.9, adult Start:12-Sep-2018 Instruction Type:Provider Instructions for Treatment obesity counseling Indication:Elevated blood pressure reading Start:04-Sep-2018 Instruction Type:Provider Instructions for Treatment How to access health informa tion online - Detail Indication:BMI 40.0-44.9, adult Start:04-Sep-2018 Instruction Type:Patient Education How to access health informa tion online Indication:BMI 40.0-44.9, adult Start:04-Sep-2018 Instruction Type:Patient Education Patient Instructions Indication:BMI 40.0-44.9, adult Start:04-Sep-2018 Instruction Type:Provider Instructions for Treatment How to access health informa tion online Indication:BMI 40.0-44.9, adult Start:15-Aug-2018 Instruction Type:Patient Education How to access health informa tion online - Detail Indication:BMI 40.0-44.9, adult Start:15-Aug-2018 Instruction Type:Patient Education Patient Instructions Indication:BMI 40.0-44.9, adult Start:15-Aug-2018 Instruction Type:Provider Instructions for Treatment How to access health informa tion online Indication:Cough Start:12-Dec-2017 Instruction Type:Patient Education How to access health informa tion online - Detail Indication:Cough Start:12-Dec-2017 Instruction Type:Patient Education Patient Instructions Indication:Cough Start:12-Dec-2017 Instruction Type:Provider Instructions for Treatment How to access health informa tion online Indication:Cough Start:03-Aug-2017 Instruction Type:Patient Education How to access health informa tion online - Detail Indication:Cough Start:03-Aug-2017 Instruction Type:Patient Education Patient Instructions Indication:Cough Start:03-Aug-2017 Instruction Type:Provider Instructions for Treatment How to access health informa tion online Indication:Plantar wart, left foot Start:23-Jul-2017 Instruction Type:Patient Education How to access health informa tion online - Detail Indication:Plantar wart, left foot Start:23-Jul-2017 Instruction Type:Patient Education Patient Instructions Indication:Plantar wart, left foot Start:23-Jul-2017 Instruction Type:Provider Instructions for Treatment How to access health informa tion online - Detail Indication:BMI 40.0-44.9, adult Start:24-May-2017 Instruction Type:Patient Education Patient Instructions Indication:BMI 40.0-44.9, adult Start:24-May-2017 Instruction Type:Provider Instructions for Treatment How to access health informa tion online Indication:Plantar wart, left foot Start:25-Apr-2017 Instruction Type:Patient Education How to access health informa tion online - Detail Indication:Plantar wart, left foot Start:25-Apr-2017 Instruction Type:Patient Education Patient Instructions Indication:Plantar wart, left foot Start:25-Apr-2017 Instruction Type:Provider Instructions for Treatment How to access health informa tion online Indication:BMI 39.0-39.9,adult Start:17-Apr-2017 Instruction Type:Patient Education How to access health informa tion online - Detail Indication:BMI 39.0-39.9,adult Start:17-Apr-2017 Instruction Type:Patient Education Patient Instructions Indication:BMI 39.0-39.9,adult Start:17-Apr-2017 Instruction Type:Provider Instructions for Treatment How to access health informa tion online Indication:Sore throat Start:07-Sep-2016 Instruction Type:Patient Education How to access health informa tion online - Detail Indication:Sore throat Start:07-Sep-2016 Instruction Type:Patient Education Patient Instructions Indication:Sore throat Start:07-Sep-2016 Instruction Type:Provider Instructions for Treatment How to access health informa tion online Indication:Right knee pain Start:29-Aug-2016 Instruction Type:Patient Education How to access health informa tion online - Detail Indication:Right knee pain Start:29-Aug-2016 Instruction Type:Patient Education Patient Instructions Indication:Right knee pain Start:29-Aug-2016 Instruction Type:Provider Instructions for Treatment How to access health informa tion online Indication:Annual physical exam Start:07-Jul-2015 Instruction Type:Patient Education How to access health informa tion online - Detail Indication:Annual physical exam Start:07-Jul-2015 Instruction Type:Patient Education Patient Instructions Indication:Annual physical exam Start:07-Jul-2015 Instruction Type:Provider Instructions for Treatment How to access health informa tion online Indication:PHARYNGITIS, ACUTE (462.) Start:25-Jun-2015 Instruction Type:Patient Education How to access health informa tion online - Detail Indication:PHARYNGITIS, ACUTE (462.) Start:25-Jun-2015 Instruction Type:Patient Education Patient Instructions Indication:PHARYNGITIS, ACUTE (462.) Start:25-Jun-2015 Instruction Type:Provider Instructions for Treatment How to access health informa tion online Indication:PHARYNGITIS, ACUTE (462.) Start:15-May-2014 Instruction Type:Patient Education How to access health informa tion online - Detail Indication:PHARYNGITIS, ACUTE (462.) Start:15-May-2014 Instruction Type:Patient Education Patient Instructions Indication:PHARYNGITIS, ACUTE (462.) Start:15-May-2014 Instruction Type:Provider Instructions for Treatment obesity counseling Indication:BMI 40.0-44.9, adult Start:09-Oct-2013 Instruction Type:Provider Instructions for Treatment Patient Instructions Indication:WWV V70.0 Start:09-Oct-2013 Instruction Type:Provider Instructions for Treatment Patient Instructions Indication:WWV V70.0 Start:20-Sep-2012 Instruction Type:Provider Instructions for Treatment Advance Directives No Advanced Directives Records Found Name Dates Details Immunization Registry [place] - Effective on 08/15/2018. Expiration date unspecified Effective:15-Aug-2018 Name Dates Details Immunization Registry [place] - Effective on 08/15/2018. Expiration date unspecified Effective:15-Aug-2018 Name Dates Details Immunization Registry [place] - Effective on 08/15/2018. Expiration date unspecified Effective:15-Aug-2018 Name Dates Details Immunization Registry [place] - Effective on 08/15/2018. Expiration date unspecified Effective:15-Aug-2018 Name Dates Details Immunization Registry [place] - Effective on 08/15/2018. Expiration date unspecified Effective:15-Aug-2018 Name Dates Details Immunization Registry [place] - Effective on 08/15/2018. Expiration date unspecified Effective:15-Aug-2018 Name Dates Details Immunization Registry [place] - Effective on 08/15/2018. Expiration date unspecified Effective:15-Aug-2018 Name Dates Details Immunization Registry [place] - Effective on 08/15/2018. Expiration date unspecified Effective:15-Aug-2018 Name Dates Details Immunization Registry [place] - Effective on 08/15/2018. Expiration date unspecified Effective:15-Aug-2018 Name Dates Details Immunization Registry [place] - Effective on 08/15/2018. Expiration date unspecified Effective:15-Aug-2018 Name Dates Details Immunization Registry [place] - Effective on 08/15/2018. Expiration date unspecified Effective:15-Aug-2018 Name Dates Details Immunization Registry [place] - Effective on 08/15/2018. Expiration date unspecified Effective:15-Aug-2018 Name Dates Details Immunization Registry [place] - Effective on 08/15/2018. Expiration date unspecified Effective:15-Aug-2018 Name Dates Details Immunization Registry [place] - Effective on 08/15/2018. Expiration date unspecified Effective:15-Aug-2018 Name Dates Details Immunization Registry [place] - Effective on 08/15/2018. Expiration date unspecified Effective:15-Aug-2018 Name Dates Details Immunization Registry [place] - Effective on 08/15/2018. Expiration date unspecified Effective:15-Aug-2018 Name Dates Details Immunization Registry [place] - Effective on 08/15/2018. Expiration date unspecified Effective:15-Aug-2018 Name Dates Details Immunization Registry [place] - Effective on 08/15/2018. Expiration date unspecified Effective:15-Aug-2018 Name Dates Details Immunization Registry [place] - Effective on 08/15/2018. Expiration date unspecified Effective:15-Aug-2018 Name Dates Details Immunization Registry [place] - Effective on 08/15/2018. Expiration date unspecified Effective:15-Aug-2018 Name Dates Details Immunization Registry [place] - Effective on 08/15/2018. Expiration date unspecified Effective:15-Aug-2018 Name Dates Details Immunization Registry [place] - Effective on 08/15/2018. Expiration date unspecified Effective:15-Aug-2018 Name Dates Details Immunization Registry [place] - Effective on 08/15/2018. Expiration date unspecified Effective:15-Aug-2018 Name Dates Details Immunization Registry [place] - Effective on 08/15/2018. Expiration date unspecified Effective:15-Aug-2018 Name Dates Details Immunization Registry [place] - Effective on 08/15/2018. Expiration date unspecified Effective:15-Aug-2018 Name Dates Details Immunization Registry [place] - Effective on 08/15/2018. Expiration date unspecified Effective:15-Aug-2018 Name Dates Details Immunization Registry [place] - Effective on 08/15/2018. Expiration date unspecified Effective:15-Aug-2018 Name Dates Details Immunization Registry [place] - Effective on 08/15/2018. Expiration date unspecified Effective:15-Aug-2018 Medications Administered Section Inactive Administered Medications - up to 3 most recent administrations Medication Order MAR Action Action Date Dose Rate Site cloNIDine HCl 0.1 mg tab(s) (CATAPRES) 0.1 mg, ORAL, ONCE, 1 dose, On Sun04/04/22 at 0930 Given 04/04/2022 9:24 AM EDT 0.1 mg Or al Inactive Administered Medications - up to 3 most recent administrations Medication Order MAR Action Action Date Dose Rate Site acetaminophen 650 mg tab(s) (TYLENOL) 650 mg, ORAL, ONCE, 1 dose, On Sun04/17/22 at 0830, Give 30 minutes prior to infusion. No more than 4000 mg of acetaminophen should be given per day (FROM ALL SOURCES), If ordered PRN for pain, patient/guardian may elect to receive this medication for higher pain levels INSTEAD of the opioid, if preferred: N/A Given 04/17/2022 8:36 AM EDT 650 mg diphenhydrAMINE 50 mg (BENADRYL) 50 mg, ORAL, ONCE, 1 dose, On Sun04/17/22 at 0830, Give 30 minutes prior to infusion. Given 04/17/2022 8:36 AM EDT 50 mg diphenhydrAMINE 50 mg injection (BENADRYL) 50 mg, INTRAVENOUS, NEEDED, 1 dose, Starting on Sun04/17/22 at 0821, Until Sun04/17/22 at 1252, Administer per hypersensitivity/anaphylax is grading in nursing communication Given 04/17/2022 12:52 PM EDT 12.5 mg hydrocortisone sodium succinate (PF) 100 mg injection (Solu-CORTEF) 100 mg, INTRAVENOUS, NEEDED, 1 dose, Starting on Sun04/17/22 at 0821, Until Sun04/17/22 at 1212, Administer per hypersensitivity/anaphylax is grading in nursing communication Given 04/17/2022 12:12 PM EDT 100 mg hydrocortisone sodium succinate (PF) 50 mg injection (Solu-CORTEF) 50 mg, INTRAVENOUS, ONCE, 1 dose, On Sun04/17/22 at 1400, Give 30 minutes prior to infusion. Given 04/17/2022 1:46 PM EDT 50 mg riTUXimab-pvvr 783.75 mg in NaCl 0.9% 618.375 mL (RUXIENCE) 783.75 mg (375 mg/m2 2.09 m2 Treatment Plan BSA from Recorded weight), INTRAVENOUS, ONCE, 1 dose, On Sun04/17/22 at 0830, Initiate infusion at a rate of 50 mg/hr. In the absence of infusion toxicity, increase infusion rate by 50 mg/hr increments every 30 minutes, to a maximum of 400 mg/hr Approx Total Volume: EXP: Refrigerate. Rate/Dose Change 04/17/2022 12:07 PM EDT 237 mL/hr Summary Purpose Additional Source Comments Source Comments (unrecognize d section and content) In the event this informatio n is protected by the Federal Confidentiality of Alcohol and Drug Abuse Patient Records regulations: The Federal rules restrict any use of the information to criminally investigate or prosecute any alcohol or drug abuse patient.[facility] the event this information is protected by the Federal Confidentiality of Alcohol and Drug Abuse Patient Records regulations: The Federal rules restrict any use of the information to criminally investigate or prosecute any alcohol or drug abuse patient.[facility] the event this information is protected by the Federal Confidentiality of Alcohol and Drug Abuse Patient Records regulations: The Federal rules restrict any use of the information to criminally investigate or prosecute any alcohol or drug abuse patient.[facility] the event this information is protected by the Federal Confidentiality of Alcohol and Drug Abuse Patient Records regulations: The Federal rules restrict any use of the information to criminally investigate or prosecute any alcohol or drug abuse patient.[facility] the event this information is protected by the Federal Confidentiality of Alcohol and Drug Abuse Patient Records regulations: The Federal rules restrict any use of the information to criminally investigate or prosecute any alcohol or drug abuse patient.[facility] the event this information is protected by the Federal Confidentiality of Alcohol and Drug Abuse Patient Records regulations: The Federal rules restrict any use of the information to criminally investigate or prosecute any alcohol or drug abuse patient.[facility] the event this information is protected by the Federal Confidentiality of Alcohol and Drug Abuse Patient Records regulations: The Federal rules restrict any use of the information to criminally investigate or prosecute any alcohol or drug abuse patient.[facility] the event this information is protected by the Federal Confidentiality of Alcohol and Drug Abuse Patient Records regulations: The Federal rules restrict any use of the information to criminally investigate or prosecute any alcohol or drug abuse patient.[facility] the event this information is protected by the Federal Confidentiality of Alcohol and Drug Abuse Patient Records regulations: The Federal rules restrict any use of the information to criminally investigate or prosecute any alcohol or drug abuse patient.[facility] the event this information is protected by the Federal Confidentiality of Alcohol and Drug Abuse Patient Records regulations: The Federal rules restrict any use of the information to criminally investigate or prosecute any alcohol or drug abuse patient.[facility] the event this information is protected by the Federal Confidentiality of Alcohol and Drug Abuse Patient Records regulations: The Federal rules restrict any use of the information to criminally investigate or prosecute any alcohol or drug abuse patient.[facility] the event this information is protected by the Federal Confidentiality of Alcohol and Drug Abuse Patient Records regulations: The Federal rules restrict any use of the information to criminally investigate or prosecute any alcohol or drug abuse patient.[facility] the event this information is protected by the Federal Confidentiality of Alcohol and Drug Abuse Patient Records regulations: The Federal rules restrict any use of the information to criminally investigate or prosecute any alcohol or drug abuse patient.[facility] Reason for Visit (unrecogniz ed section and content) Reason Comments Care Coordination lab orders Reason Comments Care Coordination Results Lab results from 03/17 Reason Comments Established Patient Reason Comments Care Coordination R[employer]IENCE Insurance Authorization Ruxience Authori zation #[id number] Reason Comments Appointment Orders Specialty Diagnoses / Procedures Referred By Heath t Referred To Contact Diagnoses 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 Procedures INJ RUXIENCE, 10 MG Rosi Matos, DO [address] [place] [address] [place] [address] [address] [place] [id number] Referral ID Status Reason Start Date Expiration Date V isits Requested Visits Authorized [id number] Authorized 04/05/2021 09/16/2022 99 99 Reason Comments Fountain Attendant - Other Treatment [facility] ions Reason Comments Care Coordination Plan of Care Reason Comments Clinical Update MD to MD Call for serena bruno update Reason Comments Fountain Attendant - Other Rituxan Care Teams (unrecognized sec tion and content) Bus Attendant Relationship Specialty Start Date End Date Margoth Pace DO [address] [facility] [address] [place] [address] PCP - General Internal Medicine 07/01/18 Brice Gagnon (Rn), RN Specialty Fountain Attendant 01/23/17 Bus Attendant Relationship Specialty Start Date End Date Margoth Pace DO [address] [facility] [address] [place] [address] PCP - General Internal Medicine 07/01/18 Brice Gagnon (Rn), RN Specialty Fountain Attendant 01/23/17 Bus Attendant Relationship Specialty Start Date End Date Margoth Pace, DO [address] [place] [address] PCP - General Internal Medicine 07/01/18 Brice Gagnon (Rn), RN Specialty Fountain Attendant 01/23/17 Bus Attendant Relationship Specialty Start Date End Date Margoth Pace, DO [address] [place] [address] PCP - General Internal Medicine 07/01/18 Brice Gagnon (Rn), RN Specialty Fountain Attendant 01/23/17 Bus Attendant Relationship Specialty Start Date End Date Margoth Pace, DO [address] [place] [address] PCP - General Internal Medicine 07/01/18 Brice Gagnon (Rn), RN Specialty Fountain Attendant 01/23/17 Bus Attendant Relationship Specialty Start Date End Date Margtoh Pace, DO [address] [place] [address] PCP - General Internal Medicine 07/01/18 Brice Gagnon (Rn), RN Specialty Fountain Attendant 01/23/17 Bus Attendant Relationship Specialty Start Date End Date Margoth Pace DO [address] [place] [address] PCP - General Internal Medicine 07/01/18 Brice Gagnon (Rn), RN Specialty Fountain Attendant 01/23/17 Bus Attendant Relationship Specialty Start Date End Date Margoth Pace DO [address] [place] [address] PCP - General Internal Medicine 07/01/18 Brice Gagnon (Rn), RN Specialty Fountain Attendant 01/23/17 Bus Attendant Relationship Specialty Start Date End Date Margoth Pace DO [address] [place], [place] [id number] PCP - General Internal Medicine 07/01/18 Brice Gagnon (Rn), RN Specialty Fountain Attendant 01/23/17 Shauna Guallpa [address] [place] [phone] Rheumatology 05/15/23 INFORMATION SOURCE (unrecogn ized section and content) DATE CREATED AUTHOR AUTHOR'S ORGANIZ ATION 04/28/2023 [facility] DATE CREATED AUTHOR AUTHOR'S ORGANIZ ATION 05/28/2023 [facility] FOR RECORDS PERTAINING TO PATIENTS WHO ARE OR HAVE BEEN ENROLLED IN A CHEMICAL DEPENDENCY/SUBSTANCEABUSE PROGRAM, SOME INFORMATION MAY BE OMITTED. This clinical summary was aggregated from multiple sources. Caution should be exercised in using it in the provision of clinical care. This summary normalizes information from multiple sources, and as a consequence, information in this document may materially change the coding, format and clinical context of patient data. In addition, data may be omitted in some cases. CLINICAL DECISIONS SHOULD BE BASED ON THE PRIMARY CLINICAL RECORDS. [employer] [facility]. provides no warranty or guarantee of the accuracy or completeness of information in this document.
[2023-09-13 15:31] LABS: Absolute Lymphocyte Count 1.26 X10^3/uL (0.83-4.51); Absolute Neutrophil Count 2.1 X10^3/uL (2.0-7.7); Basophil# 0.02 X10^3/uL; Basophil% 0.5 % (0-1); Eosinophil# 0.08 X10^3/uL; Eosinophils% 2.1 % (0-5); Hematocrit 40.5 % (37-47); Hemoglobin 14.3 g/dL (12.0-15.0); Lymphocyte # 1.26 X10^3/ul (0.83-4.51); Lymphocyte % 32.9 % (19-41); Mean Corp Hgb Conc 35.3 g/dL (32-36); Mean Corpuscular Hgb 33.8 pg (27.0-32.0); Mean Corpuscular Volume 95.7 fL (81-99); Mean Platelet Vol. 11.3 fl (6.2-12.0); Monocyte# 0.34 X10^3/uL; Monocyte% 8.9 % (0-10); NRBC Flagged by Analyzer 0 % (0-5); Neutrophil # 2.13 X10^3/uL (2.7-7.7); Neutrophil % 55.6 % (47-70); Platelet Count 181 K/mm3 (150-450); RBC Distribution Width CV 13.7 % (11.6-14.6); Red Blood Count 4.23 M/mm3 (4.2-5.4); White Blood Count 3.8 K/mm3 (4.4-11.0)
[2023-09-13 15:58] LABS: ALB/GLOB Ratio 1.1 RATIO (0.9-2.4); AST(SGOT) 26 U/L (15-37); Alanine Aminotransfer ALT/SGPT 24 U/L (13-56); Albumin, Serum 3.5 g/dL (3.2-5.0); Alkaline Phosphatase 80 U/L (45-117); Anion Gap 5 (5-15); BUN 29 mg/dL (7-18); BUN/Creat Ratio 27.9 RATIO (10-20); Calcium,Total 9.6 mg/dL (8.5-10.1); Chloride 109 mmol/L (98-107); Creatinine, Serum 1.04 mg/dL (0.55-1.02); EST Glomerular Filtration Rate 55 mL/min (>60); Est Glom Filt Rate - Afr Amer 66 mL/min (>60); Globulin 3.3 g/dL (2.2-4.2); Glucose 97 mg/dL (74-106); Potassium 4.1 mmol/L (3.5-5.1); Protein, Total 6.8 g/dL (6.4-8.2); Sodium Level 141 mmol/L (136-145)
== END | disposition home or self-care (01) ==
LOC: MTLAB 13:11
PROVIDERS: PCP Internal Medicine; Referring Provider Internal Medicine Rheumatology; Visit Provider Internal Medicine Rheumatology
DX: M06.4 Inflammatory polyarthropathy (principal); I73.9 Peripheral vascular disease, unspecified; D89.1 Cryoglobulinemia; I10 Essential (primary) hypertension; Z79.899 Other long term (current) drug therapy
CPT/HCPCS: 36415; 80053; 85025

== ENCOUNTER → 2023-10-25 | Outpatient (CLI) | payer MEDICARE, SELFPAY ==
--- NOTE | 2023-10-25 13:01 | VDLE_ITS ---
Reason For Study: edema, venous insufficiency RIGHT LEFT CFV is compressible, spontaneous, phasic, CFV is compressible, spontaneous, phasic, competent and demonstrates normal competent, and demonstrates normal augmentation. augmentation. FV is compressible, spontaneous, phasic, FV is compressible, spontaneous, phasic, competent and demonstrates normal competent and demonstrates normal augmentation. augmentation. POP V is compressible, spontaneous, phasic, POP V is compressible, spontaneous, phasic, competent and demonstrates normal competent and demonstrates normal augmentation. augmentation. T/P Trunk is compressible. T/P Trunk is compressible. PTV is compressible. PTV is compressible. RT PerV is compressible. LT PerV is compressible. SFJ is competent and measures .47 cm. Hypoechoic area behind the knee measuring GSV proximal thigh measures .24 x .29 cm. 1.56 x 2.68 cm. Area is nonvascular. GSV at knee measures .33 x .37 cm. SFJ is competent and measures .63 cm. GSV INCOMPETENT throughout for greater than GSV proximal thigh measures .43 x .43 cm. 0.5 seconds. GSV at knee measures .22 x .23 cm. SSV proximal calf is INCOMPETENT for greater GSV INCOMPETENT throughout for greater than than 0.5 seconds and measures .25 x .25 cm. 0.5 seconds. ASV at knee is INCOMPETENT for greater than SSV proximal calf is INCOMPETENT for greater 0.5 seconds and measures .33 x .36 cm. than 0.5 seconds and measures .23 x .25 cm. Circuit Design Engineer V 8 cm proximal to the medial ASV at knee is INCOMPETENT for greater than malleolus is incompetent for greater than .5 0.5 seconds and measures .52 x .56 cm. seconds. Procedure This is a venous duplex using B-mode, color flow and spectral Doppler. Exam performed in department. The exam was diagnostic. VL/Venous Duplex US - Barrington Extrem Interpretation Summary Deep veins of the bilateral lower extremities are patent and compressible segme ntally. There is no evidence of bilateral lower extremity deep vein thrombosis. The bilateral great saphenous veins appear patent and compressible segmentally. Positive for reflux in the right great saphenous vein throughout, small sapheno us vein, accessory saphenous vein, and medial calf hi teacher vein. Positive for reflux in the left great saphenous vein, small saphenous vein, and accessory saphenous vein. Ordering Physician: Kerri Damon Performed By: Hudson Momin RVT
== END | disposition home or self-care (01) ==
PROVIDERS: PCP Internal Medicine; Referring Provider Podiatrist; Visit Provider Podiatrist
DX: I87.2 Venous insufficiency (chronic) (peripheral) (principal); R60.0 Localized edema
CPT/HCPCS: 93970

== ENCOUNTER → 2024-07-07 | Outpatient (CLI) | payer MEDICARE, SELFPAY ==
[2024-07-07 15:57] LABS: Anion Gap 4 (5-15); BUN 29 mg/dL (7-18); BUN/Creat Ratio 22.7 RATIO (10-20); Calcium,Total 9.7 mg/dL (8.5-10.1); Chloride 109 mmol/L (98-107); Creatinine, Serum 1.28 mg/dL (0.55-1.02); EST Glomerular Filtration Rate 43 mL/min (>60); Est Glom Filt Rate - Afr Amer 52 mL/min (>60); Glucose 90 mg/dL (74-106); Potassium 4.2 mmol/L (3.5-5.1); Sodium Level 140 mmol/L (136-145)
== END | disposition home or self-care (01) ==
PROVIDERS: PCP Internal Medicine; Referring Provider Internal Medicine; Visit Provider Internal Medicine
DX: Z51.81 Encounter for therapeutic drug level monitoring (principal)
CPT/HCPCS: 36415; 80048

== ENCOUNTER → 2024-08-06 | Outpatient (CLI) | payer MEDICARE, SELFPAY ==
--- NOTE | 2024-08-06 12:59 | BI_ITS ---
MAMMOGRAPHY - BILATERAL SCREENING REASON FOR EXAM: Female, 79 years old. Routine annual screening examination. PERTINENT HISTORY: Personal history of breast cancer. Prior left lumpectomy with radiation and chemotherapy. Mother with breast cancer. TECHNIQUE: Digital bilateral breast bassem (3D mammographic acquisition) in the CC and MLO projections. 2-D mediolateral oblique (MLO) and craniocaudad (CC) views of both breasts were obtained. CAD: Full Field Digital Mammography with Computer Added Detection was performed. COMPARISON: Comparison is made with prior study dated March 06, 2023 and November 17, 2021. FINDINGS: Breast Composition: There are scattered areas of fibroglandular density. There are no dominant masses or suspicious calcifications. The patient is status post lumpectomy in the deep upper lateral aspect of the left breast with resultant postoperative scarring and dystrophic calcification. There has been no change. No other significant abnormalities are identified. There has been no significant change since the prior study. BI/SCRN MAMM (CAD)W/BASSEM BILAT IMPRESSION: Stable bilateral screening mammogram. Yearly follow-up mammogram recommended. (A) ASSESSMENT CATEGORY: BIRADS Category 2: Benign. A letter regarding these results will be sent to the patient by the facility within 30 days. Approximately 10% of breast cancers are not detected by mammography. A normal mammogram should not delay biopsy of a clinically suspicious abnormality. [id number] Electronically Signed: Doni Aguilar MD at 14:39 EST ,
== END | disposition home or self-care (01) ==
LOC: OPBI 12:57
PROVIDERS: PCP Internal Medicine; Referring Provider Internal Medicine; Visit Provider Internal Medicine
DX: Z12.31 Encounter for screening mammogram for malignant neoplasm of breast (principal); Z85.3 Personal history of malignant neoplasm of breast; Z80.3 Family history of malignant neoplasm of breast
CPT/HCPCS: 77063; 77067

== ENCOUNTER 2025-01-13 13:00 | Outpatient (RCR) | payer MEDICARE, SELFPAY ==
[2025-01-08 08:32] VITALS: BP 153/73; PULSE 83; RESP 16; TEMP 36.2; BMI 37.0
--- NOTE | 2025-01-08 08:38 | PCM.WC.HP ---
History of Present Illness Date of Service: 01/08/25 Chief Complaint: Right lower extremity ulceration History of Wound: Patient is a 79-year-old female who was referred to the wound care center for nonhealing ulceration of the right lower extremity. She has PMHx of chronic venous insufficiency bilateral lower extremity in addition to lymphedema translating to lipodermatosclerosis of bilateral lower extremities. She has followed with Dr. Valdes with last visit in December 2023. She does see podiatry in [place], Dr. Damon. She reports the right lower extremity leg ulceration started as a toenail scratch from her grandson and is slowly gotten bigger with difficulty healing. She has failed 6 weeks of standard wound care and was referred to the wound care center for additional healing measures. While here she also reports 6-week duration of dorsal second digit ulceration of the right foot and medial ulceration of the fifth digit of the left foot. She reports having compression stockings but is currently not wearing any on the right leg as she is having pain with the compression. Also does have lymphedema pumps but is not utilizing these due to the pain in the extremities. Denies constitutional symptoms. Denies further complaints. [facility] Home Medications ?Medication ?Instructions ?Recorded ?Last Taken ?Type benzonatate 100 mg capsule 200 mg (2 x 100 mg) PO TID PRN 09/02/21 Unknown Rx cough #30 caps gabapentin 400 mg capsule 400 mg PO TID 09/02/21 Unknown History hydroxychloroquine 200 mg tablet 200 mg PO DAILY 09/02/21 Unknown History (Plaquenil) enalapril maleate 20 mg tablet 20 mg PO DAILY 12/11/23 Unknown History ascorbate calcium (vitamin C) 500 500 mg PO DAILY 01/08/25 Unknown History mg tablet cholecalciferol (vitamin D3) 10 10 mcg PO DAILY 01/08/25 Unknown History mcg (400 unit) capsule hydrochlorothiazide 25 mg tablet 25 mg PO DAILY 01/08/25 Unknown History pentoxifylline 400 mg 400 mg PO DAILY 01/08/25 Unknown History tablet,extended release zinc gluconate 10 mg lozenges 10 mg PO DAILY 01/08/25 Unknown History Allergy/AdvReac Type Severity Reaction Status Date / Time Penicillins Allergy Intermediate Hives Verified 01/08/25 08:25 Family History Other Breast cancer Cancer Surgical History H/O lumpectomy Social History Smoking Status: Never smoker ROS Constitutional Constitutional: Denies change in weight, chills or fever(s) Eyes Eyes: Denies blurry vision, change in vision or double vision ENT HEENT: Denies dysphagia, nasal congestion, nasal discharge or sore throat Cardiovascular Cardiovascular: Denies chest pain, claudication or palpitations Respiratory/Chest Respiratory/Chest: Denies cough, shortness of breath at rest or wheezing Gastrointestinal Gastrointestinal: Denies abdominal pain, constipation, diarrhea, nausea or vomiting Genitourinary Genitourinary: Denies dysuria, hematuria or urinary urgency Musculoskeletal Musculoskeletal: Denies joint pain, joint stiffness or joint swelling Integumentary Integumentary: Denies jaundice, lesions, pruritus or rash Neurologic Neurologic: Denies dizziness, numbness or seizures Psychiatric Psychiatric: Denies anxiety or depression Endocrine Endocrinology: Denies cold intolerance, heat intolerance or polydipsia Hematologic/Lymphatic Hematologic/Lymphatic: Denies easy bleeding or easy bruising Physical Exam Const alert, oriented x3 and no apparent distress General Appearance: cooperative HEENT normocephalic Eyes Eyes Narrative: Wears glasses General Eye: normal appearance of both eyes Neck General: normal visual inspection Lymph Lymphatic: no lymphadenopathy noted and lymphedema Resp normal respiratory effort Cardio regular rate and regular rhythm Extremity no calf tenderness Extremity Narrative: Bilateral lower extremity: Vascular: DP pulse palpable left foot, weakly palpable right foot. PT pulse nonpalpable bilateral secondary to +4 pitting edema. Normal temperature gradient. Hair growth is absent to digits. There is +4 pitting edema of bilateral lower extremity. Neurologic: Epicritic sensation intact without focal deficit noted. Musculoskeletal: Muscle strength 5 of 5 age-appropriate. Decreased range of motion of the ankle joint in dorsiflexion with the knee extended without pain or crepitus. Full range of motion with knee flexed. No pain to palpation of the calf. No pain to palpation about second digit ulceration right foot or fifth digit ulceration of the left foot. There is some tenderness about the ulcerative site of the right lower extremity. Dermatologic: There are multiple areas of hemosiderin deposition secondary to her chronic venous insufficiency. There is lipodermatosclerosis noted to bilateral lower extremities. Positive Stemmer sign second digit bilateral. There is a full-thickness ulceration noted to the medial aspect of the fifth digit of the left foot near the base of the digit. Healthy granular layer is noted with no signs of infection. There is a full-thickness ulceration noted to the dorsal aspect of the second digit right foot overlying the IPJ secondary to hammertoe deformity. Ulceration demonstrates healthy granular layer with no signs of infection. There is an ulceration noted to the anterior aspect of the right lower extremity with eschar covering and with localized rubor about the ulcerative rim. No erythema, no purulent drainage, no palpable fluctuance/bogginess, no visible abscess. No signs of infection to the right lower extremity ulcerative site. Skin no rashes or lesions noted General Skin Exam: venous stasis and dermatitis Neuro moves all extremities Debridement Note Debridement Note No debridement was completed: No debridement was completed today Assessment/Plan Assessment/Plan (1) Non-pressure chronic ulcer 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: CODE(S): L97.212 - Non-pressure chronic ulcer 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 (2) Non-pressure chronic ulcer of other part of right foot with fat layer exposed: CODE(S): L97.512 - Non-pressure chronic ulcer of other part of right foot with fat layer exposed (3) Non-pressure chronic ulcer of other part of left foot with fat layer exposed: CODE(S): L97.522 - Non-pressure chronic ulcer of other part of left foot with fat layer exposed (4) Venous insufficiency (chronic) (peripheral): CODE(S): I87.2 - Venous insufficiency (chronic) (peripheral) (5) Lymphedema: CODE(S): I89.0 - Lymphedema, not elsewhere classified (6) Lipodermatosclerosis of both lower extremities: CODE(S): M79.3 - Panniculitis, unspecified (7) Bilateral edema of lower extremity: CODE(S): R60.0 - Localized edema PLAN: Plan Patient seen and evaluated Predebridement measurement: Medial left fifth digit 0.3 cm x 0.3 cm x 0.1 cm Dorsal second digit PIPJ 0.2 cm x 0.2 cm x 0.1 cm Anterior right lower extremity 4.2 cm x 4.0 cm with eschar covering. No debridement was performed today as noted in the clinical panel above. Patient is to require LEAS prior to debridement. LEAS ordered today 01/08/25 and she will follow-up with Dr. Valdes following completion of studies. Last visit with Dr. Valdes's office 01/08/2024. Triple antibiotic and Band-Aid applied to medial aspect of left fifth digit and dorsal aspect of right second digit. Discussed toe spacer for the left foot to decrease rubbing. Also discussed if ulcerative sites are continuing to pose issues with healing arthroplasty may be necessary for these digits in order to decrease bony prominence that could be contributing to ulceration. Santyl ordered for application to the right lower extremity ulcerative site. Until she receives prescription she will continue applying Betadine wet-to-dry dressing over the anterior ulceration of the right lower extremity. She is to change dressing daily. Discussed continuing to wear compression stocking and utilize lymphedema pumps to aid in decreasing the edema to the lower extremities. She is also to continue to elevate lower extremities at all times of rest to aid in maintaining edema control. Discussed signs and symptoms of infection. Discussed if she notices increasing redness around the ulcerative sites that moves up the leg or onto the foot, if any purulent drainage is noted from wound sites, if increasing foul odor is noted from wound sites, or if she begins to experience fever greater than 101 degree accompanied by nausea, vomiting, chills that these are signs of a progressing infection and she should report to the ED to receive IV antibiotics and for further evaluation. She is understanding of this today. The following work up and care recommendations were made: Dressing: Triple antibiotic to digit 2 right foot and digit 5 left foot with Band-Aid. Betadine wet-to-dry right lower extremity. Change daily. Will apply Santyl to the right lower extremity when she receives prescription. Wash: Soap and water Tissue growth optimization: Santyl right lower extremity Offload: Ensure no rubbing of the digits in shoe gear and to wear toe spacers. Vascular: Updating LEAS, awaiting results. Does have previous venous studies from October 2023 demonstrating positive reflux in great saphenous vein throughout and small saphenous vein throughout and accessory saphenous veins of bilateral lower extremities Edema: Lipodermatosclerosis. Will continue compression stockings and lymphedema pumps. Infection: No signs of infection Pain: May take [id number] Tylenol for any discomfort Host factors: Lipodermatosclerosis, advancing age, PVD complicate healing. I answered all the patient's questions. To return to the wound healing center in 1 week or call sooner if the patient has any questions or concerns.
--- NOTE | 2025-01-09 08:25 | WC ---
PHOTO 01/08/25 RIGHT GALEANA
--- NOTE | 2025-01-09 08:26 | WC ---
PHOTO 01/08/25 RIGHT 2ND TOE
--- NOTE | 2025-01-09 08:27 | WC ---
PHOTO 01/08/25 3RD LEFT MED5TH TOE
--- NOTE | 2025-01-13 12:52 | ART_ITS ---
Reason For Study Reason For Study: PVD Procedure A bilateral lower extremity continuous wave Doppler with analog waveform analysis,segmental pressures,and ankle brachial indexes without exercise. Left Segmental Pressures Left posterior tibial artery = 178mmHg. Left dorsalis pedis artery = 185mmHg. Left digit = 120 mmHg. The left posterior tibial artery waveforms are triphasic. The left dorsalis pedis waveforms are triphasic. Right Segmental Pressures Right brachial= 166mmHg. Right posterior tibial artery = 198mmHg. Right dorsalis pedis artery = 189mmHg. Right digit = 122 mmHg. The right posterior tibial artery waveforms are triphasic. The right dorsalis pedis waveforms are triphasic. Indices The right ankle brachial index by the posterior tibial artery is 1.19. The right ankle brachial index by the dorsalis pedis is 1.14. The right digital-brachial index is 0.73. The left ankle brachial index by the posterior tibial artery is 1.07. The left ankle brachial index by the dorsalis pedis is 1.11. The left digital-brachial index is 0.72. VL/Lower Ext Art Exam w/o Exercis Interpretation Summary Right PROSPER 1.19, normal. Doppler/PVR waveforms of the right leg normal at rest. TBI diminished, pedal/digit disease vs spasm. Left PROSPER 1.11, normal. Doppler/PVR waveforms of the left leg normal at rest. TB I diminished, pedal/digit disease vs spasm. Ordering Physician: Alo Huston Referring Physician: Margoth De Anda M.D. Performed By: Suhail Angeles RVT
--- NOTE | 2025-01-13 12:52 | VDLE_ITS ---
Reason For Study Reason For Study: BLE Edema RIGHT LEFT CFV is compressible, spontaneous, phasic, competent CFV is compressible, phasic, and INCOMPETENT for and demonstrates normal augmentation. greater than 1.0 second. FV is compressible, spontaneous, phasic, competent FV is compressible, phasic, and INCOMPETENT for and demonstrates normal augmentation. greater than 1.0 second. POP V is compressible, spontaneous, phasic, competent POP V is compressible, spontaneous, phasic, competent and demonstrates normal augmentation. and demonstrates normal augmentation. T/P Trunk is compressible. T/P Trunk is compressible. PTV is compressible. PTV is compressible. RT PerV is compressible. LT PerV is compressible. SFJ is competent and measures 0.55 cm. SFJ is INCOMPETENT and measures 0.73 cm. GSV proximal thigh measures 0.41 x 0.39 cm. GSV proximal thigh measures 0.38 x 0.38 cm. GSV at knee measures 0.39 x 0.39 cm. GSV at knee measures 0.26 x 0.28 cm. GSV INCOMPETENT throughout for greater than 0.5 GSV INCOMPETENT throughout for greater than 0.5 seconds. seconds. ASV proximal calf is INCOMPETENT for greater than 0.5 ASV proximal calf is INCOMPETENT for greater than 0.5 seconds and measures 0.36 x 0.36 cm. seconds and measures 0.38 x 0.42 cm. SSV mid calf is competent and measures 0.25 x 0.23 SSV mid calf is competent and measures 0.25 x 0.28 cm. cm. Procedure This is a venous duplex using B-mode, color flow and spectral Doppler. Exam performed in department. The exam was diagnostic. Patient was scanned in reverse Trendelenburg position during reflux assessment. VL/Venous Duplex US - Barrington Extrem Interpretation Summary Deep veins of the bilateral lower extremities are patent and compressible segme ntally. There is no evidence of bilateral lower extremity deep vein thrombosis. The bilateral great saphenous veins appea r patent and compressible segmentally. Positive for reflux in the right great saphenous vein throughout, accessory sap henous vein in the calf. Positive for reflux in the left common femoral vein, femoral vein, saphenofemor al junction, great saphenous vein throughout, accessory saphenous vein in the calf Ordering Physician: Alo Huston Referring Physician: Margoth De Anda Performed By: Suhail Angeles RVT
== END 2025-01-14 23:59 | disposition home or self-care (01) ==
LOC: WC 13:00
PROVIDERS: PCP Internal Medicine; Referring Provider Podiatrist; Visit Provider Student in an Organized Health Care Education/Training Program
DX: I87.2 Venous insufficiency (chronic) (peripheral) (principal); L97.212 Non-pressure chronic ulcer 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; L97.512 Non-pressure chronic ulcer of other part of right foot with fat layer exposed; L97.522 Non-pressure chronic ulcer of other part of left foot with fat layer exposed; I89.0 Lymphedema, not elsewhere classified; R60.0 Localized edema; Z79.899 Other long term (current) drug therapy
CPT/HCPCS: 93923; 93970; 99214; G0463

== ENCOUNTER 2025-02-01 12:26 | Emergency (ER) | payer MEDICARE, SELFPAY ==
[2025-02-01 12:27] VITALS: BP 155/75; PULSE 73; RESP 16; TEMP 35.8; O2SAT 98
[2025-02-01 12:29] VITALS: BP 155/75; PULSE 73; RESP 16; TEMP 35.8; O2SAT 98
[2025-02-01 12:42] VITALS: BMI 37.4
--- NOTE | 2025-02-01 13:01 | EDS_ITS ---
<Statement entered by Geraldo Turner DO - 02/01/25 16:26> Patient was seen and examined with physician physiotherapy assistant Sally All components of the history and physical confirmed and agreed. History of present illness and physical exam: Patient is a 72-year-old female past medical history of peripheral vascular disease, chronic lower extremity swelling, chronic wound on her right lower extremity. She states that she has been following with wound care and notes that she followed up with them recently and given there was a odor coming from the wound they placed her on doxycycline. Patient states that she been taking this as prescribed. Patient states that her and her significant other bedside were concerned that this was getting worse as there was a black ring around this therefore they came here for the evaluation management. They state that prior to this this was pink and they debrided the wound at wound care. Patient denies any fevers otherwise feels well. Review of systems: As above Physical exam: Agree with above compartments are soft compressible MDM Patient is a 72-year-old female who presented to the Emergency Department with concern for a nonhealing chronic wound on her right lower extremity as well as the left lower extremity near her foot on the lateral aspect. On the differential diagnose includes Melamin to chronic wound, osteomyelitis, cellulitis. Once workup is obtained reviewed she will be reevaluated. Patient's x-ray reviewed by myself and by radiology which showed no acute fracture dislocation no radiographic evidence osteomyelitis. Did discuss results with the patient and she would like to go home at this point in time. Patient was advised that she needs to follow-up with wound care and continue the antibiotics at this point time at this point time the wound does not appear grossly infected. Patient was encouraged return with worsening symptoms or any concerns she is agreeable to plan as well as significant other a t bedside all question concerns answered she was discharged home in stable condition. Final impression: Right lower extremity chronic wound History of peripheral vascular disease Chronic bilateral lower extremity swelling Disposition: Patient will be discharged home in stable condition Supervising attending attestation: Geraldo Turner D.O. [facility] History of Present Illness Chief Complaint: Cellulitis Narrative Narrative: Patient presenting today with an ulcerative wound to her right lower extremity she has had chronically since about November. She is following with the wound care center. She has a history of peripheral vascular disease and chronic lymphedema. She does follow with vascular surgery as well. She is supposed to be wearing compression socks but does not tolerate these well due to the wound on her leg. She saw the wound care center on , they noticed an odor coming from the wound and started her on doxycycline to cover for potential infection. She also uses Santyl on the wound. She reports that she did have mild erythema surrounding the wound that seems to be improving since starting the doxycycline. The reason she came in today is because of a, black ring around the wound that is new as of yesterday. She denies any fevers or chills, she reports that she feels well otherwise. [facility] Medical History Foot ulcer, left MRSA (methicillin resistant staph aureus) culture positive Home Medications ?Medication ?Instructions ?Recorded ?Last Taken ?Type benzonatate 100 mg capsule 200 mg (2 x 100 mg) PO TID PRN 09/02/21 Unknown Rx cough #30 caps gabapentin 400 mg capsule 400 mg PO TID 09/02/21 Unkno wn History hydroxychloroquine 200 mg tablet 200 mg PO DAILY 09/02 Unknown History (Plaquenil) enalapril maleate 20 mg tablet 20 mg PO DAILY 12/11/23 Unknown History ascorbate calcium (vitamin C) 500 500 mg PO DAILY 12/17 01/09 Unknown History mg tablet cholecalciferol (vitamin D3) 10 10 mcg PO DAILY Unknown History mcg (400 unit) capsule hydrochlorothiazide 25 mg tablet 25 mg PO DAILY Unknown History pentoxifylline 400 mg 400 mg PO DAILY 01/08/25 Unk nown History tablet,extended release zinc gluconate 10 mg lozenges 10 mg PO DAILY 01/08/25 Unknown History doxycycline hyclate 100 mg tablet 100 mg PO BID #20 ta bs 01/29/25 Unknown Rx mupirocin 2 % topical ointment 1 applic topical BID MR SA 01/29/25 Unknown Rx infection #15 grams Allergy/AdvReac Type Severity Reaction Status Date / Time Penicillins Allergy Intermediate Hives Verified 02/01/25 12:27 Family History Other Breast cancer Cancer Surgical History H/O lumpectomy Social History Smoking Status: Never smoker ROS ROS ED Constitutional Constitutional ED: Denies chills or fever(s) Cardiovascular Cardiovascular: Denies chest pain Respiratory/Chest Respiratory/Chest: Denies dyspnea Gastrointestinal Gastrointestinal: Denies abdominal pain, nausea or vomiting Musculoskeletal Musculoskeletal: Denies arthralgias Integumentary Reports other Details: Chronic wound right lower extremity Neurologic Neurologic: Denies weakness EXAM Physical Exam Const Vital Signs: 02/01/25 12:27 02/01/25 12:29 02/01/25 13:20 Temperature 96.5 F L 96.5 F L 97.8 F Temperature Source Temporal Temporal Oral Pulse Rate 73 73 82 Respiratory Rate 16 16 18 Blood Pressure 155/75 H 155/75 H 164/72 H Blood Pressure Mean 101 101 102 Pulse Ox 98 98 99 Oxygen Delivery Method Room Air Room Air Room Air 02/01/25 14:00 Temperature 98.7 F Temperature Source Oral Pulse Rate 80 Respiratory Rate 18 Blood Pressure 145/59 H Blood Pressure Mean 85 Pulse Ox 99 Oxygen Delivery Method Room Air Positive well nourished, well developed and no apparent distress General Appearance ED: well developed HEENT Reports normocephalic and head/scalp atraumatic Mouth ED: Yes moist mucous membranes normal Eyes PERRL and EOMs intact bilaterally Neck full ROM and supple Chest Wall inspection of chest normal Resp normal respiratory effort and clear to auscultation bilaterally Cardio regular rate and regular rhythm GI soft to palpation, non-tender, non-distended and no masses Back/Spine normal ROM and normal to inspection Extremity full ROM Extremity Narrative: Bilateral 2+ pitting edema that is equal, ulcerated wound to the anterior lateral aspect of the right ortega. There is eschar noted around the wounds border, no purulent discharge, no fluctuance, no warmth, no tenderness to the right lower extremity, no crepitus. Right DP pulse 2+. She also has a small ulcerative wound to the dorsum of the left foot, again no signs of infection to this wound, no surrounding erythema, warmth, or fluctuance. Neuro oriented x3, CN's II-XII intact bilaterally, moves all extremities, no focal motor deficits and no sensory deficits noted Sensorium / Orientation: awake and alert Psych mental status grossly normal and thought process normal Skin Skin Narrative: Aside from chronic wounds to the bilateral lower extremities no other rashes or lesions noted MDM MDM MDM Narrative Medical decision making narrative: Patient presenting today requesting a wound check for a chronic ulcerative wound she has had to her right lower extremity over the past she is following with the wound care center, she also has a history of PVD following with vascular. She has chronic lymphedema bilaterally but does not tolerate her compression socks on the right due to the wound. She saw wound care on , they noticed more of a foul smell coming from the wound and started her on doxycycline. She did have some mild erythema surrounding the wound that has improved since starting the Doxy. She reports that she noticed, a black ring around her wound yesterday that prompted her to come in to be seen. This appears to be eschar, she reports that she did have this previously and it was debrided at the wound care center. Her wound does not actively appear infected, there is no warmth, erythema, or purulent discharge from the wound. X-ray obtained to assess for osteomyelitis given she has had this now for over 2 months. X-rays negative for any acute findings. Recommended she continue the doxycycline and applying the Santyl as prescribed. She does have a follow-up with wound care again this week. She will be discharged home in stable condition. Radiography X-Ray: Read by ED Physician Diagnostic Testing: Clinical Impression(s) from Imaging Studies Tibia/Fibula X-Ray 02/01/25 13:15 IMPRESSION: No obvious radiographic evidence of osteomyelitis. However, if clinical suspicion remains high, further evaluation with 3 phase bone scan or MRI is recommended. Reading Location: [id number] Discharge Plan Triage Chief Complaint: Cellulitis ED Midlevel Provider: Jess Pham ED Provider: Geraldo Turner Dx/Rx/DC Orders Clinical Impression: Venous insufficiency (chronic) (peripheral), Lymphedema, Leg wound, right Prescriptions: No Action gabapentin 400 mg capsule 400 mg PO TID hydroxychloroquine [Plaquenil] 200 mg tablet 200 mg PO DAILY benzonatate 100 mg capsule 200 mg PO TID PRN (Reason: cough) Qty: 30 0RF enalapril maleate 20 mg tablet 20 mg PO DAILY hydrochlorothiazide 25 mg tablet 25 mg PO DAILY zinc gluconate 10 mg lozenge 10 mg PO DAILY ascorbate calcium (vitamin C) 500 mg tablet 500 mg PO DAILY cholecalciferol (vitamin D3) 10 mcg (400 unit) capsule 10 mcg PO DAILY pentoxifylline 400 mg tablet extended release 400 mg PO DAILY Rx Instructions: must administer with a meal/food doxycycline hyclate 100 mg tablet 100 mg PO BID Qty: 20 0RF mupirocin 2 % ointment 1 applic topical BID Qty: 15 1RF Primary Care Provider: Margoth De Anda Referrals: Margoth De Anda DO [Primary Care Provider] - Activity Restrictions/Additional Instructions: Follow-up with your wound care doctors in the outpatient setting. Continue take the antibiotics that you are already on. Return for worsening symptoms or concerns as we discussed here. Follow-up with your vascular surgery team as well. Print Language: Barbadian Disposition Disposition: Home, Self Care Discharge Date/Time: 02/01/25 14:26
--- NOTE | 2025-02-01 13:15 | RAD_ITS ---
EXAM: XR Right Tibia and Fibula, 2 Views CLINICAL INDICATION: CHRONIC WOUND TECHNIQUE: Frontal and lateral views of the right tibia and fibula. COMPARISON: No relevant prior studies available. FINDINGS: BONES/JOINTS: No obvious radiographic evidence of osteomyelitis. However, if clinical suspicion remains high, further evaluation with 3 phase bone scan or MRI is recommended. No acute fracture. No dislocation. No erosive changes to the osseous structures. SOFT TISSUES: Soft tissue swelling. No radiopaque foreign body. RAD/Tibia & Fibula 2 Views IMPRESSION: No obvious radiographic evidence of osteomyelitis. However, if clinical suspici on remains high, further evaluation with 3 phase bone scan or MRI is recommended. Reading Location: [id number]
[2025-02-01 13:20] VITALS: BP 164/72; PULSE 82; RESP 18; TEMP 36.6; O2SAT 99
[2025-02-01 14:00] VITALS: BP 145/59; PULSE 80; RESP 18; TEMP 37.1; O2SAT 99
== END 2025-02-01 14:26 | disposition home or self-care (01) ==
PROVIDERS: Emergency Provider Emergency Medicine; PCP Internal Medicine; Visit Provider Emergency Medicine
DX: S81.801A Unspecified open wound, right lower leg, initial encounter (principal); M86.9 Osteomyelitis, unspecified; I73.9 Peripheral vascular disease, unspecified; I87.2 Venous insufficiency (chronic) (peripheral); I89.0 Lymphedema, not elsewhere classified; X58.XXXA Exposure to other specified factors, initial encounter
CPT/HCPCS: 73590; 99282

== ENCOUNTER 2025-02-12 09:45 | Outpatient (RCR) | payer MEDICARE, SELFPAY ==
[2025-01-15 09:40] VITALS: BP 142/85; PULSE 68; RESP 18; TEMP 35.8
--- NOTE | 2025-01-15 13:25 | PCM.WC.PN ---
History of Present Illness Date of Service: 01/15/25 Chief Complaint: Right lower extremity ulceration History of Wound: Patient is a 79-year-old female who was referred to the wound care center for nonhealing ulceration of the right lower extremity. She has PMHx of chronic venous insufficiency bilateral lower extremity in addition to lymphedema translating to lipodermatosclerosis of bilateral lower extremities. She has followed with Dr. Valdes with last visit in December 2023. She does see podiatry in [place], Dr. Damon. She reports the right lower extremity leg ulceration started as a toenail scratch from her grandson and is slowly gotten bigger with difficulty healing. She has failed 6 weeks of standard wound care and was referred to the wound care center for additional healing measures. While here she also reports 6-week duration of dorsal second digit ulceration of the right foot and medial ulceration of the fifth digit of the left foot. She reports having compression stockings but is currently not wearing any on the right leg as she is having pain with the compression. Also does have lymphedema pumps but is not utilizing these due to the pain in the extremities. Denies constitutional symptoms. Denies further complaints. Objective Data Objective Data Vital Signs: Vital Signs Temp Pulse Resp BP 96.5 F L 68 18 142/85 H 01/15/25 09:40 01/15/25 09:40 01/15/25 09:40 01/15/25 09:40 Physical Exam Const alert, oriented x3 and no apparent distress General Appearance: cooperative HEENT normocephalic Eyes General Eye: normal appearance of both eyes Neck General: normal visual inspection Lymph Lymphatic: no lymphadenopathy noted and no lymphedema noted Resp normal respiratory effort Cardio regular rate and regular rhythm Extremity no calf tenderness Extremity Narrative: Bilateral lower extremity: Vascular: DP pulse palpable left foot, weakly palpable right foot. PT pulse nonpalpable bilateral secondary to +4 pitting edema. Normal temperature gradient. Hair growth is absent to digits. There is +4 pitting edema of bilateral lower extremity. Neurologic: Epicritic sensation intact without focal deficit noted. Musculoskeletal: Muscle strength 5 of 5 age-appropriate. Decreased range of motion of the ankle joint in dorsiflexion with the knee extended without pain or crepitus. Full range of motion with knee flexed. No pain to palpation of the calf. No pain to palpation about second digit ulceration right foot or fifth digit ulceration of the left foot. There is some tenderness about the ulcerative site of the right lower extremity. Dermatologic: There are multiple areas of hemosiderin deposition secondary to her chronic venous insufficiency. There is lipodermatosclerosis noted to bilateral lower extremities. Positive Stemmer sign second digit bilateral. There is a full-thickness ulceration noted to the medial aspect of the fifth digit of the left foot near the base of the digit. Healthy granular layer is noted with no signs of infection. There is a full-thickness ulceration noted to the dorsal aspect of the second digit right foot overlying the IPJ secondary to hammertoe deformity. Ulceration demonstrates healthy granular layer with no signs of infection. There is an ulceration noted to the anterior aspect of the right lower extremity with eschar covering and with localized rubor about the ulcerative rim. No erythema, no purulent drainage, no palpable fluctuance/bogginess, no visible abscess. No signs of infection to the right lower extremity ulcerative site. Skin no rashes or lesions noted General Skin Exam: venous stasis and dermatitis Neuro moves all extremities Debridement Note Debridement Note Wound debrided: Right leg Laterality: Right Wound Grade/Stage: Peck stage I Type of Debridement: Excisional debridement Anesthesia Used: 5% Lidocaine Gel Depth: Down to and including healthy tissue and in the subcutaneous layer Percentage of wound debrided: 100 Instrument Used: #15 blade Tissue Removed: Fibrous, devitalized subcutaneous, biofilm, necrotic, slough Severity: Fat Layer Exposed Amount of bleeding with debridement: Mild Bleeding Controlled with: Compression and gauze Patient tolerated procedure: Patient tolerated procedure well Post-Debridement Measurements and Additional Note: Post-Debridement Measurements/Treatment - Nurse 1 - General Ulcer Assessment Start: 01/15/25 09:39 Freq: Status: Active Protocol: SKYLER Activity Type Activity Date Activity User E-sign Co-sign Detail Recorded Client Recorded Date Recorded By Document 01/15/25 09:40 DL [id number] 01/15/25 09:50 DL 01/15/25 09:40 - Today's Visit Information Type of service Follow-up Visit (Physician/METAL [facility]ELDER ) Arrival Mode Ambulatory, Walker Transfer Assistance None Patient Identification Verified (Name & Yes ) Patient Requires Transmission-Based No Precautions Vital Signs Temperature (97.8 F-99.1 F) 96.5 F L Temperature Source Temporal Pulse Rate (60-100) 68 Pulse Location Monitor Respiratory Rate (12-18) 18 Respiratory rate source Observation Blood Pressure (90/60-120/80) 142/85 H Blood Pressure Mean (mm Hg) 104 Source Monitor History Since Last Visit- (Skip if this is Patient's initial visit) Have you changed medications since your No last visit? Any new allergies or adverse reactions No Had a fall/change in ADL's that may No increase risk of falls Signs or symptoms of abuse and/or No neglect since last visit Have you been in the hospital since your No last visit? Has dressing in place as prescribed Yes Has compression in place as prescribed Yes Has offloadiing in place as prescribed Yes Experienced any changes in pain level or No management Pain Scale: 0-10 Numeric Is Patient Pain Free? Yes WC - Nurse 1 - General Ulcer Measurement Start: 01/15/25 09:39 Freq: Status: Active Protocol: Activity Type Activity Date Activity User E-sign Co-sign Detail Recorded Client Recorded Date Recorded By Document 01/15/25 09:40 DL [id number] 01/15/25 09:50 DL 01/15/25 09:40 Wound Center Nurse 1 #3 LT MED 5TH TOE -Current Size (cm) - Length 0.2 -Current Size (cm) - Width 0.2 -Current Size (cm) - Depth 0.1 -Total Square Cm 0.04 -Exudate Amt Small -Wound Margin Distinct, Outline Attached -Granulation Amt Small (1-33%) -Granulation Quality [place] -Necrosis Amt Small (1-33%) -Necrotic Tissue Type Adherent Slough -Structure Exposed N/A -Texture (Milagro-wound Skin Appearance) Scarring -Moisture (Milagro-wound Skin Appearance) Maceration -Color (Milagro-wound Skin Appearance) Hemosiderin Staining -Temperature (Milagro-wound Skin No Abnormality Appearance) (Pt Warm) -Ulcer Cleansing Rinsed/ Irrigated with Saline -Foul Odor after Cleansing No -Anesthetic Used 5% Lidocaine Gel #2 RT 2ND TOE -Current Size (cm) - Length 0.1 -Current Size (cm) - Width 0.1 -Current Size (cm) - Depth 0.1 -Total Square Cm 0.01 -Exudate Amt None Present -Wound Margin Flat & Intact -Granulation Amt Small (1-33%) -Granulation Quality [place] -Necrosis Amt None Present (0 %) -Structure Exposed N/A -Texture (Milagro-wound Skin Appearance) Localized Edema ,Scarring -Color (Milagro-wound Skin Appearance) Hemosiderin Staining -Temperature (Milagro-wound Skin No Abnormality Appearance) (Pt Warm) -Tenderness on Palpation (Milagro-wound No Skin Appearance) -Ulcer Cleansing Rinsed/ Irrigated with Saline -Foul Odor after Cleansing No -Anesthetic Used 5% Lidocaine Gel #1 RT GALEANA -Current Size (cm) - Length 4.1 -Current Size (cm) - Width 4.1 -Current Size (cm) - Depth 0.1 -Total Square Cm 16.81 -Exudate Amt None Present -Wound Margin Thickened -Granulation Amt None Present (0 %) -Necrosis Amt Large (67-100%) -Necrotic Tissue Type Eschar -Structure Exposed N/A -Texture (Milagro-wound Skin Appearance) Localized Edema ,Scarring -Moisture (Milagro-wound Skin Appearance) No Abnormality -Color (Milagro-wound Skin Appearance) Hemosiderin Staining -Temperature (Milagro-wound Skin No Abnormality Appearance) (Pt Warm) -Ulcer Cleansing Rinsed/ Irrigated with Saline -Anesthetic Used 5% Lidocaine Gel Right Calf (cm) 42 Right Ankle (cm) 25.5 Right Foot (cm) 41.5 Left Calf (cm) 25 WC - Nurse 2 - General Ulcer CM Notes Start: 01/15/25 09:39 Freq: Status: Active Protocol: Activity Type Activity Date Activity User E-sign Co-sign Detail Recorded Client Recorded Date Recorded By Document 01/15/25 09:58 [facility] [id number] 01/15/25 10:09 [facility] 01/15/25 09:58 Wound Center Nurse 2 #3 MED 5TH TOE -Time 09:58 -Correct Patient Yes -Correct Side, Site, Position Yes -Correct Procedure Yes -Procedure Performed Yes -Type of Procedure Debridement -Clinical Debridement Subcutaneous -Tissue Removed Subcutaneous -Post Debridement (cm) - Length 0.2 -Post Debridement (cm) - Width 0.2 -Post Debridement (cm) - Depth 0.1 -Total Square (Post) (cm) 0.04 -Area of Debridement (cm) - Length 0.2 -Area of Debridement (cm) - Width 0.2 -Total Square (Area) (cm) 0.04 -Tunneling No -Undermining/Tunneling No -Circular Undermining No -Wound/Ulcer Outcome Not Healed -Ulcer Cleansing Rinsed/ Irrigated with Saline -Foul Odor after Cleansing No -Bioengineered Tissue No -Bleeding Controlled with Pressure -Treatment Response Procedure Tolerated Well -Debridement - Subq, 1st 20sq cm Yes #2 RT 2ND TOE -Time 09:59 -Procedure Performed No -Post Debridement (cm) - Length 0.1 -Post Debridement (cm) - Width 0.1 -Post Debridement (cm) - Depth 0.1 -Total Square (Post) (cm) 0.01 -Area of Debridement (cm) - Length 0.1 -Area of Debridement (cm) - Width 0.1 -Total Square (Area) (cm) 0.01 -Tunneling No -Undermining/Tunneling No -Circular Undermining No -Wound/Ulcer Outcome Not Healed -Bleeding Controlled with NA #1 RT GALEANA -Time 09:58 -Correct Patient Yes -Correct Side, Site, Position Yes -Correct Procedure Yes -Procedure Performed Yes -Type of Procedure Debridement -Clinical Debridement Subcutaneous -Tissue Removed Subcutaneous, Non-viable tissue -Post Debridement (cm) - Length 4.6 -Post Debridement (cm) - Width 4 -Post Debridement (cm) - Depth 0.1 -Total Square (Post) (cm) 18.4 -Area of Debridement (cm) - Length 4.6 -Area of Debridement (cm) - Width 4 -Total Square (Area) (cm) 18.4 -Tunneling No -Undermining/Tunneling No -Circular Undermining No -Wound/Ulcer Outcome Not Healed -Ulcer Cleansing Rinsed/ Irrigated with Saline -Foul Odor after Cleansing No -Bioengineered Tissue No -Bleeding Controlled with Pressure -Treatment Response Procedure Tolerated Well -Debridement - Subq, 1st 20sq cm No Pain Scale: 0-10 Numeric Is Patient Pain Free? Yes - Nurse 3 - General Ulcer D/C NN Start: 01/15/25 09:39 Freq: Status: Active Protocol: Activity Type Activity Date Activity User E-sign Co-sign Detail Recorded Client Recorded Date Recorded By Document 01/15/25 10:32 ADIS [id number] 01/15/25 10:34 KW 01/15/25 10:32 Wound Care Center Nurse 3 #3 LT MED 5TH TOE -Other Dressing atb ointment with bandage #2 RT 2ND TOE -Other Dressing atb ointment bandage #1 RT GALEANA -Other Dressing santyl from pt -Primary Dressing Covered/Secured with Dry Gauze & Roll Gauze, Secured with Tape RLE -Tubular Bandage Double Layer -Size of Tubigrip Used Size F -Size F ($) 2 LLE -Tubular Bandage Double Layer -Size of Tubigrip Used Size F -Size F ($) 2 Pain Scale: 0-10 Numeric Is Patient Pain Free? Yes WC - Visit Discharge Discharge Condition Stable Ambulatory Status Ambulatory Transportation Private Auto Accompanied by Medication Reconcilliation completed & No provided to patient/care provider Clinical Summary of Care Provided Yes Additional Wound Wound debrided: Left fifth digit Laterality: Left Wound Grade/Stage: Peck stage I Type of Debridement: Excisional debridement Anesthesia Used: 5% Lidocaine Gel Depth: Down to and including healthy tissue and in the subcutaneous layer Percentage of wound debrided: 100 Instrument Used: - (1 mm curette) Tissue Removed: Fibrous, devitalized subcutaneous, biofilm, slough Severity: Fat Layer Exposed Amount of bleeding with debridement: Mild Bleeding Controlled with: Compression and gauze Patient tolerated procedure: Patient tolerated procedure well Assessment/Plan Assessment/Plan (1) Non-pressure chronic ulcer 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: CODE(S): L97.212 - Non-pressure chronic ulcer 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 (2) Non-pressure chronic ulcer of other part of right foot with fat layer exposed: CODE(S): L97.512 - Non-pressure chronic ulcer of other part of right foot with fat layer exposed (3) Non-pressure chronic ulcer of other part of left foot with fat layer exposed: CODE(S): L97.522 - Non-pressure chronic ulcer of other part of left foot with fat layer exposed (4) Lipodermatosclerosis of both lower extremities: CODE(S): M79.3 - Panniculitis, unspecified (5) Lymphedema: CODE(S): I89.0 - Lymphedema, not elsewhere classified (6) Bilateral edema of lower extremity: CODE(S): R60.0 - Localized edema (7) Venous insufficiency (chronic) (peripheral): CODE(S): I87.2 - Venous insufficiency (chronic) (peripheral) PLAN: Plan Patient seen and evaluated Predebridement measurement: Medial left fifth digit 0.1 cm x 0.1 cm x 0.1 cm Dorsal second digit PIPJ 0.1 cm x 0.1 cm x 0.1 cm Anterior right lower extremity 4.5 cm x 4.0 cm with eschar covering. Debridement was performed today as noted in the clinical panel above. Postdebridement measurement: Medial left fifth digit 0.2 cm x 0.2 cm x 0.1 cm Dorsal second digit PIPJ 0.1 cm x 0.1 cm x 0.1 cm Anterior right lower extremity 4.6 cm x 4.0 cm x 0.3 cm LEAS ordered 01/08/25 and she will follow-up with Dr. Valdes following completion of studies. Last visit with Dr. Valdes's office 01/08/2024. Venous studies demonstrate no evidence of DVT bilateral lower extremity. Bilateral great saphenous vein appears competent and compressible segmentally. Positive reflux in the great saphenous vein throughout in addition to the accessory saphenous vein in the calf, positive for reflux in the left common femoral vein, femoral vein, saphenofemoral junction, great saphenous vein throughout and accessory saphenous vein in the calf. LEAS demonstrate no evidence of arterial occlusive disease Triple antibiotic and Band-Aid applied to medial aspect of left fifth digit and dorsal aspect of right second digit. Discussed toe spacer for the left foot to decrease rubbing. Also discussed if ulcerative sites are continuing to pose issues with healing arthroplasty may be necessary for these digits in order to decrease bony prominence that could be contributing to ulceration. Santyl ordered for application to the right lower extremity ulcerative site. She did not receive Santyl until 01/14/2025. This was applied to the ulcerative site today and she was instructed on use. TheraSkin graft was applied for, awaiting approval for application. Discussed continuing to wear compression stocking and utilize lymphedema pumps to aid in decreasing the edema to the lower extremities. She is also to continue to elevate lower extremities at all times of rest to aid in maintaining edema control. Discussed signs and symptoms of infection. Discussed if she notices increasing redness around the ulcerative sites that moves up the leg or onto the foot, if any purulent drainage is noted from wound sites, if increasing foul odor is noted from wound sites, or if she begins to experience fever greater than 101 degree accompanied by nausea, vomiting, chills that these are signs of a progressing infection and she should report to the ED to receive IV antibiotics and for further evaluation. She is understanding of this today. The following work up and care recommendations were made: Dressing: Triple antibiotic to digit 2 right foot and digit 5 left foot with Band-Aid. Santyl wet-to-dry right lower extremity. Change daily. Wash: Soap and water Tissue growth optimization: Santyl right lower extremity Offload: Ensure no rubbing of the digits in shoe gear and to wear toe spacers. Vascular: Updating LEAS, awaiting results. Does have previous venous studies from October 2023 demonstrating positive reflux in great saphenous vein throughout and small saphenous vein throughout and accessory saphenous veins of bilateral lower extremities Edema: Lipodermatosclerosis. Will continue compression stockings and lymphedema pumps. Infection: No signs of infection Pain: May take [id number] Tylenol for any discomfort Host factors: Lipodermatosclerosis, advancing age, PVD complicate healing. I answered all the patient's questions. To return to the wound healing center in 1 week or call sooner if the patient has any questions or concerns.
--- NOTE | 2025-01-19 15:58 | WC ---
PT CALLED. REPORTS ^ BURNING SENSATION TO WOUND WITH USE OF SANTYL. PERIWOUND WITH ^ REDNESS. AND NOTICEABLE ODOR W/ MARLYN CHG. SCHEDULED HER AN APPT WITH DR HOLLIDAY TOMORROW AT 2:30 PM HERE FOR EVALUATION.
--- NOTE | 2025-01-21 11:21 | PCM.WC.HP ---
History of Present Illness Date of Service: 01/20/25 Chief Complaint: Right lower extremity ulceration History of Wound: This is a 80-year-old female who is a patient of Dr. Alo Huston, Classroom Teacher, at the [facility]. She was seen today on behalf of Dr. Huston as a courtesy visit. The patient has an ulceration on the right lower extremity, for which she was last evaluated by Dr. Huston on January 15, 2025. The wound originated in early November 2024 as a result of a toenail scratch from her grandson. However, the patient has called with expressed concern regarding possible infection at the site of her right lower extremity ulceration. She had stated that she was noticing increasing redness about the wound, as well as an increase in pain at the site. She was appointed at this time for evaluation relative to her concerns. The patient indicated that she had been instructed to use collagenase Santyl topically at the site of the wound on a daily basis. The patient's past medical history and the history of her wound are as documented below: Patient is a 79-year-old female who was referred to the wound care center for nonhealing ulceration of the right lower extremity. She has PMHx of chronic venous insufficiency bilateral lower extremity in addition to lymphedema translating to lipodermatosclerosis of bilateral lower extremities. She has followed with Dr. Valdes with last visit in December 2023. She does see podiatry in [place], Dr. Damon. She reports the right lower extremity leg ulceration started as a toenail scratch from her grandson and is slowly gotten bigger with difficulty healing. She has failed 6 weeks of standard wound care and was referred to the wound care center for additional healing measures. While here she also reports 6-week duration of dorsal second digit ulceration of the right foot and medial ulceration of the fifth digit of the left foot. She reports having compression stockings but is currently not wearing any on the right leg as she is having pain with the compression. Also does have lymphedema pumps but is not utilizing these due to the pain in the extremities. Denies constitutional symptoms. Denies further complaints. [facility] Home Medications Medication Instructions Recorded Last Taken Type benzonatate 100 mg capsule 200 mg (2 x 100 mg) PO TID PRN 09/02/21 Unknown Rx cough #30 caps gabapentin 400 mg capsule 400 mg PO TID 09/02/21 Unknown History hydroxychloroquine 200 mg tablet 200 mg PO DAILY 09/02/21 Unknown History (Plaquenil) enalapril maleate 20 mg tablet 20 mg PO DAILY 12/11/23 Unknown History ascorbate calcium (vitamin C) 500 500 mg PO DAILY 01/08/25 Unknown History mg tablet cholecalciferol (vitamin D3) 10 10 mcg PO DAILY 01/08/25 Unknown History mcg (400 unit) capsule hydrochlorothiazide 25 mg tablet 25 mg PO DAILY 01/08/25 Unknown History pentoxifylline 400 mg 400 mg PO DAILY 01/08/25 Unknown History tablet,extended release zinc gluconate 10 mg lozenges 10 mg PO DAILY 01/08/25 Unknown History Allergy/AdvReac Type Severity Reaction Status Date / Time Penicillins Allergy Intermediate Hives Verified 01/08/25 08:25 Family History Other Breast cancer Cancer Surgical History H/O lumpectomy Social History Smoking Status: Never smoker Physical Exam Const alert, oriented x3, no apparent distress and average body habitus Constitutional Narrative: The patient's BMI is approximately 129. General Appearance: cooperative, comfortable, well kempt and well developed Orientation / Consciousness: awake, oriented to person, oriented to place and oriented to time Exam Limitations: no limitations HEENT normocephalic and head/scalp atraumatic Head and Scalp: normal to inspection Face and Sinus: normal facial exam Nose: external nose normal External Ear: external ears normal Eyes EOMs intact bilaterally General Eye: normal appearance of both eyes Neck General: normal visual inspection Resp normal respiratory effort, normal air movement, no retractions and no use of accessory muscles Skin General Skin Exam: venous stasis and dermatitis Wound Narrative: It is acknowledged that the patient has wounds on the dorsal aspect of the right second toe and the medial aspect of the left fifth toe. However, attention was directed to the wound located on the patient's right pretibial surface. Inspection revealed a rather large wound on the right pretibial surface, which exhibited a dry, gangrenous eschar encompassing the entirety of the wound. A very slight hint of redness was noted circumferentially about the wound, the etiology of which was uncertain as to inflammatory versus infectious. The dimensions of the wound are documented elsewhere. No odor or drainage were noted. There was no fluctuance. Mild swelling was noted in the patient's right lower extremity. The wounds on the patient's toes were not evaluated, as it is noted that the patient has a follow-up appointment with Dr. Huston in 2 days. Neuro oriented x3, CN's II-XII intact bilaterally, moves all extremities and no focal motor deficits Sensorium / Orientation: awake, alert, oriented to person and oriented to place Debridement Note Debridement Note Wound debrided: Traumatic wound of the right pretibial surface Laterality: Right Type of Debridement: Excisional debridement Anesthesia Used: 5% Lidocaine Gel and Cetacaine Depth: Down to and including healthy tissue and in the subcutaneous layer Percentage of wound debrided: 100 Instrument Used: 5mm curette, #15 blade and Forceps Tissue Removed: Gangrenous and necrotic eschar, nonviable tissue Severity: Fat Layer Exposed Amount of bleeding with debridement: Mild Bleeding Controlled with: Compression and gauze Patient tolerated procedure: Patient tolerated procedure well Debridement Free Text: Initial attempt was made to remove the dry gangrenous eschar using a sterile, disposable 5 mm curette. However, removal of the eschar using the curette proved to be difficult. Therefore, a #15 scalpel blade and forceps were used to surgically excise the eschar. The eschar was removed, revealing an underlying layer of subcutaneous tissue which demonstrated some remaining areas of nonviable tissue. So as to allow for continued enzymatic debridement with Santyl, and to spare the patient undue discomfort, the decision was made to discontinue debridement at this level. So as to address the possibility of infection at this site, a swab culture was obtained for aerobic and anaerobic bacterial growth. Post-Debridement Measurements and Additional Note: Post-Debridement Measurements/Treatment WC - Nurse 1 - General Ulcer Assessment Start: 01/15/25 09:39 Freq: Status: Active Protocol: SKYLER Activity Type Activity Date Activity User E-sign Co-sign Detail Recorded Client Recorded Date Recorded By Document 01/15/25 09:40 DL [id number] 01/15/25 09:50 DL Document 01/20/25 14:45 KW [id number] 01/20/25 14:54 KW 01/15/25 01/20/25 09:40 14:45 - Today's Visit Information Type of service Follow-up Visit Follow-up Visit (Physician/[facility] (Physician/[facility] ) ) Arrival Mode Ambulatory, Ambulatory Walker Transfer Assistance None Patient Identification Verified (Name & Yes ) Patient Requires Transmission-Based No Precautions Vital Signs Temperature (97.8 F-99.1 F) 96.5 F L Temperature Source Temporal Pulse Rate (60-100) 68 Pulse Location Monitor Respiratory Rate (12-18) 18 Respiratory rate source Observation Blood Pressure (90/60-120/80) 142/85 H Blood Pressure Mean 104 Source Monitor History Since Last Visit- (Skip if this is Patient's initial visit) Have you changed medications since your No No last visit? Any new allergies or adverse reactions No No Had a fall/change in ADL's that may No No increase risk of falls Signs or symptoms of abuse and/or No No neglect since last visit Have you been in the hospital since your No last visit? Has dressing in place as prescribed Yes Yes Has compression in place as prescribed Yes N/A Has offloadiing in place as prescribed Yes N/A Experienced any changes in pain level or No No management Pain Scale: 0-10 Numeric Is Patient Pain Free? Yes Yes - Nurse 1 - General Ulcer Measurement Start: 01/15/25 09:39 Freq: Status: Active Protocol: Activity Type Activity Date Activity User E-sign Co-sign Detail Recorded Client Recorded Date Recorded By Document 01/15/25 09:40 DL [id number] 01/15/25 09:50 DL Document 01/20/25 14:45 KW [id number] 01/20/25 14:54 KW 01/15/25 01/20/25 09:40 14:45 Wound Center Nurse 1 #3 LT MED 5TH TOE -Current Size (cm) - Length 0.2 0.1 -Current Size (cm) - Width 0.2 0.1 -Current Size (cm) - Depth 0.1 0.1 -Total Square Cm 0.04 0.01 -Exudate Amt Small None Present -Wound Margin Distinct, Distinct, Outline Outline Attached Attached -Granulation Amt Small (1-33%) None Present (0 %) -Granulation Quality [place] -Slough/Fibrin Yes -Necrosis Amt Small (1-33%) None Present (0 %) -Necrotic Tissue Type Adherent Slough Adherent Slough -Structure Exposed N/A -Texture (Milagro-wound Skin Appearance) Scarring Assessed -Moisture (Milagro-wound Skin Appearance) Maceration Assessed -Color (Milagro-wound Skin Appearance) Hemosiderin Assessed Staining -Temperature (Milagro-wound Skin No Abnormality Hot Appearance) (Pt Warm) -Tenderness on Palpation (Milagro-wound Yes Skin Appearance) -Ulcer Cleansing Rinsed/ Soap and Water Irrigated with Saline -Foul Odor after Cleansing No No -Anesthetic Used 5% Lidocaine 5% Lidocaine Gel Gel #2 RT 2ND TOE -Current Size (cm) - Length 0.1 0.1 -Current Size (cm) - Width 0.1 0.1 -Current Size (cm) - Depth 0.1 0.1 -Total Square Cm 0.01 0.01 -Exudate Amt None Present None Present -Wound Margin Flat & Intact -Granulation Amt Small (1-33%) None Present (0 %) -Granulation Quality Ringsted -Slough/Fibrin No -Necrosis Amt None Present (0 None Present (0 %) %) -Structure Exposed N/A -Texture (Milagro-wound Skin Appearance) Localized Edema Assessed ,Scarring -Moisture (Milagro-wound Skin Appearance) Assessed -Color (Milagro-wound Skin Appearance) Hemosiderin Assessed Staining -Temperature (Milagro-wound Skin No Abnormality No Abnormality Appearance) (Pt Warm) (Pt Warm) -Tenderness on Palpation (Milagro-wound No No Skin Appearance) -Ulcer Cleansing Rinsed/ Irrigated with Saline -Foul Odor after Cleansing No No -Anesthetic Used 5% Lidocaine Gel #1 RT GALEANA -Current Size (cm) - Length 4.1 5.2 -Current Size (cm) - Width 4.1 4.5 -Current Size (cm) - Depth 0.1 0.1 -Total Square Cm 16.81 23.40 -Exudate Amt None Present Large -Exudate Type Yellow/Green -Wound Margin Thickened Distinct, Outline Attached -Granulation Amt None Present (0 %) -Slough/Fibrin Yes -Necrosis Amt Large (67-100%) Medium (34-66%) -Necrotic Tissue Type Eschar Eschar -Structure Exposed N/A -Texture (Milagro-wound Skin Appearance) Localized Edema Assessed ,Scarring -Moisture (Milagro-wound Skin Appearance) No Abnormality Assessed -Color (Milagro-wound Skin Appearance) Hemosiderin Assessed Staining -Temperature (Milagro-wound Skin No Abnormality Hot Appearance) (Pt Warm) -Tenderness on Palpation (Milagro-wound Yes Skin Appearance) -Ulcer Cleansing Rinsed/ Soap and Water Irrigated with Saline -Foul Odor after Cleansing No -Anesthetic Used 5% Lidocaine 5% Lidocaine Gel Gel Right Calf (cm) 42 38.2 Right Ankle (cm) 25.5 25.5 Right Foot (cm) 41.5 Left Calf (cm) 25 WC - Nurse 2 - General Ulcer CM Notes Start: 01/15/25 09:39 Freq: Status: Active Protocol: Activity Type Activity Date Activity User E-sign Co-sign Detail Recorded Client Recorded Date Recorded By Document 01/15/25 09:58 [facility] [id number] 01/15/25 10:09 [facility] Document 01/20/25 15:16 [id number] 01/20/25 15:19 01/15/25 01/20/25 09:58 15:16 Wound Center Nurse 2 #3 MED 5TH TOE -Time 09:58 -Correct Patient Yes Yes -Correct Side, Site, Position Yes No -Correct Procedure Yes No -Procedure Performed Yes No -Type of Procedure Debridement -Clinical Debridement Subcutaneous -Tissue Removed Subcutaneous -Post Debridement (cm) - Length 0.2 -Post Debridement (cm) - Width 0.2 -Post Debridement (cm) - Depth 0.1 -Total Square (Post) (cm) 0.04 -Area of Debridement (cm) - Length 0.2 -Area of Debridement (cm) - Width 0.2 -Total Square (Area) (cm) 0.04 -Tunneling No -Undermining/Tunneling No -Circular Undermining No -Wound/Ulcer Outcome Not Healed Not Healed -Ulcer Cleansing Rinsed/ Irrigated with Saline -Foul Odor after Cleansing No -Bioengineered Tissue No -Bleeding Controlled with Pressure -Treatment Response Procedure Tolerated Well -Debridement - Subq, 1st 20sq cm Yes #2 RT 2ND TOE -Time 09:59 -Correct Patient Yes -Correct Side, Site, Position No -Correct Procedure No -Procedure Performed No No -Post Debridement (cm) - Length 0.1 -Post Debridement (cm) - Width 0.1 -Post Debridement (cm) - Depth 0.1 -Total Square (Post) (cm) 0.01 -Area of Debridement (cm) - Length 0.1 -Area of Debridement (cm) - Width 0.1 -Total Square (Area) (cm) 0.01 -Tunneling No -Undermining/Tunneling No -Circular Undermining No -Wound/Ulcer Outcome Not Healed Not Healed -Bleeding Controlled with NA #1 RT GALEANA -Time 09:58 15:18 -Correct Patient Yes Yes -Correct Side, Site, Position Yes Yes -Correct Procedure Yes Yes -Procedure Performed Yes Yes -Type of Procedure Debridement Debridement -Clinical Debridement Subcutaneous Subcutaneous -Tissue Removed Subcutaneous, Subcutaneous Non-viable tissue -Post Debridement (cm) - Length 4.6 5.5 -Post Debridement (cm) - Width 4 4.8 -Post Debridement (cm) - Depth 0.1 0.2 -Total Square (Post) (cm) 18.4 26.40 -Area of Debridement (cm) - Length 4.6 5.5 -Area of Debridement (cm) - Width 4 4.8 -Total Square (Area) (cm) 18.4 26.40 -Tunneling No No -Undermining/Tunneling No No -Circular Undermining No No -Wound/Ulcer Outcome Not Healed Not Healed -Ulcer Cleansing Rinsed/ Rinsed/ Irrigated with Irrigated with Saline Saline -Foul Odor after Cleansing No No -Bioengineered Tissue No No -Bleeding Controlled with Pressure Pressure -Treatment Response Procedure Procedure Tolerated Well Tolerated Well -Offloading No -Debridement - Subq, 1st 20sq cm No Yes -Debridement, SubQ, ea addt'l 20sq cm 1 or part thereof Pain Scale: 0-10 Numeric Is Patient Pain Free? Yes Yes WC - Nurse 3 - General Ulcer D/C NN Start: 01/15/25 09:39 Freq: Status: Active Protocol: Activity Type Activity Date Activity User E-sign Co-sign Detail Recorded Client Recorded Date Recorded By Document 01/15/25 10:32 KW [id number] 01/15/25 10:34 KW Document 01/20/25 15:28 ML [id number] 01/20/25 15:30 ML 01/15/25 01/20/25 10:32 15:28 Wound Care Center Nurse 3 #3 LT MED 5TH TOE -Other Dressing atb ointment with bandage #2 RT 2ND TOE -Other Dressing atb ointment bandage #1 RT GALEANA -Ulcer Cleansing Rinsed/ Irrigated with Saline -Foul Odor after Cleansing No -Other Dressing santyl from pt pt brought own santyl -Primary Dressing Covered/Secured with Dry Gauze & Dry Gauze,Dry Roll Gauze, Gauze & Roll Secured with Gauze,Secured Tape with Tape RLE -Tubular Bandage Double Layer Double Layer -Size of Tubigrip Used Size F Size F -Size F ($) 2 2 LLE -Tubular Bandage Double Layer -Size of Tubigrip Used Size F -Size F ($) 2 Pain Scale: 0-10 Numeric Is Patient Pain Free? Yes Yes WC - Visit Discharge Discharge Condition Stable Ambulatory Status Ambulatory Transportation Private Auto Accompanied by Medication Reconcilliation completed & No provided to patient/care provider Clinical Summary of Care Provided Yes Charges/Coding Procedures Integumentary Add On Codes: 78807 Anette subq tissue add-on Multi Select Codes Visit Charges Office Visit/Consults: 11319 OV L4 New 45 min Integumentary Integumentary CPT Codes: 28415 Anette subq tissue 20 sq cm/< Assessment/Plan Assessment/Plan (1) Non-pressure chronic ulcer 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: CODE(S): L97.212 - Non-pressure chronic ulcer 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 (2) Non-pressure chronic ulcer of other part of right foot with fat layer exposed: CODE(S): L97.512 - Non-pressure chronic ulcer of other part of right foot with fat layer exposed (3) Non-pressure chronic ulcer of other part of left foot with fat layer exposed: CODE(S): L97.522 - Non-pressure chronic ulcer of other part of left foot with fat layer exposed (4) Lipodermatosclerosis of both lower extremities: CODE(S): M79.3 - Panniculitis, unspecified (5) Lymphedema: CODE(S): I89.0 - Lymphedema, not elsewhere classified (6) Bilateral edema of lower extremity: CODE(S): R60.0 - Localized edema (7) Venous insufficiency (chronic) (peripheral): CODE(S): I87.2 - Venous insufficiency (chronic) (peripheral) PLAN: Plan This is a 80-year-old female for whom a courtesy visit was provided on behalf of her regular Wound Center provider, Dr. Alo Huston. The patient has a traumatic wound on the right pretibial surface, and had called with concerns regarding the possible development of the infection at the site. Upon assessment, there is noted to be a dry, necrotic eschar covering the wound on the right pretibial surface. A very small amount of peripheral erythema was noted, not highly suspicious for infection, but more suggestive of an inflammatory process. A sharp, excisional debridement was performed, removing the necrotic eschar. Following removal of the dry, necrotic eschar, a swab culture was obtained for aerobic and anaerobic bacterial growth, which will help to determine whether wound infection exists, but also the appropriate means of antibiotic management. The results of the culture will be awaited, and management implemented by Dr. Huston when he evaluates the patient on January 22, 2025. The patient's recent vascular studies have been reviewed. A noninvasive lower extremity arterial study performed on January 13, 2025, revealed no evidence of significant arterial occlusive disease in the patient's lower extremities bilaterally. A venous duplex examination on January 13, 2025, revealed incompetence of the right great saphenous vein, accessory saphenous vein in the right proximal calf, incompetence of the left great saphenous vein, and incompetence of the accessory saphenous vein in the left proximal calf. The patient has recently been under the care of of Dr. Madhav Valdes, Vascular Surgeon, with whom she is expected to follow-up in the near future. The patient is to continue using collagenase Santyl topically on the ulceration of the right pretibial surface. The collagenase Santyl is to be applied on a daily basis. Patient appears understand the appropriate means of application. She indicates that she sleeps on a flat surface at night, and has been encouraged to continue doing so. She has been encouraged to elevate her lower extremities during daytime hours as well. This is to be implemented as much as possible. Elevation is to be to heart level, or higher. Prolonged idle sitting has been discouraged. Activity has been encouraged. The patient is to continue wearing her Tubigrips on a daily basis. She is to follow-up with Dr. Alo Huston on January. The patient is known to possess mechanical pneumatic compression pumps, and has been encouraged to use these several times daily. The patient is to continue management provided by Dr. Huston. Total time: 48 minutes
[2025-01-22 09:39] VITALS: BP 142/51; PULSE 61; RESP 18; TEMP 35.8
--- NOTE | 2025-01-22 10:33 | WC ---
PHOTO 01/20/25 RIGHT GALEANA
--- NOTE | 2025-01-22 13:11 | PCM.WC.PN ---
History of Present Illness Date of Service: 01/22/25 Chief Complaint: Right lower extremity ulceration History of Wound: This is a 80-year-old female who is a patient of Dr. Alo Huston, Silica Mixer Operator, at the [facility]. She was seen today on behalf of Dr. Huston as a courtesy visit. The patient has an ulceration on the right lower extremity, for which she was last evaluated by Dr. Huston on January 15, 2025. The wound originated in early November 2024 as a result of a toenail scratch from her grandson. However, the patient has called with expressed concern regarding possible infection at the site of her right lower extremity ulceration. She had stated that she was noticing increasing redness about the wound, as well as an increase in pain at the site. She was appointed at this time for evaluation relative to her concerns. The patient indicated that she had been instructed to use collagenase Santyl topically at the site of the wound on a daily basis. The patient's past medical history and the history of her wound are as documented below: Patient is a 79-year-old female who was referred to the wound care center for nonhealing ulceration of the right lower extremity. She has PMHx of chronic venous insufficiency bilateral lower extremity in addition to lymphedema translating to lipodermatosclerosis of bilateral lower extremities. She has followed with Dr. Valdes with last visit in December 2023. She does see podiatry in [place], Dr. Damon. She reports the right lower extremity leg ulceration started as a toenail scratch from her grandson and is slowly gotten bigger with difficulty healing. She has failed 6 weeks of standard wound care and was referred to the wound care center for additional healing measures. While here she also reports 6-week duration of dorsal second digit ulceration of the right foot and medial ulceration of the fifth digit of the left foot. She reports having compression stockings but is currently not wearing any on the right leg as she is having pain with the compression. Also does have lymphedema pumps but is not utilizing these due to the pain in the extremities. Denies constitutional symptoms. Denies further complaints. Objective Data Objective Data Vital Signs: Vital Signs Temp Pulse Resp BP O2 Del Method 96.4 F L 61 18 142/51 H Room Air 01/22/25 09:39 01/22/25 09:39 01/22/25 09:39 01/22/25 09:39 01/22/25 09:39 Oxygen Delivery Method Room Air Lab / Micro Data Micro: Microbiology 01/21/25 13:01 Wound Abcess - Leg, Right Gram Stain - Final 01/21/25 13:01 Wound Abcess - Leg, Right Wound Culture - Preliminary Physical Exam Const alert, oriented x3 and no apparent distress General Appearance: cooperative HEENT normocephalic Eyes General Eye: normal appearance of both eyes Neck General: normal visual inspection Lymph Lymphatic: no lymphadenopathy noted and no lymphedema noted Resp normal respiratory effort Cardio regular rate and regular rhythm Extremity no calf tenderness Extremity Narrative: Bilateral lower extremity: Vascular: DP pulse palpable left foot, weakly palpable right foot. PT pulse nonpalpable bilateral secondary to +4 pitting edema. Normal temperature gradient. Hair growth is absent to digits. There is +4 pitting edema of bilateral lower extremity. Neurologic: Epicritic sensation intact without focal deficit noted. Musculoskeletal: Muscle strength 5 of 5 age-appropriate. Decreased range of motion of the ankle joint in dorsiflexion with the knee extended without pain or crepitus. Full range of motion with knee flexed. No pain to palpation of the calf. No pain to palpation about second digit ulceration right foot or fifth digit ulceration of the left foot. There is some tenderness about the ulcerative site of the right lower extremity. Dermatologic: There are multiple areas of hemosiderin deposition secondary to her chronic venous insufficiency. There is lipodermatosclerosis noted to bilateral lower extremities. Positive Stemmer sign second digit bilateral. There is a full-thickness ulceration noted to the medial aspect of the fifth digit of the left foot near the base of the digit. Healthy granular layer is noted with no signs of infection. There is a full-thickness ulceration noted to the dorsal aspect of the second digit right foot overlying the IPJ secondary to hammertoe deformity. Ulceration demonstrates healthy granular layer with no signs of infection. There is an ulceration noted to the anterior aspect of the right lower extremity with eschar covering and with localized rubor about the ulcerative rim. No erythema, no purulent drainage, no palpable fluctuance/bogginess, no visible abscess. No signs of infection to the right lower extremity ulcerative site. Skin no rashes or lesions noted General Skin Exam: venous stasis and dermatitis Neuro moves all extremities Debridement Note Debridement Note Wound debrided: Right lower extremity Laterality: Right Wound Grade/Stage: Peck stage I Type of Debridement: Excisional debridement Anesthesia Used: 5% Lidocaine Gel and - (10 cc 1% lidocaine with epinephrine) Depth: Down to and including healthy tissue, in the subcutaneous layer and to muscle Percentage of wound debrided: 100 Instrument Used: 7mm curette, #15 blade and Forceps Tissue Removed: Fibrous, devitalized subcutaneous, biofilm, slough Severity: Fat Layer Exposed Amount of bleeding with debridement: Mild Bleeding Controlled with: Compression and gauze Patient tolerated procedure: Patient tolerated procedure well Post-Debridement Measurements and Additional Note: Post-Debridement Measurements/Treatment - Nurse 1 - General Ulcer Assessment Start: 01/15/25 09:39 Freq: Status: Active Protocol: SKYLER Activity Type Activity Date Activity User E-sign Co-sign Detail Recorded Client Recorded Date Recorded By Document 01/15/25 09:40 DL [id number] 01/15/25 09:50 DL Document 01/20/25 14:45 KW [id number] 01/20/25 14:54 KW Document 01/22/25 09:39 KW [id number] 01/22/25 09:55 KW 01/15/25 01/20/25 01/22/25 09:40 14:45 09:39 - Today's Visit Information Type of service Follow-up Visit Follow-up Visit Follow-up Visit (Physician/BIOMASS BOILER OPERATOR (Physician/BIOMASS BOILER OPERATOR (Physician/BIOMASS BOILER OPERATOR ) ) ) Arrival Mode Ambulatory, Ambulatory Ambulatory, Walker Walker Transfer Assistance None Accompanied by Patient Identification Verified (Name & Yes Yes ) Patient Requires Transmission-Based No Precautions Vital Signs Temperature (97.8 F-99.1 F) 96.5 F L 96.4 F L Temperature Source Temporal Temporal Pulse Rate (60-100) 68 61 Pulse Location Monitor Monitor Respiratory Rate (12-18) 18 18 Respiratory rate source Observation Observation Oxygen Delivery Method Room Air Blood Pressure (90/60-120/80) 142/85 H 142/51 H Blood Pressure Mean (mm Hg) 104 81 Source Monitor Monitor Position Semi-Fowlers Blood Pressure Location Right Arm History Since Last Visit- (Skip if this is Patient's initial visit) Have you changed medications since your No No No last visit? Any new allergies or adverse reactions No No No Had a fall/change in ADL's that may No No No increase risk of falls Signs or symptoms of abuse and/or No No No neglect since last visit Have you been in the hospital since your No No last visit? Has dressing in place as prescribed Yes Yes Yes Has compression in place as prescribed Yes N/A Yes Has offloadiing in place as prescribed Yes N/A N/A Experienced any changes in pain level or No No No management Left Footwear Regular Shoe Right Footwear Regular Shoe Pain Scale: 0-10 Numeric Is Patient Pain Free? Yes Yes Yes WC - Nurse 1 - General Ulcer Measurement Start: 01/15/25 09:39 Freq: Status: Active Protocol: Activity Type Activity Date Activity User E-sign Co-sign Detail Recorded Client Recorded Date Recorded By Document 01/15/25 09:40 DL [id number] 01/15/25 09:50 DL Document 01/20/25 14:45 KW [id number] 01/20/25 14:54 KW Document 01/22/25 09:39 KW [id number] 01/22/25 09:55 KW 01/15/25 01/20/25 01/22/25 09:40 14:45 09:39 Wound Center Nurse 1 #3 LT MED 5TH TOE -Current Size (cm) - Length 0.2 0.1 -Current Size (cm) - Width 0.2 0.1 -Current Size (cm) - Depth 0.1 0.1 -Total Square Cm 0.04 0.01 -Exudate Amt Small None Present -Wound Margin Distinct, Distinct, Outline Outline Attached Attached -Granulation Amt Small (1-33%) None Present (0 %) -Granulation Quality [place] -Slough/Fibrin Yes -Necrosis Amt Small (1-33%) None Present (0 %) -Necrotic Tissue Type Adherent Slough Adherent Slough -Structure Exposed N/A -Texture (Milagro-wound Skin Appearance) Scarring Assessed -Moisture (Milagro-wound Skin Appearance) Maceration Assessed -Color (Milagro-wound Skin Appearance) Hemosiderin Assessed Staining -Temperature (Milagro-wound Skin No Abnormality Hot No Abnormality Appearance) (Pt Warm) (Pt Warm) -Tenderness on Palpation (Milagro-wound Yes No Skin Appearance) -Ulcer Cleansing Rinsed/ Soap and Water Soap and Water Irrigated with Saline -Foul Odor after Cleansing No No No -Anesthetic Used 5% Lidocaine 5% Lidocaine 4% Lidocaine Gel Gel Solution #2 RT 2ND TOE -Current Size (cm) - Length 0.1 0.1 -Current Size (cm) - Width 0.1 0.1 -Current Size (cm) - Depth 0.1 0.1 -Total Square Cm 0.01 0.01 -Exudate Amt None Present None Present -Wound Margin Flat & Intact -Granulation Amt Small (1-33%) None Present (0 %) -Granulation Quality [place] -Slough/Fibrin No -Necrosis Amt None Present (0 None Present (0 %) %) -Structure Exposed N/A -Texture (Milagro-wound Skin Appearance) Localized Edema Assessed ,Scarring -Moisture (Milagro-wound Skin Appearance) Assessed -Color (Milagro-wound Skin Appearance) Hemosiderin Assessed Staining -Temperature (Milagro-wound Skin No Abnormality No Abnormality Appearance) (Pt Warm) (Pt Warm) -Tenderness on Palpation (Milagro-wound No No Skin Appearance) -Ulcer Cleansing Rinsed/ Irrigated with Saline -Foul Odor after Cleansing No No -Anesthetic Used 5% Lidocaine Gel #1 RT GALEANA -Current Size (cm) - Length 4.1 5.2 5 -Current Size (cm) - Width 4.1 4.5 5 -Current Size (cm) - Depth 0.1 0.1 0.2 -Total Square Cm 16.81 23.40 25 -Date of Last Picture (Recall this 01/22/25 field) -Exudate Amt None Present Large Medium -Exudate Type Yellow/Green Serosanguineous -Wound Margin Thickened Distinct, Distinct, Outline Outline Attached Attached -Granulation Amt None Present (0 Small (1-33%) %) -Granulation Quality Red -Slough/Fibrin Yes -Necrosis Amt Large (67-100%) Medium (34-66%) Large (67-100%) -Necrotic Tissue Type Eschar Eschar Adherent Slough -Structure Exposed N/A -Texture (Milagro-wound Skin Appearance) Localized Edema Assessed Assessed ,Scarring -Moisture (Milagro-wound Skin Appearance) No Abnormality Assessed Assessed -Color (Milagro-wound Skin Appearance) Hemosiderin Assessed Assessed, Staining Erythema, Hemosiderin Staining -Temperature (Milagro-wound Skin No Abnormality Hot No Abnormality Appearance) (Pt Warm) (Pt Warm) -Tenderness on Palpation (Milagro-wound Yes No Skin Appearance) -Ulcer Cleansing Rinsed/ Soap and Water Soap and Water Irrigated with Saline -Foul Odor after Cleansing No No -Anesthetic Used 5% Lidocaine 5% Lidocaine 4% Lidocaine Gel Gel Solution Right Calf (cm) 42 38.2 38 Right Ankle (cm) 25.5 25.5 24.5 Right Foot (cm) 41.5 Left Calf (cm) 25 WC - Nurse 2 - General Ulcer CM Notes Start: 01/15/25 09:39 Freq: Status: Active Protocol: Activity Type Activity Date Activity User E-sign Co-sign Detail Recorded Client Recorded Date Recorded By Document 01/15/25 09:58 [facility] [id number] 01/15/25 10:09 [facility] Document 01/20/25 15:16 [id number] 01/20/25 15:19 Document 01/22/25 10:05 [facility] [id number] 01/22/25 10:25 [facility] 01/15/25 01/20/25 01/22/25 09:58 15:16 10:05 Wound Center Nurse 2 #3 LT MED 5TH TOE -Time 09:58 10:05 -Correct Patient Yes Yes -Correct Side, Site, Position Yes No -Correct Procedure Yes No -Procedure Performed Yes No No -Type of Procedure Debridement -Clinical Debridement Subcutaneous -Tissue Removed Subcutaneous -Post Debridement (cm) - Length 0.2 0 -Post Debridement (cm) - Width 0.2 0 -Post Debridement (cm) - Depth 0.1 0 -Total Square (Post) (cm) 0.04 0 -Area of Debridement (cm) - Length 0.2 0 -Area of Debridement (cm) - Width 0.2 0 -Total Square (Area) (cm) 0.04 0 -Tunneling No -Undermining/Tunneling No -Circular Undermining No -Wound/Ulcer Outcome Not Healed Not Healed Healed- Epithelialized -Ulcer Cleansing Rinsed/ Irrigated with Saline -Foul Odor after Cleansing No -Bioengineered Tissue No -Bleeding Controlled with Pressure NA -Treatment Response Procedure Tolerated Well -Debridement - Subq, 1st 20sq cm Yes #2 RT 2ND TOE -Time 09:59 10:05 -Correct Patient Yes -Correct Side, Site, Position No -Correct Procedure No -Procedure Performed No No No -Post Debridement (cm) - Length 0.1 0 -Post Debridement (cm) - Width 0.1 0 -Post Debridement (cm) - Depth 0.1 0 -Total Square (Post) (cm) 0.01 0 -Area of Debridement (cm) - Length 0.1 0 -Area of Debridement (cm) - Width 0.1 0 -Total Square (Area) (cm) 0.01 0 -Tunneling No -Undermining/Tunneling No -Circular Undermining No -Wound/Ulcer Outcome Not Healed Not Healed Healed- Epithelialized -Bleeding Controlled with NA NA #1 RT GALEANA -Time 09:58 15:18 10:08 -Correct Patient Yes Yes Yes -Correct Side, Site, Position Yes Yes Yes -Correct Procedure Yes Yes Yes -Procedure Performed Yes Yes Yes -Type of Procedure Debridement Debridement Debridement -Clinical Debridement Subcutaneous Subcutaneous Muscle / Fascia -Tissue Removed Subcutaneous, Subcutaneous Muscle,Fascia Non-viable tissue -Post Debridement (cm) - Length 4.6 5.5 5.7 -Post Debridement (cm) - Width 4 4.8 5 -Post Debridement (cm) - Depth 0.1 0.2 0.4 -Total Square (Post) (cm) 18.4 26.40 28.5 -Area of Debridement (cm) - Length 4.6 5.5 5.7 -Area of Debridement (cm) - Width 4 4.8 5 -Total Square (Area) (cm) 18.4 26.40 28.5 -Tunneling No No No -Undermining/Tunneling No No No -Circular Undermining No No No -Wound/Ulcer Outcome Not Healed Not Healed Not Healed -Ulcer Cleansing Rinsed/ Rinsed/ Rinsed/ Irrigated with Irrigated with Irrigated with Saline Saline Saline -Foul Odor after Cleansing No No No -Bioengineered Tissue No No No -Injectable Lidocaine w/ Epi (%) 1 -Injectable Lidocaine w/ Epi (mls) 10 -Bleeding Controlled with Pressure Pressure Pressure -Treatment Response Procedure Procedure Procedure Tolerated Well Tolerated Well Tolerated Well -Offloading No -Debridement - Subq, 1st 20sq cm No Yes -Debridement, SubQ, ea addt'l 20sq cm 1 or part thereof -Debridement - Muscle / Fascia, 1st Yes 20sq cm Pain Scale: 0-10 Numeric Is Patient Pain Free? Yes Yes Yes WC - Nurse 3 - General Ulcer D/C NN Start: 01/15/25 09:39 Freq: Status: Active Protocol: Activity Type Activity Date Activity User E-sign Co-sign Detail Recorded Client Recorded Date Recorded By Document 01/15/25 10:32 KW [id number] 01/15/25 10:34 KW Document 01/20/25 15:28 ML [id number] 01/20/25 15:30 ML Document 01/22/25 10:40 DL [id number] 01/22/25 10:43 DL 01/15/25 01/20/25 01/22/25 10:32 15:28 10:40 Wound Care Center Nurse 3 #3 LT MED 5TH TOE -Other Dressing atb ointment with bandage #2 RT 2ND TOE -Other Dressing atb ointment bandage #1 RT GALEANA -Ulcer Cleansing Rinsed/ Rinsed/ Irrigated with Irrigated with Saline Saline -Foul Odor after Cleansing No No -Primary Dressing Applied AMD Dressing 4x4,C Hydrogel, Collagen Powder -Other Dressing santyl from pt pt brought own santyl -Primary Dressing Covered/Secured with Dry Gauze & Dry Gauze,Dry Dry Gauze & Roll Gauze, Gauze & Roll Roll Gauze, Secured with Gauze,Secured Secured with Tape with Tape Tape -AMD Dressing 4x4 3 -Collagen Powder 1 -Hydrogel 1 -Wound Comment(s) Dressing intructions given to . RLE -Tubular Bandage Double Layer Double Layer -Size of Tubigrip Used Size F Size F -Size F ($) 2 2 -Other tubigrip D LLE -Tubular Bandage Double Layer -Size of Tubigrip Used Size F -Size F ($) 2 -Other tubigrip d Treatment Response Procedure Tolerated Well Pain Scale: 0-10 Numeric Is Patient Pain Free? Yes Yes Yes WC - Visit Discharge Discharge Condition Stable Stable Ambulatory Status Ambulatory Ambulatory, Walker Transportation Private Auto Private Auto Accompanied by Medication Reconcilliation completed & No provided to patient/care provider Clinical Summary of Care Provided Yes Assessment/Plan Assessment/Plan (1) Non-pressure chronic ulcer 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: CODE(S): L97.212 - Non-pressure chronic ulcer 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 (2) Non-pressure chronic ulcer of other part of right foot with fat layer exposed: CODE(S): L97.512 - Non-pressure chronic ulcer of other part of right foot with fat layer exposed (3) Non-pressure chronic ulcer of other part of left foot with fat layer exposed: CODE(S): L97.522 - Non-pressure chronic ulcer of other part of left foot with fat layer exposed (4) Lipodermatosclerosis of both lower extremities: CODE(S): M79.3 - Panniculitis, unspecified (5) Lymphedema: CODE(S): I89.0 - Lymphedema, not elsewhere classified (6) Bilateral edema of lower extremity: CODE(S): R60.0 - Localized edema (7) Venous insufficiency (chronic) (peripheral): CODE(S): I87.2 - Venous insufficiency (chronic) (peripheral) PLAN: Plan Patient seen and evaluated Predebridement measurement: Medial left fifth digit healed Dorsal second digit PIPJ healed Anterior right lower extremity 5.6 cm x 4.9 cm x 0.4 cm. Debridement was performed today as noted in the clinical panel above. Postdebridement measurement: Medial left fifth digit healed Dorsal second digit PIPJ healed Anterior right lower extremity 5.7 cm x 5.0 cm x 0.4 cm She did see Dr. Villarreal as courtesy visit due to her fear of development of infection on 01/20/2025 and underwent debridement of her eschar site. She did undergo debridement of the site again today as noted in the clinical panel above. Postdebridement measurements listed above. Change was made to collagen powder, hydrogel, and PHMB foam dressing to the anterior aspect of the right lower extremity. She is instructed to change dressing daily. LEAS ordered 01/08/25 and she will follow-up with Dr. Valdes following completion of studies. Last visit with Dr. Valdes's office 01/08/2024. Venous studies demonstrate no evidence of DVT bilateral lower extremity. Bilateral great saphenous vein appears competent and compressible segmentally. Positive reflux in the great saphenous vein throughout in addition to the accessory saphenous vein in the calf, positive for reflux in the left common femoral vein, femoral vein, saphenofemoral junction, great saphenous vein throughout and accessory saphenous vein in the calf. LEAS demonstrate no evidence of arterial occlusive disease Santyl ordered for application to the right lower extremity ulcerative site. She did not receive Santyl until 01/14/2025. This was applied to the ulcerative site today and she was instructed on use. TheraSkin graft was applied for, awaiting approval for application. Discussed continuing to wear compression stocking and utilize lymphedema pumps to aid in decreasing the edema to the lower extremities. She is also to continue to elevate lower extremities at all times of rest to aid in maintaining edema control. Discussed signs and symptoms of infection. Discussed if she notices increasing redness around the ulcerative sites that moves up the leg or onto the foot, if any purulent drainage is noted from wound sites, if increasing foul odor is noted from wound sites, or if she begins to experience fever greater than 101 degree accompanied by nausea, vomiting, chills that these are signs of a progressing infection and she should report to the ED to receive IV antibiotics and for further evaluation. She is understanding of this today. The following work up and care recommendations were made: Dressing: Collagen powder, hydrogel, and PHMB foam dressing to the anterior aspect of the right lower extremity. Change daily. Wash: Soap and water Tissue growth optimization: Collagen powder and hydrogel Offload: Ensure no rubbing of the digits in shoe gear and to wear toe spacers. Vascular: Updating LEAS, awaiting results. Does have previous venous studies from October 2023 demonstrating positive reflux in great saphenous vein throughout and small saphenous vein throughout and accessory saphenous veins of bilateral lower extremities Edema: Lipodermatosclerosis. Will continue compression stockings and lymphedema pumps. Infection: No signs of infection Pain: May take [id number] Tylenol for any discomfort Host factors: Lipodermatosclerosis, advancing age, PVD complicate healing. I answered all the patient's questions. To return to the wound healing center in [address] iVllarreal as courtesy visit or call sooner if the patient has any questions or concerns.
--- NOTE | 2025-01-23 10:01 | WC ---
PHOTO 01/22/25 RIGHT GALEANA
[2025-01-29 13:23] VITALS: BP 142/67; PULSE 80; RESP 18; TEMP 36.5
--- NOTE | 2025-01-30 09:50 | WC ---
PHOTO 01/29/25 LEFT DORSAL FOOT
--- NOTE | 2025-01-31 20:07 | PCM.WC.HP ---
History of Present Illness Date of Service: 01/29/25 Chief Complaint: Right lower extremity ulceration History of Wound: This is a 80-year-old female who is a patient of Dr. Alo Huston, Assistant Child Care Teacher, at the [facility]. She was seen today on behalf of Dr. Huston as a courtesy visit. The patient has an ulceration on the anterolateral aspect right calf. The wound originated in early November 2024 as a result of a toenail scratch from her grandson. She stated that she was noticing increasing redness about the wound, as well as an increase in pain at the site. The patient has been using collagenase Santyl topically, but recently switched to collagen powder, hydrogel, and a PHMB foam dressing daily. The patient has a history of chronic venous insufficiency in the lower extremities bilaterally. She also has a history of edema and lipodermatosclerosis of bilateral lower extremities. She has followed with Dr. Valdes with last visit in December 2023. She does see podiatry in [place], Dr. Damon. She reports having compression stockings, but was not wearing any on the right leg as she was having pain with the compression. She also does have lymphedema pumps but is not utilizing these due to the pain in the extremities. [facility] Medical History Foot ulcer, left MRSA (methicillin resistant staph aureus) culture positive Home Medications Medication Instructions Recorded Last Taken Type benzonatate 100 mg capsule 200 mg (2 x 100 mg) PO TID PRN 09/02/21 Unknown Rx cough #30 caps gabapentin 400 mg capsule 400 mg PO TID 09/02/21 Unknown History hydroxychloroquine 200 mg tablet 200 mg PO DAILY 09/02/21 Unknown History (Plaquenil) enalapril maleate 20 mg tablet 20 mg PO DAILY 12/11/23 Unknown History ascorbate calcium (vitamin C) 500 500 mg PO DAILY 01/08/25 Unknown History mg tablet cholecalciferol (vitamin D3) 10 10 mcg PO DAILY 01/08/25 Unknown History mcg (400 unit) capsule hydrochlorothiazide 25 mg tablet 25 mg PO DAILY 01/08/25 Unknown History pentoxifylline 400 mg 400 mg PO DAILY 01/08/25 Unknown History tablet,extended release zinc gluconate 10 mg lozenges 10 mg PO DAILY 01/08/25 Unknown History doxycycline hyclate 100 mg tablet 100 mg PO BID #20 tabs 01/29/25 Unknown Rx mupirocin 2 % topical ointment 1 applic topical BID MRSA 01/29/25 Unknown Rx infection #15 grams Allergy/AdvReac Type Severity Reaction Status Date / Time Penicillins Allergy Intermediate Hives Verified 01/23/25 10:03 Family History Other Breast cancer Cancer Surgical History H/O lumpectomy Social History Smoking Status: Never smoker Physical Exam Const alert, oriented x3 and no apparent distress General Appearance: cooperative, comfortable, well kempt and well developed Orientation / Consciousness: awake, oriented to person, oriented to place and oriented to time Exam Limitations: no limitations HEENT normocephalic and head/scalp atraumatic Head and Scalp: normal to inspection Face and Sinus: normal facial exam Nose: external nose normal External Ear: external ears normal Eyes EOMs intact bilaterally General Eye: normal appearance of both eyes Neck General: normal visual inspection Resp normal respiratory effort, normal air movement, no retractions and no use of accessory muscles Effort and Inspection: able to speak in complete sentences Extremity no calf tenderness Extremity Narrative: Bilateral lower extremity: Vascular: DP pulse palpable left foot, weakly palpable right foot. PT pulse nonpalpable bilateral secondary to +4 pitting edema. Normal temperature gradient. Hair growth is absent to digits. There is +4 pitting edema of bilateral lower extremity. Neurologic: Epicritic sensation intact without focal deficit noted. Musculoskeletal: Muscle strength 5 of 5 age-appropriate. Decreased range of motion of the ankle joint in dorsiflexion with the knee extended without pain or crepitus. Full range of motion with knee flexed. No pain to palpation of the calf. No pain to palpation about second digit ulceration right foot or fifth digit ulceration of the left foot. There is some tenderness about the ulcerative site of the right lower extremity. Dermatologic: There are multiple areas of hemosiderin deposition secondary to her chronic venous insufficiency. There is lipodermatosclerosis noted to bilateral lower extremities. Positive Stemmer sign second digit bilateral. There is a full-thickness ulceration noted to the medial aspect of the fifth digit of the left foot near the base of the digit. Healthy granular layer is noted with no signs of infection. There is a full-thickness ulceration noted to the dorsal aspect of the second digit right foot overlying the IPJ secondary to hammertoe deformity. Ulceration demonstrates healthy granular layer with no signs of infection. There is an ulceration noted to the anterior aspect of the right lower extremity with eschar covering and with localized rubor about the ulcerative rim. No erythema, no purulent drainage, no palpable fluctuance/bogginess, no visible abscess. No signs of infection to the right lower extremity ulcerative site. Skin General Skin Exam: venous stasis and dermatitis Wound Narrative: A large full-thickness ulceration is noted on the right anterolateral calf. The ulceration extends through all layers of dermis and into the subcutaneous tissues. There is a large amount of necrotic and nonviable material. Ulcer margins are well beveled. There is a small rim of erythema circumferentially. A disagreeable odor is noted. There is no fluctuance. The dimensions of the ulceration are documented elsewhere. Mild swelling was noted in the patient's right lower extremity. A new, small ulceration is noted on the dorsal aspect of the patient's left foot. According to the patient, this occurred due to wearing her grandsons ill-fitting shoes. Neuro oriented x3, CN's II-XII intact bilaterally, moves all extremities and no focal motor deficits Sensorium / Orientation: awake, alert, oriented to person, oriented to place and oriented to time Debridement Note Debridement Note Wound debrided: Right lower extremity ulceration, anterolateral calf Laterality: Right Type of Debridement: Excisional debridement Anesthesia Used: 5% Lidocaine Gel Depth: Down to and including healthy tissue and in the subcutaneous layer Percentage of wound debrided: 100 Instrument Used: 5mm curette Tissue Removed: Fibrous, devitalized, necrotic tissue and slough Severity: Fat Layer Exposed Amount of bleeding with debridement: Mild Bleeding Controlled with: Compression and gauze Patient tolerated procedure: Patient tolerated procedure well Post-Debridement Measurements and Additional Note: Post-Debridement Measurements/Treatment DEVIN - Nurse 1 - General Ulcer Assessment Start: 01/15/25 09:39 Freq: Status: Active Protocol: SKYLER Activity Type Activity Date Activity User E-sign Co-sign Detail Recorded Client Recorded Date Recorded By Document 01/15/25 09:40 DL [id number] 01/15/25 09:50 DL Document 01/20/25 14:45 KW [id number] 01/20/25 14:54 KW Document 01/22/25 09:39 KW [id number] 01/22/25 09:55 KW Document 01/29/25 13:23 DL [id number] 01/29/25 13:30 DL 01/15/25 01/20/25 01/22/25 09:40 14:45 09:39 WC - Today's Visit Information Type of service Follow-up Visit Follow-up Visit Follow-up Visit (Physician/SLIDE FORMING MACHINE TENDER (Physician/SLIDE FORMING MACHINE TENDER (Physician/SLIDE FORMING MACHINE TENDER ) ) ) Arrival Mode Ambulatory, Ambulatory Ambulatory, Walker Walker Transfer Assistance None Accompanied by Patient Identification Verified (Name & Yes Yes ) Patient Requires Transmission-Based No Precautions Vital Signs Temperature (97.8 F-99.1 F) 96.5 F L 96.4 F L Temperature Source Temporal Temporal Pulse Rate (60-100) 68 61 Pulse Location Monitor Monitor Respiratory Rate (12-18) 18 18 Respiratory rate source Observation Observation Oxygen Delivery Method Room Air Blood Pressure (90/60-120/80) 142/85 H 142/51 H Blood Pressure Mean 104 81 Source Monitor Monitor Position Semi-Fowlers Blood Pressure Location Right Arm History Since Last Visit- (Skip if this is Patient's initial visit) Have you changed medications since your No No No last visit? Any new allergies or adverse reactions No No No Had a fall/change in ADL's that may No No No increase risk of falls Signs or symptoms of abuse and/or No No No neglect since last visit Have you been in the hospital since your No No last visit? Has dressing in place as prescribed Yes Yes Yes Has compression in place as prescribed Yes N/A Yes Has offloadiing in place as prescribed Yes N/A N/A Experienced any changes in pain level or No No No management Left Footwear Regular Shoe Right Footwear Regular Shoe Pain Scale: 0-10 Numeric Is Patient Pain Free? Yes Yes Yes 01/29/25 13:23 - Today's Visit Information Type of service Follow-up Visit (Physician/SLIDE FORMING MACHINE TENDER ) Arrival Mode Ambulatory, Walker Transfer Assistance None Accompanied by Patient Identification Verified (Name & Yes ) Patient Requires Transmission-Based No Precautions Vital Signs Temperature (97.8 F-99.1 F) 97.7 F L Temperature Source Temporal Pulse Rate (60-100) 80 Pulse Location Monitor Respiratory Rate (12-18) 18 Respiratory rate source Observation Oxygen Delivery Method Blood Pressure (90/60-120/80) 142/67 H Blood Pressure Mean 92 Source Monitor Position Blood Pressure Location History Since Last Visit- (Skip if this is Patient's initial visit) Have you changed medications since your No last visit? Any new allergies or adverse reactions No Had a fall/change in ADL's that may No increase risk of falls Signs or symptoms of abuse and/or No neglect since last visit Have you been in the hospital since your No last visit? Has dressing in place as prescribed Yes Has compression in place as prescribed Yes Has offloadiing in place as prescribed N/A Experienced any changes in pain level or No management Left Footwear Right Footwear Pain Scale: 0-10 Numeric Is Patient Pain Free? Yes WC - Nurse 1 - General Ulcer Measurement Start: 01/15/25 09:39 Freq: Status: Active Protocol: Activity Type Activity Date Activity User E-sign Co-sign Detail Recorded Client Recorded Date Recorded By Document 01/15/25 09:40 DL [id number] 01/15/25 09:50 DL Document 01/20/25 14:45 KW [id number] 01/20/25 14:54 KW Document 01/22/25 09:39 KW [id number] 01/22/25 09:55 KW Document 01/29/25 13:23 DL [id number] 01/29/25 13:30 DL 01/15/25 01/20/25 01/22/25 09:40 14:45 09:39 Wound Center Nurse 1 #3 LT MED 5TH TOE -Current Size (cm) - Length 0.2 0.1 -Current Size (cm) - Width 0.2 0.1 -Current Size (cm) - Depth 0.1 0.1 -Total Square Cm 0.04 0.01 -Exudate Amt Small None Present -Wound Margin Distinct, Distinct, Outline Outline Attached Attached -Granulation Amt Small (1-33%) None Present (0 %) -Granulation Quality [place] -Slough/Fibrin Yes -Necrosis Amt Small (1-33%) None Present (0 %) -Necrotic Tissue Type Adherent Slough Adherent Slough -Structure Exposed N/A -Texture (Milagro-wound Skin Appearance) Scarring Assessed -Moisture (Milagro-wound Skin Appearance) Maceration Assessed -Color (Mil[place]ro-wound Skin Appearance) Hemosiderin Assessed Staining -Temperature (Mil[place]ro-wound Skin No Abnormality Hot No Abnormality Appearance) (Pt Warm) (Pt Warm) -Tenderness on Palpation (Mil[place]ro-wound Yes No Skin Appearance) -Ulcer Cleansing Rinsed/ Soap and Water Soap and Water Irrigated with Saline -Foul Odor after Cleansing No No No -Anesthetic Used 5% Lidocaine 5% Lidocaine 4% Lidocaine Gel Gel Solution #2 RT 2ND TOE -Current Size (cm) - Length 0.1 0.1 -Current Size (cm) - Width 0.1 0.1 -Current Size (cm) - Depth 0.1 0.1 -Total Square Cm 0.01 0.01 -Exudate Amt None Present None Present -Wound Margin Flat & Intact -Granulation Amt Small (1-33%) None Present (0 %) -Granulation Quality [place] -Slough/Fibrin No -Necrosis Amt None Present (0 None Present (0 %) %) -Structure Exposed N/A -Texture (Milagro-wound Skin Appearance) Localized Edema Assessed ,Scarring -Moisture (Milagro-wound Skin Appearance) Assessed -Color (Mil[place]ro-wound Skin Appearance) Hemosiderin Assessed Staining -Temperature ([place]-wound Skin No Abnormality No Abnormality Appearance) (Pt Warm) (Pt Warm) -Tenderness on Palpation ([place]-wound No No Skin Appearance) -Ulcer Cleansing Rinsed/ Irrigated with Saline -Foul Odor after Cleansing No No -Anesthetic Used 5% Lidocaine Gel #4 L Dorsal -Current Size (cm) - Length -Current Size (cm) - Width -Current Size (cm) - Depth -Total Square Cm -Photo Taken -Exudate Amt -Exudate Type -Wound Margin -Granulation Amt -Granulation Quality -Necrosis Amt -Necrotic Tissue Type -Structure Exposed -Texture (Milagro-wound Skin Appearance) -Moisture (Mil[place]ro-wound Skin Appearance) -Color ([place]ro-wound Skin Appearance) -Temperature (Mil[place]ro-wound Skin Appearance) -Ulcer Cleansing -Foul Odor after Cleansing -Anesthetic Used #1 RT GALEANA -Current Size (cm) - Length 4.1 5.2 5 -Current Size (cm) - Width 4.1 4.5 5 -Current Size (cm) - Depth 0.1 0.1 0.2 -Total Square Cm 16.81 23.40 25 -Date of Last Picture (Recall this 01/22/25 field) -Photo Taken -Exudate Amt None Present Large Medium -Exudate Type Yellow/Green Serosanguineous -Wound Margin Thickened Distinct, Distinct, Outline Outline Attached Attached -Granulation Amt None Present (0 Small (1-33%) %) -Granulation Quality Red -Slough/Fibrin Yes -Necrosis Amt Large (67-100%) Medium (34-66%) Large (67-100%) -Necrotic Tissue Type Eschar Eschar Adherent Slough -Structure Exposed N/A -Texture (Mil[place]ro-wound Skin Appearance) Localized Edema Assessed Assessed ,Scarring -Moisture (Milagro-wound Skin Appearance) No Abnormality Assessed Assessed -Color (Milagro-wound Skin Appearance) Hemosiderin Assessed Assessed, Staining Erythema, Hemosiderin Staining -Temperature (Milagro-wound Skin No Abnormality Hot No Abnormality Appearance) (Pt Warm) (Pt Warm) -Tenderness on Palpation (Milagro-wound Yes No Skin Appearance) -Ulcer Cleansing Rinsed/ Soap and Water Soap and Water Irrigated with Saline -Foul Odor after Cleansing No No -Anesthetic Used 5% Lidocaine 5% Lidocaine 4% Lidocaine Gel Gel Solution Right Calf (cm) 42 38.2 38 Right Ankle (cm) 25.5 25.5 24.5 Right Foot (cm) 41.5 Point of Measurement (cm from the distal point) Left Calf (cm) 25 Point of measurement (cm from the medial instep) 01/29/25 13:23 Wound Center Nurse 1 #3 LT MED 5TH TOE -Current Size (cm) - Length -Current Size (cm) - Width -Current Size (cm) - Depth -Total Square Cm -Exudate Amt -Wound Margin -Granulation Amt -Granulation Quality -Slough/Fibrin -Necrosis Amt -Necrotic Tissue Type -Structure Exposed -Texture ([place]-wound Skin Appearance) -Moisture (Milagro-wound Skin Appearance) -Color (Mil[place]ro-wound Skin Appearance) -Temperature (Mil[place]ro-wound Skin Appearance) -Tenderness on Palpation (Milagro-wound Skin Appearance) -Ulcer Cleansing -Foul Odor after Cleansing -Anesthetic Used #2 RT 2ND TOE -Current Size (cm) - Length -Current Size (cm) - Width -Current Size (cm) - Depth -Total Square Cm -Exudate Amt -Wound Margin -Granulation Amt -Granulation Quality -Slough/Fibrin -Necrosis Amt -Structure Exposed -Texture (Milagro-wound Skin Appearance) -Moisture (Milagro-wound Skin Appearance) -Color (Milagro-wound Skin Appearance) -Temperature (Milagro-wound Skin Appearance) -Tenderness on Palpation (Milagro-wound Skin Appearance) -Ulcer Cleansing -Foul Odor after Cleansing -Anesthetic Used #4 L Dorsal -Current Size (cm) - Length 0.3 -Current Size (cm) - Width 0.3 -Current Size (cm) - Depth 0.2 -Total Square Cm 0.09 -Photo Taken Yes -Exudate Amt Small -Exudate Type Serosanguineous -Wound Margin Distinct, Outline Attached -Granulation Amt Small (1-33%) -Granulation Quality [place] -Necrosis Amt Small (1-33%) -Necrotic Tissue Type Adherent Slough -Structure Exposed N/A -Texture (Milagro-wound Skin Appearance) Localized Edema ,Scarring -Moisture (Milagro-wound Skin Appearance) No Abnormality -Color (Milagro-wound Skin Appearance) Hemosiderin Staining -Temperature ([place]ro-wound Skin No Abnormality Appearance) (Pt Warm) -Ulcer Cleansing Soap and Water -Foul Odor after Cleansing No -Anesthetic Used 5% Lidocaine Gel #1 RT GALEANA -Current Size (cm) - Length 6.4 -Current Size (cm) - Width 5.8 -Current Size (cm) - Depth 0.3 -Total Square Cm 37.12 -Date of Last Picture (Recall this field) -Photo Taken Yes -Exudate Amt Medium -Exudate Type Serosanguineous -Wound Margin Distinct, Outline Attached -Granulation Amt None Present (0 %) -Granulation Quality -Slough/Fibrin -Necrosis Amt Large (67-100%) -Necrotic Tissue Type Adherent Slough -Structure Exposed N/A -Texture (Milagro-wound Skin Appearance) Localized Edema ,Scarring -Moisture (Milagro-wound Skin Appearance) No Abnormality -Color (Milagro-wound Skin Appearance) Hemosiderin Staining -Temperature (Milagro-wound Skin No Abnormality Appearance) (Pt Warm) -Tenderness on Palpation (Milagro-wound No Skin Appearance) -Ulcer Cleansing Soap and Water -Foul Odor after Cleansing No -Anesthetic Used 4% Lidocaine Solution Right Calf (cm) 41.6 Right Ankle (cm) 25 Right Foot (cm) Point of Measurement (cm from the distal 45.2 point) Left Calf (cm) Point of measurement (cm from the medial 25.8 instep) WC - Nurse 2 - General Ulcer CM Notes Start: 01/15/25 09:39 Freq: Status: Active Protocol: Activity Type Activity Date Activity User E-sign Co-sign Detail Recorded Client Recorded Date Recorded By Document 01/15/25 09:58 BM [id number] 01/15/25 10:09 BMF Document 01/20/25 15:16 JF [id number] 01/20/25 15:19 JF Document 01/22/25 10:05 BMF [id number] 01/22/25 10:25 BMF Edit Result 01/22/25 10:05 BMF (1) [id number] 01/28/25 07:33 BMF Document 01/29/25 13:40 BMF [id number] 01/29/25 13:50 BMF (1) #1 RT GALEANA - Debridement, Muscle/Fascia, ea addt'l => 1 20sq cm or part thereof 01/15/25 01/20/25 01/22/25 09:58 15:16 10:05 Wound Center Nurse 2 #3 LT MED 5TH TOE -Time 09:58 10:05 -Correct Patient Yes Yes -Correct Side, Site, Position Yes No -Correct Procedure Yes No -Procedure Performed Yes No No -Type of Procedure Debridement -Clinical Debridement Subcutaneous -Tissue Removed Subcutaneous -Post Debridement (cm) - Length 0.2 0 -Post Debridement (cm) - Width 0.2 0 -Post Debridement (cm) - Depth 0.1 0 -Total Square (Post) (cm) 0.04 0 -Area of Debridement (cm) - Length 0.2 0 -Area of Debridement (cm) - Width 0.2 0 -Total Square (Area) (cm) 0.04 0 -Tunneling No -Undermining/Tunneling No -Circular Undermining No -Wound/Ulcer Outcome Not Healed Not Healed Healed- Epithelialized -Ulcer Cleansing Rinsed/ Irrigated with Saline -Foul Odor after Cleansing No -Bioengineered Tissue No -Bleeding Controlled with Pressure NA -Treatment Response Procedure Tolerated Well -Debridement - Subq, 1st 20sq cm Yes #2 RT 2ND TOE -Time 09:59 10:05 -Correct Patient Yes -Correct Side, Site, Position No -Correct Procedure No -Procedure Performed No No No -Post Debridement (cm) - Length 0.1 0 -Post Debridement (cm) - Width 0.1 0 -Post Debridement (cm) - Depth 0.1 0 -Total Square (Post) (cm) 0.01 0 -Area of Debridement (cm) - Length 0.1 0 -Area of Debridement (cm) - Width 0.1 0 -Total Square (Area) (cm) 0.01 0 -Tunneling No -Undermining/Tunneling No -Circular Undermining No -Wound/Ulcer Outcome Not Healed Not Healed Healed- Epithelialized -Bleeding Controlled with NA NA #4 L Dorsal -Time -Correct Patient -Correct Side, Site, Position -Correct Procedure -Procedure Performed -Type of Procedure -Clinical Debridement -Tissue Removed -Post Debridement (cm) - Length -Post Debridement (cm) - Width -Post Debridement (cm) - Depth -Total Square (Post) (cm) -Area of Debridement (cm) - Length -Area of Debridement (cm) - Width -Total Square (Area) (cm) -Tunneling -Undermining/Tunneling -Circular Undermining -Wound/Ulcer Outcome -Ulcer Cleansing -Foul Odor after Cleansing -Bioengineered Tissue -Bleeding Controlled with -Treatment Response -Debridement - Subq, 1st 20sq cm #1 RT GALEANA -Time 09:58 15:18 10:08 -Correct Patient Yes Yes Yes -Correct Side, Site, Position Yes Yes Yes -Correct Procedure Yes Yes Yes -Procedure Performed Yes Yes Yes -Type of Procedure Debridement Debridement Debridement -Clinical Debridement Subcutaneous Subcutaneous Muscle / Fascia -Tissue Removed Subcutaneous, Subcutaneous Muscle,Fascia Non-viable tissue -Post Debridement (cm) - Length 4.6 5.5 5.7 -Post Debridement (cm) - Width 4 4.8 5 -Post Debridement (cm) - Depth 0.1 0.2 0.4 -Total Square (Post) (cm) 18.4 26.40 28.5 -Area of Debridement (cm) - Length 4.6 5.5 5.7 -Area of Debridement (cm) - Width 4 4.8 5 -Total Square (Area) (cm) 18.4 26.40 28.5 -Tunneling No No No -Undermining/Tunneling No No No -Circular Undermining No No No -Wound/Ulcer Outcome Not Healed Not Healed Not Healed -Ulcer Cleansing Rinsed/ Rinsed/ Rinsed/ Irrigated with Irrigated with Irrigated with Saline Saline Saline -Foul Odor after Cleansing No No No -Bioengineered Tissue No No No -Injectable Lidocaine w/ Epi (%) 1 -Injectable Lidocaine w/ Epi (mls) 10 -Bleeding Controlled with Pressure Pressure Pressure -Treatment Response Procedure Procedure Procedure Tolerated Well Tolerated Well Tolerated Well -Offloading No -Debridement - Subq, 1st 20sq cm No Yes -Debridement, SubQ, ea addt'l 20sq cm 1 or part thereof -Debridement - Muscle / Fascia, 1st Yes 20sq cm -Debridement, Muscle/Fascia, ea addt'l 1 20sq cm or part thereof Pain Scale: 0-10 Numeric Is Patient Pain Free? Yes Yes Yes 01/29/25 13:40 Wound Center Nurse 2 #3 LT MED 5TH TOE -Time -Correct Patient -Correct Side, Site, Position -Correct Procedure -Procedure Performed -Type of Procedure -Clinical Debridement -Tissue Removed -Post Debridement (cm) - Length -Post Debridement (cm) - Width -Post Debridement (cm) - Depth -Total Square (Post) (cm) -Area of Debridement (cm) - Length -Area of Debridement (cm) - Width -Total Square (Area) (cm) -Tunneling -Undermining/Tunneling -Circular Undermining -Wound/Ulcer Outcome -Ulcer Cleansing -Foul Odor after Cleansing -Bioengineered Tissue -Bleeding Controlled with -Treatment Response -Debridement - Subq, 1st 20sq cm #2 RT 2ND TOE -Time -Correct Patient -Correct Side, Site, Position -Correct Procedure -Procedure Performed -Post Debridement (cm) - Length -Post Debridement (cm) - Width -Post Debridement (cm) - Depth -Total Square (Post) (cm) -Area of Debridement (cm) - Length -Area of Debridement (cm) - Width -Total Square (Area) (cm) -Tunneling -Undermining/Tunneling -Circular Undermining -Wound/Ulcer Outcome -Bleeding Controlled with #4 L Dorsal -Time 13:43 -Correct Patient Yes -Correct Side, Site, Position Yes -Correct Procedure Yes -Procedure Performed Yes -Type of Procedure Debridement -Clinical Debridement Subcutaneous -Tissue Removed Subcutaneous -Post Debridement (cm) - Length 0.3 -Post Debridement (cm) - Width 0.3 -Post Debridement (cm) - Depth 0.2 -Total Square (Post) (cm) 0.09 -Area of Debridement (cm) - Length 0.3 -Area of Debridement (cm) - Width 0.3 -Total Square (Area) (cm) 0.09 -Tunneling No -Undermining/Tunneling No -Circular Undermining No -Wound/Ulcer Outcome Not Healed -Ulcer Cleansing Rinsed/ Irrigated with Saline -Foul Odor after Cleansing No -Bioengineered Tissue No -Bleeding Controlled with Pressure -Treatment Response Procedure Tolerated Well -Debridement - Subq, 1st 20sq cm No #1 RT GALEANA -Time 13:41 -Correct Patient Yes -Correct Side, Site, Position Yes -Correct Procedure Yes -Procedure Performed Yes -Type of Procedure Debridement -Clinical Debridement Subcutaneous -Tissue Removed Subcutaneous -Post Debridement (cm) - Length 6.4 -Post Debridement (cm) - Width 5.8 -Post Debridement (cm) - Depth 0.3 -Total Square (Post) (cm) 37.12 -Area of Debridement (cm) - Length 6.4 -Area of Debridement (cm) - Width 5.8 -Total Square (Area) (cm) 37.12 -Tunneling No -Undermining/Tunneling No -Circular Undermining No -Wound/Ulcer Outcome Not Healed -Ulcer Cleansing Rinsed/ Irrigated with Saline -Foul Odor after Cleansing No -Bioengineered Tissue No -Injectable Lidocaine w/ Epi (%) -Injectable Lidocaine w/ Epi (mls) -Bleeding Controlled with Pressure -Treatment Response Procedure Tolerated Well -Offloading -Debridement - Subq, 1st 20sq cm Yes -Debridement, SubQ, ea addt'l 20sq cm 1 or part thereof -Debridement - Muscle / Fascia, 1st 20sq cm -Debridement, Muscle/Fascia, ea addt'l 20sq cm or part thereof Pain Scale: 0-10 Numeric Is Patient Pain Free? Yes WC - Nurse 3 - General Ulcer D/C NN Start: 01/15/25 09:39 Freq: Status: Active Protocol: Activity Type Activity Date Activity User E-sign Co-sign Detail Recorded Client Recorded Date Recorded By Document 01/15/25 10:32 KW [id number] 01/15/25 10:34 KW Document 01/20/25 15:28 ML [id number] 01/20/25 15:30 ML Document 01/22/25 10:40 DL [id number] 01/22/25 10:43 DL Document 01/29/25 14:03 DL [id number] 01/29/25 14:07 DL 01/15/25 01/20/25 01/22/25 10:32 15:28 10:40 Wound Care Center Nurse 3 #3 LT MED 5TH TOE -Other Dressing atb ointment with bandage #2 RT 2ND TOE -Other Dressing atb ointment bandage #4 L Dorsal -Ulcer Cleansing -Foul Odor after Cleansing -Other Dressing -Primary Dressing Covered/Secured with #1 RT GALEANA -Ulcer Cleansing Rinsed/ Rinsed/ Irrigated with Irrigated with Saline Saline -Foul Odor after Cleansing No No -Primary Dressing Applied AMD Dressing 4x4,C Hydrogel, Collagen Powder -Other Dressing santyl from pt pt brought own santyl -Primary Dressing Covered/Secured with Dry Gauze & Dry Gauze,Dry Dry Gauze & Roll Gauze, Gauze & Roll Roll Gauze, Secured with Gauze,Secured Secured with Tape with Tape Tape -AMD Dressing 4x4 3 -Collagen Powder 1 -Hydrogel 1 -Wound Comment(s) Dressing intructions given to . RLE -Tubular Bandage Double Layer Double Layer -Size of Tubigrip Used Size F Size F -Size F ($) 2 2 -Other tubigrip D LLE -Tubular Bandage Double Layer -Size of Tubigrip Used Size F -Size F ($) 2 -Other tubigrip d Treatment Response Procedure Tolerated Well Pain Scale: 0-10 Numeric Is Patient Pain Free? Yes Yes Yes WC - Visit Discharge Discharge Condition Stable Stable Ambulatory Status Ambulatory Ambulatory, Walker Transportation Private Auto Private Auto Accompanied by Medication Reconcilliation completed & No provided to patient/care provider Clinical Summary of Care Provided Yes 01/29/25 14:03 Wound Care Center Nurse 3 #3 LT MED 5TH TOE -Other Dressing #2 RT 2ND TOE -Other Dressing #4 L Dorsal -Ulcer Cleansing Rinsed/ Irrigated with Saline -Foul Odor after Cleansing No -Other Dressing nugel -Primary Dressing Covered/Secured with Dry Gauze, Secured with Tape #1 RT GALEANA -Ulcer Cleansing Rinsed/ Irrigated with Saline -Foul Odor after Cleansing No -Primary Dressing Applied -Other Dressing nugel/ moist gauze -Primary Dressing Covered/Secured with Dry Gauze & Roll Gauze, Secured with Tape -AMD Dressing 4x4 -Collagen Powder -Hydrogel -Wound Comment(s) Pt to resume Santyl at home to both wounds. Nugel used today. RLE -Tubular Bandage -Size of Tubigrip Used -Size F ($) -Other LLE -Tubular Bandage -Size of Tubigrip Used -Size F ($) -Other Treatment Response Procedure Tolerated Well Pain Scale: 0-10 Numeric Is Patient Pain Free? Yes WC - Visit Discharge Discharge Condition Stable Ambulatory Status Ambulatory, Walker Transportation Private Auto Accompanied by Medication Reconcilliation completed & provided to patient/care provider Clinical Summary of Care Provided Additional Wound Wound debrided: Dorsum of the left foot Laterality: Left Type of Debridement: Excisional debridement Anesthesia Used: 5% Lidocaine Gel Depth: Down to and including healthy tissue and in the subcutaneous layer Percentage of wound debrided: 100 Instrument Used: 3mm curette Tissue Removed: Bioburden and devitalized tissue Severity: Fat Layer Exposed Amount of bleeding with debridement: Mild Bleeding Controlled with: Compression and gauze Patient tolerated procedure: Patient tolerated procedure well Charges/Coding Procedures Integumentary [id number]: [id number] Anette subq tissue 20 sq cm/< Add On Codes: 35270 Anette subq tissue add-on Assessment/Plan Assessment/Plan (1) Non-pressure chronic ulcer 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: CODE(S): L97.212 - Non-pressure chronic ulcer 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 (2) Foot ulcer, left: CODE(S): L97.529 - Non-pressure chronic ulcer of other part of left foot with unspecified severity QUALIFIERS: Non-pressure ulcer stage: with fat layer exposed Qualified Code(s): L97.522 - Non-pressure chronic ulcer of other part of left foot with fat layer exposed (3) Venous insufficiency (chronic) (peripheral): CODE(S): I87.2 - Venous insufficiency (chronic) (peripheral) (4) Lipodermatosclerosis of both lower extremities: CODE(S): M79.3 - Panniculitis, unspecified (5) Bilateral edema of lower extremity: CODE(S): R60.0 - Localized edema (6) Lymphedema: CODE(S): I89.0 - Lymphedema, not elsewhere classified (7) MRSA (methicillin resistant staph aureus) culture positive: CODE(S): Z22.322 - Carrier or suspected carrier of Methicillin resistant Staphylococcus aureus PLAN: Plan This is a 80-year-old female for whom a courtesy visit was provided on behalf of her regular Wound Center provider, Dr. Alo Huston. The patient has a traumatic wound on the anterolateral aspect of her right calf. A large amount of necrotic and nonviable tissue is noted. A rim of circumferential erythema is noted. A culture obtained on January 21, 2025, was positive for methicillin-resistant Staph aureus and Corynebacterium amycolatum. Based upon sensitivity results, the patient has been placed on doxycycline 100 mg p.o. twice daily for a total of 10 days. She is also been prescribed mupirocin for intranasal application twice daily. She has been advised to shower daily with Hibiclens. These measures are to eliminate the possibility of harboring MRSA within the nasal cavity. The patient's recent vascular studies have been reviewed. A noninvasive lower extremity arterial study performed on January 13, 2025, revealed no evidence of significant arterial occlusive disease in the patient's lower extremities bilaterally. A venous duplex examination on January 13, 2025, revealed incompetence of the right great saphenous vein, accessory saphenous vein in the right proximal calf, incompetence of the left great saphenous vein, and incompetence of the accessory saphenous vein in the left proximal calf. The patient has recently been under the care of of Dr. Madhav Valdes, Vascular Surgeon, and a venous ablation procedure is scheduled for the right lower extremity in the near future. The patient is to use collagenase Santyl topically to the ulceration of the right lower extremity, and on the dorsum of her left foot. The collagenase Santyl is to be applied on a daily basis. The patient appears to understand the appropriate means of application. She indicates that she sleeps on a flat surface at night, and has been encouraged to continue doing so. She has been encouraged to elevate her lower extremities during daytime hours as well. This is to be implemented as much as possible. Elevation is to be to heart level, or higher. Prolonged idle sitting has been discouraged. Activity has been encouraged. The patient is to continue wearing her Tubigrips on a daily basis. She is to follow-up with Dr. Alo Huston next week. The patient is known to possess mechanical pneumatic compression pumps, and has been encouraged to use these several times daily. The patient is to continue under the care of Dr. Huston. Total time: 26 minutes Patient seen and evaluated Predebridement measurement: Medial left fifth digit healed Dorsal second digit PIPJ healed Anterior right lower extremity 5.6 cm x 4.9 cm x 0.4 cm. Debridement was performed today as noted in the clinical panel above. Postdebridement measurement: Medial left fifth digit healed Dorsal second digit PIPJ healed Anterior right lower extremity 5.7 cm x 5.0 cm x 0.4 cm She did see Dr. Villarreal as courtesy visit due to her fear of development of infection on 01/20/2025 and underwent debridement of her eschar site. She did undergo debridement of the site again today as noted in the clinical panel above. Postdebridement measurements listed above. Change was made to collagen powder, hydrogel, and PHMB foam dressing to the anterior aspect of the right lower extremity. She is instructed to change dressing daily. LEAS ordered 01/08/25 and she will follow-up with Dr. Valdes following completion of studies. Last visit with Dr. Valdes's office 01/08/2024. Venous studies demonstrate no evidence of DVT bilateral lower extremity. Bilateral great saphenous vein appears competent and compressible segmentally. Positive reflux in the great saphenous vein throughout in addition to the accessory saphenous vein in the calf, positive for reflux in the left common femoral vein, femoral vein, saphenofemoral junction, great saphenous vein throughout and accessory saphenous vein in the calf. LEAS demonstrate no evidence of arterial occlusive disease Santyl ordered for application to the right lower extremity ulcerative site. She did not receive Santyl until 01/14/2025. This was applied to the ulcerative site today and she was instructed on use. TheraSkin graft was applied for, awaiting approval for application. Discussed continuing to wear compression stocking and utilize lymphedema pumps to aid in decreasing the edema to the lower extremities. She is also to continue to elevate lower extremities at all times of rest to aid in maintaining edema control. Discussed signs and symptoms of infection. Discussed if she notices increasing redness around the ulcerative sites that moves up the leg or onto the foot, if any purulent drainage is noted from wound sites, if increasing foul odor is noted from wound sites, or if she begins to experience fever greater than 101 degree accompanied by nausea, vomiting, chills that these are signs of a progressing infection and she should report to the ED to receive IV antibiotics and for further evaluation. She is understanding of this today. The following work up and care recommendations were made: Dressing: Collagen powder, hydrogel, and PHMB foam dressing to the anterior aspect of the right lower extremity. Change daily. Wash: Soap and water Tissue growth optimization: Collagen powder and hydrogel Offload: Ensure no rubbing of the digits in shoe gear and to wear toe spacers. Vascular: Updating LEAS, awaiting results. Does have previous venous studies from October 2023 demonstrating positive reflux in great saphenous vein throughout and small saphenous vein throughout and accessory saphenous veins of bilateral lower extremities Edema: Lipodermatosclerosis. Will continue compression stockings and lymphedema pumps. Infection: No signs of infection Pain: May take [id number] Tylenol for any discomfort Host factors: Lipodermatosclerosis, advancing age, PVD complicate healing. I answered all the patient's questions. To return to the wound healing center in [address] Villarreal as courtesy visit or call sooner if the patient has any questions or concerns.
[2025-02-05 09:39] VITALS: BP 181/73; PULSE 65; RESP 16; TEMP 35.9
--- NOTE | 2025-02-05 09:42 | PCM.WC.PN ---
History of Present Illness Date of Service: 02/05/25 Chief Complaint: Right lower extremity ulceration History of Wound: This is a 80-year-old female who is a patient of Dr. Alo Huston, Harbor Department Manager, at the [facility]. She was seen today on behalf of Dr. Huston as a courtesy visit. The patient has an ulceration on the anterolateral aspect right calf. The wound originated in early November 2024 as a result of a toenail scratch from her grandson. She stated that she was noticing increasing redness about the wound, as well as an increase in pain at the site. The patient has been using collagenase Santyl topically, but recently switched to collagen powder, hydrogel, and a PHMB foam dressing daily. The patient has a history of chronic venous insufficiency in the lower extremities bilaterally. She also has a history of edema and lipodermatosclerosis of bilateral lower extremities. She has followed with Dr. Valdes with last visit in December 2023. She does see podiatry in [place], Dr. Damon. She reports having compression stockings, but was not wearing any on the right leg as she was having pain with the compression. She also does have lymphedema pumps but is not utilizing these due to the pain in the extremities. Subjective Subjective 80-year-old female returns to the wound care center for continued care of right lower extremity ulceration. She did see Dr. Villarreal as courtesy visit last week and was started on oral doxycycline following positive culture result of MRSA. She does report localized redness around the wound margin had improved while on oral Doxy but did report to ED over the weekend due to concerns over the odor of the wound. She states she is continuing to take the oral medication. Also reports new ulceration to the dorsal lateral left foot. Denies constitutional symptoms. Denies further complaints. Objective Data Objective Data Vital Signs: Vital Signs Temp Pulse Resp BP O2 Del Method 97.7 F L 80 18 142/67 H Room Air 01/29/25 13:23 01/29/25 13:23 01/29/25 13:23 01/29/25 13:23 01/22/25 09:39 Oxygen Delivery Method Room Air Lab / Micro Data Micro: Microbiology 01/21/25 13:01 Wound Abcess - Leg, Right Gram Stain - Final 01/21/25 13:01 Wound Abcess - Leg, Right Wound Culture - Final Meth. resistant Staph. aureus Corynebacterium amycolatum 01/21/25 13:01 Wound Abcess - Leg, Right Anaerobic Culture - Final No anaerobic bacteria isolated. Physical Exam Const alert, oriented x3 and no apparent distress General Appearance: cooperative HEENT normocephalic Eyes General Eye: normal appearance of both eyes Neck General: normal visual inspection Lymph Lymphatic: no lymphadenopathy noted and no lymphedema noted Resp normal respiratory effort Cardio regular rate and regular rhythm Extremity no calf tenderness Extremity Narrative: Bilateral lower extremity: Vascular: DP pulse palpable left foot, weakly palpable right foot. PT pulse nonpalpable bilateral secondary to +4 pitting edema. Normal temperature gradient. Hair growth is absent to digits. There is +4 pitting edema of bilateral lower extremity. Neurologic: Epicritic sensation intact without focal deficit noted. Musculoskeletal: Muscle strength 5 of 5 age-appropriate. Decreased range of motion of the ankle joint in dorsiflexion with the knee extended without pain or crepitus. Full range of motion with knee flexed. No pain to palpation of the calf. No pain to palpation about second digit ulceration right foot or fifth digit ulceration of the left foot. There is some tenderness about the ulcerative site of the right lower extremity. Dermatologic: There are multiple areas of hemosiderin deposition secondary to her chronic venous insufficiency. There is lipodermatosclerosis noted to bilateral lower extremities. Positive Stemmer sign second digit bilateral. There is a full-thickness ulceration noted to the medial aspect of the fifth digit of the left foot near the base of the digit has healed. Healthy granular layer is noted with no signs of infection. There is a full-thickness ulceration noted to the dorsal aspect of the second digit right foot overlying the IPJ secondary to hammertoe deformity, which has healed. New ulceration to the dorsal lateral aspect of the left foot which demonstrates eschar and red granular layer with no signs of infection. There is an ulceration noted to the anterior aspect of the right lower extremity with eschar covering about the rimwith localized rubor about the ulcerative rim and eschar and fibrous tissue in the wound bed. No erythema, no purulent drainage, no palpable fluctuance/bogginess, no visible abscess. No signs of infection to the right lower extremity ulcerative site. Skin no rashes or lesions noted General Skin Exam: venous stasis and dermatitis Neuro moves all extremities Debridement Note Debridement Note Wound debrided: Right lower extremity Wound Grade/Stage: Peck stage I Type of Debridement: Excisional debridement Anesthesia Used: 5% Lidocaine Gel and - (10 cc 1% lidocaine plain) Depth: Down to and including healthy tissue and in the subcutaneous layer Percentage of wound debrided: 100 Instrument Used: 7mm curette, #15 blade and Forceps Tissue Removed: Eschar, fibrous, devitalized subcutaneous, biofilm, slough Severity: Fat Layer Exposed Amount of bleeding with debridement: Mild Bleeding Controlled with: Compression and gauze Patient tolerated procedure: Patient tolerated procedure well Post-Debridement Measurements and Additional Note: Post-Debridement Measurements/Treatment - Nurse 1 - General Ulcer Assessment Start: 01/15/25 09:39 Freq: Status: Active Protocol: SKYLER Activity Type Activity Date Activity User E-sign Co-sign Detail Recorded Client Recorded Date Recorded By Document 01/15/25 09:40 DL [id number] 01/15/25 09:50 DL Document 01/20/25 14:45 KW [id number] 01/20/25 14:54 KW Document 01/22/25 09:39 KW [id number] 01/22/25 09:55 KW Document 01/29/25 13:23 DL [id number] 01/29/25 13:30 DL 01/15/25 01/20/25 01/22/25 09:40 14:45 09:39 - Today's Visit Information Type of service Follow-up Visit Follow-up Visit Follow-up Visit (Physician/STENCIL MAKER (Physician/STENCIL MAKER (Physician/STENCIL MAKER ) ) ) Arrival Mode Ambulatory, Ambulatory Ambulatory, Walker Walker Transfer Assistance None Accompanied by Patient Identification Verified (Name & Yes Yes ) Patient Requires Transmission-Based No Precautions Vital Signs Temperature (97.8 F-99.1 F) 96.5 F L 96.4 F L Temperature Source Temporal Temporal Pulse Rate (60-100) 68 61 Pulse Location Monitor Monitor Respiratory Rate (12-18) 18 18 Respiratory rate source Observation Observation Oxygen Delivery Method Room Air Blood Pressure (90/60-120/80) 142/85 H 142/51 H Blood Pressure Mean (mm Hg) 104 81 Source Monitor Monitor Position Semi-Fowlers Blood Pressure Location Right Arm History Since Last Visit- (Skip if this is Patient's initial visit) Have you changed medications since your No No No last visit? Any new allergies or adverse reactions No No No Had a fall/change in ADL's that may No No No increase risk of falls Signs or symptoms of abuse and/or No No No neglect since last visit Have you been in the hospital since your No No last visit? Has dressing in place as prescribed Yes Yes Yes Has compression in place as prescribed Yes N/A Yes Has offloadiing in place as prescribed Yes N/A N/A Experienced any changes in pain level or No No No management Left Footwear Regular Shoe Right Footwear Regular Shoe Pain Scale: 0-10 Numeric Is Patient Pain Free? Yes Yes Yes 01/29/25 13:23 - Today's Visit Information Type of service Follow-up Visit (Physician/STENCIL MAKER ) Arrival Mode Ambulatory, Walker Transfer Assistance None Accompanied by Patient Identification Verified (Name & Yes ) Patient Requires Transmission-Based No Precautions Vital Signs Temperature (97.8 F-99.1 F) 97.7 F L Temperature Source Temporal Pulse Rate (60-100) 80 Pulse Location Monitor Respiratory Rate (12-18) 18 Respiratory rate source Observation Oxygen Delivery Method Blood Pressure (90/60-120/80) 142/67 H Blood Pressure Mean (mm Hg) 92 Source Monitor Position Blood Pressure Location History Since Last Visit- (Skip if this is Patient's initial visit) Have you changed medications since your No last visit? Any new allergies or adverse reactions No Had a fall/change in ADL's that may No increase risk of falls Signs or symptoms of abuse and/or No neglect since last visit Have you been in the hospital since your No last visit? Has dressing in place as prescribed Yes Has compression in place as prescribed Yes Has offloadiing in place as prescribed N/A Experienced any changes in pain level or No management Left Footwear Right Footwear Pain Scale: 0-10 Numeric Is Patient Pain Free? Yes - Nurse 1 - General Ulcer Measurement Start: 01/15/25 09:39 Freq: Status: Active Protocol: Activity Type Activity Date Activity User E-sign Co-sign Detail Recorded Client Recorded Date Recorded By Document 01/15/25 09:40 DL [id number] 01/15/25 09:50 DL Document 01/20/25 14:45 KW [id number] 01/20/25 14:54 KW Document 01/22/25 09:39 KW [id number] 01/22/25 09:55 KW Document 01/29/25 13:23 DL [id number] 01/29/25 13:30 DL 01/15/25 01/20/25 01/22/25 09:40 14:45 09:39 Wound Center Nurse 1 #3 LT MED 5TH TOE -Current Size (cm) - Length 0.2 0.1 -Current Size (cm) - Width 0.2 0.1 -Current Size (cm) - Depth 0.1 0.1 -Total Square Cm 0.04 0.01 -Exudate Amt Small None Present -Wound Margin Distinct, Distinct, Outline Outline Attached Attached -Granulation Amt Small (1-33%) None Present (0 %) -Granulation Quality [place] -Slough/Fibrin Yes -Necrosis Amt Small (1-33%) None Present (0 %) -Necrotic Tissue Type Adherent Slough Adherent Slough -Structure Exposed N/A -Texture (Mil[place]-wound Skin Appearance) Scarring Assessed -Moisture ([place]-wound Skin Appearance) Maceration Assessed -Color ([place]-wound Skin Appearance) Hemosiderin Assessed Staining -Temperature ([place]-wound Skin No Abnormality Hot No Abnormality Appearance) (Pt Warm) (Pt Warm) -Tenderness on Palpation ([place]-wound Yes No Skin Appearance) -Ulcer Cleansing Rinsed/ Soap and Water Soap and Water Irrigated with Saline -Foul Odor after Cleansing No No No -Anesthetic Used 5% Lidocaine 5% Lidocaine 4% Lidocaine Gel Gel Solution #2 RT 2ND TOE -Current Size (cm) - Length 0.1 0.1 -Current Size (cm) - Width 0.1 0.1 -Current Size (cm) - Depth 0.1 0.1 -Total Square Cm 0.01 0.01 -Exudate Amt None Present None Present -Wound Margin Flat & Intact -Granulation Amt Small (1-33%) None Present (0 %) -Granulation Quality [place] -Slough/Fibrin No -Necrosis Amt None Present (0 None Present (0 %) %) -Structure Exposed N/A -Texture ([place]-wound Skin Appearance) Localized Edema Assessed ,Scarring -Moisture ([place]-wound Skin Appearance) Assessed -Color ([place]-wound Skin Appearance) Hemosiderin Assessed Staining -Temperature ([place]-wound Skin No Abnormality No Abnormality Appearance) (Pt Warm) (Pt Warm) -Tenderness on Palpation ([place]-wound No No Skin Appearance) -Ulcer Cleansing Rinsed/ Irrigated with Saline -Foul Odor after Cleansing No No -Anesthetic Used 5% Lidocaine Gel #4 L Dorsal -Current Size (cm) - Length -Current Size (cm) - Width -Current Size (cm) - Depth -Total Square Cm -Photo Taken -Exudate Amt -Exudate Type -Wound Margin -Granulation Amt -Granulation Quality -Necrosis Amt -Necrotic Tissue Type -Structure Exposed -Texture ([place]-wound Skin Appearance) -Moisture ([place]-wound Skin Appearance) -Color ([place]-wound Skin Appearance) -Temperature ([place]-wound Skin Appearance) -Ulcer Cleansing -Foul Odor after Cleansing -Anesthetic Used #1 RT GALEANA -Current Size (cm) - Length 4.1 5.2 5 -Current Size (cm) - Width 4.1 4.5 5 -Current Size (cm) - Depth 0.1 0.1 0.2 -Total Square Cm 16.81 23.40 25 -Date of Last Picture (Recall this 01/22/25 field) -Photo Taken -Exudate Amt None Present Large Medium -Exudate Type Yellow/Green Serosanguineous -Wound Margin Thickened Distinct, Distinct, Outline Outline Attached Attached -Granulation Amt None Present (0 Small (1-33%) %) -Granulation Quality Red -Slough/Fibrin Yes -Necrosis Amt Large (67-100%) Medium (34-66%) Large (67-100%) -Necrotic Tissue Type Eschar Eschar Adherent Slough -Structure Exposed N/A -Texture ([place]-wound Skin Appearance) Localized Edema Assessed Assessed ,Scarring -Moisture ([place]-wound Skin Appearance) No Abnormality Assessed Assessed -Color ([place]-wound Skin Appearance) Hemosiderin Assessed Assessed, Staining Erythema, Hemosiderin Staining -Temperature ([place]-wound Skin No Abnormality Hot No Abnormality Appearance) (Pt Warm) (Pt Warm) -Tenderness on Palpation ([place]-wound Yes No Skin Appearance) -Ulcer Cleansing Rinsed/ Soap and Water Soap and Water Irrigated with Saline -Foul Odor after Cleansing No No -Anesthetic Used 5% Lidocaine 5% Lidocaine 4% Lidocaine Gel Gel Solution Right Calf (cm) 42 38.2 38 Right Ankle (cm) 25.5 25.5 24.5 Right Foot (cm) 41.5 Point of Measurement (cm from the distal point) Left Calf (cm) 25 Point of measurement (cm from the medial instep) 01/29/25 13:23 Wound Center Nurse 1 #3 LT MED 5TH TOE -Current Size (cm) - Length -Current Size (cm) - Width -Current Size (cm) - Depth -Total Square Cm -Exudate Amt -Wound Margin -Granulation Amt -Granulation Quality -Slough/Fibrin -Necrosis Amt -Necrotic Tissue Type -Structure Exposed -Texture ([place]-wound Skin Appearance) -Moisture ([place]-wound Skin Appearance) -Color ([place]-wound Skin Appearance) -Temperature ([place]-wound Skin Appearance) -Tenderness on Palpation ([place]-wound Skin Appearance) -Ulcer Cleansing -Foul Odor after Cleansing -Anesthetic Used #2 RT 2ND TOE -Current Size (cm) - Length -Current Size (cm) - Width -Current Size (cm) - Depth -Total Square Cm -Exudate Amt -Wound Margin -Granulation Amt -Granulation Quality -Slough/Fibrin -Necrosis Amt -Structure Exposed -Texture ([place]-wound Skin Appearance) -Moisture ([place]-wound Skin Appearance) -Color ([place]-wound Skin Appearance) -Temperature ([place]-wound Skin Appearance) -Tenderness on Palpation ([place]ro-wound Skin Appearance) -Ulcer Cleansing -Foul Odor after Cleansing -Anesthetic Used #4 L Dorsal -Current Size (cm) - Length 0.3 -Current Size (cm) - Width 0.3 -Current Size (cm) - Depth 0.2 -Total Square Cm 0.09 -Photo Taken Yes -Exudate Amt Small -Exudate Type Serosanguineous -Wound Margin Distinct, Outline Attached -Granulation Amt Small (1-33%) -Granulation Quality [place] -Necrosis Amt Small (1-33%) -Necrotic Tissue Type Adherent Slough -Structure Exposed N/A -Texture ([place]-wound Skin Appearance) Localized Edema ,Scarring -Moisture ([place]-wound Skin Appearance) No Abnormality -Color ([place]-wound Skin Appearance) Hemosiderin Staining -Temperature ([place]-wound Skin No Abnormality Appearance) (Pt Warm) -Ulcer Cleansing Soap and Water -Foul Odor after Cleansing No -Anesthetic Used 5% Lidocaine Gel #1 RT GALEANA -Current Size (cm) - Length 6.4 -Current Size (cm) - Width 5.8 -Current Size (cm) - Depth 0.3 -Total Square Cm 37.12 -Date of Last Picture (Recall this field) -Photo Taken Yes -Exudate Amt Medium -Exudate Type Serosanguineous -Wound Margin Distinct, Outline Attached -Granulation Amt None Present (0 %) -Granulation Quality -Slough/Fibrin -Necrosis Amt Large (67-100%) -Necrotic Tissue Type Adherent Slough -Structure Exposed N/A -Texture ([place]-wound Skin Appearance) Localized Edema ,Scarring -Moisture ([place]-wound Skin Appearance) No Abnormality -Color ([place]-wound Skin Appearance) Hemosiderin Staining -Temperature ([place]-wound Skin No Abnormality Appearance) (Pt Warm) -Tenderness on Palpation ([place]-wound No Skin Appearance) -Ulcer Cleansing Soap and Water -Foul Odor after Cleansing No -Anesthetic Used 4% Lidocaine Solution Right Calf (cm) 41.6 Right Ankle (cm) 25 Right Foot (cm) Point of Measurement (cm from the distal 45.2 point) Left Calf (cm) Point of measurement (cm from the medial 25.8 instep) WC - Nurse 2 - General Ulcer CM Notes Start: 01/15/25 09:39 Freq: Status: Active Protocol: Activity Type Activity Date Activity User E-sign Co-sign Detail Recorded Client Recorded Date Recorded By Document 01/15/25 09:58 [facility] [id number] 01/15/25 10:09 [facility] Document 01/20/25 15:16 [id number] 01/20/25 15:19 Document 01/22/25 10:05 [facility] [id number] 01/22/25 10:25 [facility] Edit Result 01/22/25 10:05 [facility] (1) [id number] 01/28/25 07:33 [facility] Document 01/29/25 13:40 [facility] [id number] 01/29/25 13:50 BM (1) #1 RT GALEANA - Debridement, Muscle/Fascia, ea addt'l => 1 20sq cm or part thereof 01/15/25 01/20/25 01/22/25 09:58 15:16 10:05 Wound Center Nurse 2 #3 LT MED 5TH TOE -Time 09:58 10:05 -Correct Patient Yes Yes -Correct Side, Site, Position Yes No -Correct Procedure Yes No -Procedure Performed Yes No No -Type of Procedure Debridement -Clinical Debridement Subcutaneous -Tissue Removed Subcutaneous -Post Debridement (cm) - Length 0.2 0 -Post Debridement (cm) - Width 0.2 0 -Post Debridement (cm) - Depth 0.1 0 -Total Square (Post) (cm) 0.04 0 -Area of Debridement (cm) - Length 0.2 0 -Area of Debridement (cm) - Width 0.2 0 -Total Square (Area) (cm) 0.04 0 -Tunneling No -Undermining/Tunneling No -Circular Undermining No -Wound/Ulcer Outcome Not Healed Not Healed Healed- Epithelialized -Ulcer Cleansing Rinsed/ Irrigated with Saline -Foul Odor after Cleansing No -Bioengineered Tissue No -Bleeding Controlled with Pressure NA -Treatment Response Procedure Tolerated Well -Debridement - Subq, 1st 20sq cm Yes #2 RT 2ND TOE -Time 09:59 10:05 -Correct Patient Yes -Correct Side, Site, Position No -Correct Procedure No -Procedure Performed No No No -Post Debridement (cm) - Length 0.1 0 -Post Debridement (cm) - Width 0.1 0 -Post Debridement (cm) - Depth 0.1 0 -Total Square (Post) (cm) 0.01 0 -Area of Debridement (cm) - Length 0.1 0 -Area of Debridement (cm) - Width 0.1 0 -Total Square (Area) (cm) 0.01 0 -Tunneling No -Undermining/Tunneling No -Circular Undermining No -Wound/Ulcer Outcome Not Healed Not Healed Healed- Epithelialized -Bleeding Controlled with NA NA #4 L Dorsal -Time -Correct Patient -Correct Side, Site, Position -Correct Procedure -Procedure Performed -Type of Procedure -Clinical Debridement -Tissue Removed -Post Debridement (cm) - Length -Post Debridement (cm) - Width -Post Debridement (cm) - Depth -Total Square (Post) (cm) -Area of Debridement (cm) - Length -Area of Debridement (cm) - Width -Total Square (Area) (cm) -Tunneling -Undermining/Tunneling -Circular Undermining -Wound/Ulcer Outcome -Ulcer Cleansing -Foul Odor after Cleansing -Bioengineered Tissue -Bleeding Controlled with -Treatment Response -Debridement - Subq, 1st 20sq cm #1 RT GALEANA -Time 09:58 15:18 10:08 -Correct Patient Yes Yes Yes -Correct Side, Site, Position Yes Yes Yes -Correct Procedure Yes Yes Yes -Procedure Performed Yes Yes Yes -Type of Procedure Debridement Debridement Debridement -Clinical Debridement Subcutaneous Subcutaneous Muscle / Fascia -Tissue Removed Subcutaneous, Subcutaneous Muscle,Fascia Non-viable tissue -Post Debridement (cm) - Length 4.6 5.5 5.7 -Post Debridement (cm) - Width 4 4.8 5 -Post Debridement (cm) - Depth 0.1 0.2 0.4 -Total Square (Post) (cm) 18.4 26.40 28.5 -Area of Debridement (cm) - Length 4.6 5.5 5.7 -Area of Debridement (cm) - Width 4 4.8 5 -Total Square (Area) (cm) 18.4 26.40 28.5 -Tunneling No No No -Undermining/Tunneling No No No -Circular Undermining No No No -Wound/Ulcer Outcome Not Healed Not Healed Not Healed -Ulcer Cleansing Rinsed/ Rinsed/ Rinsed/ Irrigated with Irrigated with Irrigated with Saline Saline Saline -Foul Odor after Cleansing No No No -Bioengineered Tissue No No No -Injectable Lidocaine w/ Epi (%) 1 -Injectable Lidocaine w/ Epi (mls) 10 -Bleeding Controlled with Pressure Pressure Pressure -Treatment Response Procedure Procedure Procedure Tolerated Well Tolerated Well Tolerated Well -Offloading No -Debridement - Subq, 1st 20sq cm No Yes -Debridement, SubQ, ea addt'l 20sq cm 1 or part thereof -Debridement - Muscle / Fascia, 1st Yes 20sq cm -Debridement, Muscle/Fascia, ea addt'l 1 20sq cm or part thereof Pain Scale: 0-10 Numeric Is Patient Pain Free? Yes Yes Yes 01/29/25 13:40 Wound Center Nurse 2 #3 LT MED 5TH TOE -Time -Correct Patient -Correct Side, Site, Position -Correct Procedure -Procedure Performed -Type of Procedure -Clinical Debridement -Tissue Removed -Post Debridement (cm) - Length -Post Debridement (cm) - Width -Post Debridement (cm) - Depth -Total Square (Post) (cm) -Area of Debridement (cm) - Length -Area of Debridement (cm) - Width -Total Square (Area) (cm) -Tunneling -Undermining/Tunneling -Circular Undermining -Wound/Ulcer Outcome -Ulcer Cleansing -Foul Odor after Cleansing -Bioengineered Tissue -Bleeding Controlled with -Treatment Response -Debridement - Subq, 1st 20sq cm #2 RT 2ND TOE -Time -Correct Patient -Correct Side, Site, Position -Correct Procedure -Procedure Performed -Post Debridement (cm) - Length -Post Debridement (cm) - Width -Post Debridement (cm) - Depth -Total Square (Post) (cm) -Area of Debridement (cm) - Length -Area of Debridement (cm) - Width -Total Square (Area) (cm) -Tunneling -Undermining/Tunneling -Circular Undermining -Wound/Ulcer Outcome -Bleeding Controlled with #4 L Dorsal -Time 13:43 -Correct Patient Yes -Correct Side, Site, Position Yes -Correct Procedure Yes -Procedure Performed Yes -Type of Procedure Debridement -Clinical Debridement Subcutaneous -Tissue Removed Subcutaneous -Post Debridement (cm) - Length 0.3 -Post Debridement (cm) - Width 0.3 -Post Debridement (cm) - Depth 0.2 -Total Square (Post) (cm) 0.09 -Area of Debridement (cm) - Length 0.3 -Area of Debridement (cm) - Width 0.3 -Total Square (Area) (cm) 0.09 -Tunneling No -Undermining/Tunneling No -Circular Undermining No -Wound/Ulcer Outcome Not Healed -Ulcer Cleansing Rinsed/ Irrigated with Saline -Foul Odor after Cleansing No -Bioengineered Tissue No -Bleeding Controlled with Pressure -Treatment Response Procedure Tolerated Well -Debridement - Subq, 1st 20sq cm No #1 RT GALEANA -Time 13:41 -Correct Patient Yes -Correct Side, Site, Position Yes -Correct Procedure Yes -Procedure Performed Yes -Type of Procedure Debridement -Clinical Debridement Subcutaneous -Tissue Removed Subcutaneous -Post Debridement (cm) - Length 6.4 -Post Debridement (cm) - Width 5.8 -Post Debridement (cm) - Depth 0.3 -Total Square (Post) (cm) 37.12 -Area of Debridement (cm) - Length 6.4 -Area of Debridement (cm) - Width 5.8 -Total Square (Area) (cm) 37.12 -Tunneling No -Undermining/Tunneling No -Circular Undermining No -Wound/Ulcer Outcome Not Healed -Ulcer Cleansing Rinsed/ Irrigated with Saline -Foul Odor after Cleansing No -Bioengineered Tissue No -Injectable Lidocaine w/ Epi (%) -Injectable Lidocaine w/ Epi (mls) -Bleeding Controlled with Pressure -Treatment Response Procedure Tolerated Well -Offloading -Debridement - Subq, 1st 20sq cm Yes -Debridement, SubQ, ea addt'l 20sq cm 1 or part thereof -Debridement - Muscle / Fascia, 1st 20sq cm -Debridement, Muscle/Fascia, ea addt'l 20sq cm or part thereof Pain Scale: 0-10 Numeric Is Patient Pain Free? Yes WC - Nurse 3 - General Ulcer D/C NN Start: 01/15/25 09:39 Freq: Status: Active Protocol: Activity Type Activity Date Activity User E-sign Co-sign Detail Recorded Client Recorded Date Recorded By Document 01/15/25 10:32 KW [id number] 01/15/25 10:34 KW Document 01/20/25 15:28 ML [id number] 01/20/25 15:30 ML Document 01/22/25 10:40 DL [id number] 01/22/25 10:43 DL Document 01/29/25 14:03 DL [id number] 01/29/25 14:07 DL 01/15/25 01/20/25 01/22/25 10:32 15:28 10:40 Wound Care Center Nurse 3 #3 LT MED 5TH TOE -Other Dressing atb ointment with bandage #2 RT 2ND TOE -Other Dressing atb ointment bandage #4 L Dorsal -Ulcer Cleansing -Foul Odor after Cleansing -Other Dressing -Primary Dressing Covered/Secured with #1 RT GALEANA -Ulcer Cleansing Rinsed/ Rinsed/ Irrigated with Irrigated with Saline Saline -Foul Odor after Cleansing No No -Primary Dressing Applied AMD Dressing 4x4,C Hydrogel, Collagen Powder -Other Dressing santyl from pt pt brought own santyl -Primary Dressing Covered/Secured with Dry Gauze & Dry Gauze,Dry Dry Gauze & Roll Gauze, Gauze & Roll Roll Gauze, Secured with Gauze,Secured Secured with Tape with Tape Tape -AMD Dressing 4x4 3 -Collagen Powder 1 -Hydrogel 1 -Wound Comment(s) Dressing intructions given to . RLE -Tubular Bandage Double Layer Double Layer -Size of Tubigrip Used Size F Size F -Size F ($) 2 2 -Other tubigrip D LLE -Tubular Bandage Double Layer -Size of Tubigrip Used Size F -Size F ($) 2 -Other tubigrip d Treatment Response Procedure Tolerated Well Pain Scale: 0-10 Numeric Is Patient Pain Free? Yes Yes Yes WC - Visit Discharge Discharge Condition Stable Stable Ambulatory Status Ambulatory Ambulatory, Walker Transportation Private Auto Private Auto Accompanied by Medication Reconcilliation completed & No provided to patient/care provider Clinical Summary of Care Provided Yes 01/29/25 14:03 [facility] Nurse 3 #3 LT MED 5TH TOE -Other Dressing #2 RT 2ND TOE -Other Dressing #4 L Dorsal -Ulcer Cleansing Rinsed/ Irrigated with Saline -Foul Odor after Cleansing No -Other Dressing nugel -Primary Dressing Covered/Secured with Dry Gauze, Secured with Tape #1 RT GALEANA -Ulcer Cleansing Rinsed/ Irrigated with Saline -Foul Odor after Cleansing No -Primary Dressing Applied -Other Dressing nugel/ moist gauze -Primary Dressing Covered/Secured with Dry Gauze & Roll Gauze, Secured with Tape -AMD Dressing 4x4 -Collagen Powder -Hydrogel -Wound Comment(s) Pt to resume Santyl at home to both wounds. Nugel used today. RLE -Tubular Bandage -Size of Tubigrip Used -Size F ($) -Other LLE -Tubular Bandage -Size of Tubigrip Used -Size F ($) -Other Treatment Response Procedure Tolerated Well Pain Scale: 0-10 Numeric Is Patient Pain Free? Yes WC - Visit Discharge Discharge Condition Stable Ambulatory Status Ambulatory, Walker Transportation Private Auto Accompanied by Medication Reconcilliation completed & provided to patient/care provider Clinical Summary of Care Provided Additional Wound Wound debrided: Left dorsal lateral foot Laterality: Left Wound Grade/Stage: Peck stage I Type of Debridement: Excisional debridement Anesthesia Used: 5% Lidocaine Gel Depth: Down to and including healthy tissue and in the subcutaneous layer Instrument Used: 5mm curette Tissue Removed: Eschar, fibrous, devitalized subcutaneous, biofilm, slough Severity: Fat Layer Exposed Amount of bleeding with debridement: Mild Bleeding Controlled with: Compression and gauze Patient tolerated procedure: Patient tolerated procedure well Assessment/Plan Assessment/Plan (1) Non-pressure chronic ulcer 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: CODE(S): L97.212 - Non-pressure chronic ulcer 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 (2) Non-pressure chronic ulcer of other part of right foot with fat layer exposed: CODE(S): L97.512 - Non-pressure chronic ulcer of other part of right foot with fat layer exposed (3) Non-pressure chronic ulcer of other part of left foot with fat layer exposed: CODE(S): L97.522 - Non-pressure chronic ulcer of other part of left foot with fat layer exposed (4) Lipodermatosclerosis of both lower extremities: CODE(S): M79.3 - Panniculitis, unspecified (5) Lymphedema: CODE(S): I89.0 - Lymphedema, not elsewhere classified (6) Bilateral edema of lower extremity: CODE(S): R60.0 - Localized edema (7) Venous insufficiency (chronic) (peripheral): CODE(S): I87.2 - Venous insufficiency (chronic) (peripheral) PLAN: Plan Patient seen and evaluated Predebridement measurement: Medial left fifth digit healed Dorsal second digit PIPJ healed Left dorsal lateral foot 1.4 cm x 1.4 cm x 0.1 cm Anterior right lower extremity 7.8 cm x 6.1 cm x 0.3 cm. Debridement was performed today as noted in the clinical panel above. Postdebridement measurement: Medial left fifth digit healed Dorsal second digit PIPJ healed Left dorsal lateral foot 1.5 cm x 1.5 cm x 0.1 cm Anterior right lower extremity 7.9 cm x 6.2 cm x 0.3 cm She did see Dr. Villarreal as courtesy visit last week. She also did report to ED on 02/01/25 and continues Doxycycline to the site. She was instructed to return to [facility] by Dr. Villarreal. She reports she has 2 days left of oral doxycycline. I will extend doxycycline 100 mg twice daily for an additional 14 days. (Stop date 02/21/2025) She did undergo debridement of the site again today as noted in the clinical panel above. Postdebridement measurements listed above. She will continue with Santyl to the right lower extremity and the left foot. She states this should come by mail today. Until this can be applied later this afternoon triple antibiotic ointment was applied to both sites and dressed with dry sterile dressing. She will continue Tubigrip compression. LEAS ordered 01/08/25 and she will follow-up with Dr. Valdes following completion of studies. Last visit with Dr. Valdes's office 01/08/2024. Venous studies demonstrate no evidence of DVT bilateral lower extremity. Bilateral great saphenous vein appears competent and compressible segmentally. Positive reflux in the great saphenous vein throughout in addition to the accessory saphenous vein in the calf, positive for reflux in the left common femoral vein, femoral vein, saphenofemoral junction, great saphenous vein throughout and accessory saphenous vein in the calf. LEAS demonstrate no evidence of arterial occlusive disease Santyl ordered for application to the right lower extremity ulcerative site. She did not receive Santyl until 01/14/2025. New tube should arrive today. TheraSkin graft was applied for, awaiting approval for application. Discussed continuing to wear compression stocking and utilize lymphedema pumps to aid in decreasing the edema to the lower extremities. She is also to continue to elevate lower extremities at all times of rest to aid in maintaining edema control. Discussed signs and symptoms of infection. Discussed if she notices increasing redness around the ulcerative sites that moves up the leg or onto the foot, if any purulent drainage is noted from wound sites, if increasing foul odor is noted from wound sites, or if she begins to experience fever greater than 101 degree accompanied by nausea, vomiting, chills that these are signs of a progressing infection and she should report to the ED to receive IV antibiotics and for further evaluation. She is understanding of this today. The following work up and care recommendations were made: Dressing: Santyl wet-to-dry dressing to right lower extremity and left foot. Change daily Wash: Soap and water Tissue growth optimization: Santyl Offload: Ensure no rubbing of the digits in shoe gear and to wear toe spacers. Vascular: Updating LEAS, awaiting results. Does have previous venous studies from October 2023 demonstrating positive reflux in great saphenous vein throughout and small saphenous vein throughout and accessory saphenous veins of bilateral lower extremities Edema: Lipodermatosclerosis. Will continue compression stockings and lymphedema pumps. Infection: No signs of infection Pain: May take [id number] Tylenol for any discomfort Host factors: Lipodermatosclerosis, advancing age, PVD complicate healing. I answered all the patient's questions. To return to the wound healing center in 1 week or call sooner if the patient has any questions or concerns.
--- NOTE | 2025-02-06 12:15 | WC ---
PHOTO 02/05/25 LEFT DORSAL
[2025-02-12 09:44] VITALS: BP 141/61; PULSE 66; RESP 18; TEMP 36.8
--- NOTE | 2025-02-12 12:52 | PCM.WC.PN ---
History of Present Illness Date of Service: 02/12/25 Chief Complaint: Right lower extremity ulceration History of Wound: This is a 80-year-old female who is a patient of Dr. Alo Huston, Mobile Designer, at the [facility]. She was seen today on behalf of Dr. Huston as a courtesy visit. The patient has an ulceration on the anterolateral aspect right calf. The wound originated in early November 2024 as a result of a toenail scratch from her grandson. She stated that she was noticing increasing redness about the wound, as well as an increase in pain at the site. The patient has been using collagenase Santyl topically, but recently switched to collagen powder, hydrogel, and a PHMB foam dressing daily. The patient has a history of chronic venous insufficiency in the lower extremities bilaterally. She also has a history of edema and lipodermatosclerosis of bilateral lower extremities. She has followed with Dr. Valdes with last visit in December 2023. She does see podiatry in [place], Dr. Damon. She reports having compression stockings, but was not wearing any on the right leg as she was having pain with the compression. She also does have lymphedema pumps but is not utilizing these due to the pain in the extremities. Objective Data Objective Data Vital Signs: Vital Signs Temp Pulse Resp BP O2 Del Method 98.2 F 66 18 141/61 H Room Air 02/12/25 09:44 02/12/25 09:44 02/12/25 09:44 02/12/25 09:44 02/05/25 09:39 Oxygen Delivery Method Room Air Lab / Micro Data Micro: Microbiology 01/21/25 13:01 Wound Abcess - Leg, Right Gram Stain - Final 01/21/25 13:01 Wound Abcess - Leg, Right Wound Culture - Final Meth. resistant Staph. aureus Corynebacterium amycolatum 01/21/25 13:01 Wound Abcess - Leg, Right Anaerobic Culture - Final No anaerobic bacteria isolated. Physical Exam Const alert, oriented x3 and no apparent distress General Appearance: cooperative HEENT normocephalic Eyes General Eye: normal appearance of both eyes Neck General: normal visual inspection Lymph Lymphatic: no lymphadenopathy noted and no lymphedema noted Resp normal respiratory effort Cardio regular rate and regular rhythm Extremity no calf tenderness Extremity Narrative: Bilateral lower extremity: Vascular: DP pulse palpable left foot, weakly palpable right foot. PT pulse nonpalpable bilateral secondary to +4 pitting edema. Normal temperature gradient. Hair growth is absent to digits. There is +4 pitting edema of bilateral lower extremity. Neurologic: Epicritic sensation intact without focal deficit noted. Musculoskeletal: Muscle strength 5 of 5 age-appropriate. Decreased range of motion of the ankle joint in dorsiflexion with the knee extended without pain or crepitus. Full range of motion with knee flexed. No pain to palpation of the calf. No pain to palpation about second digit ulceration right foot or fifth digit ulceration of the left foot. There is some tenderness about the ulcerative site of the right lower extremity. Dermatologic: There are multiple areas of hemosiderin deposition secondary to her chronic venous insufficiency. There is lipodermatosclerosis noted to bilateral lower extremities. Positive Stemmer sign second digit bilateral. There is a full-thickness ulceration noted to the medial aspect of the fifth digit of the left foot near the base of the digit has healed. Healthy granular layer is noted with no signs of infection. There is a full-thickness ulceration noted to the dorsal aspect of the second digit right foot overlying the IPJ secondary to hammertoe deformity, which has healed. New ulceration to the dorsal lateral aspect of the left foot which demonstrates eschar and red granular layer with no signs of infection. There is an ulceration noted to the anterior aspect of the right lower extremity with eschar covering about the rimwith localized rubor about the ulcerative rim and eschar and fibrous tissue in the wound bed. No erythema, no purulent drainage, no palpable fluctuance/bogginess, no visible abscess. No signs of infection to the right lower extremity ulcerative site. Skin no rashes or lesions noted General Skin Exam: venous stasis and dermatitis Neuro moves all extremities Debridement Note Debridement Note Wound debrided: Right lower extremity Laterality: Right Wound Grade/Stage: Peck stage I Type of Debridement: Excisional debridement Anesthesia Used: 5% Lidocaine Gel and - (10 cc 1% lidocaine with epinephrine) Depth: Down to and including healthy tissue, in the subcutaneous layer and to muscle Percentage of wound debrided: 100 Instrument Used: 7mm curette, #15 blade and Forceps Tissue Removed: Fibrous, devitalized subcutaneous, biofilm, slough Severity: Fat Layer Exposed Amount of bleeding with debridement: Mild Bleeding Controlled with: Compression and gauze Patient tolerated procedure: Patient tolerated procedure well Post-Debridement Measurements and Additional Note: Post-Debridement Measurements/Treatment - Nurse 1 - General Ulcer Assessment Start: 01/15/25 09:39 Freq: Status: Active Protocol: SKYLER Activity Type Activity Date Activity User E-sign Co-sign Detail Recorded Client Recorded Date Recorded By Document 01/15/25 09:40 DL [id number] 01/15/25 09:50 DL Document 01/20/25 14:45 KW [id number] 01/20/25 14:54 KW Document 01/22/25 09:39 KW [id number] 01/22/25 09:55 KW Document 01/29/25 13:23 DL [id number] 01/29/25 13:30 DL Document 02/05/25 09:39 KW [id number] 02/05/25 09:49 KW Document 02/12/25 09:44 DL [id number] 02/12/25 09:52 DL 01/15/25 01/20/25 01/22/25 09:40 14:45 09:39 - Today's Visit Information Type of service Follow-up Visit Follow-up Visit Follow-up Visit (Physician/NUCLEAR MEDICAL TECHNOLOGIST (Physician/NUCLEAR MEDICAL TECHNOLOGIST (Physician/NUCLEAR MEDICAL TECHNOLOGIST ) ) ) Arrival Mode Ambulatory, Ambulatory Ambulatory, Walker Walker Transfer Assistance None Accompanied by Patient Identification Verified (Name & Yes Yes ) Patient Requires Transmission-Based No Precautions Vital Signs Temperature (97.8 F-99.1 F) 96.5 F L 96.4 F L Temperature Source Temporal Temporal Pulse Rate (60-100) 68 61 Pulse Location Monitor Monitor Respiratory Rate (12-18) 18 18 Respiratory rate source Observation Observation Oxygen Delivery Method Room Air Blood Pressure (90/60-120/80) 142/85 H 142/51 H Blood Pressure Mean (mm Hg) 104 81 Source Monitor Monitor Position Semi-Fowlers Blood Pressure Location Right Arm History Since Last Visit- (Skip if this is Patient's initial visit) Have you changed medications since your No No No last visit? Any new allergies or adverse reactions No No No Had a fall/change in ADL's that may No No No increase risk of falls Signs or symptoms of abuse and/or No No No neglect since last visit Have you been in the hospital since your No No last visit? Has dressing in place as prescribed Yes Yes Yes Has compression in place as prescribed Yes N/A Yes Has offloadiing in place as prescribed Yes N/A N/A Experienced any changes in pain level or No No No management Left Footwear Regular Shoe Right Footwear Regular Shoe Pain Scale: 0-10 Numeric Is Patient Pain Free? Yes Yes Yes 01/29/25 02/05/25 02/12/25 13:23 09:39 09:44 - Today's Visit Information Type of service Follow-up Visit Follow-up Visit Follow-up Visit (Physician/NUCLEAR MEDICAL TECHNOLOGIST (Physician/NUCLEAR MEDICAL TECHNOLOGIST (Physician/NUCLEAR MEDICAL TECHNOLOGIST ) ) ) Arrival Mode Ambulatory, Ambulatory, Ambulatory, Walker Walker Walker Transfer Assistance None None Accompanied by Patient Identification Verified (Name & Yes Yes Yes ) Patient Requires Transmission-Based No No Precautions Vital Signs Temperature (97.8 F-99.1 F) 97.7 F L 96.7 F L 98.2 F Temperature Source Temporal Temporal Temporal Pulse Rate (60-100) 80 65 66 Pulse Location Monitor Monitor Monitor Respiratory Rate (12-18) 18 16 18 Respiratory rate source Observation Observation Oxygen Delivery Method Room Air Blood Pressure (90/60-120/80) 142/67 H 181/73 H 141/61 H Blood Pressure Mean (mm Hg) 92 109 87 Source Monitor Monitor Monitor Position Semi-Fowlers Blood Pressure Location Left Arm History Since Last Visit- (Skip if this is Patient's initial visit) Have you changed medications since your No No No last visit? Any new allergies or adverse reactions No No No Had a fall/change in ADL's that may No No No increase risk of falls Signs or symptoms of abuse and/or No No No neglect since last visit Have you been in the hospital since your No No No last visit? Has dressing in place as prescribed Yes Yes Yes Has compression in place as prescribed Yes Yes Yes Has offloadiing in place as prescribed N/A N/A N/A Experienced any changes in pain level or No No Yes management Left Footwear Regular Shoe Right Footwear Regular Shoe Pain Scale: 0-10 Numeric Is Patient Pain Free? Yes Yes Yes - Nurse 1 - General Ulcer Measurement Start: 01/15/25 09:39 Freq: Status: Active Protocol: Activity Type Activity Date Activity User E-sign Co-sign Detail Recorded Client Recorded Date Recorded By Document 01/15/25 09:40 DL [id number] 01/15/25 09:50 DL Document 01/20/25 14:45 KW [id number] 01/20/25 14:54 KW Document 01/22/25 09:39 KW [id number] 01/22/25 09:55 KW Document 01/29/25 13:23 DL [id number] 01/29/25 13:30 DL Document 02/05/25 09:39 KW [id number] 02/05/25 09:49 KW Document 02/12/25 09:44 DL [id number] 02/12/25 09:52 DL 01/15/25 01/20/25 01/22/25 09:40 14:45 09:39 Wound Center Nurse 1 #3 LT MED 5TH TOE -Current Size (cm) - Length 0.2 0.1 -Current Size (cm) - Width 0.2 0.1 -Current Size (cm) - Depth 0.1 0.1 -Total Square Cm 0.04 0.01 -Exudate Amt Small None Present -Wound Margin Distinct, Distinct, Outline Outline Attached Attached -Granulation Amt Small (1-33%) None Present (0 %) -Granulation Quality [place] -Slough/Fibrin Yes -Necrosis Amt Small (1-33%) None Present (0 %) -Necrotic Tissue Type Adherent Slough Adherent Slough -Structure Exposed N/A -Texture (Milagro-wound Skin Appearance) Scarring Assessed -Moisture (Milagro-wound Skin Appearance) Maceration Assessed -Color (Milagro-wound Skin Appearance) Hemosiderin Assessed Staining -Temperature (Milagro-wound Skin No Abnormality Hot No Abnormality Appearance) (Pt Warm) (Pt Warm) -Tenderness on Palpation (Milagro-wound Yes No Skin Appearance) -Ulcer Cleansing Rinsed/ Soap and Water Soap and Water Irrigated with Saline -Foul Odor after Cleansing No No No -Anesthetic Used 5% Lidocaine 5% Lidocaine 4% Lidocaine Gel Gel Solution #2 RT 2ND TOE -Current Size (cm) - Length 0.1 0.1 -Current Size (cm) - Width 0.1 0.1 -Current Size (cm) - Depth 0.1 0.1 -Total Square Cm 0.01 0.01 -Exudate Amt None Present None Present -Wound Margin Flat & Intact -Granulation Amt Small (1-33%) None Present (0 %) -Granulation Quality [place] -Slough/Fibrin No -Necrosis Amt None Present (0 None Present (0 %) %) -Structure Exposed N/A -Texture (Milagro-wound Skin Appearance) Localized Edema Assessed ,Scarring -Moisture (Milagro-wound Skin Appearance) Assessed -Color (Milagro-wound Skin Appearance) Hemosiderin Assessed Staining -Temperature (Milagro-wound Skin No Abnormality No Abnormality Appearance) (Pt Warm) (Pt Warm) -Tenderness on Palpation (Milagro-wound No No Skin Appearance) -Ulcer Cleansing Rinsed/ Irrigated with Saline -Foul Odor after Cleansing No No -Anesthetic Used 5% Lidocaine Gel #4 L Dorsal -Current Size (cm) - Length -Current Size (cm) - Width -Current Size (cm) - Depth -Total Square Cm -Date of Last Picture (Recall this field) -Photo Taken -Exudate Amt -Exudate Type -Wound Margin -Granulation Amt -Granulation Quality -Necrosis Amt -Necrotic Tissue Type -Structure Exposed -Texture (Milagro-wound Skin Appearance) -Moisture (Milagro-wound Skin Appearance) -Color (Milagro-wound Skin Appearance) -Temperature (Milagro-wound Skin Appearance) -Tenderness on Palpation (Milagro-wound Skin Appearance) -Ulcer Cleansing -Foul Odor after Cleansing -Anesthetic Used #1 RT GALEANA -Current Size (cm) - Length 4.1 5.2 5 -Current Size (cm) - Width 4.1 4.5 5 -Current Size (cm) - Depth 0.1 0.1 0.2 -Total Square Cm 16.81 23.40 25 -Date of Last Picture (Recall this 01/22/25 field) -Photo Taken -Exudate Amt None Present Large Medium -Exudate Type Yellow/Green Serosanguineous -Wound Margin Thickened Distinct, Distinct, Outline Outline Attached Attached -Granulation Amt None Present (0 Small (1-33%) %) -Granulation Quality Red -Slough/Fibrin Yes -Necrosis Amt Large (67-100%) Medium (34-66%) Large (67-100%) -Necrotic Tissue Type Eschar Eschar Adherent Slough -Structure Exposed N/A -Texture (Milagro-wound Skin Appearance) Localized Edema Assessed Assessed ,Scarring -Moisture (Milagro-wound Skin Appearance) No Abnormality Assessed Assessed -Color (Milagro-wound Skin Appearance) Hemosiderin Assessed Assessed, Staining Erythema, Hemosiderin Staining -Temperature (Milagro-wound Skin No Abnormality Hot No Abnormality Appearance) (Pt Warm) (Pt Warm) -Tenderness on Palpation (Milagro-wound Yes No Skin Appearance) -Ulcer Cleansing Rinsed/ Soap and Water Soap and Water Irrigated with Saline -Foul Odor after Cleansing No No -Anesthetic Used 5% Lidocaine 5% Lidocaine 4% Lidocaine Gel Gel Solution Right Calf (cm) 42 38.2 38 Right Ankle (cm) 25.5 25.5 24.5 Right Foot (cm) 41.5 Point of Measurement (cm from the distal point) Left Calf (cm) 25 Point of measurement (cm from the medial instep) Left Ankle (cm) 01/29/25 02/05/25 02/12/25 13:23 09:39 09:44 Wound Center Nurse 1 #3 LT MED 5TH TOE -Current Size (cm) - Length -Current Size (cm) - Width -Current Size (cm) - Depth -Total Square Cm -Exudate Amt -Wound Margin -Granulation Amt -Granulation Quality -Slough/Fibrin -Necrosis Amt -Necrotic Tissue Type -Structure Exposed -Texture (Milagro-wound Skin Appearance) -Moisture (Milagro-wound Skin Appearance) -Color (Milagro-wound Skin Appearance) -Temperature (Milagro-wound Skin Appearance) -Tenderness on Palpation (Milagro-wound Skin Appearance) -Ulcer Cleansing -Foul Odor after Cleansing -Anesthetic Used #2 RT 2ND TOE -Current Size (cm) - Length -Current Size (cm) - Width -Current Size (cm) - Depth -Total Square Cm -Exudate Amt -Wound Margin -Granulation Amt -Granulation Quality -Slough/Fibrin -Necrosis Amt -Structure Exposed -Texture (Milagro-wound Skin Appearance) -Moisture (Milagro-wound Skin Appearance) -Color (Milagro-wound Skin Appearance) -Temperature (Milagro-wound Skin Appearance) -Tenderness on Palpation (Milagro-wound Skin Appearance) -Ulcer Cleansing -Foul Odor after Cleansing -Anesthetic Used #4 L Dorsal -Current Size (cm) - Length 0.3 1.1 1.3 -Current Size (cm) - Width 0.3 1 0.8 -Current Size (cm) - Depth 0.2 0.1 0.2 -Total Square Cm 0.09 1.1 1.04 -Date of Last Picture (Recall this 02/05/25 field) -Photo Taken Yes Yes -Exudate Amt Small Small Medium -Exudate Type Serosanguineous Serosanguineous Serosanguineous -Wound Margin Distinct, Distinct, Distinct, Outline Outline Outline Attached Attached Attached -Granulation Amt Small (1-33%) Small (1-33%) None Present (0 %) -Granulation Quality [place],Red -Necrosis Amt Small (1-33%) Large (67-100%) Large (67-100%) -Necrotic Tissue Type Adherent Slough Eschar Adherent Slough -Structure Exposed N/A N/A -Texture (Milagro-wound Skin Appearance) Localized Edema Assessed Localized Edema ,Scarring ,Scarring -Moisture (Milagro-wound Skin Appearance) No Abnormality Assessed No Abnormality -Color (Milagro-wound Skin Appearance) Hemosiderin Assessed, Hemosiderin Staining Erythema, Staining Hemosiderin Staining -Temperature (Milagro-wound Skin No Abnormality No Abnormality No Abnormality Appearance) (Pt Warm) (Pt Warm) (Pt Warm) -Tenderness on Palpation (Milagro-wound No Skin Appearance) -Ulcer Cleansing Soap and Water Soap and Water Soap and Water -Foul Odor after Cleansing No No No -Anesthetic Used 5% Lidocaine 5% Lidocaine 5% Lidocaine Gel Gel Gel #1 RT GALEANA -Current Size (cm) - Length 6.4 7.5 7.6 -Current Size (cm) - Width 5.8 5.8 6.1 -Current Size (cm) - Depth 0.3 0.2 0.2 -Total Square Cm 37.12 43.50 46.36 -Date of Last Picture (Recall this 02/05/25 field) -Photo Taken Yes Yes -Exudate Amt Medium Small Medium -Exudate Type Serosanguineous Serosanguineous Serosanguineous -Wound Margin Distinct, Distinct, Distinct, Outline Outline Outline Attached Attached Attached -Granulation Amt None Present (0 Small (1-33%) None Present (0 %) %) -Granulation Quality Red -Slough/Fibrin -Necrosis Amt Large (67-100%) Large (67-100%) Large (67-100%) -Necrotic Tissue Type Adherent Slough Eschar Adherent Slough -Structure Exposed N/A N/A -Texture (Milagro-wound Skin Appearance) Localized Edema Assessed Scarring ,Scarring -Moisture (Milagro-wound Skin Appearance) No Abnormality Assessed No Abnormality -Color (Milagro-wound Skin Appearance) Hemosiderin Assessed, Hemosiderin Staining Erythema, Staining Hemosiderin Staining -Temperature (Milagro-wound Skin No Abnormality No Abnormality No Abnormality Appearance) (Pt Warm) (Pt Warm) (Pt Warm) -Tenderness on Palpation (Milagro-wound No No Skin Appearance) -Ulcer Cleansing Soap and Water Soap and Water Soap and Water -Foul Odor after Cleansing No No No -Anesthetic Used 4% Lidocaine 5% Lidocaine 4% Lidocaine Solution Gel Solution Right Calf (cm) 41.6 38.5 35.5 Right Ankle (cm) 25 24.5 24.5 Right Foot (cm) Point of Measurement (cm from the distal 45.2 point) Left Calf (cm) 40.5 40.5 Point of measurement (cm from the medial 25.8 instep) Left Ankle (cm) 24.5 24.8 WC - Nurse 2 - General Ulcer CM Notes Start: 01/15/25 09:39 Freq: Status: Active Protocol: Activity Type Activity Date Activity User E-sign Co-sign Detail Recorded Client Recorded Date Recorded By Document 01/15/25 09:58 [facility] [id number] 01/15/25 10:09 [facility] Document 01/20/25 15:16 [id number] 01/20/25 15:19 Document 01/22/25 10:05 [facility] [id number] 01/22/25 10:25 BMF Edit Result 01/22/25 10:05 BMF (1) [id number] 01/28/25 07:33 BM Document 01/29/25 13:40 BMF [id number] 01/29/25 13:50 [facility] Document 02/05/25 09:59 BMF [id number] 02/05/25 10:28 BMF Document 02/12/25 10:04 BMF [id number] 02/12/25 10:32 BMF (1) #1 RT GALEANA - Debridement, Muscle/Fascia, ea addt'l => 1 20sq cm or part thereof 01/15/25 01/20/25 01/22/25 09:58 15:16 10:05 Wound Center Nurse 2 #3 LT MED 5TH TOE -Time 09:58 10:05 -Correct Patient Yes Yes -Correct Side, Site, Position Yes No -Correct Procedure Yes No -Procedure Performed Yes No No -Type of Procedure Debridement -Clinical Debridement Subcutaneous -Tissue Removed Subcutaneous -Post Debridement (cm) - Length 0.2 0 -Post Debridement (cm) - Width 0.2 0 -Post Debridement (cm) - Depth 0.1 0 -Total Square (Post) (cm) 0.04 0 -Area of Debridement (cm) - Length 0.2 0 -Area of Debridement (cm) - Width 0.2 0 -Total Square (Area) (cm) 0.04 0 -Tunneling No -Undermining/Tunneling No -Circular Undermining No -Wound/Ulcer Outcome Not Healed Not Healed Healed- Epithelialized -Ulcer Cleansing Rinsed/ Irrigated with Saline -Foul Odor after Cleansing No -Bioengineered Tissue No -Bleeding Controlled with Pressure NA -Treatment Response Procedure Tolerated Well -Debridement - Subq, 1st 20sq cm Yes #2 RT 2ND TOE -Time 09:59 10:05 -Correct Patient Yes -Correct Side, Site, Position No -Correct Procedure No -Procedure Performed No No No -Post Debridement (cm) - Length 0.1 0 -Post Debridement (cm) - Width 0.1 0 -Post Debridement (cm) - Depth 0.1 0 -Total Square (Post) (cm) 0.01 0 -Area of Debridement (cm) - Length 0.1 0 -Area of Debridement (cm) - Width 0.1 0 -Total Square (Area) (cm) 0.01 0 -Tunneling No -Undermining/Tunneling No -Circular Undermining No -Wound/Ulcer Outcome Not Healed Not Healed Healed- Epithelialized -Bleeding Controlled with NA NA #4 L Dorsal -Time -Correct Patient -Correct Side, Site, Position -Correct Procedure -Procedure Performed -Type of Procedure -Clinical Debridement -Tissue Removed -Post Debridement (cm) - Length -Post Debridement (cm) - Width -Post Debridement (cm) - Depth -Total Square (Post) (cm) -Area of Debridement (cm) - Length -Area of Debridement (cm) - Width -Total Square (Area) (cm) -Tunneling -Undermining/Tunneling -Circular Undermining -Wound/Ulcer Outcome -Ulcer Cleansing -Foul Odor after Cleansing -Bioengineered Tissue -Bleeding Controlled with -Treatment Response -Debridement - Subq, 1st 20sq cm -Debridement, SubQ, ea addt'l 20sq cm or part thereof #1 RT GALEANA -Time 09:58 15:18 10:08 -Correct Patient Yes Yes Yes -Correct Side, Site, Position Yes Yes Yes -Correct Procedure Yes Yes Yes -Procedure Performed Yes Yes Yes -Type of Procedure Debridement Debridement Debridement -Clinical Debridement Subcutaneous Subcutaneous Muscle / Fascia -Tissue Removed Subcutaneous, Subcutaneous Muscle,Fascia Non-viable tissue -Post Debridement (cm) - Length 4.6 5.5 5.7 -Post Debridement (cm) - Width 4 4.8 5 -Post Debridement (cm) - Depth 0.1 0.2 0.4 -Total Square (Post) (cm) 18.4 26.40 28.5 -Area of Debridement (cm) - Length 4.6 5.5 5.7 -Area of Debridement (cm) - Width 4 4.8 5 -Total Square (Area) (cm) 18.4 26.40 28.5 -Tunneling No No No -Undermining/Tunneling No No No -Circular Undermining No No No -Wound/Ulcer Outcome Not Healed Not Healed Not Healed -Ulcer Cleansing Rinsed/ Rinsed/ Rinsed/ Irrigated with Irrigated with Irrigated with Saline Saline Saline -Foul Odor after Cleansing No No No -Bioengineered Tissue No No No -Injectable Lidocaine w/ Epi (%) 1 -Injectable Lidocaine w/ Epi (mls) 10 -Bleeding Controlled with Pressure Pressure Pressure -Treatment Response Procedure Procedure Procedure Tolerated Well Tolerated Well Tolerated Well -Offloading No -Debridement - Subq, 1st 20sq cm No Yes -Debridement, SubQ, ea addt'l 20sq cm 1 or part thereof -Debridement - Muscle / Fascia, 1st Yes 20sq cm -Debridement, Muscle/Fascia, ea addt'l 1 20sq cm or part thereof Pain Scale: 0-10 Numeric Is Patient Pain Free? Yes Yes Yes 01/29/25 02/05/25 02/12/25 13:40 09:59 10:04 Wound Center Nurse 2 #3 LT MED 5TH TOE -Time -Correct Patient -Correct Side, Site, Position -Correct Procedure -Procedure Performed -Type of Procedure -Clinical Debridement -Tissue Removed -Post Debridement (cm) - Length -Post Debridement (cm) - Width -Post Debridement (cm) - Depth -Total Square (Post) (cm) -Area of Debridement (cm) - Length -Area of Debridement (cm) - Width -Total Square (Area) (cm) -Tunneling -Undermining/Tunneling -Circular Undermining -Wound/Ulcer Outcome -Ulcer Cleansing -Foul Odor after Cleansing -Bioengineered Tissue -Bleeding Controlled with -Treatment Response -Debridement - Subq, 1st 20sq cm #2 RT 2ND TOE -Time -Correct Patient -Correct Side, Site, Position -Correct Procedure -Procedure Performed -Post Debridement (cm) - Length -Post Debridement (cm) - Width -Post Debridement (cm) - Depth -Total Square (Post) (cm) -Area of Debridement (cm) - Length -Area of Debridement (cm) - Width -Total Square (Area) (cm) -Tunneling -Undermining/Tunneling -Circular Undermining -Wound/Ulcer Outcome -Bleeding Controlled with #4 L Dorsal -Time 13:43 09:59 10:04 -Correct Patient Yes Yes Yes -Correct Side, Site, Position Yes Yes Yes -Correct Procedure Yes Yes Yes -Procedure Performed Yes Yes Yes -Type of Procedure Debridement Debridement Debridement -Clinical Debridement Subcutaneous Subcutaneous Subcutaneous -Tissue Removed Subcutaneous Subcutaneous Subcutaneous -Post Debridement (cm) - Length 0.3 1.5 1.4 -Post Debridement (cm) - Width 0.3 1.5 1 -Post Debridement (cm) - Depth 0.2 0.1 0.1 -Total Square (Post) (cm) 0.09 2.25 1.4 -Area of Debridement (cm) - Length 0.3 1.5 1.4 -Area of Debridement (cm) - Width 0.3 1.5 1 -Total Square (Area) (cm) 0.09 2.25 1.4 -Tunneling No No No -Undermining/Tunneling No No No -Circular Undermining No No No -Wound/Ulcer Outcome Not Healed Not Healed Not Healed -Ulcer Cleansing Rinsed/ Rinsed/ Rinsed/ Irrigated with Irrigated with Irrigated with Saline Saline Saline -Foul Odor after Cleansing No No No -Bioengineered Tissue No No No -Bleeding Controlled with Pressure Pressure Pressure -Treatment Response Procedure Procedure Procedure Tolerated Well Tolerated Well Tolerated Well -Debridement - Subq, 1st 20sq cm No Yes Yes -Debridement, SubQ, ea addt'l 20sq cm 2 or part thereof #1 RT GALEANA -Time 13:41 09:59 10:05 -Correct Patient Yes Yes Yes -Correct Side, Site, Position Yes Yes Yes -Correct Procedure Yes Yes Yes -Procedure Performed Yes Yes Yes -Type of Procedure Debridement Debridement Debridement -Clinical Debridement Subcutaneous Subcutaneous Muscle / Fascia -Tissue Removed Subcutaneous Subcutaneous Muscle,Fascia -Post Debridement (cm) - Length 6.4 7.9 7.9 -Post Debridement (cm) - Width 5.8 6.2 6 -Post Debridement (cm) - Depth 0.3 0.3 0.3 -Total Square (Post) (cm) 37.12 48.98 47.4 -Area of Debridement (cm) - Length 6.4 7.9 7.9 -Area of Debridement (cm) - Width 5.8 6.2 6 -Total Square (Area) (cm) 37.12 48.98 47.4 -Tunneling No No No -Undermining/Tunneling No No No -Circular Undermining No No No -Wound/Ulcer Outcome Not Healed Not Healed Not Healed -Ulcer Cleansing Rinsed/ Rinsed/ Rinsed/ Irrigated with Irrigated with Irrigated with Saline Saline Saline -Foul Odor after Cleansing No No No -Bioengineered Tissue No No No -Injectable Lidocaine w/ Epi (%) -Injectable Lidocaine w/ Epi (mls) -Bleeding Controlled with Pressure Pressure Pressure -Treatment Response Procedure Procedure Procedure Tolerated Well Tolerated Well Tolerated Well -Offloading -Debridement - Subq, 1st 20sq cm Yes No -Debridement, SubQ, ea addt'l 20sq cm 1 or part thereof -Debridement - Muscle / Fascia, 1st Yes 20sq cm -Debridement, Muscle/Fascia, ea addt'l 1 20sq cm or part thereof Pain Scale: 0-10 Numeric Is Patient Pain Free? Yes Yes Yes WC - Nurse 3 - General Ulcer D/C NN Start: 01/15/25 09:39 Freq: Status: Active Protocol: Activity Type Activity Date Activity User E-sign Co-sign Detail Recorded Client Recorded Date Recorded By Document 01/15/25 10:32 KW [id number] 01/15/25 10:34 KW Document 01/20/25 15:28 ML [id number] 01/20/25 15:30 ML Document 01/22/25 10:40 DL [id number] 01/22/25 10:43 DL Document 01/29/25 14:03 DL [id number] 01/29/25 14:07 DL Document 02/05/25 10:43 JF [id number] 02/05/25 10:44 JF Document 02/12/25 10:52 [id number] 02/12/25 10:54 JF 01/15/25 01/20/25 01/22/25 10:32 15:28 10:40 Wound Care Center Nurse 3 #3 LT MED 5TH TOE -Other Dressing atb ointment with bandage #2 RT 2ND TOE -Other Dressing atb ointment bandage #4 L Dorsal -Ulcer Cleansing -Foul Odor after Cleansing -Primary Dressing Applied -Other Dressing -Primary Dressing Covered/Secured with -Promogran Lu Matter #1 RT GALEANA -Ulcer Cleansing Rinsed/ Rinsed/ Irrigated with Irrigated with Saline Saline -Foul Odor after Cleansing No No -Primary Dressing Applied AMD Dressing 4x4,C Hydrogel, Collagen Powder -Other Dressing santyl from pt pt brought own santyl -Primary Dressing Covered/Secured with Dry Gauze & Dry Gauze,Dry Dry Gauze & Roll Gauze, Gauze & Roll Roll Gauze, Secured with Gauze,Secured Secured with Tape with Tape Tape -AMD Dressing 4x4 3 -Collagen Powder 1 -Hydrogel 1 -Wound Comment(s) Dressing intructions given to . RLE -Tubular Bandage Double Layer Double Layer -Size of Tubigrip Used Size F Size F -Size D ($) -Size E ($) -Size F ($) 2 2 -Other tubigrip D LLE -Tubular Bandage Double Layer -Size of Tubigrip Used Size F -Size D ($) -Size E ($) -Size F ($) 2 -Other tubigrip d Treatment Response Procedure Tolerated Well Pain Scale: 0-10 Numeric Is Patient Pain Free? Yes Yes Yes WC - Visit Discharge Discharge Condition Stable Stable Ambulatory Status Ambulatory Ambulatory, Walker Transportation Private Auto Private Auto Accompanied by Medication Reconcilliation completed & No provided to patient/care provider Clinical Summary of Care Provided Yes 01/29/25 02/05/25 02/12/25 14:03 10:43 10:52 Wound Care Center Nurse 3 #3 LT MED 5TH TOE -Other Dressing #2 RT 2ND TOE -Other Dressing #4 L Dorsal -Ulcer Cleansing Rinsed/ Rinsed/ Rinsed/ Irrigated with Irrigated with Irrigated with Saline Saline Saline -Foul Odor after Cleansing No No No -Primary Dressing Applied Promogran Lu Matter -Other Dressing nugel antibiotic ointment -Primary Dressing Covered/Secured with Dry Gauze, Dry Gauze & Dry Gauze & Secured with Roll Gauze, Roll Gauze, Tape Secured with Secured with Tape Tape -Promogran Lu Matter 2 #1 RT GALEANA -Ulcer Cleansing Rinsed/ Rinsed/ Rinsed/ Irrigated with Irrigated with Irrigated with Saline Saline Saline -Foul Odor after Cleansing No No No -Primary Dressing Applied -Other Dressing nugel/ moist ATB ointment SANTYL OINTMENT gauze /MOISTENED GAUZE -Primary Dressing Covered/Secured with Dry Gauze & Dry Gauze & Dry Gauze & Roll Gauze, Roll Gauze Roll Gauze, Secured with Secured with Tape Tape -AMD Dressing 4x4 -Collagen Powder -Hydrogel -Wound Comment(s) Pt to resume Santyl at home to both wounds. Nugel used today. RLE -Tubular Bandage Double Layer Single Layer -Size of Tubigrip Used Size E Size D -Size D ($) 1 -Size E ($) 2 -Size F ($) -Other LLE -Tubular Bandage Double Layer Single Layer -Size of Tubigrip Used Size E Size D -Size D ($) 1 -Size E ($) 2 -Size F ($) -Other Treatment Response Procedure Tolerated Well Pain Scale: 0-10 Numeric Is Patient Pain Free? Yes Yes Yes WC - Visit Discharge Discharge Condition Stable Stable Stable Ambulatory Status Ambulatory, Ambulatory, Ambulatory, Walker Walker Walker Transportation Private Auto Private Auto Private Auto Accompanied by Medication Reconcilliation completed & Yes Yes provided to patient/care provider Clinical Summary of Care Provided Yes Additional Wound Wound debrided: Left dorsal foot Laterality: Left Wound Grade/Stage: Peck stage I Type of Debridement: Excisional debridement Anesthesia Used: 5% Lidocaine Gel Depth: Down to and including healthy tissue and in the subcutaneous layer Percentage of wound debrided: 100 Instrument Used: 7mm curette Tissue Removed: Fibrous, devitalized subcutaneous, biofilm, slough Severity: Fat Layer Exposed Amount of bleeding with debridement: Mild Bleeding Controlled with: Compression and gauze Patient tolerated procedure: Patient tolerated procedure well Assessment/Plan Assessment/Plan (1) Non-pressure chronic ulcer 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: CODE(S): L97.212 - Non-pressure chronic ulcer 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 (2) Non-pressure chronic ulcer of other part of right foot with fat layer exposed: CODE(S): L97.512 - Non-pressure chronic ulcer of other part of right foot with fat layer exposed (3) Non-pressure chronic ulcer of other part of left foot with fat layer exposed: CODE(S): L97.522 - Non-pressure chronic ulcer of other part of left foot with fat layer exposed (4) Lipodermatosclerosis of both lower extremities: CODE(S): M79.3 - Panniculitis, unspecified (5) Lymphedema: CODE(S): I89.0 - Lymphedema, not elsewhere classified (6) Bilateral edema of lower extremity: CODE(S): R60.0 - Localized edema (7) Venous insufficiency (chronic) (peripheral): CODE(S): I87.2 - Venous insufficiency (chronic) (peripheral) PLAN: Plan Patient seen and evaluated Predebridement measurement: Medial left fifth digit healed Dorsal second digit PIPJ healed Left dorsal lateral foot 1.3 cm x 0.9 cm x 0.1 cm Anterior right lower extremity 7.8 cm x 5.9 cm x 0.3 cm. Debridement was performed today as noted in the clinical panel above. Postdebridement measurement: Medial left fifth digit remains healed Dorsal second digit PIPJ remains healed Left dorsal lateral foot 1.4 cm x 1.0 cm x 0.1 cm Anterior right lower extremity 7.9 cm x 6.0 cm x 0.3 cm I did extend doxycycline 100 mg twice daily for an additional 14 days. (Stop date 02/21/2025). This is aiding in improvement of the ulcerative site with less erythema to the wound margin. Patient also states the site does feel better and is draining less. She did undergo debridement of the site again today as noted in the clinical panel above. Postdebridement measurements listed above. She will continue with Santyl to the right lower extremity. Will apply Lu to the left dorsal foot ulceration with dry sterile dressing and change daily. Ruma order updated Santyl and will continue use currently. She will continue Tubigrip compression. LEAS ordered 01/08/25 and she will follow-up with Dr. Valdes following completion of studies. Last visit with Dr. Valdes's office 01/08/2024. Venous studies demonstrate no evidence of DVT bilateral lower extremity. Bilateral great saphenous vein appears competent and compressible segmentally. Positive reflux in the great saphenous vein throughout in addition to the accessory saphenous vein in the calf, positive for reflux in the left common femoral vein, femoral vein, saphenofemoral junction, great saphenous vein throughout and accessory saphenous vein in the calf. LEAS demonstrate no evidence of arterial occlusive disease Santyl ordered for application to the right lower extremity ulcerative site. Will continue utilizing until plan for application of an advanced wound care product can be obtained. TheraSkin graft was applied for, awaiting approval for application. Discussed continuing to wear compression stocking and utilize lymphedema pumps to aid in decreasing the edema to the lower extremities. She is also to continue to elevate lower extremities at all times of rest to aid in maintaining edema control. Discussed signs and symptoms of infection. Discussed if she notices increasing redness around the ulcerative sites that moves up the leg or onto the foot, if any purulent drainage is noted from wound sites, if increasing foul odor is noted from wound sites, or if she begins to experience fever greater than 101 degree accompanied by nausea, vomiting, chills that these are signs of a progressing infection and she should report to the ED to receive IV antibiotics and for further evaluation. She is understanding of this today. The following work up and care recommendations were made: Dressing: Santyl wet-to-dry dressing to right lower extremity. Lu and dry sterile dressing to left foot. Change daily Wash: Soap and water Tissue growth optimization: Santyl right lower extremity, Lu left foot Offload: Ensure no rubbing of the digits in shoe gear and to wear toe spacers. Vascular: Updating LEAS, awaiting results. Does have previous venous studies from October 2023 demonstrating positive reflux in great saphenous vein throughout and small saphenous vein throughout and accessory saphenous veins of bilateral lower extremities Edema: Lipodermatosclerosis. Will continue compression stockings and lymphedema pumps. Infection: No signs of infection Pain: May take [id number] Tylenol for any discomfort Host factors: Lipodermatosclerosis, advancing age, PVD complicate healing. She does state today she has appointments the next 2 (02/19/25 and 02/26/25) which will complicate seeing me for continued wound care. Thus she will see Dr. Villarreal for continued courtesy visit until she can reestablish with me in 3 weeks (03/05/25). I answered all the patient's questions. To return to the wound healing center in [address] Villarreal or call sooner if the patient has any questions or concerns.
--- NOTE | 2025-02-13 12:59 | WC ---
PHOTO 02/12/25 RIGHT GALEANA
--- NOTE | 2025-02-13 13:01 | WC ---
PHOTO 02/12/25 LEFT DORSAL
== END 2025-02-14 23:59 | disposition home or self-care (01) ==
LOC: WC 09:45
PROVIDERS: PCP Internal Medicine; Referring Provider Internal Medicine; Visit Provider Student in an Organized Health Care Education/Training Program
DX: I87.2 Venous insufficiency (chronic) (peripheral) (principal); I96 Gangrene, not elsewhere classified; L97.522 Non-pressure chronic ulcer of other part of left foot with fat layer exposed; L97.512 Non-pressure chronic ulcer of other part of right foot with fat layer exposed; L97.212 Non-pressure chronic ulcer 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; I89.0 Lymphedema, not elsewhere classified; R60.0 Localized edema; M79.3 Panniculitis, unspecified; Z79.899 Other long term (current) drug therapy; B95.62 Methicillin resistant Staphylococcus aureus infection as the cause of diseases classified elsewhere
CPT/HCPCS: 11042; 11043; 11045; 11046; 87070; 87075; 87077; 87186; 87205

== ENCOUNTER 2025-03-12 09:45 | Outpatient (RCR) | payer MEDICARE, SELFPAY ==
[2025-02-15 00:21] VITALS: BP 141/61; PULSE 66; RESP 18; TEMP 36.8
[2025-02-18 13:31] VITALS: BP 156/63; PULSE 74; RESP 20; TEMP 36.3
[2025-02-18 17:06] LABS: Mean Corp Hgb Conc 34.3 g/dL (32-36); Mean Corpuscular Hgb 31.6 pg (27.0-32.0); Mean Corpuscular Volume 92.1 fL (81-99); Mean Platelet Vol. 10.8 fl (6.2-12.0); Platelet Count 206 K/mm3 (150-450); RBC Distribution Width SD 42.8 fl (35.1-43.9); White Blood Count 5.2 K/mm3 (4.4-11.0)
[2025-02-18 18:23] LABS: ALB/GLOB Ratio 1.6 RATIO (0.9-2.4); AST(SGOT) 23 U/L (<=31); Alanine Aminotransfer ALT/SGPT 22 U/L (<=34); Albumin, Serum 3.8 g/dL (3.4-4.8); Alkaline Phosphatase 108 U/L (35-104); Anion Gap 11 (5-15); BUN 45 mg/dL (4-19); BUN/Creat Ratio 35.9 RATIO (10-20); Calcium,Total 9.3 mg/dL (7.6-11.0); Carbon Dioxide 22.7 mmol/L (21.0-32.0); Chloride 109 mmol/L (98-108); Creatinine, Serum 1.24 mg/dL (0.70-1.20); EST Glomerular Filtration Rate 45 (>60); Globulin 2.4 g/dL (2.2-4.2); Glucose 89 mg/dL (70-99); Protein, Total 6.1 g/dL (5.9-8.4); Sodium Level 143 mmol/L (133-145)
[2025-02-25 13:21] VITALS: PULSE 78; RESP 18; TEMP 36.1
[2025-03-05 09:40] VITALS: BP 171/85; PULSE 80; RESP 18; TEMP 36.7
[2025-03-12 09:54] VITALS: BP 106/59; PULSE 79; RESP 18; TEMP 35.6
== END 2025-03-16 23:59 | disposition home or self-care (01) ==
LOC: WC 09:45
PROVIDERS: PCP Internal Medicine; Referring Provider Internal Medicine; Visit Provider Student in an Organized Health Care Education/Training Program
DX: L97.212 Non-pressure chronic ulcer 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 (principal); L97.522 Non-pressure chronic ulcer of other part of left foot with fat layer exposed; L97.222 Non-pressure chronic ulcer of left calf with fat layer exposed; S80.811S Abrasion, right lower leg, sequela; W50.4 Accidental scratch by another person; I89.0 Lymphedema, not elsewhere classified; R60.0 Localized edema; I87.2 Venous insufficiency (chronic) (peripheral); M79.3 Panniculitis, unspecified; Z79.899 Other long term (current) drug therapy
CPT/HCPCS: 11042; 11043; 11045; 11046; 11104; 36415; 80053; 84155; 85027; 88305

== ENCOUNTER 2025-04-16 10:00 | Outpatient (RCR) | payer MEDICARE, SELFPAY ==
[2025-03-19 10:21] VITALS: RESP 18; TEMP 35.6
--- NOTE | 2025-03-19 12:54 | PCM.WC.PN ---
History of Present Illness Date of Service: 03/19/25 Chief Complaint: Right lower extremity ulceration History of Wound: This is a 80-year-old female who is a patient of Dr. Alo Huston, [employer], at the [facility]. She was seen today on behalf of Dr. Huston as a courtesy visit. The patient has an ulceration on the anterolateral aspect right calf. The wound originated in early November 2024 as a result of a toenail scratch from her grandson. She stated that she was noticing increasing redness about the wound, as well as an increase in pain at the site. The patient has been using collagenase Santyl topically, but recently switched to collagen powder, hydrogel, and a PHMB foam dressing daily. The patient has a history of chronic venous insufficiency in the lower extremities bilaterally. She also has a history of edema and lipodermatosclerosis of bilateral lower extremities. She has followed with Dr. Valdes, and a right lower extremity venous ablation procedure is scheduled in the near future. The patient reports having compression stockings, but was not wearing any on the right leg as she was having pain with the compression. She also does have lymphedema pumps but was not utilizing these due to the pain in the extremities. Subjective Subjective This is a 80-year-old female who presents to the wound care center for continued follow-up of right lower extremity ulceration, left dorsal foot ulceration, and left lower extremity. She continues application of Santyl to the left lower extremity and Gregory to left foot with daily dressing changes. Continues Fibracol to the right lower extremity. Did complete her oral steroid as instructed and does notice some improvement. Denies constitutional symptoms. Denies further complaints. Objective Data Objective Data Vital Signs: Vital Signs Temp Resp O2 Del Method 96.0 F L 18 Room Air 03/19/25 10:21 03/19/25 10:21 03/19/25 10:21 Oxygen Delivery Method Room Air Physical Exam Const alert, oriented x3 and no apparent distress General Appearance: cooperative HEENT normocephalic Eyes General Eye: normal appearance of both eyes Neck General: normal visual inspection Lymph Lymphatic: no lymphadenopathy noted and lymphedema Resp normal respiratory effort Cardio regular rate and regular rhythm Extremity no calf tenderness Extremity Narrative: Bilateral lower extremity: Vascular: DP pulse palpable left foot, weakly palpable right foot. PT pulse nonpalpable bilateral secondary to +4 pitting edema. Normal temperature gradient. Hair growth is absent to digits. There is +4 pitting edema of bilateral lower extremity. Neurologic: Epicritic sensation intact without focal deficit noted. Musculoskeletal: Muscle strength 5 of 5 age-appropriate. Decreased range of motion of the ankle joint in dorsiflexion with the knee extended without pain or crepitus. Full range of motion with knee flexed. No pain to palpation of the calf. No pain to palpation about second digit ulceration right foot or fifth digit ulceration of the left foot. There is some tenderness about the ulcerative site of the right lower extremity. Dermatologic: There are multiple areas of hemosiderin deposition secondary to her chronic venous insufficiency. There is lipodermatosclerosis noted to bilateral lower extremities. Positive Stemmer sign second digit bilateral. Ulceration left medial lower extremity demonstrates thickened fibrotic layer with no signs of infection. Ulceration to the dorsal lateral aspect of the left foot which demonstrates mixed fibro granular layer with no signs of infection. There is an ulceration noted to the anterior aspect of the right lower extremity demonstrates mixed fibrogranular tissue in the wound bed. No erythema, no purulent drainage, no palpable fluctuance/bogginess, no visible abscess. No signs of infection to the right lower extremity ulcerative site. Skin no rashes or lesions noted General Skin Exam: venous stasis and dermatitis Neuro moves all extremities Debridement Note Debridement Note Wound debrided: Right lower extremity Laterality: Right Wound Grade/Stage: Peck stage II Type of Debridement: Excisional debridement Anesthesia Used: 5% Lidocaine Gel and - (10 cc 1% lidocaine with epinephrine) Depth: Down to and including healthy tissue, in the subcutaneous layer and to muscle Percentage of wound debrided: 100 Instrument Used: 7mm curette Tissue Removed: Fibrous, devitalized subcutaneous, biofilm, slough Severity: Fat Layer Exposed Amount of bleeding with debridement: Mild Bleeding Controlled with: Compression and gauze Patient tolerated procedure: Patient tolerated procedure well Post-Debridement Measurements and Additional Note: Post-Debridement Measurements/Treatment - Nurse 1 - General Ulcer Assessment Start: 03/19/25 10:21 Freq: Status: Active Protocol: DEVIN.LOWEXT Activity Type Activity Date Activity User E-sign Co-sign Detail Recorded Client Recorded Date Recorded By Document 03/19/25 10:21 ADIS [id number] 03/19/25 10:34 KW 03/19/25 10:21 - Today's Visit Information Type of service Follow-up Visit (Physician/WHEEL ALIGNMENT TECHNICIAN ) Arrival Mode Ambulatory, Walker Accompanied by Patient Identification Verified (Name & Yes ) Vital Signs Temperature (97.8 F-99.1 F) 96.0 F L Temperature Source Temporal Pulse Location Monitor Respiratory Rate (12-18) 18 Respiratory rate source Observation Oxygen Delivery Method Room Air Source Monitor Position Semi-Fowlers Blood Pressure Location Right Arm History Since Last Visit- (Skip if this is Patient's initial visit) Have you changed medications since your No last visit? Any new allergies or adverse reactions No Had a fall/change in ADL's that may No increase risk of falls Signs or symptoms of abuse and/or No neglect since last visit Have you been in the hospital since your No last visit? Has dressing in place as prescribed Yes Has compression in place as prescribed Yes Has offloadiing in place as prescribed N/A Experienced any changes in pain level or No management Left Footwear Regular Shoe Right Footwear Regular Shoe Pain Scale: 0-10 Numeric Is Patient Pain Free? Yes - Nurse 1 - General Ulcer Measurement Start: 03/19/25 10:21 Freq: Status: Active Protocol: Activity Type Activity Date Activity User E-sign Co-sign Detail Recorded Client Recorded Date Recorded By Document 03/19/25 10:21 [id number] 03/19/25 10:34 KW 03/19/25 10:21 Wound Center Nurse 1 #5 LLE MED -Current Size (cm) - Length 0.6 -Current Size (cm) - Width 1 -Current Size (cm) - Depth 0.2 -Total Square Cm 0.6 -Date of Last Picture (Recall this 03/19/25 field) -Exudate Amt Small -Exudate Type Serosanguineous -Wound Margin Thickened -Granulation Amt Small (1-33%) -Granulation Quality [place] -Necrosis Amt Large (67-100%) -Necrotic Tissue Type Adherent Slough -Texture (Milagro-wound Skin Appearance) Assessed -Moisture (Milagro-wound Skin Appearance) Assessed -Color (Milagro-wound Skin Appearance) Assessed, Erythema, Hemosiderin Staining -Temperature (Milagro-wound Skin No Abnormality Appearance) (Pt Warm) -Tenderness on Palpation (Milagro-wound No Skin Appearance) -Ulcer Cleansing Soap and Water -Foul Odor after Cleansing No -Anesthetic Used 5% Lidocaine Gel #4 L Dorsal foot -Current Size (cm) - Length 0.9 -Current Size (cm) - Width 0.8 -Current Size (cm) - Depth 0.2 -Total Square Cm 0.72 -Date of Last Picture (Recall this 03/19/25 field) -Exudate Amt Medium -Exudate Type Serosanguineous -Wound Margin Thickened -Granulation Amt Small (1-33%) -Granulation Quality [place] -Necrosis Amt Large (67-100%) -Necrotic Tissue Type Adherent Slough -Texture (Milagro-wound Skin Appearance) Assessed -Moisture (Milagro-wound Skin Appearance) Assessed -Color (Milagro-wound Skin Appearance) Assessed, Erythema, Hemosiderin Staining -Temperature (Milagro-wound Skin No Abnormality Appearance) (Pt Warm) -Tenderness on Palpation (Milagro-wound No Skin Appearance) -Ulcer Cleansing Soap and Water -Foul Odor after Cleansing No -Anesthetic Used 5% Lidocaine Gel #1 RT GALEANA -Current Size (cm) - Length 8.5 -Current Size (cm) - Width 7 -Current Size (cm) - Depth 0.2 -Total Square Cm 59.5 -Date of Last Picture (Recall this 03/19/25 field) -Exudate Amt Large -Exudate Type Serosanguineous -Wound Margin Distinct, Outline Attached -Granulation Amt Medium (34-66%) -Granulation Quality Red -Necrosis Amt Small (1-33%) -Necrotic Tissue Type Adherent Slough -Texture (Milagro-wound Skin Appearance) Assessed -Moisture (Milagro-wound Skin Appearance) Assessed -Color (Milagro-wound Skin Appearance) Assessed, Erythema -Temperature (Milagro-wound Skin No Abnormality Appearance) (Pt Warm) -Tenderness on Palpation (Milagro-wound No Skin Appearance) -Ulcer Cleansing Soap and Water -Foul Odor after Cleansing No -Anesthetic Used 4% Lidocaine Solution,5% Lidocaine Gel Right Calf (cm) 42 Right Ankle (cm) 25.3 Left Calf (cm) 44 Left Ankle (cm) 25.5 WC - Nurse 2 - General Ulcer CM Notes Start: 03/19/25 10:21 Freq: Status: Active Protocol: Activity Type Activity Date Activity User E-sign Co-sign Detail Recorded Client Recorded Date Recorded By Document 03/19/25 10:45 [facility] [id number] 03/19/25 11:07 [facility] 03/19/25 10:45 Wound Center Nurse 2 #5 LLE MED -Time 10:47 -Correct Patient Yes -Correct Side, Site, Position Yes -Correct Procedure Yes -Procedure Performed Yes -Type of Procedure Debridement -Clinical Debridement Subcutaneous -Tissue Removed Subcutaneous -Post Debridement (cm) - Length 0.8 -Post Debridement (cm) - Width 1.4 -Post Debridement (cm) - Depth 0.2 -Total Square (Post) (cm) 1.12 -Area of Debridement (cm) - Length 0.8 -Area of Debridement (cm) - Width 0.4 -Total Square (Area) (cm) 0.32 -Tunneling No -Undermining/Tunneling No -Circular Undermining No -Wound/Ulcer Outcome Not Healed -Ulcer Cleansing Rinsed/ Irrigated with Saline -Foul Odor after Cleansing No -Bioengineered Tissue No -Bleeding Controlled with Pressure -Treatment Response Procedure Tolerated Well -Debridement - Subq, 1st 20sq cm Yes #4 L Dorsal foot -Time 10:48 -Correct Patient Yes -Correct Side, Site, Position Yes -Correct Procedure Yes -Procedure Performed Yes -Type of Procedure Debridement -Clinical Debridement Subcutaneous -Tissue Removed Subcutaneous -Post Debridement (cm) - Length 0.9 -Post Debridement (cm) - Width 0.6 -Post Debridement (cm) - Depth 0.1 -Total Square (Post) (cm) 0.54 -Area of Debridement (cm) - Length 0.9 -Area of Debridement (cm) - Width 0.6 -Total Square (Area) (cm) 0.54 -Tunneling No -Undermining/Tunneling No -Circular Undermining No -Wound/Ulcer Outcome Not Healed -Ulcer Cleansing Rinsed/ Irrigated with Saline -Foul Odor after Cleansing No -Bioengineered Tissue No -Bleeding Controlled with Pressure -Treatment Response Procedure Tolerated Well -Debridement - Subq, 1st 20sq cm No #1 RT GALEANA -Time 10:46 -Correct Patient Yes -Correct Side, Site, Position Yes -Correct Procedure Yes -Procedure Performed Yes -Type of Procedure Debridement -Clinical Debridement Muscle / Fascia -Tissue Removed Muscle,Fascia -Post Debridement (cm) - Length 8.5 -Post Debridement (cm) - Width 7 -Post Debridement (cm) - Depth 0.3 -Total Square (Post) (cm) 59.5 -Area of Debridement (cm) - Length 8.5 -Area of Debridement (cm) - Width 7 -Total Square (Area) (cm) 59.5 -Tunneling No -Undermining/Tunneling No -Circular Undermining No -Wound/Ulcer Outcome Not Healed -Ulcer Cleansing Rinsed/ Irrigated with Saline -Foul Odor after Cleansing No -Bioengineered Tissue No -Injectable Lidocaine w/ Epi (%) 1 -Injectable Lidocaine w/ Epi (mls) 10 -Bleeding Controlled with Pressure -Treatment Response Procedure Tolerated Well -Debridement - Muscle / Fascia, 1st Yes 20sq cm Pain Scale: 0-10 Numeric Is Patient Pain Free? Yes - Nurse 3 - General Ulcer D/C NN Start: 03/19/25 10:21 Freq: Status: Active Protocol: Activity Type Activity Date Activity User E-sign Co-sign Detail Recorded Client Recorded Date Recorded By Document 03/19/25 11:15 ML [id number] 03/19/25 11:21 ML 03/19/25 11:15 Wound Care Center Nurse 3 #5 LLE MED -Ulcer Cleansing Rinsed/ Irrigated with Saline -Other Dressing PT OWN SANTYL -Primary Dressing Covered/Secured with Dry Gauze #4 L Dorsal foot -Other Dressing PT OWN GREGORY MOISTENED -Primary Dressing Covered/Secured with Dry Gauze,Dry Gauze & Roll Gauze,Secured with Tape #1 RT GALEANA -Primary Dressing Applied Fibracol Plus 4x4 -Primary Dressing Covered/Secured with Dry Gauze & Roll Gauze, Secured with Tape -Fibracol Plus 4x4 1 -Wound Comment(s) USED ONLY PT SUPPLIES, APPLYING FOR WOUND VAC BLE -Tubular Bandage Double Layer -Size of Tubigrip Used Size E -Size E ($) 4 Pain Scale: 0-10 Numeric Is Patient Pain Free? Yes WC - Visit Discharge Discharge Condition Stable Ambulatory Status Ambulatory, Walker Transportation Private Auto Medication Reconcilliation completed & No provided to patient/care provider Clinical Summary of Care Provided Yes Additional Wound Wound debrided: Left dorsal foot Laterality: Left Wound Grade/Stage: Peck stage I Type of Debridement: Excisional debridement Anesthesia Used: 5% Lidocaine Gel Depth: Down to and including healthy tissue and in the subcutaneous layer Percentage of wound debrided: 100 Instrument Used: 7mm curette Tissue Removed: Fibrous, devitalized subcutaneous, biofilm, slough Severity: Fat Layer Exposed Amount of bleeding with debridement: Mild Bleeding Controlled with: Compression and gauze Patient tolerated procedure: Patient tolerated procedure well Additional Wound Wound debrided: Left lower extremity Laterality: Left Wound Grade/Stage: Peck stage I Type of Debridement: Excisional debridement Anesthesia Used: 5% Lidocaine Gel Depth: Down to and including healthy tissue and in the subcutaneous layer Percentage of wound debrided: 100 Instrument Used: 7mm curette Tissue Removed: Fibrous, devitalized subcutaneous, biofilm, slough Severity: Fat Layer Exposed Amount of bleeding with debridement: Mild Bleeding Controlled with: Compression and gauze Patient tolerated procedure: Patient tolerated procedure well Assessment/Plan Assessment/Plan (1) Non-pressure chronic ulcer 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: CODE(S): L97.212 - Non-pressure chronic ulcer 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 (2) Non-pressure chronic ulcer of left calf with fat layer exposed: CODE(S): L97.222 - Non-pressure chronic ulcer of left calf with fat layer exposed (3) Non-pressure chronic ulcer of other part of left foot with fat layer exposed: CODE(S): L97.522 - Non-pressure chronic ulcer of other part of left foot with fat layer exposed (4) Lipodermatosclerosis of both lower extremities: CODE(S): M79.3 - Panniculitis, unspecified (5) Bilateral edema of lower extremity: CODE(S): R60.0 - Localized edema (6) Venous insufficiency (chronic) (peripheral): CODE(S): I87.2 - Venous insufficiency (chronic) (peripheral) (7) Lymphedema: CODE(S): I89.0 - Lymphedema, not elsewhere classified (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 Debridement was performed today as noted in the clinical panel above. Postdebridement measurement: Medial left fifth digit remains healed Dorsal second digit PIPJ remains healed Left medial lower extremity 0.4 cm x 0.8 cm x 0.1 cm Left dorsal lateral foot 0.9 cm x 0.6 cm x 0.1 cm Anterior right lower extremity 8.5 cm x 7.0 cm x 0.3 cm She completed course of doxycycline 100 mg twice daily. (Stop date 02/21/2025). This did aid in improvement of the ulcerative site with less erythema to the wound margin. She also completed 4 mg Medrol Dosepak with some improvement noted to the ulcerative sites. She did undergo debridement of the site again today as noted in the clinical panel above. Postdebridement measurements listed above. She will continue with Santyl to the left lower extremity. Will apply Gregory to the left dorsal foot ulceration with dry sterile dressing and change daily. Will continue to apply Fibracol to the right lower extremity ulceration site and change daily. She will continue Tubigrip compression. There is increased ulceration size of the right lower extremity versus previous visit. There are slight changes of reduction in size for the left lower extremity and left dorsal foot ulceration versus previous visit since completing oral steroid. LEAS ordered 01/08/25 and she will follow-up with Dr. Valdes following completion of studies. Last visit with Dr. Valdes's office 01/08/2024. Discussed returning with Dr. Valdes's office to schedule venous ablation as this will aid in healing. She previously canceled appointment following discussion with [facility]. Venous studies 01/08/25 demonstrate no evidence of DVT bilateral lower extremity. Bilateral great saphenous vein appears competent and compressible segmentally. Positive reflux in the great saphenous vein throughout in addition to the accessory saphenous vein in the calf, positive for reflux in the left common femoral vein, femoral vein, saphenofemoral junction, great saphenous vein throughout and accessory saphenous vein in the calf. LEAS demonstrate no evidence of arterial occlusive disease Santyl ordered for application to the right lower extremity ulcerative site. Will continue utilizing until plan for application of an advanced wound care product can be obtained. TheraSkin graft was applied for, awaiting approval for application. Discussed continuing to wear compression stocking and utilize lymphedema pumps to aid in decreasing the edema to the lower extremities. She is also to continue to elevate lower extremities at all times of rest to aid in maintaining edema control. During visit on 03/05/25 I discussed with her that she cannot continue to see 2 facilities with conflicting ideology and treatment and that she must select 1 facility to follow as her ulceration has not demonstrated progression in healing. Following this discussion I also feel that they do not comply fully with treatment protocol as her ulceration continues to increase in size. 03/05/25 Punch biopsy was performed of the right lower extremity ulceration ([id number]) at 2 sites 1 lateral, and 1 medial due to the non-healing status. Pathologist/dermatopathologist report changes consistent with chronic inflammation, peripheral vascular disease, and necrobiosis lipoidica. These changes were discussed with the patient and her today in detail. She was started on oral steroid to aid in treatment and reduction of her inflammation and has completed the 4 mg Medrol Dosepak as directed. Discussed referral to dermatology for additional assistance in treating her necrobiosis lipoidica. She and are amendable to this. Will also attempt wound VAC to assist in closure of the right lower extremity, awaiting insurance approval. Discussed signs and symptoms of infection. Discussed if she notices increasing redness around the ulcerative sites that moves up the leg or onto the foot, if any purulent drainage is noted from wound sites, if increasing foul odor is noted from wound sites, or if she begins to experience fever greater than 101 degree accompanied by nausea, vomiting, chills that these are signs of a progressing infection and she should report to the ED to receive IV antibiotics and for further evaluation. She is understanding of this today. The following work up and care recommendations were made: Dressing: Fibracol to right lower extremity. Gregory and dry sterile dressing to left foot. Santyl to left lower extremity ulceration. Change daily Wash: Soap and water Tissue growth optimization: For protocol for right lower extremity. Santyl left lower extremity, Gregory left foot Offload: Ensure no rubbing of the digits in shoe gear and to wear toe spacers. Vascular: Updating LEAS, awaiting results. Does have previous venous studies from October 2023 demonstrating positive reflux in great saphenous vein throughout and small saphenous vein throughout and accessory saphenous veins of bilateral lower extremities Edema: Lipodermatosclerosis. Will continue compression stockings and lymphedema pumps. Infection: No signs of infection Pain: May take [id number] Tylenol for any discomfort Host factors: Lipodermatosclerosis, advancing age, PVD complicate healing, and necrobiosis lipoidica. I answered all the patient's questions. To return to the wound healing center in 1 week or call sooner if the patient has any questions or concerns.
--- NOTE | 2025-03-23 09:00 | WC ---
PHOTO 03/19/25 RIGHT GALEANA
--- NOTE | 2025-03-23 09:05 | WC ---
PHOTO 03/19/25 Kaleb MEJIA
--- NOTE | 2025-03-23 09:08 | WC ---
PHOTO 03/19/25 LEFT DORSAL
[2025-03-26 11:35] VITALS: BP 170/68; PULSE 90; RESP 18; TEMP 36.6
--- NOTE | 2025-03-26 12:44 | PN.PCM_ITS ---
History of Present Illness Date of Service: 03/26/25 Chief Complaint: Right lower extremity ulceration History of Wound: This is a 80-year-old female who is a patient of Dr. Alo Huston, Intensive Care Ambulance Paramedic, at the [facility]. She was seen today on behalf of Dr. Huston as a courtesy visit. The patient has an ulceration on the anterolateral aspect right calf. The wound originated in early November 2024 as a result of a toenail scratch from her grandson. She stated that she was noticing increasing redness about the wound, as well as an increase in pain at the site. The patient has been using collagenase Santyl topically, but recently switched to collagen powder, hydrogel, and a PHMB foam dressing daily. The patient has a history of chronic venous insufficiency in the lower extremities bilaterally. She also has a history of edema and lipodermatosclerosis of bilateral lower extremities. She has followed with Dr. Valdes, and a right lower extremity venous ablation procedure is scheduled in the near future. The patient reports having compression stockings, but was not wearing any on the right leg as she was having pain with the compression. She also does have lymphedema pumps but was not utilizing these due to the pain in the extremities. Subjective Subjective This is a 80-year-old female who presents to the wound care center for continued follow-up of right lower extremity ulceration, left dorsal foot ulceration, and left lower extremity. She did follow with dermatology who did review biopsy results and did have suspicion of possible pyoderma gangrenosum and did start her on topical clobetasol. They have been applying for 3 days and feels there is some improvement already seen. Denies constitutional symptoms. Denies further complaints. Objective Data Objective Data Vital Signs: Vital Signs Temp Pulse Resp BP O2 Del Method 97.8 F 90 18 170/68 H Room Air 03/26/25 11:35 03/26/25 11:35 03/26/25 11:35 03/26/25 11:35 03/19/25 10:21 Oxygen Delivery Method Room Air Physical Exam Const alert, oriented x3 and no apparent distress General Appearance: cooperative HEENT normocephalic Eyes General Eye: normal appearance of both eyes Neck General: normal visual inspection Lymph Lymphatic: no lymphadenopathy noted and lymphedema Resp normal respiratory effort Cardio regular rate and regular rhythm Extremity no calf tenderness Extremity Narrative: Bilateral lower extremity: Vascular: DP pulse palpable left foot, weakly palpable right foot. PT pulse nonpalpable bilateral secondary to +4 pitting edema. Normal temperature g radient. Hair growth is absent to digits. There is +4 pitting edema of bilateral lower extremity. Neurologic: Epicritic sensation intact without focal deficit noted. Musculoskeletal: Muscle strength 5 of 5 age-appropriate. Decreased range of motion of the ankle joint in dorsiflexion with the knee extended without pain or crepitus. Full range of motion with knee flexed. No pain to palpation of the calf. No pain to palpation about second digit ulceration right foot or fifth digit ulceration of the left foot. There is some tenderness about the ulcerative site of the right lower extremity. Dermatologic: There are multiple areas of hemosiderin deposition secondary to her chronic venous insufficiency. There is lipodermatosclerosis noted to bilateral lower extremities. Positive Stemmer sign second digit bilateral. Ulceration left medial lower extremity demonstrates thickened fibrotic layer with no signs of infection. Ulceration to the dorsal lateral aspect of the left foot which demonstrates mixed fibro granular layer with no signs of infection. There is an ulceration noted to the anterior aspect of the right lower extremity demonstrates mixed fibrogranular tissue in the wound bed. No erythema, no purulent drainage, no palpable fluctuance/bogginess, no visible abscess. No signs of infection to the right lower extremity ulcerative site. Skin no rashes or lesions noted General Skin Exam: venous stasis and dermatitis Neuro moves all extremities Debridement Note Debridement Note No debridement was completed: No debridement was completed today Post-Debridement Measurements and Additional Note: Post-Debridement Measurements/Treatment - Nurse 1 - General Ulcer Assessment Start: 03/19/25 10:21 Freq: Status: Active Protocol: SKYLER Activity Type Activity Date Activity User E-sign Co-sign Detail Recorded Client Recorded Date Recorded By Document 03/19/25 10:21 KW [id number] 03/19/25 10:34 KW Document 03/26/25 11:35 DL [id number] 03/26/25 11:46 DL 03/19/25 03/26/25 10:21 11:35 - Today's Visit Information Type of service Follow-up Visit Follow-up Visit (Physician/INFORMATION SYSTEMS DIRECTOR (Physician/INFORMATION SYSTEMS DIRECTOR ) ) Arrival Mode Ambulatory, Ambulatory, Walker Walker Transfer Assistance None Accompanied by Patient Identification Verified (Name & Yes Yes ) Patient Requires Transmission-Based No Precautions Vital Signs Temperature (97.8 F-99.1 F) 96.0 F L 97.8 F Temperature Source Temporal Temporal Pulse Rate (60-100) 90 Pulse Location Monitor Monitor Respiratory Rate (12-18) 18 18 Respiratory rate source Observation Observation Oxygen Delivery Method Room Air Blood Pressure (90/60-120/80) 170/68 H Blood Pressure Mean (mm Hg) 102 Source Monitor Monitor Position Semi-Fowlers Blood Pressure Location Right Arm History Since Last Visit- (Skip if this is Patient's initial visit) Have you changed medications since your No No last visit? Any new allergies or adverse reactions No No Had a fall/change in ADL's that may No No increase risk of falls Signs or symptoms of abuse and/or No No neglect since last visit Have you been in the hospital since your No No last visit? Has dressing in place as prescribed Yes Yes Has compression in place as prescribed Yes Yes Has offloadiing in place as prescribed N/A N/A Experienced any changes in pain level or No No management Left Footwear Regular Shoe Right Footwear Regular Shoe Pain Scale: 0-10 Numeric Is Patient Pain Free? Yes Yes WC - Nurse 1 - General Ulcer Measurement Start: 03/19/25 10:21 Freq: Status: Active Protocol: Activity Type Activity Date Activity User E-sign Co-sign Detail Recorded Client Recorded Date Recorded By Document 03/19/25 10:21 KW [id number] 03/19/25 10:34 KW Document 03/26/25 11:35 DL [id number] 03/26/25 11:46 DL 03/19/25 03/26/25 10:21 11:35 Wound Center Nurse 1 #5 LLE MED -Current Size (cm) - Length 0.6 0.6 -Current Size (cm) - Width 1 1.3 -Current Size (cm) - Depth 0.2 0.2 -Total Square Cm 0.6 0.78 -Date of Last Picture (Recall this 03/19/25 field) -Photo Taken Yes -Exudate Amt Small Medium -Exudate Type Serosanguineous Serosanguineous -Wound Margin Thickened Distinct, Outline Attached -Granulation Amt Small (1-33%) None Present (0 %) -Granulation Quality [place] -Necrosis Amt Large (67-100%) Large (67-100%) -Necrotic Tissue Type Adherent Slough Adherent Slough -Structure Exposed N/A -Texture (Milagro-wound Skin Appearance) Assessed Localized Edema ,Scarring -Moisture (Milagro-wound Skin Appearance) Assessed No Abnormality -Color (Milagro-wound Skin Appearance) Assessed, Hemosiderin Erythema, Staining Hemosiderin Staining -Temperature (Milagro-wound Skin No Abnormality No Abnormality Appearance) (Pt Warm) (Pt Warm) -Tenderness on Palpation (Milagro-wound No No Skin Appearance) -Ulcer Cleansing Soap and Water Soap and Water -Foul Odor after Cleansing No No -Anesthetic Used 5% Lidocaine 5% Lidocaine Gel Gel #4 L Dorsal foot -Current Size (cm) - Length 0.9 0.5 -Current Size (cm) - Width 0.8 0.5 -Current Size (cm) - Depth 0.2 0.2 -Total Square Cm 0.72 0.25 -Date of Last Picture (Recall this 03/19/25 field) -Photo Taken Yes -Exudate Amt Medium Small -Exudate Type Serosanguineous Serosanguineous -Wound Margin Thickened Well Defined, Not Attached -Granulation Amt Small (1-33%) -Granulation Quality [place] -Necrosis Amt Large (67-100%) Large (67-100%) -Necrotic Tissue Type Adherent Slough Adherent Slough -Structure Exposed N/A -Texture (Milagro-wound Skin Appearance) Assessed Localized Edema ,Scarring -Moisture (Milagro-wound Skin Appearance) Assessed No Abnormality -Color (Milagro-wound Skin Appearance) Assessed, Hemosiderin Erythema, Staining Hemosiderin Staining -Temperature (Milagro-wound Skin No Abnormality No Abnormality Appearance) (Pt Warm) (Pt Warm) -Tenderness on Palpation (Milagro-wound No Skin Appearance) -Ulcer Cleansing Soap and Water Soap and Water -Foul Odor after Cleansing No No -Anesthetic Used 5% Lidocaine 5% Lidocaine Gel Gel #1 RT GALEANA -Current Size (cm) - Length 8.5 8.8 -Current Size (cm) - Width 7 6.7 -Current Size (cm) - Depth 0.2 0.2 -Total Square Cm 59.5 58.96 -Date of Last Picture (Recall this 03/19/25 field) -Photo Taken Yes -Exudate Amt Large Medium -Exudate Type Serosanguineous Serosanguineous -Wound Margin Distinct, Distinct, Outline Outline Attached Attached -Granulation Amt Medium (34-66%) Medium (34-66%) -Granulation Quality Red Red -Necrosis Amt Small (1-33%) Medium (34-66%) -Necrotic Tissue Type Adherent Slough Adherent Slough -Structure Exposed N/A -Texture (Milagro-wound Skin Appearance) Assessed Localized Edema ,Scarring -Moisture (Milagro-wound Skin Appearance) Assessed No Abnormality -Color (Milagro-wound Skin Appearance) Assessed, Hemosiderin Erythema Staining -Temperature (Milagro-wound Skin No Abnormality No Abnormality Appearance) (Pt Warm) (Pt Warm) -Tenderness on Palpation (Milagro-wound No No Skin Appearance) -Ulcer Cleansing Soap and Water Soap and Water -Foul Odor after Cleansing No No -Anesthetic Used 4% Lidocaine Solution,5% Lidocaine Gel Right Calf (cm) 42 42.5 Right Ankle (cm) 25.3 25 Left Calf (cm) 44 45 Left Ankle (cm) 25.5 25.8 WC - Nurse 2 - General Ulcer CM Notes Start: 03/19/25 10:21 Freq: Status: Active Protocol: Activity Type Activity Date Activity User E-sign Co-sign Detail Recorded Client Recorded Date Recorded By Document 03/19/25 10:45 BMF [id number] 03/19/25 11:07 BMF Document 03/26/25 11:52 BMF [id number] 03/26/25 11:56 BMF Edit Result 03/26/25 11:52 BMF (1) [id number] 03/26/25 12:03 BMF (1) #4 L Dorsal foot - Post Debridement (cm) - Length => 0.7 - Post Debridement (cm) - Width => 0.5 - Post Debridement (cm) - Depth => 0.1 - Total Square (Post) (cm) => 0.35 - Area of Debridement (cm) - Length => 0.7 - Area of Debridement (cm) - Width => 0.5 - Total Square (Area) (cm) => 0.35 #1 RT GALEANA - Post Debridement (cm) - Length => 9 - Post Debridement (cm) - Width => 7 - Post Debridement (cm) - Depth => 0.2 - Total Square (Post) (cm) => 63 - Area of Debridement (cm) - Length => 9 - Area of Debridement (cm) - Width => 7 - Total Square (Area) (cm) => 63 03/19/25 03/26/25 10:45 11:52 Wound Center Nurse 2 #5 LLE MED -Time 10:47 11:54 -Correct Patient Yes -Correct Side, Site, Position Yes -Correct Procedure Yes -Procedure Performed Yes No -Type of Procedure Debridement -Clinical Debridement Subcutaneous -Tissue Removed Subcutaneous -Post Debridement (cm) - Length 0.8 -Post Debridement (cm) - Width 1.4 -Post Debridement (cm) - Depth 0.2 -Total Square (Post) (cm) 1.12 -Area of Debridement (cm) - Length 0.8 -Area of Debridement (cm) - Width 0.4 -Total Square (Area) (cm) 0.32 -Tunneling No -Undermining/Tunneling No -Circular Undermining No -Wound/Ulcer Outcome Not Healed Not Healed -Ulcer Cleansing Rinsed/ Irrigated with Saline -Foul Odor after Cleansing No -Bioengineered Tissue No -Bleeding Controlled with Pressure NA -Treatment Response Procedure Tolerated Well -Debridement - Subq, 1st 20sq cm Yes #4 L Dorsal foot -Time 10:48 11:54 -Correct Patient Yes -Correct Side, Site, Position Yes -Correct Procedure Yes -Procedure Performed Yes No -Type of Procedure Debridement -Clinical Debridement Subcutaneous -Tissue Removed Subcutaneous -Post Debridement (cm) - Length 0.9 0.7 -Post Debridement (cm) - Width 0.6 0.5 -Post Debridement (cm) - Depth 0.1 0.1 -Total Square (Post) (cm) 0.54 0.35 -Area of Debridement (cm) - Length 0.9 0.7 -Area of Debridement (cm) - Width 0.6 0.5 -Total Square (Area) (cm) 0.54 0.35 -Tunneling No -Undermining/Tunneling No -Circular Undermining No -Wound/Ulcer Outcome Not Healed Not Healed -Ulcer Cleansing Rinsed/ Irrigated with Saline -Foul Odor after Cleansing No -Bioengineered Tissue No -Bleeding Controlled with Pressure NA -Treatment Response Procedure Tolerated Well -Debridement - Subq, 1st 20sq cm No #1 RT GALEANA -Time 10:46 11:55 -Correct Patient Yes -Correct Side, Site, Position Yes -Correct Procedure Yes -Procedure Performed Yes No -Type of Procedure Debridement -Clinical Debridement Muscle / Fascia -Tissue Removed Muscle,Fascia -Post Debridement (cm) - Length 8.5 9 -Post Debridement (cm) - Width 7 7 -Post Debridement (cm) - Depth 0.3 0.2 -Total Square (Post) (cm) 59.5 63 -Area of Debridement (cm) - Length 8.5 9 -Area of Debridement (cm) - Width 7 7 -Total Square (Area) (cm) 59.5 63 -Tunneling No -Undermining/Tunneling No -Circular Undermining No -Wound/Ulcer Outcome Not Healed Not Healed -Ulcer Cleansing Rinsed/ Irrigated with Saline -Foul Odor after Cleansing No -Bioengineered Tissue No -Injectable Lidocaine w/ Epi (%) 1 -Injectable Lidocaine w/ Epi (mls) 10 -Bleeding Controlled with Pressure NA -Treatment Response Procedure Tolerated Well -Debridement - Muscle / Fascia, 1st Yes 20sq cm -Wound Comment(s) following w/ trillium [place] for possible pyoderma Pain Scale: 0-10 Numeric Is Patient Pain Free? Yes Yes - Nurse 3 - General Ulcer D/C NN Start: 03/19/25 10:21 Freq: Status: Active Protocol: Activity Type Activity Date Activity User E-sign Co-sign Detail Recorded Client Recorded Date Recorded By Document 03/19/25 11:15 ML [id number] 03/19/25 11:21 ML Document 03/26/25 12:09 DL [id number] 03/26/25 12:13 DL 03/19/25 03/26/25 11:15 12:09 Wound Care Center Nurse 3 #5 LLE MED -Ulcer Cleansing Rinsed/ Rinsed/ Irrigated with Irrigated with Saline Saline -Foul Odor after Cleansing No -Primary Dressing Applied Fibracol Plus 4x4 -Other Dressing PT OWN SANTYL Clobetasol -Primary Dressing Covered/Secured with Dry Gauze Dry Gauze & Roll Gauze, Secured with Tape -Fibracol Plus 4x4 1 #4 L Dorsal foot -Ulcer Cleansing Rinsed/ Irrigated with Saline -Foul Odor after Cleansing No -Other Dressing PT OWN GREGORY Clobetasol/ MOISTENED fibracol -Primary Dressing Covered/Secured with Dry Gauze,Dry Dry Gauze & Gauze & Roll Roll Gauze, Gauze,Secured Secured with with Tape Tape #1 RT GALEANA -Ulcer Cleansing Soap and Water -Primary Dressing Applied Fibracol Plus 4x4 -Other Dressing Clobetasol/ fibracol -Primary Dressing Covered/Secured with Dry Gauze & Dry Gauze & Roll Gauze, Roll Gauze, Secured with Secured with Tape Tape -Fibracol Plus 4x4 1 -Wound Comment(s) USED ONLY PT SUPPLIES, APPLYING FOR WOUND VAC BLE -Tubular Bandage Double Layer -Size of Tubigrip Used Size E -Size E ($) 4 Treatment Response Procedure Tolerated Well Pain Scale: 0-10 Numeric Is Patient Pain Free? Yes Yes WC - Visit Discharge Discharge Condition Stable Stable Ambulatory Status Ambulatory, Ambulatory, Walker Walker Transportation Private Auto Private Auto Medication Reconcilliation completed & No provided to patient/care provider Clinical Summary of Care Provided Yes Facility Type Home Health Orders Sent Yes Assessment/Plan Assessment/Plan (1) Non-pressure chronic ulcer 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: CODE(S): L97.212 - Non-pressure chronic ulcer 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 (2) Non-pressure chronic ulcer of left calf with fat layer exposed: CODE(S): L97.222 - Non-pressure chronic ulcer of left calf with fat layer exposed (3) Non-pressure chronic ulcer of other part of left foot with fat layer exposed: CODE(S): L97.522 - Non-pressure chronic ulcer of other part of left foot with fat layer exposed (4) Lipodermatosclerosis of both lower extremities: CODE(S): M79.3 - Panniculitis, unspecified (5) Bilateral edema of lower extremity: CODE(S): R60.0 - Localized edema (6) Venous insufficiency (chronic) (peripheral): CODE(S): I87.2 - Venous insufficiency (chronic) (peripheral) (7) Lymphedema: CODE(S): I89.0 - Lymphedema, not elsewhere classified (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 Debridement was performed today as noted in the clinical panel above. Postdebridement measurement: Medial left fifth digit remains healed Dorsal second digit PIPJ remains healed Left medial lower extremity 1.0 cm x 1.5 cm x 0.1 cm Left dorsal lateral foot 0.7 cm x 0.5 cm x 0.1 cm Anterior right lower extremity 9.0 cm x 7.0 cm x 0.2 cm She completed course of doxycycline 100 mg twice daily. (Stop date 02/21/2025). This did aid in improvement of the ulcerative site with less erythema to the wound margin. She also completed 4 mg Medrol Dosepak with some improvement noted to the ulcerative sites. Due to this improvement in addition to biopsy results and consultation from dermatology there is suspicion for possible pyoderma gangrenosum of the right lower extremity ulceration site and she was started on topical clobetasol and following 3 days there is some improvement of the ulcerative appearance with wound margin edges starting to flatten. Discussed with them pyoderma gangrenosum in detail and asked them to begin applying to the other 2 ulceration sites. They voiced understanding of this and will begin application of the topical clobetasol to the left lower extremity ulcerative sites. We will continue to monitor for improvement. She did not undergo debridement of the site as noted in the clinical panel above due to possible PG. Postdebridement measurements listed above. She will continue applying topical clobetasol to all ulceration sites per dermatology and will continue to apply Fibracol to the right lower extremity ulceration site and change daily. She will continue Tubigrip compression. There is increased ulceration size of the right lower extremity and left lower extremity versus previous visit. There are slight changes of reduction in size for the left dorsal foot ulceration versus previous visit. MAHSA ordered 01/08/25 and she will follow-up with Dr. Valdes following completion of studies. Last visit with Dr. Valdes's office 01/08/2024. Discussed returning with Dr. Valdes's office to schedule venous ablation as this will aid in healing. She previously canceled appointment following discussion with [facility]. Venous studies 01/08/25 demonstrate no evidence of DVT bilateral lower extremity. Bilateral great saphenous vein appears competent and compressible segmentally. Positive reflux in the great saphenous vein throughout in addition to the accessory saphenous vein in the calf, positive for reflux in the left common femoral vein, femoral vein, saphenofemoral junction, great saphenous vein throughout and accessory saphenous vein in the calf. LEAS demonstrate no evidence of arterial occlusive disease Discussed continuing to wear compression stocking and utilize lymphedema pumps to aid in decreasing the edema to the lower extremities. She is also to continue to elevate lower extremities at all times of rest to aid in maintaining edema control. 03/05/25 Punch biopsy was performed of the right lower extremity ulceration ([id number]) at 2 sites 1 lateral, and 1 medial due to the non-healing status. Pathologist/dermatopathologist report changes consistent with chronic inflammation, peripheral vascular disease, and necrobiosis lipoidica. These changes were discussed with the patient and her today in detail. She was started on oral steroid to aid in treatment and reduction of her inflammation and has completed the 4 mg Medrol Dosepak as directed. Discussed referral to dermatology for additional assistance in treating her necrobiosis lipoidica. They did follow-up and while dermatology does agree with this there is also suspicion of pyoderma gangrenosum which she now will undergo treatment for as stated above. Discussed signs and symptoms of infection. Discussed if she notices increasing redness around the ulcerative sites that moves up the leg or onto the foot, if any purulent drainage is noted from wound sites, if increasing foul odor is noted from wound sites, or if she begins to experience fever greater than 101 degree accompanied by nausea, vomiting, chills that these are signs of a progressing infection and she should report to the ED to receive IV antibiotics and for further evaluation. She is understanding of this today. The following work up and care recommendations were made: Dressing: Topical clobetasol to all ulcerative sites with Fibracol to right lower extremity. Dressed with dry sterile dressing. Change daily. Wash: Soap and water Tissue growth optimization: Topical clobetasol Offload: Ensure no rubbing of the digits in shoe gear and to wear toe spacers. Vascular: Updating LEAS, awaiting results. Does have previous venous studies from October 2023 demonstrating positive reflux in great saphenous vein throughout and small saphenous vein throughout and accessory saphenous veins of bilateral lower extremities Edema: Lipodermatosclerosis. Will continue compression stockings and lymphedema pumps. Infection: No signs of infection Pain: May take [id number] Tylenol for any discomfort Host factors: Lipodermatosclerosis, advancing age, PVD complicate healing, and n ecrobiosis lipoidica and pyoderma gangrenosum. I answered all the patient's questions. To return to the wound healing center in 1 week or call sooner if the patient has any questions or concerns.
--- NOTE | 2025-03-27 10:12 | WC ---
PHOTO 03/26/25 RIGHT GALEANA
--- NOTE | 2025-03-27 10:17 | WC ---
PHOTO 03/26/25 BELINDA MEJIA
--- NOTE | 2025-03-27 10:21 | WC ---
PHOTO 03/26/25 LEFT DORSAL
[2025-04-02 10:10] VITALS: BP 206/108; PULSE 91; RESP 18; TEMP 36.2
--- NOTE | 2025-04-02 13:05 | PCM.WC.PN ---
History of Present Illness Date of Service: 04/02/25 Chief Complaint: Right lower extremity ulceration History of Wound: This is a 80-year-old female who is a patient of Dr. Alo Huston, Tire Manager, at the [facility]. She was seen today on behalf of Dr. Huston as a courtesy visit. The patient has an ulceration on the anterolateral aspect right calf. The wound originated in early November 2024 as a result of a toenail scratch from her grandson. She stated that she was noticing increasing redness about the wound, as well as an increase in pain at the site. The patient has been using collagenase Santyl topically, but recently switched to collagen powder, hydrogel, and a PHMB foam dressing daily. The patient has a history of chronic venous insufficiency in the lower extremities bilaterally. She also has a history of edema and lipodermatosclerosis of bilateral lower extremities. She has followed with Dr. Valdes, and a right lower extremity venous ablation procedure is scheduled in the near future. The patient reports having compression stockings, but was not wearing any on the right leg as she was having pain with the compression. She also does have lymphedema pumps but was not utilizing these due to the pain in the extremities. Subjective Subjective This is a 80-year-old female who presents to the wound care center for continued follow-up of right lower extremity ulceration, left dorsal foot ulceration, and left lower extremity. She did follow with dermatology who did review biopsy results and did have suspicion of possible pyoderma gangrenosum and did start her on topical clobetasol. She will follow again with dermatology this afternoon. They have been applying the topical clobetasol and feels it is helping in wound appearance but they do not seem to be getting smaller at present time. Denies constitutional symptoms. Denies further complaints. Objective Data Objective Data Vital Signs: Vital Signs Temp Pulse Resp BP O2 Del Method 97.2 F L 91 18 206/108 H Room Air 04/02/25 10:10 04/02/25 10:10 04/02/25 10:10 04/02/25 10:10 03/19/25 10:21 Oxygen Delivery Method Room Air Physical Exam Const alert, oriented x3 and no apparent distress General Appearance: cooperative HEENT normocephalic Eyes General Eye: normal appearance of both eyes Neck General: normal visual inspection Lymph Lymphatic: no lymphadenopathy noted and lymphedema Resp normal respiratory effort Cardio regular rate and regular rhythm Extremity no calf tenderness Extremity Narrative: Bilateral lower extremity: Vascular: DP pulse palpable left foot, weakly palpable right foot. PT pulse nonpalpable bilateral secondary to +4 pitting edema. Normal temperature gradient. Hair growth is absent to digits. There is +4 pitting edema of bilateral lower extremity. Neurologic: Epicritic sensation intact without focal deficit noted. Musculoskeletal: Muscle strength 5 of 5 age-appropriate. Decreased range of motion of the ankle joint in dorsiflexion with the knee extended without pain or crepitus. Full range of motion with knee flexed. No pain to palpation of the calf. No pain to palpation about second digit ulceration right foot or fifth digit ulceration of the left foot. There is some tenderness about the ulcerative site of the right lower extremity. Dermatologic: There are multiple areas of hemosiderin deposition secondary to her chronic venous insufficiency. There is lipodermatosclerosis noted to bilateral lower extremities. Positive Stemmer sign second digit bilateral. Ulceration left medial lower extremity demonstrates thickened fibrotic layer with no signs of infection. Ulceration to the dorsal lateral aspect of the left foot which demonstrates mixed fibro granular layer with no signs of infection. There is an ulceration noted to the anterior aspect of the right lower extremity demonstrates mixed fibrogranular tissue in the wound bed. No erythema, no purulent drainage, no palpable fluctuance/bogginess, no visible abscess. No signs of infection to the right lower extremity ulcerative site. Skin no rashes or lesions noted General Skin Exam: venous stasis and dermatitis Neuro moves all extremities Debridement Note Debridement Note No debridement was completed: No debridement was completed today Post-Debridement Measurements and Additional Note: Post-Debridement Measurements/Treatment - Nurse 1 - General Ulcer Assessment Start: 03/19/25 10:21 Freq: Status: Active Protocol: [email or web address].[email or web address] Activity Type Activity Date Activity User E-sign Co-sign Detail Recorded Client Recorded Date Recorded By Document 03/19/25 10:21 KW [id number] 03/19/25 10:34 KW Document 03/26/25 11:35 DL [id number] 03/26/25 11:46 DL Document 04/02/25 10:10 DL [id number] 04/02/25 10:26 DL 03/19/25 03/26/25 04/02/25 10:21 11:35 10:10 - Today's Visit Information Type of service Follow-up Visit Follow-up Visit Follow-up Visit (Physician/MEDICAL RECEPTIONIST MEDICAL ASSISTANT (Physician/MEDICAL RECEPTIONIST MEDICAL ASSISTANT (Physician/MEDICAL RECEPTIONIST MEDICAL ASSISTANT ) ) ) Arrival Mode Ambulatory, Ambulatory, Ambulatory, Walker Walker Walker Transfer Assistance None None Accompanied by Patient Identification Verified (Name & Yes Yes Yes ) Patient Requires Transmission-Based No No Precautions Vital Signs Temperature (97.8 F-99.1 F) 96.0 F L 97.8 F 97.2 F L Temperature Source Temporal Temporal Temporal Pulse Rate (60-100) 90 91 Pulse Location Monitor Monitor Monitor Respiratory Rate (12-18) 18 18 18 Respiratory rate source Observation Observation Observation Oxygen Delivery Method Room Air Blood Pressure (90/60-120/80) 170/68 H 206/108 H Blood Pressure Mean (mm Hg) 102 140 Source Monitor Monitor Monitor Position Semi-Fowlers Blood Pressure Location Right Arm History Since Last Visit- (Skip if this is Patient's initial visit) Have you changed medications since your No No No last visit? Any new allergies or adverse reactions No No No Had a fall/change in ADL's that may No No No increase risk of falls Signs or symptoms of abuse and/or No No No neglect since last visit Have you been in the hospital since your No No No last visit? Has dressing in place as prescribed Yes Yes Yes Has compression in place as prescribed Yes Yes Yes Has offloadiing in place as prescribed N/A N/A N/A Experienced any changes in pain level or No No No management Left Footwear Regular Shoe Right Footwear Regular Shoe Pain Scale: 0-10 Numeric Is Patient Pain Free? Yes Yes Yes - Nurse 1 - General Ulcer Measurement Start: 03/19/25 10:21 Freq: Status: Active Protocol: Activity Type Activity Date Activity User E-sign Co-sign Detail Recorded Client Recorded Date Recorded By Document 03/19/25 10:21 KW [id number] 03/19/25 10:34 KW Document 03/26/25 11:35 DL [id number] 03/26/25 11:46 DL Document 04/02/25 10:10 DL [id number] 04/02/25 10:26 DL 03/19/25 03/26/25 04/02/25 10:21 11:35 10:10 Wound Center Nurse 1 #5 LLE MED -Current Size (cm) - Length 0.6 0.6 1.1 -Current Size (cm) - Width 1 1.3 1.8 -Current Size (cm) - Depth 0.2 0.2 0.1 -Total Square Cm 0.6 0.78 1.98 -Date of Last Picture (Recall this 03/19/25 field) -Photo Taken Yes Yes -Exudate Amt Small Medium Medium -Exudate Type Serosanguineous Serosanguineous Serosanguineous -Wound Margin Thickened Distinct, Distinct, Outline Outline Attached Attached -Granulation Amt Small (1-33%) None Present (0 None Present (0 %) %) -Granulation [facility] [place] -Necrosis Amt Large (67-100%) Large (67-100%) Large (67-100%) -Necrotic Tissue Type Adherent Slough Adherent Slough Adherent Slough -Structure Exposed N/A N/A -Texture (Milagro-wound Skin Appearance) Assessed Localized Edema Localized Edema ,Scarring ,Scarring -Moisture (Mil[place]ro-wound Skin Appearance) Assessed No Abnormality No Abnormality -Color (Mil[place]ro-wound Skin Appearance) Assessed, Hemosiderin Hemosiderin Erythema, Staining Staining Hemosiderin Staining -Temperature ([place]-wound Skin No Abnormality No Abnormality No Abnormality Appearance) (Pt Warm) (Pt Warm) (Pt Warm) -Tenderness on Palpation ([place]-wound No No No Skin Appearance) -Ulcer Cleansing Soap and Water Soap and Water Soap and Water -Foul Odor after Cleansing No No No -Anesthetic Used 5% Lidocaine 5% Lidocaine Gel Gel #4 L Dorsal foot -Current Size (cm) - Length 0.9 0.5 0.8 -Current Size (cm) - Width 0.8 0.5 0.4 -Current Size (cm) - Depth 0.2 0.2 0.1 -Total Square Cm 0.72 0.25 0.32 -Date of Last Picture (Recall this 03/19/25 field) -Photo Taken Yes Yes -Exudate Amt Medium Small Medium -Exudate Type Serosanguineous Serosanguineous Serosanguineous -Wound Margin Thickened Well Defined, Distinct, Not Attached Outline Attached -Granulation Amt Small (1-33%) None Present (0 %) -Granulation [facility] [place] -Necrosis Amt Large (67-100%) Large (67-100%) Large (67-100%) -Necrotic Tissue Type Adherent Slough Adherent Slough Adherent Slough -Structure Exposed N/A N/A -Texture (Milagro-wound Skin Appearance) Assessed Localized Edema Localized Edema ,Scarring ,Scarring -Moisture (Mil[place]ro-wound Skin Appearance) Assessed No Abnormality No Abnormality -Color (Mil[place]ro-wound Skin Appearance) Assessed, Hemosiderin Hemosiderin Erythema, Staining Staining Hemosiderin Staining -Temperature ([place]ro-wound Skin No Abnormality No Abnormality No Abnormality Appearance) (Pt Warm) (Pt Warm) (Pt Warm) -Tenderness on Palpation (Milagro-wound No Skin Appearance) -Ulcer Cleansing Soap and Water Soap and Water Soap and Water -Foul Odor after Cleansing No No No -Anesthetic Used 5% Lidocaine 5% Lidocaine Gel Gel -Wound Comment(s) BP Rechecked at 183/94, checked 15 minutes later. #1 RT GALEANA -Current Size (cm) - Length 8.5 8.8 8.8 -Current Size (cm) - Width 7 6.7 6.8 -Current Size (cm) - Depth 0.2 0.2 0.1 -Total Square Cm 59.5 58.96 59.84 -Date of Last Picture (Recall this 03/19/25 field) -Photo Taken Yes Yes -Exudate Amt Large Medium -Exudate Type Serosanguineous Serosanguineous -Wound Margin Distinct, Distinct, Outline Outline Attached Attached -Granulation Amt Medium (34-66%) Medium (34-66%) -Granulation Quality [place] -Necrosis Amt Small (1-33%) Medium (34-66%) -Necrotic Tissue Type Adherent Slough Adherent Slough -Structure Exposed N/A -Texture (Milagro-wound Skin Appearance) Assessed Localized Edema ,Scarring -Moisture (Milagro-wound Skin Appearance) Assessed No Abnormality -Color (Milagro-wound Skin Appearance) Assessed, Hemosiderin Erythema Staining -Temperature ([place]-wound Skin No Abnormality No Abnormality Appearance) (Pt Warm) (Pt Warm) -Tenderness on Palpation (Milagro-wound No No Skin Appearance) -Ulcer Cleansing Soap and Water Soap and Water -Foul Odor after Cleansing No No -Anesthetic Used 4% Lidocaine Solution,5% Lidocaine Gel Right Calf (cm) 42 42.5 41.4 Right Ankle (cm) 25.3 25 21.6 Left Calf (cm) 44 45 44 Left Ankle (cm) 25.5 25.8 25.4 WC - Nurse 2 - General Ulcer CM Notes Start: 03/19/25 10:21 Freq: Status: Active Protocol: Activity Type Activity Date Activity User E-sign Co-sign Detail Recorded Client Recorded Date Recorded By Document 03/19/25 10:45 BMF [id number] 03/19/25 11:07 BMF Edit Result 03/19/25 10:45 BMF (1) [id number] 04/02/25 10:24 BMF Document 03/26/25 11:52 BMF [id number] 03/26/25 11:56 BMF Edit Result 03/26/25 11:52 BMF (2) [id number] 03/26/25 12:03 BMF Document 04/02/25 10:34 BMF [id number] 04/02/25 10:39 BMF (1) #1 RT GALEANA - Debridement, Muscle/Fascia, ea addt'l => 2 20sq cm or part thereof (2) #4 L Dorsal foot - Post Debridement (cm) - Length => 0.7 - Post Debridement (cm) - Width => 0.5 - Post Debridement (cm) - Depth => 0.1 - Total Square (Post) (cm) => 0.35 - Area of Debridement (cm) - Length => 0.7 - Area of Debridement (cm) - Width => 0.5 - Total Square (Area) (cm) => 0.35 #1 RT GALEANA - Post Debridement (cm) - Length => 9 - Post Debridement (cm) - Width => 7 - Post Debridement (cm) - Depth => 0.2 - Total Square (Post) (cm) => 63 - Area of Debridement (cm) - Length => 9 - Area of Debridement (cm) - Width => 7 - Total Square (Area) (cm) => 63 03/19/25 03/26/25 04/02/25 10:45 11:52 10:34 Wound Center Nurse 2 #5 LLE MED -Time 10:47 11:54 10:35 -Correct Patient Yes -Correct Side, Site, Position Yes -Correct Procedure Yes -Procedure Performed Yes No No -Type of Procedure Debridement -Clinical Debridement Subcutaneous -Tissue Removed Subcutaneous -Post Debridement (cm) - Length 0.8 1.3 -Post Debridement (cm) - Width 1.4 1.5 -Post Debridement (cm) - Depth 0.2 0.1 -Total Square (Post) (cm) 1.12 1.95 -Area of Debridement (cm) - Length 0.8 1.3 -Area of Debridement (cm) - Width 0.4 1.5 -Total Square (Area) (cm) 0.32 1.95 -Tunneling No -Undermining/Tunneling No -Circular Undermining No -Wound/Ulcer Outcome Not Healed Not Healed Not Healed -Ulcer Cleansing Rinsed/ Irrigated with Saline -Foul Odor after Cleansing No -Bioengineered Tissue No -Bleeding Controlled with Pressure NA NA -Treatment Response Procedure Tolerated Well -Debridement - Subq, 1st 20sq cm Yes #4 L Dorsal foot -Time 10:48 11:54 10:36 -Correct Patient Yes -Correct Side, Site, Position Yes -Correct Procedure Yes -Procedure Performed Yes No No -Type of Procedure Debridement -Clinical Debridement Subcutaneous -Tissue Removed Subcutaneous -Post Debridement (cm) - Length 0.9 0.7 1 -Post Debridement (cm) - Width 0.6 0.5 0.6 -Post Debridement (cm) - Depth 0.1 0.1 0.1 -Total Square (Post) (cm) 0.54 0.35 0.6 -Area of Debridement (cm) - Length 0.9 0.7 1 -Area of Debridement (cm) - Width 0.6 0.5 0.6 -Total Square (Area) (cm) 0.54 0.35 0.6 -Tunneling No -Undermining/Tunneling No -Circular Undermining No -Wound/Ulcer Outcome Not Healed Not Healed Not Healed -Ulcer Cleansing Rinsed/ Irrigated with Saline -Foul Odor after Cleansing No -Bioengineered Tissue No -Bleeding Controlled with Pressure NA NA -Treatment Response Procedure Tolerated Well -Debridement - Subq, 1st 20sq cm No #1 RT GALEANA -Time 10:46 11:55 10:36 -Correct Patient Yes -Correct Side, Site, Position Yes -Correct Procedure Yes -Procedure Performed Yes No No -Type of Procedure Debridement -Clinical Debridement Muscle / Fascia -Tissue Removed Muscle,Fascia -Post Debridement (cm) - Length 8.5 9 9 -Post Debridement (cm) - Width 7 7 7 -Post Debridement (cm) - Depth 0.3 0.2 0.2 -Total Square (Post) (cm) 59.5 63 63 -Area of Debridement (cm) - Length 8.5 9 9 -Area of Debridement (cm) - Width 7 7 7 -Total Square (Area) (cm) 59.5 63 63 -Tunneling No -Undermining/Tunneling No -Circular Undermining No -Wound/Ulcer Outcome Not Healed Not Healed Not Healed -Ulcer Cleansing Rinsed/ Irrigated with Saline -Foul Odor after Cleansing No -Bioengineered Tissue No -Injectable Lidocaine w/ Epi (%) 1 -Injectable Lidocaine w/ Epi (mls) 10 -Bleeding Controlled with Pressure NA NA -Treatment Response Procedure Tolerated Well -Debridement - Muscle / Fascia, 1st Yes 20sq cm -Debridement, Muscle/Fascia, ea addt'l 2 20sq cm or part thereof -Wound Comment(s) following w/ [facility] [place] for possible pyoderma Pain Scale: 0-10 Numeric Is Patient Pain Free? Yes Yes Yes WC - Nurse 3 - General Ulcer D/C NN Start: 03/19/25 10:21 Freq: Status: Active Protocol: Activity Type Activity Date Activity User E-sign Co-sign Detail Recorded Client Recorded Date Recorded By Document 03/19/25 11:15 ML [id number] 03/19/25 11:21 ML Document 03/26/25 12:09 DL [id number] 03/26/25 12:13 DL 03/19/25 03/26/25 11:15 12:09 Wound Care Center Nurse 3 #5 LLE MED -Ulcer Cleansing Rinsed/ Rinsed/ Irrigated with Irrigated with Saline Saline -Foul Odor after Cleansing No -Primary Dressing Applied Fibracol Plus 4x4 -Other Dressing PT OWN SANTYL Clobetasol -Primary Dressing Covered/Secured with Dry Gauze Dry Gauze & Roll Gauze, Secured with Tape -Fibracol Plus 4x4 1 #4 L Dorsal foot -Ulcer Cleansing Rinsed/ Irrigated with Saline -Foul Odor after Cleansing No -Other Dressing PT OWN GREGORY Clobetasol/ MOISTENED fibracol -Primary Dressing Covered/Secured with Dry Gauze,Dry Dry Gauze & Gauze & Roll Roll Gauze, Gauze,Secured Secured with with Tape Tape #1 RT GALEANA -Ulcer Cleansing Soap and Water -Primary Dressing Applied Fibracol Plus 4x4 -Other Dressing Clobetasol/ fibracol -Primary Dressing Covered/Secured with Dry Gauze & Dry Gauze & Roll Gauze, Roll Gauze, Secured with Secured with Tape Tape -Fibracol Plus 4x4 1 -Wound Comment(s) USED ONLY PT SUPPLIES, APPLYING FOR WOUND VAC BLE -Tubular Bandage Double Layer -Size of Tubigrip Used Size E -Size E ($) 4 Treatment Response Procedure Tolerated Well Pain Scale: 0-10 Numeric Is Patient Pain Free? Yes Yes WC - Visit Discharge Discharge Condition Stable Stable Ambulatory Status Ambulatory, Ambulatory, Walker Walker Transportation Private Auto Private Auto Medication Reconcilliation completed & No provided to patient/care provider Clinical Summary of Care Provided Yes Facility Type Home Health Orders Sent Yes Assessment/Plan Assessment/Plan (1) Non-pressure chronic ulcer 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: CODE(S): L97.212 - Non-pressure chronic ulcer 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 (2) Non-pressure chronic ulcer of left calf with fat layer exposed: CODE(S): L97.222 - Non-pressure chronic ulcer of left calf with fat layer exposed (3) Non-pressure chronic ulcer of other part of left foot with fat layer exposed: CODE(S): L97.522 - Non-pressure chronic ulcer of other part of left foot with fat layer exposed (4) Lipodermatosclerosis of both lower extremities: CODE(S): M79.3 - Panniculitis, unspecified (5) Bilateral edema of lower extremity: CODE(S): R60.0 - Localized edema (6) Venous insufficiency (chronic) (peripheral): CODE(S): I87.2 - Venous insufficiency (chronic) (peripheral) (7) Lymphedema: CODE(S): I89.0 - Lymphedema, not elsewhere classified (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 Debridement was performed today as noted in the clinical panel above. Postdebridement measurement: Medial left fifth digit remains healed Dorsal second digit PIPJ remains healed Left medial lower extremity 1.3 cm x 1.5 cm x 0.1 cm Left dorsal lateral foot 1.0 cm x 0.6 cm x 0.1 cm Anterior right lower extremity 9.0 cm x 7.0 cm x 0.2 cm She completed course of doxycycline 100 mg twice daily. (Stop date 02/21/2025). This did aid in improvement of the ulcerative site with less erythema to the wound margin. She also completed 4 mg Medrol Dosepak with some improvement noted to the ulcerative sites. Due to this improvement in addition to biopsy results and consultation from dermatology there is suspicion for possible pyoderma gangrenosum of the right lower extremity ulceration site and she was started on topical clobetasol and following 3 days of application on 03/26/25, there is some improvement of the ulcerative appearance with wound margin edges starting to flatten. They have continued applying with good appearance of the wound sites. Discussed with them pyoderma gangrenosum in detail and asked them to continue applying to the other 2 ulceration sites. They voiced understanding of this and will continue application of the topical clobetasol to the left lower extremity ulcerative sites. We will continue to monitor for improvement. She did not undergo debridement of the site as noted in the clinical panel above due to possible PG. Postdebridement measurements listed above. She will continue applying topical clobetasol to all ulceration sites per dermatology and will continue to apply Fibracol to the right lower extremity ulceration site and change daily. She will continue Tubigrip compression. Will continue to follow with Dermatology with appointment this afternoon. There is no change in ulceration size of the right lower extremity and left lower extremity versus previous visit. MAHSA ordered 01/08/25 and she will follow-up with Dr. Valdes following completion of studies. Last visit with Dr. Valdes's office 01/08/2024. Discussed returning with Dr. Valdes's office to schedule venous ablation as this will aid in healing. She previously canceled appointment following discussion with [facility]. She has reestablished care with upcoming vascular procedure on 04/30/25. Venous studies 01/08/25 demonstrate no evidence of DVT bilateral lower extremity. Bilateral great saphenous vein appears competent and compressible segmentally. Positive reflux in the great saphenous vein throughout in addition to the accessory saphenous vein in the calf, positive for reflux in the left common femoral vein, femoral vein, saphenofemoral junction, great saphenous vein throughout and accessory saphenous vein in the calf. LEAS demonstrate no evidence of arterial occlusive disease Discussed continuing to wear compression stocking and utilize lymphedema pumps to aid in decreasing the edema to the lower extremities. She is also to continue to elevate lower extremities at all times of rest to aid in maintaining edema control. 03/05/25 Punch biopsy was performed of the right lower extremity ulceration ([id number]) at 2 sites 1 lateral, and 1 medial due to the non-healing status. Pathologist/dermatopathologist report changes consistent with chronic inflammation, peripheral vascular disease, and necrobiosis lipoidica. These changes were discussed with the patient and her today in detail. She was started on oral steroid to aid in treatment and reduction of her inflammation and has completed the 4 mg Medrol Dosepak as directed. Discussed continued follow with dermatology for additional assistance in treating her necrobiosis lipoidica. They did follow-up and while dermatology does agree with this there is also suspicion of pyoderma gangrenosum which she now will undergo treatment for as stated above. Discussed signs and symptoms of infection. Discussed if she notices increasing redness around the ulcerative sites that moves up the leg or onto the foot, if any purulent drainage is noted from wound sites, if increasing foul odor is noted from wound sites, or if she begins to experience fever greater than 101 degree accompanied by nausea, vomiting, chills that these are signs of a progressing infection and she should report to the ED to receive IV antibiotics and for further evaluation. She is understanding of this today. The following work up and care recommendations were made: Dressing: Topical clobetasol to all ulcerative sites with Fibracol to right lower extremity. Dressed with dry sterile dressing. Change daily. Wash: Soap and water Tissue growth optimization: Topical clobetasol Offload: Ensure no rubbing of the digits in shoe gear and to wear toe spacers. Vascular: Updating LEAS, awaiting results. Does have previous venous studies from October 2023 demonstrating positive reflux in great saphenous vein throughout and small saphenous vein throughout and accessory saphenous veins of bilateral lower extremities Edema: Lipodermatosclerosis. Will continue compression stockings and lymphedema pumps. Infection: No signs of infection Pain: May take [id number] Tylenol for any discomfort Host factors: Lipodermatosclerosis, advancing age, PVD complicate healing, and necrobiosis lipoidica and pyoderma gangrenosum. I answered all the patient's questions. To return to the wound healing center in 2 weeks or call sooner if the patient has any questions or concerns.
--- NOTE | 2025-04-06 09:24 | WC ---
PHOTO 04/02/25 LEFT MED
--- NOTE | 2025-04-06 09:26 | WC ---
PHOTO 04/02/25 LEFT DORSAL
--- NOTE | 2025-04-06 09:29 | WC ---
PHOTO 04/02/25 RIGHT GALEANA
[2025-04-16 10:33] VITALS: BP 250/116; PULSE 81; RESP 18; TEMP 36.4
--- NOTE | 2025-04-16 12:36 | PN.PCM_ITS ---
History of Present Illness Date of Service: 04/16/25 Chief Complaint: Right lower extremity ulceration History of Wound: This is a 80-year-old female who is a patient of Dr. Alo Huston, Knowledge Analyst, at the [facility]. She was seen today on behalf of Dr. Huston as a courtesy visit. The patient has an ulceration on the anterolateral aspect right calf. The wound originated in early November 2024 as a result of a toenail scratch from her grandson. She stated that she was noticing increasing redness about the wound, as well as an increase in pain at the site. The patient has been using collagenase Santyl topically, but recently switched to collagen powder, hydrogel, and a PHMB foam dressing daily. The patient has a history of chronic venous insufficiency in the lower extremities bilaterally. She also has a history of edema and lipodermatosclerosis of bilateral lower extremities. She has followed with Dr. Valdes, and a right lower extremity venous ablation procedure is scheduled in the near future. The patient reports having compression stockings, but was not wearing any on the right leg as she was having pain with the compression. She also does have lymphedema pumps but was not utilizing these due to the pain in the extremities. Subjective Subjective This is a 80-year-old female who presents to the wound care center for continued follow-up of right lower extremity ulceration, left dorsal foot ulceration, and left lower extremity. She continues follow-up with dermatology who is treating for pyoderma gangrenosum with topical clobetasol and timolol drops. Patient states that she could not use the timolol drops because they made the site more red leading to more swelling. They are now applying gentamicin topical to the wound sites with clobetasol around the border. She has been started on doxycycline. She does have continued increased edema in both lower extremities and her left arm. Nursing took blood pressure today with initial reading at 250/116 with HR 81 and left arm; this was rechecked in the right arm 10 minutes later with pressure 223/130 with HR 69. Denies constitutional symptoms. Denies further complaints. Objective Data Objective Data Vital Signs: Vital Signs Temp Pulse Resp BP O2 Del Method 97.6 F L 81 18 250/116 H Room Air 04/16/25 10:33 04/16/25 10:33 04/16/25 10:33 04/16/25 10:33 04/16/25 10:33 Oxygen Delivery Method Room Air Physical Exam Const alert, oriented x3 and no apparent distress General Appearance: cooperative HEENT normocephalic Eyes General Eye: normal appearance of both eyes Neck General: normal visual inspection Lymph Lymphatic: no lymphadenopathy noted and lymphedema Resp normal respiratory effort Cardio regular rate and regular rhythm Extremity no calf tenderness Extremity Narrative: Bilateral lower extremity: Vascular: DP pulse palpable left foot, weakly palpable right foot. PT pulse nonpalpable bilateral secondary to +4 pitting edema. Normal temperature gr adient. Hair growth is absent to digits. There is +4 pitting edema of bilateral lower extremity. Neurologic: Epicritic sensation intact without focal deficit noted. Musculoskeletal: Muscle strength 5 of 5 age-appropriate. Decreased range of motion of the ankle joint in dorsiflexion with the knee extended without pain or crepitus. Full range of motion with knee flexed. No pain to palpation of the calf. No pain to palpation about second digit ulceration right foot or fifth digit ulceration of the left foot. There is some tenderness about the ulcerative site of the right lower extremity. Dermatologic: There are multiple areas of hemosiderin deposition secondary to her chronic venous insufficiency. There is lipodermatosclerosis noted to bilateral lower extremities. Positive Stemmer sign second digit bilateral. Ulceration left medial lower extremity demonstrates thickened fibrotic layer with no signs of infection. Ulceration to the dorsal lateral aspect of the left foot which demonstrates mixed fibro granular layer with no signs of infection. There is an ulceration noted to the anterior aspect of the right lower extremity demonstrates mixed fibrogranular tissue in the wound bed. No erythema, no purulent drainage, no palpable fluctuance/bogginess, no visible abscess. No signs of infection to the right lower extremity ulcerative site. Skin no rashes or lesions noted General Skin Exam: venous stasis and dermatitis Neuro moves all extremities Debridement Note Debridement Note No debridement was completed: No debridement was completed today Post-Debridement Measurements and Additional Note: Post-Debridement Measurements/Treatment WC - Nurse 1 - General Ulcer Assessment Start: 03/19/25 10:21 Freq: Status: Active Protocol: DEVIN.LOWEXT Activity Type Activity Date Activity User E-sign Co-sign Detail Recorded Client Recorded Date Recorded By Document 03/19/25 10:21 KW [id number] 03/19/25 10:34 KW Document 03/26/25 11:35 DL [id number] 03/26/25 11:46 DL Document 04/02/25 10:10 DL [id number] 04/02/25 10:26 DL Document 04/16/25 10:33 KW [id number] 04/16/25 11:00 KW 03/19/25 03/26/25 04/02/25 10:21 11:35 10:10 - Today's Visit Information Type of service Follow-up Visit Follow-up Visit Follow-up Visit (Physician/TRASH COLLECTOR TRUCK DRIVER (Physician/TRASH COLLECTOR TRUCK DRIVER (Physician/TRASH COLLECTOR TRUCK DRIVER ) ) ) Arrival Mode Ambulatory, Ambulatory, Ambulatory, Walker Walker Walker Transfer Assistance None None Accompanied by Patient Identification Verified (Name & Yes Yes Yes ) Patient Requires Transmission-Based No No Precautions Vital Signs Temperature (97.8 F-99.1 F) 96.0 F L 97.8 F 97.2 F L Temperature Source Temporal Temporal Temporal Pulse Rate (60-100) 90 91 Pulse Location Monitor Monitor Monitor Respiratory Rate (12-18) 18 18 18 Respiratory rate source Observation Observation Observation Oxygen Delivery Method Room Air Blood Pressure (90/60-120/80) 170/68 H 206/108 H Blood Pressure Mean (mm Hg) 102 140 Source Monitor Monitor Monitor Position Semi-Fowlers Blood Pressure Location Right Arm History Since Last Visit- (Skip if this is Patient's initial visit) Have you changed medications since your No No No last visit? Any new allergies or adverse reactions No No No Had a fall/change in ADL's that may No No No increase risk of falls Signs or symptoms of abuse and/or No No No neglect since last visit Have you been in the hospital since your No No No last visit? Has dressing in place as prescribed Yes Yes Yes Has compression in place as prescribed Yes Yes Yes Has offloadiing in place as prescribed N/A N/A N/A Experienced any changes in pain level or No No No management Left Footwear Regular Shoe Right Footwear Regular Shoe Pain Scale: 0-10 Numeric Is Patient Pain Free? Yes Yes Yes 04/16/25 10:33 - Today's Visit Information Type of service Follow-up Visit (Physician/TRASH COLLECTOR TRUCK DRIVER ) Arrival Mode Ambulatory, Walker Transfer Assistance Accompanied by Patient Identification Verified (Name & Yes ) Patient Requires Transmission-Based Precautions Vital Signs Temperature (97.8 F-99.1 F) 97.6 F L Temperature Source Temporal Pulse Rate (60-100) 81 Pulse Location Monitor Respiratory Rate (12-18) 18 Respiratory rate source Observation Oxygen Delivery Method Room Air Blood Pressure (90/60-120/80) 250/116 H Blood Pressure Mean (mm Hg) 160 Source Monitor Position Semi-Fowlers Blood Pressure Location Left Arm History Since Last Visit- (Skip if this is Patient's initial visit) Have you changed medications since your No last visit? Any new allergies or adverse reactions No Had a fall/change in ADL's that may No increase risk of falls Signs or symptoms of abuse and/or No neglect since last visit Have you been in the hospital since your No last visit? Has dressing in place as prescribed Yes Has compression in place as prescribed Yes Has offloadiing in place as prescribed N/A Experienced any changes in pain level or No management Left Footwear Regular Shoe Right Footwear Regular Shoe Pain Scale: 0-10 Numeric Is Patient Pain Free? Yes WC - Nurse 1 - General Ulcer Measurement Start: 03/19/25 10:21 Freq: Status: Active Protocol: Activity Type Activity Date Activity User E-sign Co-sign Detail Recorded Client Recorded Date Recorded By Document 03/19/25 10:21 KW [id number] 03/19/25 10:34 KW Document 03/26/25 11:35 DL [id number] 03/26/25 11:46 DL Document 04/02/25 10:10 DL [id number] 04/02/25 10:26 DL Document 04/16/25 10:33 KW [id number] 04/16/25 11:00 KW 03/19/25 03/26/25 04/02/25 10:21 11:35 10:10 Wound Center Nurse 1 #5 LLE MED -Current Size (cm) - Length 0.6 0.6 1.1 -Current Size (cm) - Width 1 1.3 1.8 -Current Size (cm) - Depth 0.2 0.2 0.1 -Total Square Cm 0.6 0.78 1.98 -Date of Last Picture (Recall this 03/19/25 field) -Photo Taken Yes Yes -Exudate Amt Small Medium Medium -Exudate Type Serosanguineous Serosanguineous Serosanguineous -Wound Margin Thickened Distinct, Distinct, Outline Outline Attached Attached -Granulation Amt Small (1-33%) None Present (0 None Present (0 %) %) -Granulation Quality [place]kov -Necrosis Amt Large (67-100%) Large (67-100%) Large (67-100%) -Necrotic Tissue Type Adherent Slough Adherent Slough Adherent Slough -Structure Exposed N/A N/A -Texture (Milagro-wound Skin Appearance) Assessed Localized Edema Localized Edema ,Scarring ,Scarring -Moisture (Milagro-wound Skin Appearance) Assessed No Abnormality No Abnormality -Color (Milagro-wound Skin Appearance) Assessed, Hemosiderin Hemosiderin Erythema, Staining Staining Hemosiderin Staining -Temperature (Milagro-wound Skin No Abnormality No Abnormality No Abnormality Appearance) (Pt Warm) (Pt Warm) (Pt Warm) -Tenderness on Palpation (Milagro-wound No No No Skin Appearance) -Ulcer Cleansing Soap and Water Soap and Water Soap and Water -Foul Odor after Cleansing No No No -Anesthetic Used 5% Lidocaine 5% Lidocaine Gel Gel #4 L Dorsal foot -Current Size (cm) - Length 0.9 0.5 0.8 -Current Size (cm) - Width 0.8 0.5 0.4 -Current Size (cm) - Depth 0.2 0.2 0.1 -Total Square Cm 0.72 0.25 0.32 -Date of Last Picture (Recall this 03/19/25 field) -Photo Taken Yes Yes -Exudate Amt Medium Small Medium -Exudate Type Serosanguineous Serosanguineous Serosanguineous -Wound Margin Thickened Well Defined, Distinct, Not Attached Outline Attached -Granulation Amt Small (1-33%) None Present (0 %) -Granulation Quality [place] -Necrosis Amt Large (67-100%) Large (67-100%) Large (67-100%) -Necrotic Tissue Type Adherent Slough Adherent Slough Adherent Slough -Structure Exposed N/A N/A -Texture (Milagro-wound Skin Appearance) Assessed Localized Edema Localized Edema ,Scarring ,Scarring -Moisture (Milagro-wound Skin Appearance) Assessed No Abnormality No Abnormality -Color (Milagro-wound Skin Appearance) Assessed, Hemosiderin Hemosiderin Erythema, Staining Staining Hemosiderin Staining -Temperature (Milagro-wound Skin No Abnormality No Abnormality No Abnormality Appearance) (Pt Warm) (Pt Warm) (Pt Warm) -Tenderness on Palpation (Milagro-wound No Skin Appearance) -Ulcer Cleansing Soap and Water Soap and Water Soap and Water -Foul Odor after Cleansing No No No -Anesthetic Used 5% Lidocaine 5% Lidocaine Gel Gel -Wound Comment(s) BP Rechecked at 183/94, checked 15 minutes later. #1 RT GALEANA -Current Size (cm) - Length 8.5 8.8 8.8 -Current Size (cm) - Width 7 6.7 6.8 -Current Size (cm) - Depth 0.2 0.2 0.1 -Total Square Cm 59.5 58.96 59.84 -Date of Last Picture (Recall this 03/19/25 field) -Photo Taken Yes Yes -Exudate Amt Large Medium -Exudate Type Serosanguineous Serosanguineous -Wound Margin Distinct, Distinct, Outline Outline Attached Attached -Granulation Amt Medium (34-66%) Medium (34-66%) -Granulation Quality Red Red -Necrosis Amt Small (1-33%) Medium (34-66%) -Necrotic Tissue Type Adherent Slough Adherent Slough -Structure Exposed N/A -Texture (Milagro-wound Skin Appearance) Assessed Localized Edema ,Scarring -Moisture (Milagro-wound Skin Appearance) Assessed No Abnormality -Color (Milagro-wound Skin Appearance) Assessed, Hemosiderin Erythema Staining -Temperature (Milagro-wound Skin No Abnormality No Abnormality Appearance) (Pt Warm) (Pt Warm) -Tenderness on Palpation (Milagro-wound No No Skin Appearance) -Ulcer Cleansing Soap and Water Soap and Water -Foul Odor after Cleansing No No -Anesthetic Used 4% Lidocaine Solution,5% Lidocaine Gel Right Calf (cm) 42 42.5 41.4 Right Ankle (cm) 25.3 25 21.6 Left Calf (cm) 44 45 44 Left Ankle (cm) 25.5 25.8 25.4 04/16/25 10:33 Wound Center Nurse 1 #5 LLE MED -Current Size (cm) - Length 3 -Current Size (cm) - Width 3.5 -Current Size (cm) - Depth 0.2 -Total Square Cm 10.5 -Date of Last Picture (Recall this 04/16/25 field) -Photo Taken -Exudate Amt Medium -Exudate Type Serosanguineous -Wound Margin Distinct, Outline Attached -Granulation Amt None Present (0 %) -Granulation Quality -Necrosis Amt Large (67-100%) -Necrotic Tissue Type Adherent Slough -Structure Exposed -Texture (Milagro-wound Skin Appearance) Assessed -Moisture (Milagro-wound Skin Appearance) Assessed -Color (Milagro-wound Skin Appearance) Assessed -Temperature (Milagro-wound Skin No Abnormality Appearance) (Pt Warm) -Tenderness on Palpation (Milagro-wound No Skin Appearance) -Ulcer Cleansing Soap and Water -Foul Odor after Cleansing No -Anesthetic Used 5% Lidocaine Gel #4 L Dorsal foot -Current Size (cm) - Length 0.8 -Current Size (cm) - Width 0.5 -Current Size (cm) - Depth 0.2 -Total Square Cm 0.40 -Date of Last Picture (Recall this 04/16/25 field) -Photo Taken -Exudate Amt Small -Exudate Type Serosanguineous -Wound Margin Distinct, Outline Attached -Granulation Amt None Present (0 %) -Granulation Quality -Necrosis Amt Large (67-100%) -Necrotic Tissue Type Adherent Slough -Structure Exposed -Texture (Milagro-wound Skin Appearance) Assessed -Moisture (Milagro-wound Skin Appearance) Assessed -Color (Milagro-wound Skin Appearance) Assessed -Temperature (Milagro-wound Skin No Abnormality Appearance) (Pt Warm) -Tenderness on Palpation (Milagro-wound No Skin Appearance) -Ulcer Cleansing Soap and Water -Foul Odor after Cleansing No -Anesthetic Used 5% Lidocaine Gel -Wound Comment(s) #1 RT GALEANA -Current Size (cm) - Length 7.5 -Current Size (cm) - Width 9.1 -Current Size (cm) - Depth 0.4 -Total Square Cm 68.25 -Date of Last Picture (Recall this 04/16/25 field) -Photo Taken -Exudate Amt Medium -Exudate Type Serosanguineous -Wound Margin Thickened -Granulation Amt None Present (0 %) -Granulation Quality -Necrosis Amt Large (67-100%) -Necrotic Tissue Type Eschar -Structure Exposed -Texture (Milagro-wound Skin Appearance) Assessed -Moisture (Milagro-wound Skin Appearance) Assessed -Color (Milagro-wound Skin Appearance) Assessed, Erythema -Temperature (Milagro-wound Skin No Abnormality Appearance) (Pt Warm) -Tenderness on Palpation (Milagro-wound No Skin Appearance) -Ulcer Cleansing Soap and Water -Foul Odor after Cleansing No -Anesthetic Used 5% Lidocaine Gel Right Calf (cm) 44.5 Right Ankle (cm) 25.5 Left Calf (cm) 46 Left Ankle (cm) 25.5 WC - Nurse 2 - General Ulcer CM Notes Start: 03/19/25 10:21 Freq: Status: Active Protocol: Activity Type Activity Date Activity User E-sign Co-sign Detail Recorded Client Recorded Date Recorded By Document 03/19/25 10:45 BMF [id number] 03/19/25 11:07 BMF Edit Result 03/19/25 10:45 BMF (1) [id number] 04/02/25 10:24 BMF Document 03/26/25 11:52 BMF [id number] 03/26/25 11:56 BMF Edit Result 03/26/25 11:52 BMF (2) [id number] 03/26/25 12:03 BMF Document 04/02/25 10:34 BMF [id number] 04/02/25 10:39 BMF Document 04/16/25 11:12 BMF [id number] 04/16/25 11:29 BMF (1) #1 RT GALEANA - Debridement, Muscle/Fascia, ea addt'l => 2 20sq cm or part thereof (2) #4 L Dorsal foot - Post Debridement (cm) - Length => 0.7 - Post Debridement (cm) - Width => 0.5 - Post Debridement (cm) - Depth => 0.1 - Total Square (Post) (cm) => 0.35 - Area of Debridement (cm) - Length => 0.7 - Area of Debridement (cm) - Width => 0.5 - Total Square (Area) (cm) => 0.35 #1 RT GALEANA - Post Debridement (cm) - Length => 9 - Post Debridement (cm) - Width => 7 - Post Debridement (cm) - Depth => 0.2 - Total Square (Post) (cm) => 63 - Area of Debridement (cm) - Length => 9 - Area of Debridement (cm) - Width => 7 - Total Square (Area) (cm) => 63 03/19/25 03/26/25 04/02/25 10:45 11:52 10:34 Wound Center Nurse 2 #5 LLE MED -Time 10:47 11:54 10:35 -Correct Patient Yes -Correct Side, Site, Position Yes -Correct Procedure Yes -Procedure Performed Yes No No -Type of Procedure Debridement -Clinical Debridement Subcutaneous -Tissue Removed Subcutaneous -Post Debridement (cm) - Length 0.8 1.3 -Post Debridement (cm) - Width 1.4 1.5 -Post Debridement (cm) - Depth 0.2 0.1 -Total Square (Post) (cm) 1.12 1.95 -Area of Debridement (cm) - Length 0.8 1.3 -Area of Debridement (cm) - Width 0.4 1.5 -Total Square (Area) (cm) 0.32 1.95 -Tunneling No -Undermining/Tunneling No -Circular Undermining No -Wound/Ulcer Outcome Not Healed Not Healed Not Healed -Ulcer Cleansing Rinsed/ Irrigated with Saline -Foul Odor after Cleansing No -Bioengineered Tissue No -Bleeding Controlled with Pressure NA NA -Treatment Response Procedure Tolerated Well -Debridement - Subq, 1st 20sq cm Yes #4 L Dorsal foot -Time 10:48 11:54 10:36 -Correct Patient Yes -Correct Side, Site, Position Yes -Correct Procedure Yes -Procedure Performed Yes No No -Type of Procedure Debridement -Clinical Debridement Subcutaneous -Tissue Removed Subcutaneous -Post Debridement (cm) - Length 0.9 0.7 1 -Post Debridement (cm) - Width 0.6 0.5 0.6 -Post Debridement (cm) - Depth 0.1 0.1 0.1 -Total Square (Post) (cm) 0.54 0.35 0.6 -Area of Debridement (cm) - Length 0.9 0.7 1 -Area of Debridement (cm) - Width 0.6 0.5 0.6 -Total Square (Area) (cm) 0.54 0.35 0.6 -Tunneling No -Undermining/Tunneling No -Circular Undermining No -Wound/Ulcer Outcome Not Healed Not Healed Not Healed -Ulcer Cleansing Rinsed/ Irrigated with Saline -Foul Odor after Cleansing No -Bioengineered Tissue No -Bleeding Controlled with Pressure NA NA -Treatment Response Procedure Tolerated Well -Debridement - Subq, 1st 20sq cm No #1 RT GALEANA -Time 10:46 11:55 10:36 -Correct Patient Yes -Correct Side, Site, Position Yes -Correct Procedure Yes -Procedure Performed Yes No No -Type of Procedure Debridement -Clinical Debridement Muscle / Fascia -Tissue Removed Muscle,Fascia -Post Debridement (cm) - Length 8.5 9 9 -Post Debridement (cm) - Width 7 7 7 -Post Debridement (cm) - Depth 0.3 0.2 0.2 -Total Square (Post) (cm) 59.5 63 63 -Area of Debridement (cm) - Length 8.5 9 9 -Area of Debridement (cm) - Width 7 7 7 -Total Square (Area) (cm) 59.5 63 63 -Tunneling No -Undermining/Tunneling No -Circular Undermining No -Wound/Ulcer Outcome Not Healed Not Healed Not Healed -Ulcer Cleansing Rinsed/ Irrigated with Saline -Foul Odor after Cleansing No -Bioengineered Tissue No -Injectable Lidocaine w/ Epi (%) 1 -Injectable Lidocaine w/ Epi (mls) 10 -Bleeding Controlled with Pressure NA NA -Treatment Response Procedure Tolerated Well -Debridement - Muscle / Fascia, 1st Yes 20sq cm -Debridement, Muscle/Fascia, ea addt'l 2 20sq cm or part thereof -Wound Comment(s) following w/ trillium sault [place] for possible pyoderma Pain Scale: 0-10 Numeric Is Patient Pain Free? Yes Yes Yes 04/16/25 11:12 Wound Center Nurse 2 #5 LLE MED -Time 11:12 -Correct Patient -Correct Side, Site, Position -Correct Procedure -Procedure Performed No -Type of Procedure -Clinical Debridement -Tissue Removed -Post Debridement (cm) - Length 2.7 -Post Debridement (cm) - Width 3.5 -Post Debridement (cm) - Depth 0.2 -Total Square (Post) (cm) 9.45 -Area of Debridement (cm) - Length 2.7 -Area of Debridement (cm) - Width 3.5 -Total Square (Area) (cm) 9.45 -Tunneling -Undermining/Tunneling -Circular Undermining -Wound/Ulcer Outcome Not Healed -Ulcer Cleansing -Foul Odor after Cleansing -Bioengineered Tissue -Bleeding Controlled with NA -Treatment Response -Debridement - Subq, 1st 20sq cm #4 L Dorsal foot -Time 11:13 -Correct Patient -Correct Side, Site, Position -Correct Procedure -Procedure Performed -Type of Procedure -Clinical Debridement -Tissue Removed -Post Debridement (cm) - Length 1.2 -Post Debridement (cm) - Width 0.7 -Post Debridement (cm) - Depth 0.1 -Total Square (Post) (cm) 0.84 -Area of Debridement (cm) - Length 1.2 -Area of Debridement (cm) - Width 0.7 -Total Square (Area) (cm) 0.84 -Tunneling -Undermining/Tunneling -Circular Undermining -Wound/Ulcer Outcome Not Healed -Ulcer Cleansing -Foul Odor after Cleansing -Bioengineered Tissue -Bleeding Controlled with NA -Treatment Response -Debridement - Subq, 1st 20sq cm #1 RT GALEANA -Time 11:13 -Correct Patient -Correct Side, Site, Position -Correct Procedure -Procedure Performed No -Type of Procedure -Clinical Debridement -Tissue Removed -Post Debridement (cm) - Length 9.7 -Post Debridement (cm) - Width 8.1 -Post Debridement (cm) - Depth 0.3 -Total Square (Post) (cm) 78.57 -Area of Debridement (cm) - Length 9.7 -Area of Debridement (cm) - Width 8.1 -Total Square (Area) (cm) 78.57 -Tunneling -Undermining/Tunneling -Circular Undermining -Wound/Ulcer Outcome Not Healed -Ulcer Cleansing -Foul Odor after Cleansing -Bioengineered Tissue -Injectable Lidocaine w/ Epi (%) -Injectable Lidocaine w/ Epi (mls) -Bleeding Controlled with NA -Treatment Response -Debridement - Muscle / Fascia, 1st 20sq cm -Debridement, Muscle/Fascia, ea addt'l 20sq cm or part thereof -Wound Comment(s) Pain Scale: 0-10 Numeric Is Patient Pain Free? Yes WC - Nurse 3 - General Ulcer D/C NN Start: 03/19/25 10:21 Freq: Status: Active Protocol: Activity Type Activity Date Activity User E-sign Co-sign Detail Recorded Client Recorded Date Recorded By Document 03/19/25 11:15 ML [id number] 03/19/25 11:21 ML Document 03/26/25 12:09 DL [id number] 03/26/25 12:13 DL Document 04/02/25 14:49 DL [id number] 04/02/25 14:51 DL Document 04/16/25 11:42 JF [id number] 04/16/25 11:44 JF 03/19/25 03/26/25 04/02/25 11:15 12:09 14:49 Wound Care Center Nurse 3 #5 LLE MED -Ulcer Cleansing Rinsed/ Rinsed/ Rinsed/ Irrigated with Irrigated with Irrigated with Saline Saline Saline -Foul Odor after Cleansing No No -Primary Dressing Applied Fibracol Plus 4x4 -Other Dressing PT OWN SANTYL Clobetasol clobetasol/ fibricol -Primary Dressing Covered/Secured with Dry Gauze Dry Gauze & Dry Gauze & Roll Gauze, Roll Gauze, Secured with Other Tape -Other Covering Tubigrip -Fibracol Plus 4x4 1 #4 L Dorsal foot -Ulcer Cleansing Rinsed/ Rinsed/ Irrigated with Irrigated with Saline Saline -Foul Odor after Cleansing No No -Other Dressing PT OWN GREGORY Clobetasol/ clobetasol/ MOISTENED fibracol fibracol -Primary Dressing Covered/Secured with Dry Gauze,Dry Dry Gauze & Dry Gauze & Gauze & Roll Roll Gauze, Roll Gauze, Gauze,Secured Secured with Secured with with Tape Tape Tape #1 RT GALEANA -Ulcer Cleansing Soap and Water Rinsed/ Irrigated with Saline -Foul Odor after Cleansing No -Primary Dressing Applied Fibracol Plus 4x4 -Other Dressing Clobetasol/ clobetasol/ fibracol fibracol -Primary Dressing Covered/Secured with Dry Gauze & Dry Gauze & Dry Gauze & Roll Gauze, Roll Gauze, Roll Gauze, Secured with Secured with Secured with Tape Tape Tape -Fibracol Plus 4x4 1 -Wound Comment(s) USED ONLY PT SUPPLIES, APPLYING FOR WOUND VAC BLE -Tubular Bandage Double Layer Double Layer -Size of Tubigrip Used Size E Size E -Size E ($) 4 2 Treatment Response Procedure Procedure Tolerated Well Tolerated Well Pain Scale: 0-10 Numeric Is Patient Pain Free? Yes Yes Yes WC - Visit Discharge Discharge Condition Stable Stable Stable Ambulatory Status Ambulatory, Ambulatory, Ambulatory Walker Walker Transportation Private Auto Private Auto Private Auto Accompanied by Medication Reconcilliation completed & No provided to patient/care provider Clinical Summary of Care Provided Yes Notes: Facility Type Home Health Orders Sent Yes 04/16/25 11:42 Wound Care Center Nurse 3 #5 LLE MED -Ulcer Cleansing Rinsed/ Irrigated with Saline -Foul Odor after Cleansing No -Primary Dressing Applied -Other Dressing gentamycin -Primary Dressing Covered/Secured with Dry Gauze, Secured with Tape -Other Covering -Fibracol Plus 4x4 #4 L Dorsal foot -Ulcer Cleansing Rinsed/ Irrigated with Saline -Foul Odor after Cleansing -Other Dressing gentamycin -Primary Dressing Covered/Secured with Dry Gauze & Roll Gauze, Secured with Tape #1 RT GALEANA -Ulcer Cleansing -Foul Odor after Cleansing -Primary Dressing Applied -Other Dressing gentamycin -Primary Dressing Covered/Secured with Dry Gauze & Roll Gauze, Secured with Tape -Fibracol Plus 4x4 -Wound Comment(s) BLE -Tubular Bandage Double Layer -Size of Tubigrip Used Size E -Size E ($) 4 Treatment Response Pain Scale: 0-10 Numeric Is Patient Pain Free? Yes WC - Visit Discharge Discharge Condition Stable Ambulatory Status Ambulatory, Walker Transportation Private Auto Accompanied by Medication Reconcilliation completed & Yes provided to patient/care provider Clinical Summary of Care Provided Yes Notes: patient ambulated without difficulty, walked with a walker to private car with her and will be reporting to the ER for her elevated BP and swelling to legs and left arm. Patient denies SOB or difficulty breathing. Facility Type Orders Sent Assessment/Plan Assessment/Plan (1) Non-pressure chronic ulcer 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: CODE(S): L97.212 - Non-pressure chronic ulcer 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 (2) Non-pressure chronic ulcer of left calf with fat layer exposed: CODE(S): L97.222 - Non-pressure chronic ulcer of left calf with fat layer exposed (3) Non-pressure chronic ulcer of other part of left foot with fat layer exposed: CODE(S): L97.522 - Non-pressure chronic ulcer of other part of left foot with fat layer exposed (4) Lipodermatosclerosis of both lower extremities: CODE(S): M79.3 - Panniculitis, unspecified (5) Bilateral edema of lower extremity: CODE(S): R60.0 - Localized edema (6) Venous insufficiency (chronic) (peripheral): CODE(S): I87.2 - Venous insufficiency (chronic) (peripheral) (7) Lymphedema: CODE(S): I89.0 - Lymphedema, not elsewhere classified (8) Necrobiosis lipoidica: CODE(S): L92.1 - Necrobiosis lipoidica, not elsewhere classified PLAN: Plan Patient seen and evaluated Nursing took blood pressure today with initial reading at 250/116 with HR 81 and left arm; this was rechecked in the right arm 10 minutes later with pressure 223/130 with HR 69. Measurements were obtained but patient was then instructed to go straight to the ED to manage her blood pressure which has been a constant problem since January 2025. Patient states that she cannot get into family physicians however I am unsure if she is actually taking medication properly. With systemic edema there is concern for heart failure thus also why she was urged to go to the ED today. Predebridement measurement: Medial left fifth digit healed Dorsal second digit PIPJ healed Left medial lower extremity 2.7 cm x 3.5 cm x 0.1 cm Left dorsal lateral foot 1.2 cm x 0.7 cm x 0.1 cm Anterior right lower extremity 9.7 cm x 8.1 cm x 0.3 cm. Debridement was performed today as noted in the clinical panel above. Postdebridement measurement: Medial left fifth digit remains healed Dorsal second digit PIPJ remains healed Left medial lower extremity 2.7 cm x 3.5 cm x 0.1 cm Left dorsal lateral foot 1.2 cm x 0.7 cm x 0.1 cm Anterior right lower extremity 9.7 cm x 8.1 cm x 0.3 cm She has been placed back on course of doxycycline 100 mg twice daily. When previously taken this did aid in improvement of the ulcerative site with less erythema to the wound margin. She also previously completed 4 mg Medrol Dosepak with some improvement noted to the ulcerative sites. Due to this improvement in addition to biopsy results and consultation from dermatology there is suspicion for possible pyoderma gangrenosum of the right lower extremity ulceration site and she was started on topical clobetasol and following 3 days of application on 03/26/25, there is some improvement of the ulcerative appearance with wound margin edges starting to flatten. They have continued applying with good appearance of the wound sites. Discussed with them pyoderma gangrenosum in detail and asked them to continue applying to the other 2 ulceration sites. They voiced understanding of this and will continue application of the topical clobetasol to the left lower extremity ulcerative sites. Her most recent dermatology visit they asked to continue applying the topical clobetasol around the border in addition to applying timolol drops however patient reports worsening with timolol and thus stopped applying. Once she was placed back on doxycycline she was prescribed topical gentamicin ointment for the wound base with clobetasol about the border. They are c ontinuing to follow closely with dermatology. She did not undergo debridement of the site as noted in the clinical panel above due PG. Measurements listed above. She will continue applying topical clobetasol to all ulceration sites per dermatology and follow their treatment guidelines. There is increase in ulceration size of the right lower extremity and left lower extremity versus previous visit. I do feel she continues to worsen despite her treatments due to continued edema versus compliance with wound care instructions per dermatology. All debridements have been stopped for the last 4 weeks and ulceration still continue worsening. LEAS ordered 01/08/25 and she will follow-up with Dr. Valdes following completion of studies. Last visit with Dr. Valdes's office 01/08/2024. Discussed returning with Dr. Valdes's office to schedule venous ablation as this will aid in healing. She previously canceled appointment following discussion with [facility]. She has reestablished care with upcoming vascular procedure on 04/30/25. Venous studies 01/08/25 demonstrate no evidence of DVT bilateral lower extremity. Bilateral great saphenous vein appears competent and compressible segmentally. Positive reflux in the great saphenous vein throughout in addition to the accessory saphenous vein in the calf, positive for reflux in the left common femoral vein, femoral vein, saphenofemoral junction, great saphenous vein throughout and accessory saphenous vein in the calf. LEAS demonstrate no evidence of arterial occlusive disease Discussed continuing to wear compression stocking and utilize lymphedema pumps to aid in decreasing the edema to the lower extremities. She is also to continue to elevate lower extremities at all times of rest to aid in maintaining edema control. She states she cannot perform this as it makes her legs worse and more painful. 03/05/25 Punch biopsy was performed of the right lower extremity ulceration ([id number]) at 2 sites 1 lateral, and 1 medial due to the non-healing status. Pathologist/dermatopathologist report changes consistent with chronic inflammation, peripheral vascular disease, and necrobiosis lipoidica. These changes were discussed with the patient and her today in detail. She was started on oral steroid to aid in treatment and reduction of her inflammation and has completed the 4 mg Medrol Dosepak as directed. Discussed continued follow with dermatology for additional assistance in treating her necrobiosis lipoidica. They did follow-up and while dermatology does agree with this there is also suspicion of pyoderma gangrenosum which she is undergoing treatment for as stated above. Discussed signs and symptoms of infection. Discussed if she notices increasing redness around the ulcerative sites that moves up the leg or onto the foot, if any purulent drainage is noted from wound sites, if increasing foul odor is noted from wound sites, or if she begins to experience fever greater than 101 degree accompanied by nausea, vomiting, chills that these are signs of a progressing infection and she should report to the ED to receive IV antibiotics and for further evaluation. She is understanding of this today. The following work up and care recommendations were made: Dressing: Topical clobetasol to all ulcerative sites bilateral. Dressed with dry sterile dressing. Change daily. Wash: Soap and water Tissue growth optimization: Topical clobetasol Offload: Ensure no rubbing of the digits in shoe gear and to wear toe spacers. Vascular: Updating LEAS, awaiting results. Does have previous venous studies from October 2023 demonstrating positive reflux in great saphenous vein throughout and small saphenous vein throughout and accessory saphenous veins of bilateral lower extremities Edema: Lipodermatosclerosis. Will continue compression stockings and lymphedema pumps. Infection: No signs of infection Pain: May take [id number] Tylenol for any discomfort Host factors: Lipodermatosclerosis, advancing age, PVD complicate healing, and necrobiosis lipoidica and pyoderma gangrenosum. With no debridements that can be performed secondary to her PG and continued worsening of her ulcerative sites it is recommended she continue following with dermatology versus [facility] specialty for possible trial which states dermatology is trying to get her into. At this time she will be released from the wound care center. Will seek ED treatment for elevated BP and systemic edema as stated above. I answered all the patient's questions. To return to the wound healing center in as needed or call sooner if the patient has any questions or concerns.
== END 2025-04-16 14:14 | disposition home or self-care (01) ==
LOC: WC 10:00
PROVIDERS: PCP Internal Medicine; Referring Provider Internal Medicine; Visit Provider Student in an Organized Health Care Education/Training Program
DX: L97.522 Non-pressure chronic ulcer of other part of left foot with fat layer exposed (principal); L97.212 Non-pressure chronic ulcer 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; L97.222 Non-pressure chronic ulcer of left calf with fat layer exposed; I87.2 Venous insufficiency (chronic) (peripheral); R60.0 Localized edema; I89.0 Lymphedema, not elsewhere classified; S80.811S Abrasion, right lower leg, sequela; W50.4 Accidental scratch by another person; L92.1 Necrobiosis lipoidica, not elsewhere classified
CPT/HCPCS: 11042; 11043; 11046; 99213; G0463

== ENCOUNTER 2025-04-16 11:51 | Emergency (ER) | payer MEDICARE, SELFPAY ==
[2025-04-16] VITALS (7 sets, daily range): BP systolic 128–237; BP diastolic 79–102; PULSE 73–109; RESP 14; TEMP 36.1; O2SAT 96–98; BMI 42.8
--- NOTE | 2025-04-16 12:31 | CT_ITS ---
EXAM: NONCONTRAST CT SCAN OF THE HEAD CLINICAL HISTORY: Hypertension COMPARISON: None TECHNIQUE: Serial axial series through the head were obtained without contrast. 2-D coronal and sagittal reformats were then obtained. FINDINGS: Brain: There is a 0.9 cm extra-axial calcified meningioma in the left mid parietal region with no significant mass effect, image 33/42. There is no acute large territorial infarct, intracranial hemorrhage, or midline shift. There are atherosclerotic vascular calcifications involving the bilateral carotid siphons. The sella and pineal gland regions appear unremarkable. There is no evidence of cerebellar tonsillar herniation. Ventricles: There is no acute hydrocephalus. Basilar cisterns are patent. Paranasal sinuses: Well-aerated Mastoid air cells: Well-aerated. Calvarium: The bony calvarium is intact. Orbits: The bilateral globes are symmetric, without retrobulbar compressive mass lesion or hemorrhage. CT/Brain/Head without Contrast IMPRESSION: There is a 0.9 cm extra-axial calcified meningioma in the left mid parietal reg ion with no significant mass effect, image 33/42. No acute intracranial pathology. Reading Location: [id number]
--- NOTE | 2025-04-16 12:31 | EKG12_ITS ---
Test Reason : GENERAL Blood Pressure : */* mmHG Vent. Rate : 78 BPM Atrial Rate : 78 BPM P-R Int : 128 ms QRS Dur : 146 ms QT Int : 436 ms P-R-T Axes : 35 54 12 degrees QTcB Int : 497 ms Normal sinus rhythm Right bundle branch block Abnormal ECG Confirmed by ANDRE PEACOCK MD ([id number]), editor news LOVE CARDOSO ([id number]) on 04/20/2025 8:22:25 AM Referred By: Byron Hyde Confirmed By: ANDRE PEACOCK MD
--- NOTE | 2025-04-16 12:34 | VDUE_ITS ---
Reason For Study Reason For Study: Left arm swelling Left Proximal Left jugular vein is spontaneous, widely patent, phasic, with no intraluminal echogenicity noted. Left subclavian vein is spontaneous, widely patent, phasic, with no intraluminal echogenicity noted. Left Arm Left axillary vein is spontaneous, patent, phasic, competent, compressible and demonstrates augmentation. Left brachial vein is compressible. Left cephalic vein is compressible. Left basilic vein is compressible. Left Lower Arm Left radial vein is compressible. Left ulnar vein is compressible. Procedure This was a unilateral left upper extremity venous doppler examination. Exam performed portable in ED. A preliminary report was called and/or faxed to ED. VL/Venous Duplex US, Unilateral Interpretation Summary Deep veins of the left upper extremity are patent and compressible segmentally. There is no evidence of deep vein thrombosis. Superficial veins of the left upper extremity are patent and compressible segme ntally. There is no evidence of superficial vein thrombosis. Ordering Physician: Byron Hyde Referring Physician: Margoth De Anda M.D. Performed By: Latesha Ruelas RVT ???
--- NOTE | 2025-04-16 12:48 | EX.ED.DYSGE1 ---
HPI History of Present Illness Chief Complaint: Hypertension Narrative Narrative: Chief complaint and HPI: HTN. 80-year-old female with past medical history of lymphedema presents for evaluation of HTN. Patient states over the last couple days at doctor's appointment she has been having increased high blood pressure. States she has been checking it at home with SBP in the 200s. States that she was unable to get an appointment with her primary care physician and is yet to have a follow-up with this. States she has no history of hypertension. Patient states she was seen at the wound clinic today for her lymphedema and found to be hypertensive so sent to the emergency department. She denies any headache, vision changes, lightheadedness, chest pain, shortness of breath, nausea, vomiting. Has baseline lower extremity lymphedema. States that she has noticed that her left upper extremity is more swollen than baseline. Denies any injury. Review of systems: See HPI Medications: As listed on the chart Allergies: As listed on the chart PFSH: Per chart Vital signs: As listed on the chart. Reviewed. Physical exam: Gen: A&O x3, NAD Head: Normocephalic, atraumatic Eyes: No sclera icterus, conjunctiva clear ENT: Moist mucous membranes Neck: Trachea midline, No JVD CV: RRR, no murmurs, peripheral edema of the bilateral lower extremities and left upper extremity Resp: Lungs CTA BL, no w/r/c GI: Abd soft, non-distended, non-tender, no r/r/g Musc: Full ROM, no deformity, radial and DP/PT pulses +2 bilaterally Skin: Warm, dry Neuro: Alert, oriented, grossly intact, sensation intact Psych: Cooperative, appropriate mood and affect [facility] Medical History Foot ulcer, left MRSA (methicillin resistant staph aureus) culture positive Home Medications ?Medication ?Instructions ?Recorded ?Last Taken ?Type benzonatate 100 mg capsule 200 mg (2 x 100 mg) PO TID PRN 09/02/21 Unknown Rx cough #30 caps gabapentin 400 mg capsule 400 mg PO TID 09/02/21 Unknown History hydroxychloroquine 200 mg tablet 200 mg PO DAILY 09/02/21 Unknown History (Plaquenil) enalapril maleate 20 mg tablet 20 mg PO DAILY 12/11/23 Unknown History ascorbate calcium (vitamin C) 500 500 mg PO DAILY 01/08/25 Unknown History mg tablet cholecalciferol (vitamin D3) 10 10 mcg PO DAILY 01/08/25 Unknown History mcg (400 unit) capsule hydrochlorothiazide 25 mg tablet 25 mg PO DAILY 01/08/25 Unknown History pentoxifylline 400 mg 400 mg PO DAILY 01/08/25 Unknown History tablet,extended release zinc gluconate 10 mg lozenges 10 mg PO DAILY 01/08/25 Unknown History doxycycline hyclate 100 mg tablet 100 mg PO BID #20 tabs 01/29/25 Unknown Rx mupirocin 2 % topical ointment 1 applic topical BID MRSA 01/29/25 Unknown Rx infection #15 grams furosemide 20 mg tablet (Lasix) 20 mg PO DAILY 3 days #3 tabs 04/16/25 Unknown Rx metoprolol succinate 25 mg 25 mg PO DAILY 30 days #30 tabs 04/16/25 Unknown Rx tablet,extended release 24 hr Allergy/AdvReac Type Severity Reaction Status Date / Time Penicillins Allergy Intermediate Hives Verified 04/16/25 11:51 Family History Other Breast cancer Cancer Surgical History H/O lumpectomy Social History Smoking Status: Never smoker EXAM Physical Exam Const Vital Signs: 04/16/25 11:51 04/16/25 12:21 04/16/25 12:22 Temperature 97 F L Temperature Source Temporal Pulse Rate 73 75 Respiratory Rate 14 Respiratory Effort Normal Non-Labored Respiratory Pattern Normal Blood Pressure 237/99 H 221/99 H Blood Pressure Mean 145 139 Pulse Ox 98 96 Oxygen Delivery Method Room Air Room Air 04/16/25 13:08 04/16/25 13:30 04/16/25 14:01 Temperature Temperature Source Pulse Rate 101 H 109 H Respiratory Rate Respiratory Effort Respiratory Pattern Blood Pressure 177/85 H 128/91 H 172/79 H Blood Pressure Mean 115 103 110 Pulse Ox 97 98 Oxygen Delivery Method Room Air Room Air 04/16/25 15:46 Temperature Temperature Source Pulse Rate Respiratory Rate Respiratory Effort Respiratory Pattern Blood Pressure 186/88 H Blood Pressure Mean 120 Pulse Ox Oxygen Delivery Method MDM MDM MDM Narrative Medical decision making narrative: 80-year-old female with past medical history of lymphedema presents for evaluation of HTN. Patient states she has been having increased blood pressure over several weeks. At home her SBP has been in the 200s. She is currently asymptomatic. Was sent in by wound clinic. States she has no history of hypertension or CHF. On chart review however she is on enalapril and hydrochlorothiazide. On presentation, SBP in the 230s. She also endorses left upper extremity edema over the past several days. Differential diagnosis includes but is not limited to hypertension urgency, hypertension emergency, hemorrhagic stroke, electrolyte abnormality, DVT, CHF. HTN workup ordered including venous duplex ultrasound of the left upper extremity. Hydralazine ordered for HTN. EKG and chest x-ray reviewed see below. CBC without leukocytosis. Patient has a new anemia with hemoglobin of 10.2. In February her hemoglobin was 12. She has new thrombocytosis with a platelet count of 489. Labs in February showed normal platelet function. BMP shows CKD with a BUN of 45 and a creatinine of 1.5. Patient's BUN in February was 45. Creatinine was 1.24. Troponin 52 and 49. Patient not endorsing any chest pain. She has no acute ischemic changes on EKG. Her BNP is 9242. I suspect her troponin elevation is multifactorial including CKD, elevated BNP/CHF, HTN. On chart review, patient had a echocardiogram in August 2023 that showed an EF of 65%. CT of the brain shows a 0.9 cm calcified meningioma on the left mid parietal region with no significant mass effect, needs followed up with this outpatient. Venous duplex ultrasound left upper extremity negative for DVT. On chart review, patient is still asymptomatic. Her blood pressure has improved. Her and her family members were extensively updated on her results. Given that patient has new suspected CHF, hospitalist service was consulted and I spoke with Dr. Lopez. Agrees that elevated troponin is likely secondary to CKD and CHF. Given that patient is not hypoxic and is asymptomatic recommended IV Lasix and discharged home on Lasix. Follow-up outpatient. Does not warrant admission. I spoke with the on-call provider for the patient's PCP, Dr. Nielsen. Patient was discussed as well as results. On her chart review, patient does have a history of hypertension. No true diagnosis of CHF however patient has been on Lasix in the past, may be HFpEF. Patient did have an echocardiogram performed in February with an EF of 58%. Agrees with the plan to discharge home and follow-up in their office in the next several days. Antihypertensives were discussed and we both agree on metoprolol XL 25 mg. First dose will be given today. She is to monitor her blood pressure at home. She agree with the 20 mg of Lasix p.o. at home x 3 days. She would like me to hold off on ordering an echocardiogram outpatient and instead they will see her in the office first. Patient was updated of all the results and the plan. She confirmed understanding. Return precautions explained. Patient stable to discharge home. EKG: Interpreted by me/EM physician: EKG shows normal sinus rhythm with right bundle branch block. Heart rate 78 no acute ischemic changes Diagnostic: Interpreted by me/EM physician: Chest x-ray shows cardiomegaly with mild vascular congestion. No large effusion. No pneumonia, pneumothorax. Radiology in agreement. Impression: 1. HTN, history of HTN 2. Elevated BNP, suspect HFpEF 3. History of lymphedema 4. Anemia 5. Thrombocytosis 6. CKD Lab Data Labs: Laboratory Results - last 24 hr 04/16/25 04/16/25 12:40 14:25 WBC 7.0 RBC 3.34 L Hgb 10.2 L Hct 30.5 L MCV 91.3 MCH 30.5 MCHC 33.4 RDW Std Deviation 44.2 H RDW Coeff of Lavinia 13.4 Plt Count 489 H MPV 8.9 Immature Gran % (Auto) 0.100 Neut % (Auto) 82.1 H Lymph % (Auto) 8.9 L Blanco % (Auto) 7.5 Eos % (Auto) 1.0 Baso % (Auto) 0.4 Absolute Neuts (auto) 5.7 Absolute Lymphs (auto) 0.62 L Nucleated RBC % 0 Sodium 140 Potassium 4.6 Chloride 107 Carbon Dioxide 22.8 Anion Gap 11 BUN 54 H Creatinine 1.50 H Estim Creat Clear Calc 35.42 L Est GFR (MDRD) Non-Af 35 L BUN/Creatinine Ratio 35.9 H Glucose 96 Calcium 9.1 Troponin T High Sens 52 H 49 H NT pro BNP II 9242 H Radiography Diagnostic Testing: Clinical Impression(s) from Imaging Studies Brain CT 04/16/25 12:31 IMPRESSION: There is a 0.9 cm extra-axial calcified meningioma in the left mid parietal region with no significant mass effect, image 33/42. No acute intracranial pathology. Reading [facility] Venous Doppler Study 04/16/25 12:34 Interpretation Summary Deep veins of the left upper extremity are patent and compressible segmentally. There is no evidence of deep vein thrombosis. Superficial veins of the left upper extremity are patent and compressible segmentally. There is no evidence of superficial vein thrombosis. Ordering Physician: Byron Hyde Referring Physician: Margoth De Anda M.D. Performed By: Latesha Ruelas RVT ??? Chest X-Ray 04/16/25 13:35 IMPRESSION: Mild cardiomegaly. Small bilateral pleural effusions and bibasilar atelectasis superimposed on mild CHF. Reading Location: [facility] Discharge Plan Triage Chief Complaint: Hypertension ED Provider: Byron Hyde Dx/Rx/DC Orders Clinical Impression: HTN (hypertension), CHF (congestive heart failure), Lymphedema Instructions: Heart Failure Dc, Hypertension Dc, ED Lymphedema Prescriptions: New metoprolol succinate 25 mg tablet extended release 24 hr 25 mg PO DAILY 30 Days Qty: 30 0RF Rx Instructions: Start on 04/17/2025 furosemide [Lasix] 20 mg tablet 20 mg PO DAILY 3 Days Qty: 3 0RF Rx Instructions: Start on 04/17/2025 No Action gabapentin 400 mg capsule 400 mg PO TID hydroxychloroquine [Plaquenil] 200 mg tablet 200 mg PO DAILY benzonatate 100 mg capsule 200 mg PO TID PRN (Reason: cough) Qty: 30 0RF enalapril maleate 20 mg tablet 20 mg PO DAILY hydrochlorothiazide 25 mg tablet 25 mg PO DAILY zinc gluconate 10 mg lozenge 10 mg PO DAILY ascorbate calcium (vitamin C) 500 mg tablet 500 mg PO DAILY cholecalciferol (vitamin D3) 10 mcg (400 unit) capsule 10 mcg PO DAILY pentoxifylline 400 mg tablet extended release 400 mg PO DAILY Rx Instructions: must administer with a meal/food doxycycline hyclate 100 mg tablet 100 mg PO BID Qty: 20 0RF mupirocin 2 % ointment 1 applic topical BID Qty: 15 1RF Primary Care Provider: Margoth De Anda Referrals: Margoth De Anda DO [Primary Care Provider] - 3-5 Days Activity Restrictions/Additional Instructions: Follow-up with your primary care physician. Call tomorrow to make sure that they scheduled your appointment. Return back to the ED if symptoms change or worsen. Monitor your blood pressure closely at home. You received your first dose of Lasix and blood pressure medication here in the emergency department. Take your next dose is tomorrow. You have a meningioma seen on CT of the head. You need to follow-up with this outpatient with your primary care physician. Print Language: German Disposition Disposition: Home, Self Care
[2025-04-16 12:59] LABS: Hematocrit 30.5 % (37-47); Hemoglobin 10.2 g/dL (12.0-15.0); Immature Granulocytes Count 0.010 X10^3/uL (0.0-0.0); Mean Corp Hgb Conc 33.4 g/dL (32-36); Mean Corpuscular Volume 91.3 fL (81-99); Mean Platelet Vol. 8.9 fl (6.2-12.0); NRBC Flagged by Analyzer 0 % (0-5); Platelet Count 489 K/mm3 (150-450); RBC Distribution Width CV 13.4 % (11.6-14.6); RBC Distribution Width SD 44.2 fl (35.1-43.9); Red Blood Count 3.34 M/mm3 (4.2-5.4); White Blood Count 7.0 K/mm3 (4.4-11.0)
[2025-04-16 13:28] LABS: Troponin T High Sensitivity 52 ng/L (<=14)
[2025-04-16 13:30] LABS: Anion Gap 11 (5-15); BUN 54 mg/dL (4-19); BUN/Creat Ratio 35.9 RATIO (10-20); Calcium,Total 9.1 mg/dL (7.6-11.0); Carbon Dioxide 22.8 mmol/L (21.0-32.0); Chloride 107 mmol/L (98-108); Estimated Creatinine Clearance 35.42 ml/min (50-250); Glucose 96 mg/dL (70-99); Potassium 4.6 mmol/L (3.3-5.1); Pro- Brain NATRIURETIC PEPTIDE 9242 pg/mL (<=1800)
--- NOTE | 2025-04-16 13:35 | RAD_ITS ---
PROCEDURE: CHEST PA AND LATERAL 04/16/2025 REASON FOR EXAM: HTN TECHNIQUE: CHEST PA AND LATERAL COMPARISON: None FINDINGS: Hardware: EKG electrodes are seen. Heart: Mild cardiomegaly. Mediastinum: Tortuosity of the descending thoracic aorta. Lungs: Small bilateral effusions with bibasilar atelectasis and mild degree of CHF. Bones: Degenerative changes are identified within the thoracic spine. RAD/Chest PA and Lateral IMPRESSION: Mild cardiomegaly. Small bilateral pleural effusions and bibasilar atelectasis superimposed on mil d CHF. Reading Location: [id number]
[2025-04-16 15:06] LABS: Troponin T High Sensitivity 49 ng/L (<=14)
[2025-04-16] MEDS: Furosemide 20 MG/2 ML VIAL IV (15:44)
[2025-04-16] MEDS: Metoprolol(XL)Succ 25 MG Tablet PO (16:19)
== END 2025-04-16 16:32 | disposition home or self-care (01) ==
PROVIDERS: Emergency Provider Surgery; PCP Internal Medicine; Referring Provider Surgery; Visit Provider Surgery
DX: I13.0 Hypertensive heart and chronic kidney disease with heart failure and stage 1 through stage 4 chronic kidney disease, or unspecified chronic kidney disease (principal); I50.9 Heart failure, unspecified; N18.9 Chronic kidney disease, unspecified; Z79.899 Other long term (current) drug therapy; R79.89 Other specified abnormal findings of blood chemistry; D64.9 Anemia, unspecified; I89.0 Lymphedema, not elsewhere classified; D75.839 Thrombocytosis, unspecified; M79.89 Other specified soft tissue disorders
CPT/HCPCS: 70450; 71046; 80048; 83880; 84484; 85025; 93005; 93971; 96374; 96375; 99283; A4216; J1938; J2405

== ENCOUNTER → 2025-04-21 | Outpatient (CLI) | payer MEDICARE, SELFPAY ==
[2025-04-21 19:10] LABS: Ferritin 140 ng/mL (22-378); Iron 41 ug/dL (50-170); Iron Binding Capacity,Unsat 173 ug/dL (228-428); LDH 270 U/L (84-246); Vitamin B12 645 pg/mL (180-914)
[2025-04-21 19:55] LABS: Iron Binding Capacity,Total 214 ug/dL (250-450)
[2025-04-21 20:33] LABS: Hematocrit 29.0 % (37-47); Hemoglobin 9.3 g/dL (12.0-15.0); Immature Granulocytes Count 0.020 X10^3/uL (0.0-0.0); Immature Reticulocyte Fraction 7.70 % (3.00-15.90); Mean Corp Hgb Conc 32.1 g/dL (32-36); Mean Corpuscular Volume 94.2 fL (81-99); Mean Platelet Vol. 11.2 fl (6.2-12.0); NRBC Flagged by Analyzer 0 % (0-5); Platelet Count 181 K/mm3 (150-450); RBC Distribution Width CV 13.9 % (11.6-14.6); RBC Distribution Width SD 47.9 fl (35.1-43.9); Red Blood Count 3.08 M/mm3 (4.2-5.4); Reticulocyte Count 1.57 % (0.5-1.5); White Blood Count 7.2 K/mm3 (4.4-11.0)
[2025-04-21 21:24] LABS: FOLATES,SERUM (FOLIC ACID) 9.30 ng/mL (4.60-34.80)
[2025-04-24 17:08] LABS: PROEL- A/G Ratio 1.4 (0.7-1.7); PROEL- Albumin 3.0 g/dL (2.9-4.4); PROEL- Alpha-1 Globulin 0.3 g/dL (0.0-0.4); PROEL- Alpha-2 Globulin 0.6 g/dL (0.4-1.0); PROEL- Beta Globulin 0.7 g/dL (0.7-1.3); PROEL- Gamma Globulin 0.4 g/dL (0.4-1.8); PROEL- Globulin, Total 2.1 g/dL (2.2-3.9); PROEL- TOTAL PROTEIN 5.1 g/dL (6.0-8.5); PROEL-M-Spike 0.1 g/dL (Not Observed); PROELU- Albumin, Urine 79.2 % (.); PROELU- Alpha-1-Globulin,Ur 0.5 % (.); PROELU- Alpha-2-Globulin,Ur 4.0 % (.); PROELU- Beta Globulin, Ur 8.6 % (.); PROELU- Gamma Globulin, Ur 7.7 % (.); Total Protein, Ur 58.9 mg/dL (Not Estab.)
== END | disposition home or self-care (01) ==
LOC: MTLAB 14:31
PROVIDERS: PCP Internal Medicine; Referring Provider Internal Medicine; Visit Provider Internal Medicine
DX: D64.9 Anemia, unspecified (principal)
CPT/HCPCS: 36415; 82607; 82728; 82746; 83010; 83540; 83550; 83615; 84165; 84166; 85025; 85045; 86880

== ENCOUNTER → 2025-04-23 | Outpatient (CLI) | payer MEDICARE, SELFPAY | END | disposition home or self-care (01) | LOC: MTLAB 13:52 | PROVIDERS: PCP Internal Medicine; Referring Provider Internal Medicine; Visit Provider Internal Medicine | DX: D64.9 Anemia, unspecified (principal) | CPT/HCPCS: 82274 ==

== ENCOUNTER → 2025-04-30 | Day surgery (SDC) | payer MEDICARE, SELFPAY ==
[2025-04-29 07:55] VITALS: BMI 38.8
[2025-04-30 08:03] LABS: Hematocrit 26.4 % (37-47); Hemoglobin 8.7 g/dL (12.0-15.0); Mean Corpuscular Volume 91.3 fL (81-99); Red Blood Count 2.89 M/mm3 (4.2-5.4); White Blood Count 7.4 K/mm3 (4.4-11.0)
[2025-04-30 08:04] LABS: Mean Corp Hgb Conc 33.0 g/dL (32-36); Mean Platelet Vol. 10.2 fl (6.2-12.0); Platelet Count 222 K/mm3 (150-450); RBC Distribution Width CV 13.3 % (11.6-14.6); RBC Distribution Width SD 44.3 fl (35.1-43.9)
[2025-04-30 08:33] LABS: Anion Gap 11 (5-15); BUN 79 mg/dL (4-19); BUN/Creat Ratio 48.2 RATIO (10-20); Calcium,Total 9.2 mg/dL (7.6-11.0); Carbon Dioxide 23.4 mmol/L (21.0-32.0); Chloride 106 mmol/L (98-108); Estimated Creatinine Clearance 29.53 ml/min (50-250); Glucose 102 mg/dL (70-99); Potassium 4.6 mmol/L (3.3-5.1)
== END | disposition home or self-care (01) ==
PROVIDERS: PCP Internal Medicine; Referring Provider Surgery Trauma Surgery; Visit Provider Surgery Trauma Surgery
DX: I87.2 Venous insufficiency (chronic) (peripheral) (principal); L97.919 Non-pressure chronic ulcer of unspecified part of right lower leg with unspecified severity; Z53.8 Procedure and treatment not carried out for other reasons
CPT/HCPCS: 36415; 80048; 85027